=== PATIENT | female | born 1955 | race Caucasian/White ===

== ENCOUNTER → 2018-12-17 13:17 | Outpatient (CLI) | payer OTHER, SELFPAY | PROVIDERS: Family Provider Internal Medicine; PCP Internal Medicine; Visit Provider Internal Medicine | DX: M85.852 Other specified disorders of bone density and structure, left thigh (principal); E07.9 Disorder of thyroid, unspecified; Z78.0 Asymptomatic menopausal state | CPT/HCPCS: 77080 ==

== ENCOUNTER → 2019-10-08 15:25 | Outpatient (CLI) | payer OTHER, SELFPAY ==
--- NOTE | 2019-10-08 | DI.MG.S_ITS ---
BILATERAL DIGITAL SCREENING MAMMOGRAM 3D/2D WITH CAD: 10/08/2019 CLINICAL: Routine screening. Family history of breast cancer. Comparison is made to exams dated: 03/06/2018 mammogram, 03/09/2016 mammogram - [facility], and 09/18/2013 mammogram - [facility]. The tissue of both breasts is heterogeneously dense. This may lower the sensitivity of mammography. Current study was also evaluated with a Computer Aided Detection (CAD) system. There are benign calcifications in both breasts. No significant masses, calcifications, or other findings are seen in either breast. There has been no significant interval change. IMPRESSION: There is no mammographic evidence of malignancy. A 1 year screening mammogram is recommended. This exam was interpreted at Station ID: [id number]. NOTE: For mammograms, a report in lay terms will be sent to the patient. Approximately 15% of breast malignancies will not be visualized mammographically. In the management of a palpable breast mass, a negative mammogram must not discourage biopsy of a clinically suspicious lesion. Electronically Signed By: Triston oropeza/billy:10/08/2019 16:16:23 letter sent: Normal Exam ACR BI-RADS Category 2: Benign Finding(s) 3342F
== END ==
PROVIDERS: PCP Internal Medicine; Visit Provider Internal Medicine
DX: Z12.31 Encounter for screening mammogram for malignant neoplasm of breast (principal); Z80.3 Family history of malignant neoplasm of breast
CPT/HCPCS: 77063; 77067

== ENCOUNTER → 2019-12-18 19:24 | Outpatient (ROUT) | payer OTHER, SELFPAY ==
[2019-12-18 19:55] LABS: Add Manual Diff / Slide Review NO; Basophils Absolute Auto 100 /uL (0-100); Basophils Percent Auto 1.1 % (0-2); Eosinophils Absolute Auto 100 /uL (0-450); Eosinophils Percent Auto 2.3 % (2-4); Hemoglobin 13.4 g/dL (12.0-16.0); Lymphocytes Absolute Auto 1500 /uL (1100-4500); Lymphocytes Percent Auto 28.6 % (25-40); Mean Corpuscular HGB Conc 33.5 % (30-36); Mean Corpuscular Hemoglobin 31.2 PG (26-34); Mean Corpuscular Volume 93.1 fL (80-100); Monocytes Absolute Auto 500 /uL (0-900); Monocytes Percent Auto 9.8 % (3-14); Neutrophils Absolute Auto 3100 /uL (1500-7000); Neutrophils Percent Auto 58.2 % (50-75); Platelet Count 245 X10^3/uL (150-400); Red Cell Distribution Width 13.5 % (11.6-14.8); White Blood Cell Count 5.3 X10^3/uL (4.5-11.0)
[2019-12-18 20:02] LABS: Alanine Aminotransferase 16 IU/L (<35); Albumin 4.4 g/dL (3.5-5.0); Albumin Globulin Ratio 1.4 (1.0-2.8); Alkaline Phosphatase 69 U/L (38-126); Aspartate Aminotransferase 24 IU/L (14-36); BUN Creatinine Ratio 34.3 (6-22); Bilirubin Total 0.3 mg/dL (0.2-1.3); Blood Urea Nitrogen 24 mg/dL (7-17); C-Reactive Protein Quant < 0.5 mg/dL (<1.0); Calcium 9.9 mg/dL (8.4-10.2); Carbon Dioxide 29 mmol/L (22-32); Chloride 102 mmol/L (98-107); Cholesterol 212 mg/dL (140-199); Estimated Glomerular Filt Rate > 60.0 mL/min (>60); Globulin 3.2 g/dL (1.7-4.1); Glucose 85 mg/dL (80-110); HDL Cholesterol 78 mg/dL (40-60); HEMOLYSIS < 15 (0-50); LDL Cholesterol Calculated 108 mg/dL (<100); Potassium 4.4 mmol/L (3.4-5.1); Sodium 140 mmol/L (137-145); Total Protein 7.6 g/dL (6.3-8.2); Triglycerides 131 mg/dL (35-150)
[2019-12-18 20:30] LABS: TSH w/ Reflex to FT4 1.94 uIU/mL (0.47-4.68)
[2019-12-18 20:42] LABS: Erythrocyte Sedimentation Rate 7 MM/HR (0-20)
== END ==
PROVIDERS: PCP Internal Medicine; Visit Provider Internal Medicine
DX: Z00.00 Encounter for general adult medical examination without abnormal findings (principal); R53.83 Other fatigue; M35.3 Polymyalgia rheumatica
CPT/HCPCS: 80053; 80061; 84443; 85025; 85651; 86140

== ENCOUNTER → 2020-08-29 14:03 | Outpatient (CLI) | payer MEDICARE, SELFPAY ==
[2020-08-30 15:10] LABS: COVID19 Sendout Not Detected (Not Detect)
== END ==
PROVIDERS: PCP Internal Medicine; Visit Provider Physician Assistant
DX: Z01.812 Encounter for preprocedural laboratory examination (principal)
CPT/HCPCS: 87635

== ENCOUNTER 2020-09-01 08:32 | Day surgery (SDC) | payer MEDICARE, SELFPAY ==
--- NOTE | 2020-09-01 | PATH_ITS ---
[facility] Accession Number: [id number] . 01 Material submitted: . colon - ASCENDING COLON POLYP . 02 Diagnosis: Ascending Colon, Polyp, Biopsy: Sessile serrated adenoma. [facility] 09/06/2020 1256 Local . 02 Electronically signed: . Teressa Mckenna MD, Pathologist NPI- [id number] . 01 Gross description: . The specimen is received in formalin, labeled ascending colon polyp and consists of a 0.4 x 0.3 x 0.2 cm chairez fragment of soft tissue, which is entirely submitted in cassette A1. ([id number]) /[facility] 09/02/2020 1737 Local . 02 Pathologist provided ICD-10: D12.2 . 02 CPT . 256803 Performed at: 01 [facility] [address] [id number] MD Pro Palma MD Phone: [phone] Performed at: 02 [facility] [address] [place], [place] [id number] MD Teressa Mckenna MD Phone: [phone]
[2020-09-01 08:56] VITALS: BP 100/54; PULSE 62; RESP 16; TEMP 36.3; O2SAT 95; BMI 28.4
[2020-09-01] MEDS: SODIUM CHLORIDE 0.9% 1,000 ML 84 ML IV (09:06)
--- NOTE | 2020-09-01 09:42 | PM.PREOP ---
Pre-operative Note COVID-19 COVID-19 status: Negative Interval Note History & Physical reviewed/Exam performed by Physician: Yes Changes to H&P: No ASA Class (for procedural sedation): II
[2020-09-01] MEDS: MIDAZOLAM 5 MG/5 ML VIAL IV (09:49)
[2020-09-01] MEDS: fentaNYL 250 MCG/5 ML INJ IV (09:49)
--- NOTE | 2020-09-01 10:09 | PM.OP.ENDO ---
Operative Date/Time/Diagnoses Date of procedure: 09/01/20 Procedure & Clinicians Study performed: Colonoscopy with forceps polypectomy Moderate conscious sedation was administered by the endoscopy nurse and supervised by the endoscopist. The following parameters were monitored: Oxygen saturation, heart rate, blood pressure, and response to care. 4 mg midazolam and 100 mg fentanyl given. Same procedure as scheduled: Yes Indications: Personal history of colon polyps. Last colonoscopy was approximately 6 years ago. Procedure Notes Procedure in detail: Prior to the procedure, history and physical was performed, and patient medications and allergies were reviewed. Preprocedure nursing history and assessment was reviewed. Patient identification and proposed procedure were verified by the physician and nurse in the procedure room. The physical status of the patient was reassessed after the procedure. After informed consent was obtained including risks, benefits, and alternatives, the scope was passed under direct vision. Throughout the procedure, the patient's blood pressure, pulse, and oxygen saturations were monitored continuously. The colonoscope was introduced through the anus and advanced to the cecum as identified by the appendiceal orifice and ileocecal valve. The patient tolerated the procedure well. Bowel prep was deemed adequate to detect polyps greater than 5 mm. Perianal and digital rectal examination is unremarkable. Retroflexion in the rectum was unrevealing A few scattered small diverticuli were noted in the sigmoid colon A 2 mm sessile polyp was removed from the ascending colon with forceps and retrieved Impression: Sigmoid colon diverticulosis 2 mm ascending colon polyp removed Sedation minutes: 18 Complications: other (EBL minimal. no complications) Post-procedure Plan for aftercare: Follow-up pathology results Repeat colonoscopy in 5 years for screening purposes based on pathology results High fiber diet Resume home medications Patient has a contact number available for emergencies. The signs and symptoms of potential delayed complications were discussed with the patient. Return to normal activities tomorrow. Written discharge instructions were provided to the patient. Discharge home with escort
[2020-09-01 10:12] VITALS: BP 105/38; PULSE 67; RESP 12; TEMP 36.4; O2SAT 94
[2020-09-01 10:17] VITALS: BP 96/40; PULSE 56; RESP 17; TEMP 36.4; O2SAT 93
[2020-09-01 10:23] VITALS: BP 103/49; PULSE 62; RESP 15; TEMP 36.4; O2SAT 96
[2020-09-01 10:25] VITALS: BP 111/53; PULSE 59; RESP 16; TEMP 36.4; O2SAT 94
[2020-09-01 10:50] VITALS: BP 105/65; PULSE 54; RESP 16; TEMP 36.8; O2SAT 95
--- NOTE | 2020-09-01 11:24 | SUR.PHASEII ---
Pt arrived from PACU, wanted to rest and wake up. Allowed to rest in Phase II for about 15 min and then began d/c process.
--- NOTE | 2020-09-01 13:24 | P.HP_ITS ---
History of Present Illness History of Present Illness Chief complaint: [facility] Patient History Family & Social History Social History: household members spouse Tobacco & Substance use: Smoking Status Never smoker alcohol intake frequency 0-2 drinks per day Substance Use Type does not use Meds Home Medications and Allergies Home Medications Medication Instructions Recorded Confirmed Type glucosamine sulfate [Genicin] 500 mg PO Q DAY #0 12/12/16 09/01/20 History aspirin 81 mg PO QDAY #0 01/02/17 09/01/20 History fluoxetine 20 mg PO DAILY 09/01/20 09/01/20 History levothyroxine 88 mcg PO DAILY 09/01/20 09/01/20 History Allergies Allergy/AdvReac Type Severity Reaction Status Date / Time latex [LATEX] Allergy Severe Blister Verified 09/01/20 08:45 adhesive Allergy Intermediate Rash Verified 09/01/20 08:47 rivaroxaban [From Xarelto] Allergy Intermediate Verified 09/01/20 08:47 tramadol Allergy Intermediate Vomiting Verified 09/01/20 08:47 Review of Systems Review of Systems ROS: Yes All systems reviewed with the patient and are negative except as otherwise documented Exam Vital Signs (past 8 hours): - 09/01/20 08:56 09/01/20 10:12 09/01/20 10:17 Temperature 97.3 F L 97.5 F L 97.5 F L Pulse Rate 62 67 56 L Respiratory Rate 16 12 17 Blood Pressure 100/54 L 105/38 L 96/40 L Pulse Oximetry 95 94 93 09/01/20 10:23 09/01/20 10:25 09/01/20 10:50 Temperature 97.6 F 97.6 F 98.2 F Pulse Rate 62 59 L 54 L Respiratory Rate 15 16 16 Blood Pressure 103/49 L 111/53 L 105/65 Pulse Oximetry 96 94 95 Oxygen Delivery Method Room Air Oxygen Flow Rate 0 Narrative Exam Narrative: Awake alert and oriented x3, pupils equal round reactive to light, oropharynx clear, heart regular rate and rhythm, lungs clear to auscultation bilaterally, abdomen nontender and nondistended, extremities without edema, no gross neurologic deficits noted Assessment & Plan Assessment & Plan narrative: Colon cancer screening for colonoscopy COVID-19 COVID-19 status: Negative
== END 2020-09-01 11:00 | disposition home or self-care (01) ==
PROVIDERS: PCP Internal Medicine; Referring Provider Internal Medicine; Visit Provider Internal Medicine
PROC: 0DJD8ZZ Inspection of Lower Intestinal Tract, Via Natural or Artificial Opening Endoscopic (ICD-10-PCS; CPT 45378; principal; 2020-09-01 09:30)
DX: Z12.11 Encounter for screening for malignant neoplasm of colon (principal); D12.2 Benign neoplasm of ascending colon; K57.30 Diverticulosis of large intestine without perforation or abscess without bleeding; Z86.010 Personal history of colon polyps; Z83.71 Family history of colonic polyps
CPT/HCPCS: 45380; J2250; J3010

== ENCOUNTER → 2020-12-09 16:32 | Outpatient (CLI) | payer MEDICARE, SELFPAY ==
[2020-12-09] MEDS: COVID-19 VACC #1, MRNA(MOD) 100 MCG/0.5 ML VIAL IM (16:45)
== END ==
PROVIDERS: PCP Internal Medicine; Visit Provider Internal Medicine
DX: Z23 Encounter for immunization (principal)
CPT/HCPCS: 0011A; 91301

== ENCOUNTER → 2020-12-22 20:34 | Outpatient (ROUT) | payer MEDICARE, SELFPAY ==
[2020-12-22 20:54] LABS: Alanine Aminotransferase 16 IU/L (<35); Albumin 4.2 g/dL (3.5-5.0); Albumin Globulin Ratio 1.4 (1.0-2.8); Alkaline Phosphatase 74 U/L (38-126); Aspartate Aminotransferase 26 IU/L (14-36); Bilirubin Total 0.2 mg/dL (0.2-1.3); Blood Urea Nitrogen 22 mg/dL (7-17); Calcium 9.8 mg/dL (8.4-10.2); Carbon Dioxide 32 mmol/L (22-32); Chloride 102 mmol/L (98-107); Cholesterol 178 mg/dL (140-199); Estimated Glomerular Filt Rate > 60.0 mL/min (>60); Globulin 2.9 g/dL (1.7-4.1); Glucose 91 mg/dL (80-110); HDL Cholesterol 50 mg/dL (40-60); HEMOLYSIS < 15 (0-50); LDL Cholesterol Calculated 100 mg/dL (<100); Potassium 4.9 mmol/L (3.4-5.1); Sodium 137 mmol/L (137-145); Total Protein 7.1 g/dL (6.3-8.2); Triglycerides 141 mg/dL (35-150)
[2020-12-22 21:24] LABS: TSH w/ Reflex to FT4 0.72 uIU/mL (0.47-4.68)
[2020-12-22 22:18] LABS: Add Manual Diff / Slide Review NO; Basophils Absolute Auto 100 /uL (0-100); Eosinophils Absolute Auto 100 /uL (0-450); Eosinophils Percent Auto 1.3 % (2-4); Hematocrit 40.9 % (36-46); Hemoglobin 12.9 g/dL (12.0-16.0); Lymphocytes Absolute Auto 1500 /uL (1100-4500); Lymphocytes Percent Auto 23.9 % (25-40); Mean Corpuscular HGB Conc 31.6 % (30-36); Mean Corpuscular Hemoglobin 29.8 PG (26-34); Mean Corpuscular Volume 94.2 fL (80-100); Monocytes Absolute Auto 500 /uL (0-900); Monocytes Percent Auto 7.9 % (3-14); Neutrophils Absolute Auto 4100 /uL (1500-7000); Neutrophils Percent Auto 65.9 % (50-75); Platelet Count 232 X10^3/uL (150-400); Red Blood Cell Count 4.33 X10^6/uL (4.0-5.2); Red Cell Distribution Width 13.2 % (11.6-14.8); White Blood Cell Count 6.2 X10^3/uL (4.5-11.0)
== END ==
PROVIDERS: PCP Internal Medicine; Visit Provider Internal Medicine
DX: E55.9 Vitamin D deficiency, unspecified (principal); R42 Dizziness and giddiness; E03.9 Hypothyroidism, unspecified; E78.2 Mixed hyperlipidemia
CPT/HCPCS: 80053; 80061; 82306; 84443; 85025

== ENCOUNTER → 2020-12-27 15:32 | Outpatient (CLI) | payer MEDICARE, SELFPAY ==
--- NOTE | 2020-12-27 15:37 | DI.MG.S_ITS ---
BILATERAL DIGITAL SCREENING MAMMOGRAM 3D/2D WITH CAD: 12/27/2020 CLINICAL: Routine screening. Family history of breast cancer. Comparison is made to exams dated: 10/08/2019 mammogram, 03/06/2018 mammogram, and 03/09/2016 mammogram - [facility]. The tissue of both breasts is heterogeneously dense. This may lower the sensitivity of mammography. Current study was also evaluated with a Computer Aided Detection (CAD) system. There are benign calcifications in both breasts. No significant masses, calcifications, or other findings are seen in either breast. There has been no significant interval change. IMPRESSION: BENIGN There is no mammographic evidence of malignancy. A 1 year screening mammogram is recommended. This exam was interpreted at Station ID: [id number]. NOTE: For mammograms, a report in lay terms will be sent to the patient. Approximately 15% of breast malignancies will not be visualized mammographically. In the management of a palpable breast mass, a negative mammogram must not discourage biopsy of a clinically suspicious lesion. Electronically Signed By: Pro daley/billy:12/27/2020 16:01:40 letter sent: Normal Exam ACR BI-RADS Category 2: Benign Finding(s) 3342F
== END ==
PROVIDERS: PCP Internal Medicine; Referring Provider Internal Medicine; Visit Provider Internal Medicine
DX: Z12.31 Encounter for screening mammogram for malignant neoplasm of breast (principal); Z80.3 Family history of malignant neoplasm of breast
CPT/HCPCS: 77063; 77067

== ENCOUNTER → 2021-01-06 15:58 | Outpatient (CLI) | payer MEDICARE, SELFPAY ==
[2021-01-06] MEDS: COVID-19 VACC #2, MRNA(MOD) 100 MCG/0.5 ML VIAL IM (16:07)
== END ==
PROVIDERS: PCP Internal Medicine; Visit Provider Internal Medicine
DX: Z23 Encounter for immunization (principal)
CPT/HCPCS: 0012A; 91301

== ENCOUNTER → 2021-08-22 14:44 | Outpatient (CLI) | payer MEDICARE, SELFPAY ==
--- NOTE | 2021-08-22 | DI.RAD.S_ITS ---
PROCEDURE: XR SHOULDER LT MIN 2V INDICATIONS: ROTATOR CUFF TENDONITIS TECHNIQUE: 3 views of the shoulder were acquired. COMPARISON: [facility] [place], CR, XR SHOULDER MIN 2VW RT, 09/22/2015, 14:31. FINDINGS: Bones: No fractures or dislocations. There is mild acromioclavicular joint degeneration. There is slight lateral downsloping of the acromion. No suspicious bony lesions. Visualized ribs appear intact. Soft tissues: No suspicious soft tissue calcifications. IMPRESSION: 1. Mild acromioclavicular joint degeneration. 2. Slight lateral downsloping of the acromion may be associated with rotator cuff pathology. Dictated by: Pro Nelson M.D. on 08/22/2021 at 17:14 Approved by: Pro Nelson M.D. on 08/22/2021 at 17:14
== END ==
PROVIDERS: PCP Internal Medicine; Referring Provider Internal Medicine; Visit Provider Internal Medicine
DX: M75.82 Other shoulder lesions, left shoulder (principal); M19.012 Primary osteoarthritis, left shoulder
CPT/HCPCS: 73030

== ENCOUNTER 2021-09-09 14:30 | Outpatient (RCR) | payer MEDICARE, SELFPAY ==
--- NOTE | 2021-08-23 12:45 | PT.OPPOC ---
Physical, Occupational & Speech Therapy At [facility] Current Diagnoses Pain in left shoulder (08/23/21) Stiffness of left shoulder, not elsewhere classified (08/23/21) Other shoulder lesions, left shoulder (08/23/21) Unspecified injury of muscle(s) and tendon(s) of the rotator cuff of left shoulder, subsequent encounter (08/23/21) Visit Care Team Role Provider Type Balwinder Ocasio MD Primary Care Provider Physician Specialty: Internal Medicine Address: [address] [place] [address] Email: [email or web address] Arnaldo Chow MD Attending Provider Physician Referring Provider Specialty: Internal Medicine Address: [address] [place] [address], [facility] Email: [email or web address] Plan Of Care PT-OP-T Assessment and Plan Start: 08/23/21 17:28 Freq: Status: Active Protocol: Document 08/23/21 12:00 DCW (Rec: 08/23/21 17:48 DCW [id number]) Physical Therapy Assessment Rehab Potential Rehabilitation Potential Good Evaluation Complexity Number of Personal Factors/Comorbidities 1-2 Number of Body Systems Impaired 3 Clinical Presentation at Evaluation Evolving Impairments Impairments Functional Activities, Functional Mobility,Pain,ROM, Strength,Tone Goals Three Impairment Pt unable to don/doff bra independently due to shoulder pain Fdc Goal (LTG) Pt to report ability to hook and unhook her bra without her 's assistance and no increased pain. LTG Duration 10/23/21 Two Impairment Pt experiences catching and popping in left shoulder with overhead activity Fdc Goal (LTG) Pt to demonstrate full ROM with no instances of joint catching or grinding LTG Duration 10/23/21 One Impairment Pt does not have an appropriate home exercise program Short Term Goal (STG) Pt to be independent and compliant with an appropriate HEP STG Duration 09/23/21 Assessment Summary Assessment Pt presents with signs and symptoms consistent with a possible sprain or tear of her left shoulder, potentially the glenoid labrum. Pt's subjective reports of her arm catching and sticking with overhead motion and joint grinding, as well as positive tests including apprehension test, Lopez Humble, empty can, anterior instability, lift-off, and belly press, which can be suggestive of labral involvement. Pt may benefit from skilled therapy including strengthening and improving joint stability, however advanced imaging may be beneficial if pt does not progress to rule in/out a tear or structural damage. Additionally, pt having significant tone throughout left cervical spine and upper trap, most likely protective spasming due to shoulder injury. Physical Therapy Plan Frequency and Duration Frequency of Treatment 2x/Week Duration of Treatment Two months Plan of Care Start Date 08/23/21 Plan of Care End Date 10/23/21 Therapeutic Interventions Therapeutic Interventions Home Exercise Program,Joint Mobilizations,Manual Therapy, Patient/Caregiver Education, Self-Care/Home Management,Soft Tissue Mobilization,Taping, Therapeutic Activities, Therapeutic Exercises Modalities Cold Pack/Ice Massage,Electric Stimulation,Hot Packs, Ultrasound Next Visit Focus/Plan Next Note Type Treatment Note Next Visit Plan Cervical/upper trap STM, L shoulder strengthening, joint stabilization Plan of Care Dates Plan of Care Start Date 08/23/21 Plan of Care End Date 10/23/21 Electronically Signed by: Delfin Rodriguez, PT 08/24/21 [id number] Please Sign and Return: I have reviewed this Plan of Care and certify that the skilled therapy services above are required to meet the patient?s needs. Physician Signature Date Printed Name and Credentials Clinical Instructor Signature Printed Name and Credentials
--- NOTE | 2021-08-23 12:45 | PT.OIE ---
Current Diagnoses Pain in left shoulder (08/23/21) Stiffness of left shoulder, not elsewhere classified (08/23/21) Other shoulder lesions, left shoulder (08/23/21) Unspecified injury of muscle(s) and tendon(s) of the rotator cuff of left shoulder, subsequent encounter (08/23/21) Visit Care Team Role Provider Type Balwinder Ocasio MD Primary Care Provider Physician Specialty: Internal Medicine Address: [address] [place] [address], [id number] Email: [email or web address] Arnaldo Chow MD Attending Provider Physician Referring Provider Specialty: Internal Medicine Address: [address] [place] [address], [address] Email: [email or web address] Physical Therapy Initial Evaluation PT-OP-A Visit Information Start: 08/23/21 17:28 Freq: Status: Active Protocol: Document 08/23/21 12:00 DCW (Rec: 08/23/21 17:32 [facility] [id number]) Out-Patient Physical Therapy Visit Information Visit Information Visit Type Initial Evaluation Visit Start Time 12:00 Visit Stop Time 12:40 Total Visit Minutes 40 Visit Number 1 Number of BARREL RIFLER Visits 0 Evaluation Information Evaluation Date 08/23/21 PT-OP-B Current Condition Start: 08/23/21 17:28 Freq: Status: Active Protocol: Document 08/23/21 12:00 DCW (Rec: 08/23/21 17:53 DC [id number]) Current Condition History of Current Condition Onset Date Two months Current Complaints L shoulder pain History of Current Condition Pt is a 66 year old female presenting with a two month history of left shoulder pain. Pt reports insidious onset, but has been having a lot of pain and popping with random left arm movements, most notably overhead or reaching back. Pt reports she has had to have her hook and unhook her bra. Pt feels the pain is getting worse. Also notes recent increased left neck pain, feels muscles are tight. Pt notes that her arm feels like it gets stuck when lifting overhead. Prior Treatments and Tests L shoulder x-ray: IMPRESSION: 1. Mild acromioclavicular joint degeneration. 2. Slight lateral downsloping of the acromion may be associated with rotator cuff pathology. Per Pro Nelson M.D. on PT-OP-C Subjective Start: 08/23/21 17:28 Freq: Status: Active Protocol: Document 08/23/21 12:00 DCW (Rec: 08/23/21 17:32 DCW [id number]) OP-PT Subjective Patient Comments Patient Comments I'm just not sure what I can do with it. I don't want to get let it go and get worse, but I also don't want to use it and make it worse. Patient Reported Progress Worse Patient Questionnaires Quick Dash- Upper Extremity Quick Dash UE Score 17.5% OP-PT Pain Assessment Pain Assessment Grid Paper Pain Assessment Grid Completed Yes Location Left Shoulder Intensity 6 Scale Used Numeric (0 - 10) Pain Aggravating Factors Activity PT-OP-F Manual Assessment Start: 08/23/21 17:28 Freq: Status: Active Protocol: Document 08/23/21 12:00 DCW (Rec: 08/24/21 15:33 DCW [id number]) Manual Assessments Soft Tissue Assessment Soft Tissue Mobility Assessment General tenderness to palpation along entire left shoulder girdle, increasing tone along left upper trap and cervical paraspinals Joint Mobility Assessment Joint Mobility Assessment Grinding/popping in left shoulder with all movements, especially overhead PT-OP-K Range of Motion Start: 08/23/21 17:28 Freq: Status: Active Protocol: Document 08/23/21 12:00 DCW (Rec: 08/24/21 15:33 DCW [id number]) Shoulder Goniometric Range of Motion Shoulder Left Active Shoulder ROM WFL No Testing Position Sitting Flexion 110 Abduction 180 Internal Rotation Behind Back (text) Left SI joint Comments Pain at end range in all positions Shoulder ROM Limitations Shoulder ROM Limitations Bony Restriction,Muscle Weakness,Pain PT-OP-L Special Tests Start: 08/23/21 17:28 Freq: Status: Active Protocol: Document 08/23/21 12:00 DCW (Rec: 08/24/21 15:33 DCW [id number]) Special Tests Shoulder Special Tests Painful arc Test Results Positive left Passive ER Rotator Cuff Test Results Negative Lift-Off Rotator Cuff Test Results Unable to get left into position Lopez Humble Impingement Test Results Positive left Grind Labrum Test Results Positive left Empty Can Test Results Positive left Clunk Test Test Results Positive left Belly Press Test Results Positive left Apprehension Test Test Results Severely positive left PT-OP-M Strength Start: 08/23/21 17:28 Freq: Status: Active Protocol: Document 08/23/21 12:00 DCW (Rec: 08/24/21 15:33 DCW [id number]) Shoulder Strength Shoulder Manual Muscle Testing Right Flexion 4+ Good+ Abduction (C5) 4+ Good+ External Rotation 4+ Good+ Internal Rotation 4+ Good+ Left Flexion 3 Fair Abduction (C5) 3+ Fair+ External Rotation 4 Good Internal Rotation 4 Good PT-OP-T Assessment and Plan Start: 08/23/21 17:28 Freq: Status: Active Protocol: Document 08/23/21 12:00 DCW (Rec: 08/23/21 17:48 DCW [id number]) Physical Therapy Assessment Rehab Potential Rehabilitation Potential Good Evaluation Complexity Number of Personal Factors/Comorbidities 1-2 Number of Body Systems Impaired 3 Clinical Presentation at Evaluation Evolving Impairments Impairments Functional Activities, Functional Mobility,Pain,ROM, Strength,Tone Goals Three Impairment Pt unable to don/doff bra independently due to shoulder pain Case Management Specialist Goal (LTG) Pt to report ability to hook and unhook her bra without her 's assistance and no increased pain. LTG Duration 10/23/21 Two Impairment Pt experiences catching and popping in left shoulder with overhead activity Case Management Specialist Goal (LTG) Pt to demonstrate full ROM with no instances of joint catching or grinding LTG Duration 10/23/21 One Impairment Pt does not have an appropriate home exercise program Short Term Goal (STG) Pt to be independent and compliant with an appropriate HEP STG Duration 09/23/21 Assessment Summary Assessment Pt presents with signs and symptoms consistent with a possible sprain or tear of her left shoulder, potentially the glenoid labrum. Pt's subjective reports of her arm catching and sticking with overhead motion and joint grinding, as well as positive tests including apprehension test, Lopez Humble, empty can, anterior instability, lift-off, and belly press, which can be suggestive of labral involvement. Pt may benefit from skilled therapy including strengthening and improving joint stability, however advanced imaging may be beneficial if pt does not progress to rule in/out a tear or structural damage. Additionally, pt having significant tone throughout left cervical spine and upper trap, most likely protective spasming due to shoulder injury. Physical Therapy Plan Frequency and Duration Frequency of Treatment 2x/Week Duration of Treatment Two months Plan of Care Start Date 08/23/21 Plan of Care End Date 10/23/21 Therapeutic Interventions Therapeutic Interventions Home Exercise Program,Joint Mobilizations,Manual Therapy, Patient/Caregiver Education, Self-Care/Home Management,Soft Tissue Mobilization,Taping, Therapeutic Activities, Therapeutic Exercises Modalities Cold Pack/Ice Massage,Electric Stimulation,Hot Packs, Ultrasound Next Visit Focus/Plan Next Note Type Treatment Note Next Visit Plan Cervical/upper trap STM, L shoulder strengthening, joint stabilization
--- NOTE | 2021-08-25 12:44 | PT.OTN ---
Current Diagnoses Pain in left shoulder (08/25/21) Stiffness of left shoulder, not elsewhere classified (08/25/21) Other shoulder lesions, left shoulder (08/25/21) Unspecified injury of muscle(s) and tendon(s) of the rotator cuff of left shoulder, subsequent encounter (08/25/21) Physical Therapy Treatment Note PT-OP-A Visit Information Start: 08/23/21 17:28 Freq: Status: Active Protocol: Document 08/25/21 12:04 DCW (Rec: 08/25/21 12:44 DCW [id number]) Out-Patient Physical Therapy Visit Information Visit Information Visit Type Treatment Note Visit Start Time 12:04 Visit Stop Time 12:45 Total Visit Minutes 41 Visit Number 2 Number of FIRE PROTECTION EQUIPMENT TECHNICIAN Visits 0 Evaluation Information Evaluation Date 08/23/21 PT-OP-B Current Condition Start: 08/23/21 17:28 Freq: Status: Active Protocol: Document 08/23/21 12:00 DCW (Rec: 08/23/21 17:53 DCW [id number]) Current Condition History of Current Condition Onset Date Two months Current Complaints L shoulder pain History of Current Condition Pt is a 66 year old female presenting with a two month history of left shoulder pain. Pt reports insidious onset, but has been having a lot of pain and popping with random left arm movements, most notably overhead or reaching back. Pt reports she has had to have her hook and unhook her bra. Pt feels the pain is getting worse. Also notes recent increased left neck pain, feels muscles are tight. Pt notes that her arm feels like it gets stuck when lifting overhead. Prior Treatments and Tests L shoulder x-ray: IMPRESSION: 1. Mild acromioclavicular joint degeneration. 2. Slight lateral downsloping of the acromion may be associated with rotator cuff pathology. Per Pro Nelson M.D. on PT-OP-C Subjective Start: 08/23/21 17:28 Freq: Status: Active Protocol: Document 08/25/21 12:04 DCW (Rec: 08/25/21 12:44 DCW [id number]) OP-PT Subjective Patient Comments Patient Comments Pt unchanged since eval, still very sore with most left arm movements. PT-OP-F Manual Assessment Start: 08/23/21 17:28 Freq: Status: Active Protocol: Document 08/23/21 12:00 DCW (Rec: 08/24/21 15:33 DCW [id number]) Manual Assessments Soft Tissue Assessment Soft Tissue Mobility Assessment General tenderness to palpation along entire left shoulder girdle, increasing tone along left upper trap and cervical paraspinals Joint Mobility Assessment Joint Mobility Assessment Grinding/popping in left shoulder with all movements, especially overhead PT-OP-K Range of Motion Start: 08/23/21 17:28 Freq: Status: Active Protocol: Document 08/23/21 12:00 DCW (Rec: 08/24/21 15:33 DCW [id number]) Shoulder Goniometric Range of Motion Shoulder Left Active Shoulder ROM WFL No Testing Position Sitting Flexion 110 Abduction 180 Internal Rotation Behind Back (text) Left SI joint Comments Pain at end range in all positions Shoulder ROM Limitations Shoulder ROM Limitations Bony Restriction,Muscle Weakness,Pain PT-OP-L Special Tests Start: 08/23/21 17:28 Freq: Status: Active Protocol: Document 08/23/21 12:00 DCW (Rec: 08/24/21 15:33 DCW [id number]) Special Tests Shoulder Special Tests Painful arc Test Results Positive left Passive ER Rotator Cuff Test Results Negative Lift-Off Rotator Cuff Test Results Unable to get left into position Lopez Humble Impingement Test Results Positive left Grind Labrum Test Results Positive left Empty Can Test Results Positive left Clunk Test Test Results Positive left Belly Press Test Results Positive left Apprehension Test Test Results Severely positive left PT-OP-M Strength Start: 08/23/21 17:28 Freq: Status: Active Protocol: Document 08/23/21 12:00 DCW (Rec: 08/24/21 15:33 DCW [id number]) Shoulder Strength Shoulder Manual Muscle Testing Right Flexion 4+ Good+ Abduction (C5) 4+ Good+ External Rotation 4+ Good+ Internal Rotation 4+ Good+ Left Flexion 3 Fair Abduction (C5) 3+ Fair+ External Rotation 4 Good Internal Rotation 4 Good PT-OP-Q Treatments Start: 08/23/21 17:28 Freq: Status: Active Protocol: Document 08/25/21 12:04 DCW (Rec: 08/25/21 12:44 DCW [id number]) Cardio Equipment Upper Body Ergometer (UBE) Duration (Minutes) 5 RPM 60 Seat Position 12 Height 2.5 Therapeutic Exercises Supine Exercises 1 Supine Exercise Name Serratus punch Side bilateral Standing Exercises 3 Standing Exercise Name Shoulder IR/ER Side bilateral Resistance Lv 3 Equipment Used T-band 2 Standing Exercise Name Rows Side bilateral Resistance Lv 3 Equipment Used T-band 1 Standing Exercise Name Shoulder extension Side bilateral Resistance Lv 3 Equipment Used T-band Manual Therapy Treatment Soft Tissue Mobilization 1 Body Location Upper trap, Scalenes, SCM, L>R Joint Mobilizations 1 Joint L GH Direction Inferior Grade III Body Position Supine PT-OP-T Assessment and Plan Start: 08/23/21 17:28 Freq: Status: Active Protocol: Document 08/25/21 12:04 DCW (Rec: 08/25/21 12:44 MNW [id number]) Physical Therapy Assessment Impairments Impairments Functional Activities, Functional Mobility,Pain,ROM, Strength,Tone Goals Three Impairment Pt unable to don/doff bra independently due to shoulder pain Longterm Goal (LTG) Pt to report ability to hook and unhook her bra without her 's assistance and no increased pain. LTG Duration 10/23/21 Two Impairment Pt experiences catching and popping in left shoulder with overhead activity Longterm Goal (LTG) Pt to demonstrate full ROM with no instances of joint catching or grinding LTG Duration 10/23/21 One Impairment Pt does not have an appropriate home exercise program Short Term Goal (STG) Pt to be independent and compliant with an appropriate HEP STG Duration 09/23/21 Assessment Summary Assessment Pt tolerated treatment fairly well, at one point reached back to put her jacket on the back of her chair, which caused significant increased pain, but pt was able to continue therapy with no interference. Physical Therapy Plan Frequency and Duration Frequency of Treatment 2x/Week Duration of Treatment Two months Plan of Care Start Date 08/23/21 Plan of Care End Date 10/23/21 Therapeutic Interventions Therapeutic Interventions Home Exercise Program,Joint Mobilizations,Manual Therapy, Patient/Caregiver Education, Self-Care/Home Management,Soft Tissue Mobilization,Taping, Therapeutic Activities, Therapeutic Exercises Modalities Cold Pack/Ice Massage,Electric Stimulation,Hot Packs, Ultrasound Next Visit Focus/Plan Next Note Type Treatment Note Next Visit Plan Cervical/upper trap STM, L shoulder strengthening, joint stabilization
--- NOTE | 2021-08-31 12:45 | PT.OTN ---
Current Diagnoses Pain in left shoulder (08/31/21) Stiffness of left shoulder, not elsewhere classified (08/31/21) Other shoulder lesions, left shoulder (08/31/21) Unspecified injury of muscle(s) and tendon(s) of the rotator cuff of left shoulder, subsequent encounter (08/31/21) Physical Therapy Treatment Note PT-OP-A Visit Information Start: 08/23/21 17:28 Freq: Status: Active Protocol: Document 08/31/21 12:03 DCW (Rec: 08/31/21 12:45 DCW [id number]) Out-Patient Physical Therapy Visit Information Visit Information Visit Type Treatment Note Visit Start Time 12:03 Visit Stop Time 12:45 Total Visit Minutes 42 Visit Number 3 Number of RESPIRATORY CARE PRACTITIONER Visits 0 Evaluation Information Evaluation Date 08/23/21 PT-OP-B Current Condition Start: 08/23/21 17:28 Freq: Status: Active Protocol: Document 08/23/21 12:00 DCW (Rec: 08/23/21 17:53 DCW [id number]) Current Condition History of Current Condition Onset Date Two months Current Complaints L shoulder pain History of Current Condition Pt is a 66 year old female presenting with a two month history of left shoulder pain. Pt reports insidious onset, but has been having a lot of pain and popping with random left arm movements, most notably overhead or reaching back. Pt reports she has had to have her hook and unhook her bra. Pt feels the pain is getting worse. Also notes recent increased left neck pain, feels muscles are tight. Pt notes that her arm feels like it gets stuck when lifting overhead. Prior Treatments and Tests L shoulder x-ray: IMPRESSION: 1. Mild acromioclavicular joint degeneration. 2. Slight lateral downsloping of the acromion may be associated with rotator cuff pathology. Per Pro Nelson M.D. on PT-OP-C Subjective Start: 08/23/21 17:28 Freq: Status: Active Protocol: Document 08/31/21 12:03 DCW (Rec: 08/31/21 12:45 DCW [id number]) OP-PT Subjective Patient Comments Patient Comments I guess it's a little better. I'm trying so hard to not move it in a particular way that makes it pop. PT-OP-F Manual Assessment Start: 08/23/21 17:28 Freq: Status: Active Protocol: Document 08/23/21 12:00 DCW (Rec: 08/24/21 15:33 DCW [id number]) Manual Assessments Soft Tissue Assessment Soft Tissue Mobility Assessment General tenderness to palpation along entire left shoulder girdle, increasing tone along left upper trap and cervical paraspinals Joint Mobility Assessment Joint Mobility Assessment Grinding/popping in left shoulder with all movements, especially overhead PT-OP-K Range of Motion Start: 08/23/21 17:28 Freq: Status: Active Protocol: Document 08/23/21 12:00 DCW (Rec: 08/24/21 15:33 DCW [id number]) Shoulder Goniometric Range of Motion Shoulder Left Active Shoulder ROM WFL No Testing Position Sitting Flexion 110 Abduction 180 Internal Rotation Behind Back (text) Left SI joint Comments Pain at end range in all positions Shoulder ROM Limitations Shoulder ROM Limitations Bony Restriction,Muscle Weakness,Pain PT-OP-L Special Tests Start: 08/23/21 17:28 Freq: Status: Active Protocol: Document 08/23/21 12:00 DCW (Rec: 08/24/21 15:33 DCW [id number]) Special Tests Shoulder Special Tests Painful arc Test Results Positive left Passive ER Rotator Cuff Test Results Negative Lift-Off Rotator Cuff Test Results Unable to get left into position Lopez Humble Impingement Test Results Positive left Grind Labrum Test Results Positive left Empty Can Test Results Positive left Clunk Test Test Results Positive left Belly Press Test Results Positive left Apprehension Test Test Results Severely positive left PT-OP-M Strength Start: 08/23/21 17:28 Freq: Status: Active Protocol: Document 08/23/21 12:00 DCW (Rec: 08/24/21 15:33 DCW [id number]) Shoulder Strength Shoulder Manual Muscle Testing Right Flexion 4+ Good+ Abduction (C5) 4+ Good+ External Rotation 4+ Good+ Internal Rotation 4+ Good+ Left Flexion 3 Fair Abduction (C5) 3+ Fair+ External Rotation 4 Good Internal Rotation 4 Good PT-OP-Q Treatments Start: 08/23/21 17:28 Freq: Status: Active Protocol: Document 08/31/21 12:03 DCW (Rec: 08/31/21 12:45 DCW [id number]) Cardio Equipment Upper Body Ergometer (UBE) Duration (Minutes) 5 RPM 60 Seat Position 12 Height 2.5 Therapeutic Exercises Sitting Exercises 1 Sitting Exercise Name Pulleys - GH Flexion Standing Exercises 3 Standing Exercise Name Shoulder IR/ER Side bilateral Resistance Lv 3 Equipment Used T-band 2 Standing Exercise Name Rows Side bilateral Resistance Lv 3 Equipment Used T-band 1 Standing Exercise Name Shoulder extension Side bilateral Resistance Lv 3 Equipment Used T-band Manual Therapy Treatment Soft Tissue Mobilization 1 Body Location Upper trap, Scalenes, SCM, L>R Joint Mobilizations 1 Joint L GH Direction Inferior Grade III Body Position Supine PT-OP-T Assessment and Plan Start: 08/23/21 17:28 Freq: Status: Active Protocol: Document 08/31/21 12:03 DCW (Rec: 08/31/21 12:45 DCW [id number]) Physical Therapy Assessment Impairments Impairments Functional Activities, Functional Mobility,Pain,ROM, Strength,Tone Goals Three Impairment Pt unable to don/doff bra independently due to shoulder pain Shelter Goal (LTG) Pt to report ability to hook and unhook her bra without her 's assistance and no increased pain. LTG Duration 10/23/21 Two Impairment Pt experiences catching and popping in left shoulder with overhead activity Shelter Goal (LTG) Pt to demonstrate full ROM with no instances of joint catching or grinding LTG Duration 10/23/21 One Impairment Pt does not have an appropriate home exercise program Short Term Goal (STG) Pt to be independent and compliant with an appropriate HEP STG Duration 09/23/21 Assessment Summary Assessment Pt did note that she occasionally gets vertigo when just sitting around, think it may be associated with her neck pain/tone. Focused mainly on manual work on shoulder and neck. Physical Therapy Plan Frequency and Duration Frequency of Treatment 2x/Week Duration of Treatment Two months Plan of Care Start Date 08/23/21 Plan of Care End Date 10/23/21 Therapeutic Interventions Therapeutic Interventions Home Exercise Program,Joint Mobilizations,Manual Therapy, Patient/Caregiver Education, Self-Care/Home Management,Soft Tissue Mobilization,Taping, Therapeutic Activities, Therapeutic Exercises Modalities Cold Pack/Ice Massage,Electric Stimulation,Hot Packs, Ultrasound Next Visit Focus/Plan Next Note Type Treatment Note Next Visit Plan Cervical/upper trap STM, L shoulder strengthening, joint stabilization
--- NOTE | 2021-09-09 15:17 | PT.OTN ---
Current Diagnoses Pain in left shoulder (09/09/21) Stiffness of left shoulder, not elsewhere classified (09/09/21) Other shoulder lesions, left shoulder (09/09/21) Unspecified injury of muscle(s) and tendon(s) of the rotator cuff of left shoulder, subsequent encounter (09/09/21) Physical Therapy Treatment Note PT-OP-A Visit Information Start: 08/23/21 17:28 Freq: Status: Active Protocol: Document 09/09/21 14:30 DCW (Rec: 09/09/21 15:17 DCW [id number]) Out-Patient Physical Therapy Visit Information Visit Information Visit Type Treatment Note Visit Start Time 14:30 Visit Stop Time 15:00 Total Visit Minutes 30 Visit Number 4 Number of WEB PAGE DEVELOPER Visits 0 Evaluation Information Evaluation Date 08/23/21 PT-OP-B Current Condition Start: 08/23/21 17:28 Freq: Status: Active Protocol: Document 08/23/21 12:00 DCW (Rec: 08/23/21 17:53 DCW [id number]) Current Condition History of Current Condition Onset Date Two months Current Complaints L shoulder pain History of Current Condition Pt is a 66 year old female presenting with a two month history of left shoulder pain. Pt reports insidious onset, but has been having a lot of pain and popping with random left arm movements, most notably overhead or reaching back. Pt reports she has had to have her hook and unhook her bra. Pt feels the pain is getting worse. Also notes recent increased left neck pain, feels muscles are tight. Pt notes that her arm feels like it gets stuck when lifting overhead. Prior Treatments and Tests L shoulder x-ray: IMPRESSION: 1. Mild acromioclavicular joint degeneration. 2. Slight lateral downsloping of the acromion may be associated with rotator cuff pathology. Per Pro Nelson M.D. on PT-OP-C Subjective Start: 08/23/21 17:28 Freq: Status: Active Protocol: Document 09/09/21 14:30 DCW (Rec: 09/09/21 15:17 DCW [id number]) OP-PT Subjective Patient Comments Patient Comments Pt leaving for a trip to [place] Sunday, PT-OP-F Manual Assessment Start: 08/23/21 17:28 Freq: Status: Active Protocol: Document 08/23/21 12:00 DCW (Rec: 08/24/21 15:33 DCW [id number]) Manual Assessments Soft Tissue Assessment Soft Tissue Mobility Assessment General tenderness to palpation along entire left shoulder girdle, increasing tone along left upper trap and cervical paraspinals Joint Mobility Assessment Joint Mobility Assessment Grinding/popping in left shoulder with all movements, especially overhead PT-OP-K Range of Motion Start: 08/23/21 17:28 Freq: Status: Active Protocol: Document 08/23/21 12:00 DCW (Rec: 08/24/21 15:33 DCW [id number]) Shoulder Goniometric Range of Motion Shoulder Left Active Shoulder ROM WFL No Testing Position Sitting Flexion 110 Abduction 180 Internal Rotation Behind Back (text) Left SI joint Comments Pain at end range in all positions Shoulder ROM Limitations Shoulder ROM Limitations Bony Restriction,Muscle Weakness,Pain PT-OP-L Special Tests Start: 08/23/21 17:28 Freq: Status: Active Protocol: Document 08/23/21 12:00 DCW (Rec: 08/24/21 15:33 DCW [id number]) Special Tests Shoulder Special Tests Painful arc Test Results Positive left Passive ER Rotator Cuff Test Results Negative Lift-Off Rotator Cuff Test Results Unable to get left into position Lopez Humble Impingement Test Results Positive left Grind Labrum Test Results Positive left Empty Can Test Results Positive left Clunk Test Test Results Positive left Belly Press Test Results Positive left Apprehension Test Test Results Severely positive left PT-OP-M Strength Start: 08/23/21 17:28 Freq: Status: Active Protocol: Document 08/23/21 12:00 DCW (Rec: 08/24/21 15:33 DCW [id number]) Shoulder Strength Shoulder Manual Muscle Testing Right Flexion 4+ Good+ Abduction (C5) 4+ Good+ External Rotation 4+ Good+ Internal Rotation 4+ Good+ Left Flexion 3 Fair Abduction (C5) 3+ Fair+ External Rotation 4 Good Internal Rotation 4 Good PT-OP-Q Treatments Start: 08/23/21 17:28 Freq: Status: Active Protocol: Document 09/09/21 14:30 DCW (Rec: 09/09/21 15:17 DCW [id number]) Manual Therapy Treatment Soft Tissue Mobilization 2 Body Location Thoracic paraspinals 1 Body Location Upper trap, Scalenes, SCM, L>R Joint Mobilizations 1 Joint L GH Direction Inferior Grade III Body Position Supine Manual Traction Cervical Body Position Supine PT-OP-T Assessment and Plan Start: 08/23/21 17:28 Freq: Status: Active Protocol: Document 09/09/21 14:30 DCW (Rec: 09/09/21 15:17 DCW [id number]) Physical Therapy Assessment Impairments Impairments Functional Activities, Functional Mobility,Pain,ROM, Strength,Tone Goals Three Impairment Pt unable to don/doff bra independently due to shoulder pain Airborne Operations Goal (LTG) Pt to report ability to hook and unhook her bra without her 's assistance and no increased pain. LTG Duration 10/23/21 Two Impairment Pt experiences catching and popping in left shoulder with overhead activity Fpc Goal (LTG) Pt to demonstrate full ROM with no instances of joint catching or grinding LTG Duration 10/23/21 One Impairment Pt does not have an appropriate home exercise program Short Term Goal (STG) Pt to be independent and compliant with an appropriate HEP STG Duration 09/23/21 Assessment Summary Assessment Pt feeling a little rough following vaccination booster yesterday, focused on STM and then ended session early so pt could return home and rest. Physical Therapy Plan Frequency and Duration Frequency of Treatment 2x/Week Duration of Treatment Two months Plan of Care Start Date 08/23/21 Plan of Care End Date 10/23/21 Therapeutic Interventions Therapeutic Interventions Home Exercise Program,Joint Mobilizations,Manual Therapy, Patient/Caregiver Education, Self-Care/Home Management,Soft Tissue Mobilization,Taping, Therapeutic Activities, Therapeutic Exercises Modalities Cold Pack/Ice Massage,Electric Stimulation,Hot Packs, Ultrasound Next Visit Focus/Plan Next Note Type Treatment Note Next Visit Plan Cervical/upper trap STM, L shoulder strengthening, joint stabilization
--- NOTE | 2021-10-24 14:30 | PT.OPDS ---
Current Diagnoses Pain in left shoulder (09/09/21) Stiffness of left shoulder, not elsewhere classified (09/09/21) Other shoulder lesions, left shoulder (09/09/21) Unspecified injury of muscle(s) and tendon(s) of the rotator cuff of left shoulder, subsequent encounter (09/09/21) Visit Care Team Role Provider Type Balwinder Ocasio MD Primary Care Provider Physician Specialty: Internal Medicine Address: [address] [place] [address], [id number] Email: [email or web address] Arnaldo Chow MD Attending Provider Physician Referring Provider Specialty: Internal Medicine Address: [address] [place] [address], [id number] Email: [email or web address] Visit Number Visit Number 4 Discharge Summary PT-OP-B Current Condition Start: 08/23/21 17:28 Freq: Status: Active Protocol: Document 08/23/21 12:00 DCW (Rec: 08/23/21 17:53 DCW [id number]) Current Condition History of Current Condition Onset Date Two months Current Complaints L shoulder pain History of Current Condition Pt is a 66 year old female presenting with a two month history of left shoulder pain. Pt reports insidious onset, but has been having a lot of pain and popping with random left arm movements, most notably overhead or reaching back. Pt reports she has had to have her hook and unhook her bra. Pt feels the pain is getting worse. Also notes recent increased left neck pain, feels muscles are tight. Pt notes that her arm feels like it gets stuck when lifting overhead. Prior Treatments and Tests L shoulder x-ray: IMPRESSION: 1. Mild acromioclavicular joint degeneration. 2. Slight lateral downsloping of the acromion may be associated with rotator cuff pathology. Per Pro Nelson M.D. on PT-OP-C Subjective Start: 08/23/21 17:28 Freq: Status: Active Protocol: Document 09/09/21 14:30 DCW (Rec: 09/09/21 15:17 DCW [id number]) OP-PT Subjective Patient Comments Patient Comments Pt leaving for a trip to [place] Sunday, PT-OP-F Manual Assessment Start: 08/23/21 17:28 Freq: Status: Active Protocol: Document 08/23/21 12:00 DCW (Rec: 08/24/21 15:33 DCW [id number]) Manual Assessments Soft Tissue Assessment Soft Tissue Mobility Assessment General tenderness to palpation along entire left shoulder girdle, increasing tone along left upper trap and cervical paraspinals Joint Mobility Assessment Joint Mobility Assessment Grinding/popping in left shoulder with all movements, especially overhead PT-OP-K Range of Motion Start: 08/23/21 17:28 Freq: Status: Active Protocol: Document 08/23/21 12:00 DCW (Rec: 08/24/21 15:33 DCW [id number]) Shoulder Goniometric Range of Motion Shoulder Left Active Shoulder ROM WFL No Testing Position Sitting Flexion 110 Abduction 180 Internal Rotation Behind Back (text) Left SI joint Comments Pain at end range in all positions Shoulder ROM Limitations Shoulder ROM Limitations Bony Restriction,Muscle Weakness,Pain PT-OP-L Special Tests Start: 08/23/21 17:28 Freq: Status: Active Protocol: Document 08/23/21 12:00 DCW (Rec: 08/24/21 15:33 DCW [id number]) Special Tests Shoulder Special Tests Painful arc Test Results Positive left Passive ER Rotator Cuff Test Results Negative Lift-Off Rotator Cuff Test Results Unable to get left into position Lopez Humble Impingement Test Results Positive left Grind Labrum Test Results Positive left Empty Can Test Results Positive left Clunk Test Test Results Positive left Belly Press Test Results Positive left Apprehension Test Test Results Severely positive left PT-OP-M Strength Start: 08/23/21 17:28 Freq: Status: Active Protocol: Document 08/23/21 12:00 DCW (Rec: 08/24/21 15:33 DCW [id number]) Shoulder Strength Shoulder Manual Muscle Testing Right Flexion 4+ Good+ Abduction (C5) 4+ Good+ External Rotation 4+ Good+ Internal Rotation 4+ Good+ Left Flexion 3 Fair Abduction (C5) 3+ Fair+ External Rotation 4 Good Internal Rotation 4 Good PT-OP-T Assessment and Plan Start: 08/23/21 17:28 Freq: Status: Active Protocol: Document 10/24/21 14:29 DCW (Rec: 10/24/21 14:30 DCW [id number]) Physical Therapy Assessment Assessment Summary Assessment Pt returning to skilled PT with new referral/added diagnosis, will be reevaluated at that time, this account being discharged.
== END 2021-12-13 08:55 ==
LOC: PHYS 14:30
PROVIDERS: PCP Internal Medicine; Referring Provider Internal Medicine; Visit Provider Internal Medicine
DX: M75.82 Other shoulder lesions, left shoulder (principal); M25.512 Pain in left shoulder; M25.612 Stiffness of left shoulder, not elsewhere classified; S46.002D Unspecified injury of muscle(s) and tendon(s) of the rotator cuff of left shoulder, subsequent encounter
CPT/HCPCS: 97110; 97140; 97162

== ENCOUNTER → 2021-09-26 14:00 | Outpatient (CLI) | payer MEDICARE, SELFPAY ==
[2021-09-26 16:54] LABS: COVID19 -Nasal RAPID Negative (Negative)
== END ==
PROVIDERS: PCP Internal Medicine; Referring Provider Physician Assistant; Visit Provider Physician Assistant
DX: R05.9 Cough, unspecified (principal); J02.9 Acute pharyngitis, unspecified
CPT/HCPCS: 87635

== ENCOUNTER 2021-12-28 14:30 | Outpatient (RCR) | payer MEDICARE, SELFPAY ==
--- NOTE | 2021-10-28 17:45 | PT.OPPOC ---
Physical, Occupational & Speech Therapy At Current Diagnoses Pain in left shoulder (10/31/21) Stiffness of left shoulder, not elsewhere classified (10/31/21) Stiffness of other specified joint, not elsewhere classified (10/31/21) Cervicalgia (10/31/21) Other shoulder lesions, left shoulder (10/31/21) Visit Care Team Role Provider Type Balwinder Ocasio MD Attending Provider Physician Primary Care Provider Referring Provider Specialty: Internal Medicine Address: [address] [place] [address] Email: [email or web address] Plan Of Care PT-OP-T Assessment and Plan Start: 10/28/21 16:43 Freq: Status: Active Protocol: Document 10/28/21 16:00 DCW (Rec: 10/31/21 17:45 DCW [id number]) Physical Therapy Assessment Rehab Potential Rehabilitation Potential Good Evaluation Complexity Number of Personal Factors/Comorbidities 1-2 Number of Body Systems Impaired 3 Clinical Presentation at Evaluation Stable Impairments Impairments Functional Activities, Functional Mobility,Pain,ROM, Soft Tissue Mobility,Strength, Tone Goals Four Impairment Pt exhibits counterclockwise rotation of C3 and C4 vertebrae Fpc Goal (LTG) Pt to present to skilled therapy three consecutive visits with no rotated cervical vertebrae LTG Duration 12/29/21 Three Impairment Pt unable to don/doff bra independently due to shoulder pain Fpc Goal (LTG) Pt to report ability to hook and unhook her bra without her 's assistance and no increased pain. LTG Duration 12/29/21 Two Impairment Pt experiences catching and popping in left shoulder with overhead activity Fpc Goal (LTG) Pt to demonstrate full ROM with no instances of joint catching or grinding LTG Duration 12/29/21 One Impairment Pt does not have an appropriate home exercise program Short Term Goal (STG) Pt to be independent and compliant with an appropriate HEP STG Duration 11/28/21 Assessment Summary Assessment Pt presents to skilled therapy with signs and symptoms consistent with continued left GH labrum sprain or tear, as well as increased cervical tone and rotation of C3 and C4 vertebrae. Pt responded well to MWM treatment of vertebrae rotation, and felt immediately better. Due to high tone long cervical paraspinals, there is an increased likelihood of return to vertebrae rotated out of place upon return. Pt's shoulder does appear to be showing slight signs of improvement vs her functional levels when she was recently being treated for the same injury in August of this year . Will continue with prior plan for shoulder rehab with additional focus on pt's cervical pain and stiffness. Following treatment today, pt' s cervical ROM was increased with right lateral flexion improving from 15? to 30?, and right rotation increasing from 40? to 56?. Physical Therapy Plan Frequency and Duration Frequency of Treatment 2x/Week Duration of Treatment Two months Plan of Care Start Date 10/28/21 Plan of Care End Date 12/29/21 Therapeutic Interventions Therapeutic Interventions Home Exercise Program,Joint Mobilizations,Manual Therapy, Neuromuscular Re-education, Patient/Caregiver Education, Self-Care/Home Management,Soft Tissue Mobilization,Taping, Therapeutic Activities, Therapeutic Exercises Modalities Cold Pack/Ice Massage,Electric Stimulation,Hot Packs, Traction- Mechanical Next Visit Focus/Plan Next Note Type Treatment Note Next Visit Plan Cervical and shoulder STM, joint mobilization, strengthening, flexibility Plan of Care Dates Plan of Care Start Date 10/28/21 Plan of Care End Date 12/29/21 Electronically Signed by: Delfin Rodriguez, PT 10/31/21 4523 Please Sign and Return: I have reviewed this Plan of Care and certify that the skilled therapy services above are required to meet the patient?s needs. Physician Signature Date Printed Name and Credentials Clinical Instructor Signature Printed Name and Credentials
--- NOTE | 2021-10-28 17:45 | PT.OIE ---
Current Diagnoses Pain in left shoulder (10/31/21) Stiffness of left shoulder, not elsewhere classified (10/31/21) Stiffness of other specified joint, not elsewhere classified (10/31/21) Cervicalgia (10/31/21) Other shoulder lesions, left shoulder (10/31/21) Visit Care Team Role Provider Type Balwinder Ocasio MD Attending Provider Physician Primary Care Provider Referring Provider Specialty: Internal Medicine Address: [address] [place] [address], [facility] Email: Physical Therapy Initial Evaluation PT-OP-A Visit Information Start: 10/28/21 16:43 Freq: Status: Active Protocol: Document 10/28/21 16:00 DCW (Rec: 10/28/21 16:59 DCW [id number]) Out-Patient Physical Therapy Visit Information Visit Information Visit Type Initial Evaluation Visit Start Time 16:00 Visit Stop Time 16:40 Total Visit Minutes 40 Visit Number 1 Number of STEEL CHIPPER Visits 0 Evaluation Information Evaluation Date 10/28/21 PT-OP-B Current Condition Start: 10/28/21 16:43 Freq: Status: Active Protocol: Document 10/28/21 16:00 DCW (Rec: 10/28/21 16:59 DCW [id number]) Current Condition History of Current Condition Onset Date Four months Current Complaints Cervical pain and stiffness, left shoulder pain History of Current Condition Pt is a 66 year old female presenting with a four month history of left shoulder pain, as well as recent worsening of her long-standing cervical pain. Pt was very recently being seen at this facility for her shoulder, but returns today after discharge with a new referral for both her shoulder and neck pain. Pt reports insidious onset of her shoulder pain, but has been having a lot of pain and popping with random left arm movements, most notably overhead or reaching back. Pt neck is reportedly causing vertigo, most recently just a few days ago, pt experienced two dizzy spells within the span of an hour. 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 Pt reports it feels very similar this time, however now it might be the worst it has ever felt. Pt also notes a lot of mental and emotional turmoil in her life at the moment, which has resulted in increased stress and tone throughout her entire body. PT-OP-C Subjective Start: 10/28/21 16:43 Freq: Status: Active Protocol: Document 10/28/21 16:00 DCW (Rec: 10/28/21 16:59 DCW [id number]) OP-PT Subjective Patient Comments Patient Comments I'm pretty sure I have bone- on-bone in my neck. I can feel it happening. Patient Reported Progress Worse Patient Questionnaires Neck Disability Index NDI Score 14/50 = 28% Neck Disability Index Impairment 20 to 39% Impaired (Score 10- 19) Quick Dash- Upper Extremity Quick Dash UE Score 27.27% Quick Dash UE Impairment 20 to 39% Impaired (Score 20- 39) OP-PT Pain Assessment Pain Assessment Grid Paper Pain Assessment Grid Completed Yes Location Neck Intensity 6 Scale Used Numeric (0 - 10) PT-OP-F Manual Assessment Start: 10/28/21 16:43 Freq: Status: Active Protocol: Document 10/28/21 16:00 DCW (Rec: 10/28/21 16:59 DCW [id number]) Manual Assessments Soft Tissue Assessment Soft Tissue Mobility Assessment Moderate tone with tenderness to palpation 3/4: wincing and withdraw along right upper trap, right supraspinatus, bilateral suboccipitals, Joint Mobility Assessment Joint Mobility Assessment C3 and C4 both rotated counterclockwise. PT-OP-K Range of Motion Start: 10/28/21 16:43 Freq: Status: Active Protocol: Document 10/28/21 16:00 DCW (Rec: 10/28/21 16:59 DCW [id number]) Cervical Spine Range of Motion Cervical Spine Active Degrees Testing Position Sitting Flexion 65 Extension 40 Rotation Left 52 Rotation Right 40 Lateral Flexion Left 32 Lateral Flexion Right 15 ROM Limitations Soft Tissue Tightness,Bony Restriction,Pain Shoulder Goniometric Range of Motion Shoulder Left Active Testing Position Sitting Flexion 124 Abduction 180 PT-OP-L Special Tests Start: 10/28/21 16:43 Freq: Status: Active Protocol: Document 10/28/21 16:00 DCW (Rec: 10/28/21 16:59 DCW [id number]) Special Tests Cervical Spine Special Tests Traction Test Results Improved pain Slump Test Results Negative Foraminal Compression Test Results Positive R side Alar Ligament Test Results Negative Shoulder Special Tests Painful arc Test Results Positive left Passive ER Rotator Cuff Test Results Negative Lift-Off Rotator Cuff Test Results Unable to get left into position Lopez Humble Impingement Test Results Positive left Grind Labrum Test Results Positive left Empty Can Test Results Positive left Clunk Test Test Results Positive left Belly Press Test Results Positive left Apprehension Test Test Results Severely positive left PT-OP-M Strength Start: 10/28/21 16:43 Freq: Status: Active Protocol: Document 10/28/21 16:00 DCW (Rec: 10/28/21 16:59 DCW [id number]) Shoulder Strength Shoulder Manual Muscle Testing Right Flexion 4+ Good+ Abduction (C5) 4+ Good+ External Rotation 4+ Good+ Internal Rotation 4+ Good+ Left Flexion 3 Fair Abduction (C5) 3+ Fair+ External Rotation 4 Good Internal Rotation 4 Good PT-OP-Q Treatments Start: 10/28/21 16:43 Freq: Status: Active Protocol: Document 10/28/21 16:00 DCW (Rec: 10/28/21 17:01 DCW [id number]) Therapeutic Exercises Sitting Exercises 1 Sitting Exercise Name Cervical rotation, extension, flexion vs resistance Resistance Lv 2 Equipment Used T-band Manual Therapy Treatment Manual Techniques 1 Type MWM Body Location C3-4 Body Position Hooklying Comments Resisted rotation PT-OP-T Assessment and Plan Start: 10/28/21 16:43 Freq: Status: Active Protocol: Document 10/28/21 16:00 DCW (Rec: 10/31/21 17:45 [facility] [id number]) Physical Therapy Assessment Rehab Potential Rehabilitation Potential Good Evaluation Complexity Number of Personal Factors/Comorbidities 1-2 Number of Body Systems Impaired 3 Clinical Presentation at Evaluation Stable Impairments Impairments Functional Activities, Functional Mobility,Pain,ROM, Soft Tissue Mobility,Strength, Tone Goals Four Impairment Pt exhibits counterclockwise rotation of C3 and C4 vertebrae Long-Term Goal (LTG) Pt to present to skilled therapy three consecutive visits with no rotated cervical vertebrae LTG Duration 12/29/21 Three Impairment Pt unable to don/doff bra independently due to shoulder pain Research And Evaluation Analyst Goal (LTG) Pt to report ability to hook and unhook her bra without her 's assistance and no increased pain. LTG Duration 12/29/21 Two Impairment Pt experiences catching and popping in left shoulder with overhead activity Research And Evaluation Analyst Goal (LTG) Pt to demonstrate full ROM with no instances of joint catching or grinding LTG Duration 12/29/21 One Impairment Pt does not have an appropriate home exercise program Short Term Goal (STG) Pt to be independent and compliant with an appropriate HEP STG Duration 11/28/21 Assessment Summary Assessment Pt presents to skilled therapy with signs and symptoms consistent with continued left GH labrum sprain or tear, as well as increased cervical tone and rotation of C3 and C4 vertebrae. Pt responded well to MWM treatment of vertebrae rotation, and felt immediately better. Due to high tone long cervical paraspinals, there is an increased likelihood of return to vertebrae rotated out of place upon return. Pt's shoulder does appear to be showing slight signs of improvement vs her functional levels when she was recently being treated for the same injury in August of this year . Will continue with prior plan for shoulder rehab with additional focus on pt's cervical pain and stiffness. Following treatment today, pt' s cervical ROM was increased with right lateral flexion improving from 15? to 30?, and right rotation increasing from 40? to 56?. Physical Therapy Plan Frequency and Duration Frequency of Treatment 2x/Week Duration of Treatment Two months Plan of Care Start Date 10/28/21 Plan of Care End Date 12/29/21 Therapeutic Interventions Therapeutic Interventions Home Exercise Program,Joint Mobilizations,Manual Therapy, Neuromuscular Re-education, Patient/Caregiver Education, Self-Care/Home Management,Soft Tissue Mobilization,Taping, Therapeutic Activities, Therapeutic Exercises Modalities Cold Pack/Ice Massage,Electric Stimulation,Hot Packs, Traction- Mechanical Next Visit Focus/Plan Next Note Type Treatment Note Next Visit Plan Cervical and shoulder STM, joint mobilization, strengthening, flexibility
--- NOTE | 2021-10-31 17:50 | PT.OTN ---
Current Diagnoses Pain in left shoulder (10/31/21) Stiffness of left shoulder, not elsewhere classified (10/31/21) Stiffness of other specified joint, not elsewhere classified (10/31/21) Cervicalgia (10/31/21) Other shoulder lesions, left shoulder (10/31/21) Physical Therapy Treatment Note PT-OP-A Visit Information Start: 10/28/21 16:43 Freq: Status: Active Protocol: Document 10/31/21 16:45 DCW (Rec: 10/31/21 17:50 DCW [id number]) Out-Patient Physical Therapy Visit Information Visit Information Visit Type Treatment Note Visit Start Time 16:45 Visit Stop Time 17:30 Total Visit Minutes 45 Visit Number 2 Number of MARINE MACHINIST Visits 0 Evaluation Information Evaluation Date 10/28/21 PT-OP-B Current Condition Start: 10/28/21 16:43 Freq: Status: Active Protocol: Document 10/28/21 16:00 DCW (Rec: 10/28/21 16:59 DCW [id number]) Current Condition History of Current Condition Onset Date Four months Current Complaints Cervical pain and stiffness, left shoulder pain History of Current Condition Pt is a 66 year old female presenting with a four month history of left shoulder pain, as well as recent worsening of her long-standing cervical pain. Pt was very recently being seen at this facility for her shoulder, but returns today after discharge with a new referral for both her shoulder and neck pain. Pt reports insidious onset of her shoulder pain, but has been having a lot of pain and popping with random left arm movements, most notably overhead or reaching back. Pt neck is reportedly causing vertigo, most recently just a few days ago, pt experienced two dizzy spells within the span of an hour. 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 Pt reports it feels very similar this time, however now it might be the worst it has ever felt. Pt also notes a lot of mental and emotional turmoil in her life at the moment, which has resulted in increased stress and tone throughout her entire body. PT-OP-C Subjective Start: 10/28/21 16:43 Freq: Status: Active Protocol: Document 10/31/21 16:45 DCW (Rec: 10/31/21 17:50 DCW [id number]) OP-PT Subjective Patient Comments Patient Comments Pt admits she almost canceled her appointment today due to just feeling overwhelmed with everything at the moment PT-OP-F Manual Assessment Start: 10/28/21 16:43 Freq: Status: Active Protocol: Document 10/28/21 16:00 DCW (Rec: 10/28/21 16:59 DCW [id number]) Manual Assessments Soft Tissue Assessment Soft Tissue Mobility Assessment Moderate tone with tenderness to palpation 3/4: wincing and withdraw along right upper trap, right supraspinatus, bilateral suboccipitals, Joint Mobility Assessment Joint Mobility Assessment C3 and C4 both rotated counterclockwise. PT-OP-K Range of Motion Start: 10/28/21 16:43 Freq: Status: Active Protocol: Document 10/28/21 16:00 DCW (Rec: 10/28/21 16:59 DCW [id number]) Cervical Spine Range of Motion Cervical Spine Active Degrees Testing Position Sitting Flexion 65 Extension 40 Rotation Left 52 Rotation Right 40 Lateral Flexion Left 32 Lateral Flexion Right 15 ROM Limitations Soft Tissue Tightness,Bony Restriction,Pain Shoulder Goniometric Range of Motion Shoulder Left Active Testing Position Sitting Flexion 124 Abduction 180 PT-OP-L Special Tests Start: 10/28/21 16:43 Freq: Status: Active Protocol: Document 10/28/21 16:00 DCW (Rec: 10/28/21 16:59 DCW [id number]) Special Tests Cervical Spine Special Tests Traction Test Results Improved pain Slump Test Results Negative Foraminal Compression Test Results Positive R side Alar Ligament Test Results Negative Shoulder Special Tests Painful arc Test Results Positive left Passive ER Rotator Cuff Test Results Negative Lift-Off Rotator Cuff Test Results Unable to get left into position Lopez Humble Impingement Test Results Positive left Grind Labrum Test Results Positive left Empty Can Test Results Positive left Clunk Test Test Results Positive left Belly Press Test Results Positive left Apprehension Test Test Results Severely positive left PT-OP-M Strength Start: 10/28/21 16:43 Freq: Status: Active Protocol: Document 10/28/21 16:00 DCW (Rec: 10/28/21 16:59 DCW [id number]) Shoulder Strength Shoulder Manual Muscle Testing Right Flexion 4+ Good+ Abduction (C5) 4+ Good+ External Rotation 4+ Good+ Internal Rotation 4+ Good+ Left Flexion 3 Fair Abduction (C5) 3+ Fair+ External Rotation 4 Good Internal Rotation 4 Good PT-OP-Q Treatments Start: 10/28/21 16:43 Freq: Status: Active Protocol: Document 10/31/21 16:45 DCW (Rec: 10/31/21 17:50 DCW [id number]) Manual Therapy Treatment Soft Tissue Mobilization 2 Body Location Cervical paraspinals 1 Body Location Upper trap, Scalenes, SCM, L>R Joint Mobilizations 2 Joint Cervical vertebrae Direction P->A Grade II 1 Joint L GH Direction Inferior Grade III Body Position Supine Manual Traction Cervical Body Position Supine PT-OP-T Assessment and Plan Start: 10/28/21 16:43 Freq: Status: Active Protocol: Document 10/31/21 16:45 DCW (Rec: 10/31/21 17:50 DCW [id number]) Physical Therapy Assessment Impairments Impairments Functional Activities, Functional Mobility,Pain,ROM, Soft Tissue Mobility,Strength, Tone Goals Four Impairment Pt exhibits counterclockwise rotation of C3 and C4 vertebrae Workers Compensation Claims Analyst Goal (LTG) Pt to present to skilled therapy three consecutive visits with no rotated cervical vertebrae LTG Duration 12/29/21 Three Impairment Pt unable to don/doff bra independently due to shoulder pain Longterm Goal (LTG) Pt to report ability to hook and unhook her bra without her 's assistance and no increased pain. LTG Duration 12/29/21 Two Impairment Pt experiences catching and popping in left shoulder with overhead activity Workers Compensation Claims Analyst Goal (LTG) Pt to demonstrate full ROM with no instances of joint catching or grinding LTG Duration 12/29/21 One Impairment Pt does not have an appropriate home exercise program Short Term Goal (STG) Pt to be independent and compliant with an appropriate HEP STG Duration 11/28/21 Assessment Summary Assessment Pt came into therapy today with her cervical vertebrae having remained in place over the weekend. Pt notes she did try to do some of the strengthening yesterday, but it caused some mild soreness, and she got worried that her vertebrae shifted again. Physical Therapy Plan Frequency and Duration Frequency of Treatment 2x/Week Duration of Treatment Two months Plan of Care Start Date 10/28/21 Plan of Care End Date 12/29/21 Therapeutic Interventions Therapeutic Interventions Home Exercise Program,Joint Mobilizations,Manual Therapy, Neuromuscular Re-education, Patient/Caregiver Education, Self-Care/Home Management,Soft Tissue Mobilization,Taping, Therapeutic Activities, Therapeutic Exercises Modalities Cold Pack/Ice Massage,Electric Stimulation,Hot Packs, Traction- Mechanical Next Visit Focus/Plan Next Note Type Treatment Note Next Visit Plan Cervical and shoulder STM, joint mobilization, strengthening, flexibility
--- NOTE | 2021-11-02 16:01 | PT.OTN ---
Current Diagnoses Pain in left shoulder (11/02/21) Stiffness of left shoulder, not elsewhere classified (11/02/21) Stiffness of other specified joint, not elsewhere classified (11/02/21) Cervicalgia (11/02/21) Other shoulder lesions, left shoulder (11/02/21) Physical Therapy Treatment Note PT-OP-A Visit Information Start: 10/28/21 16:43 Freq: Status: Active Protocol: Document 11/02/21 15:15 DCW (Rec: 11/02/21 16:00 DCW [id number]) Out-Patient Physical Therapy Visit Information Visit Information Visit Type Treatment Note Visit Start Time 15:15 Visit Stop Time 16:00 Total Visit Minutes 45 Visit Number 3 Number of EDUCATIONAL THERAPIST Visits 0 Evaluation Information Evaluation Date 10/28/21 PT-OP-B Current Condition Start: 10/28/21 16:43 Freq: Status: Active Protocol: Document 10/28/21 16:00 DCW (Rec: 10/28/21 16:59 DCW [id number]) Current Condition History of Current Condition Onset Date Four months Current Complaints Cervical pain and stiffness, left shoulder pain History of Current Condition Pt is a 66 year old female presenting with a four month history of left shoulder pain, as well as recent worsening of her long-standing cervical pain. Pt was very recently being seen at this facility for her shoulder, but returns today after discharge with a new referral for both her shoulder and neck pain. Pt reports insidious onset of her shoulder pain, but has been having a lot of pain and popping with random left arm movements, most notably overhead or reaching back. Pt neck is reportedly causing vertigo, most recently just a few days ago, pt experienced two dizzy spells within the span of an hour. 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 Pt reports it feels very similar this time, however now it might be the worst it has ever felt. Pt also notes a lot of mental and emotional turmoil in her life at the moment, which has resulted in increased stress and tone throughout her entire body. PT-OP-C Subjective Start: 10/28/21 16:43 Freq: Status: Active Protocol: Document 11/02/21 15:15 DCW (Rec: 11/02/21 16:00 DCW [id number]) OP-PT Subjective Patient Comments Patient Comments My shoulder has really been popping a lot more. PT-OP-F Manual Assessment Start: 10/28/21 16:43 Freq: Status: Active Protocol: Document 10/28/21 16:00 DCW (Rec: 10/28/21 16:59 DCW [id number]) Manual Assessments Soft Tissue Assessment Soft Tissue Mobility Assessment Moderate tone with tenderness to palpation 3/4: wincing and withdraw along right upper trap, right supraspinatus, bilateral suboccipitals, Joint Mobility Assessment Joint Mobility Assessment C3 and C4 both rotated counterclockwise. PT-OP-K Range of Motion Start: 10/28/21 16:43 Freq: Status: Active Protocol: Document 10/28/21 16:00 DCW (Rec: 10/28/21 16:59 DCW [id number]) Cervical Spine Range of Motion Cervical Spine Active Degrees Testing Position Sitting Flexion 65 Extension 40 Rotation Left 52 Rotation Right 40 Lateral Flexion Left 32 Lateral Flexion Right 15 ROM Limitations Soft Tissue Tightness,Bony Restriction,Pain Shoulder Goniometric Range of Motion Shoulder Left Active Testing Position Sitting Flexion 124 Abduction 180 PT-OP-L Special Tests Start: 10/28/21 16:43 Freq: Status: Active Protocol: Document 10/28/21 16:00 DCW (Rec: 10/28/21 16:59 DCW [id number]) Special Tests Cervical Spine Special Tests Traction Test Results Improved pain Slump Test Results Negative Foraminal Compression Test Results Positive R side Alar Ligament Test Results Negative Shoulder Special Tests Painful arc Test Results Positive left Passive ER Rotator Cuff Test Results Negative Lift-Off Rotator Cuff Test Results Unable to get left into position Lopez Humble Impingement Test Results Positive left Grind Labrum Test Results Positive left Empty Can Test Results Positive left Clunk Test Test Results Positive left Belly Press Test Results Positive left Apprehension Test Test Results Severely positive left PT-OP-M Strength Start: 10/28/21 16:43 Freq: Status: Active Protocol: Document 10/28/21 16:00 DCW (Rec: 10/28/21 16:59 DCW [id number]) Shoulder Strength Shoulder Manual Muscle Testing Right Flexion 4+ Good+ Abduction (C5) 4+ Good+ External Rotation 4+ Good+ Internal Rotation 4+ Good+ Left Flexion 3 Fair Abduction (C5) 3+ Fair+ External Rotation 4 Good Internal Rotation 4 Good PT-OP-Q Treatments Start: 10/28/21 16:43 Freq: Status: Active Protocol: Document 11/02/21 15:15 DCW (Rec: 11/02/21 16:00 DCW [id number]) Manual Therapy Treatment Soft Tissue Mobilization 2 Body Location Cervical paraspinals 1 Body Location Upper trap, Scalenes, SCM, L>R Joint Mobilizations 2 Joint Cervical vertebrae Direction P->A Grade II 1 Joint L GH Direction Inferior Grade III Body Position Supine Manual Traction Cervical Body Position Supine PT-OP-R Modalities Start: 10/28/21 16:43 Freq: Status: Active Protocol: Document 11/02/21 15:15 DCW (Rec: 11/02/21 16:01 DCW [id number]) Spinal Traction Traction Treatment Cervical Method Mechanical,Static Patient Position Hooklying Force Applied (Pounds) 10 Duration of Treatment (Minutes) 10 PT-OP-T Assessment and Plan Start: 10/28/21 16:43 Freq: Status: Active Protocol: Document 11/02/21 15:15 DCW (Rec: 11/02/21 16:00 DCW [id number]) Physical Therapy Assessment Impairments Impairments Functional Activities, Functional Mobility,Pain,ROM, Soft Tissue Mobility,Strength, Tone Goals Four Impairment Pt exhibits counterclockwise rotation of C3 and C4 vertebrae Director Quality Assurance Goal (LTG) Pt to present to skilled therapy three consecutive visits with no rotated cervical vertebrae LTG Duration 12/29/21 Three Impairment Pt unable to don/doff bra independently due to shoulder pain Director Quality Assurance Goal (LTG) Pt to report ability to hook and unhook her bra without her 's assistance and no increased pain. LTG Duration 12/29/21 Two Impairment Pt experiences catching and popping in left shoulder with overhead activity Director Quality Assurance Goal (LTG) Pt to demonstrate full ROM with no instances of joint catching or grinding LTG Duration 12/29/21 One Impairment Pt does not have an appropriate home exercise program Short Term Goal (STG) Pt to be independent and compliant with an appropriate HEP STG Duration 11/28/21 Assessment Summary Assessment Trial today of cervical traction, pt noted feeling better immediately upon starting the traction. Physical Therapy Plan Frequency and Duration Frequency of Treatment 2x/Week Duration of Treatment Two months Plan of Care Start Date 10/28/21 Plan of Care End Date 12/29/21 Therapeutic Interventions Therapeutic Interventions Home Exercise Program,Joint Mobilizations,Manual Therapy, Neuromuscular Re-education, Patient/Caregiver Education, Self-Care/Home Management,Soft Tissue Mobilization,Taping, Therapeutic Activities, Therapeutic Exercises Modalities Cold Pack/Ice Massage,Electric Stimulation,Hot Packs, Traction- Mechanical Next Visit Focus/Plan Next Note Type Treatment Note Next Visit Plan Cervical and shoulder STM, joint mobilization, strengthening, flexibility
--- NOTE | 2021-11-10 12:36 | PT.OTN ---
Current Diagnoses Pain in left shoulder (11/10/21) Stiffness of left shoulder, not elsewhere classified (11/10/21) Stiffness of other specified joint, not elsewhere classified (11/10/21) Cervicalgia (11/10/21) Other shoulder lesions, left shoulder (11/10/21) Physical Therapy Treatment Note PT-OP-A Visit Information Start: 10/28/21 16:43 Freq: Status: Active Protocol: Document 11/10/21 12:00 DCW (Rec: 11/10/21 12:36 DCW [id number]) Out-Patient Physical Therapy Visit Information Visit Information Visit Type Treatment Note Visit Start Time 12:00 Visit Stop Time 12:45 Total Visit Minutes 45 Visit Number 4 Number of DIRECTOR OF CAMPUS RECREATION Visits 0 Evaluation Information Evaluation Date 10/28/21 PT-OP-B Current Condition Start: 10/28/21 16:43 Freq: Status: Active Protocol: Document 10/28/21 16:00 DCW (Rec: 10/28/21 16:59 DCW [id number]) Current Condition History of Current Condition Onset Date Four months Current Complaints Cervical pain and stiffness, left shoulder pain History of Current Condition Pt is a 66 year old female presenting with a four month history of left shoulder pain, as well as recent worsening of her long-standing cervical pain. Pt was very recently being seen at this facility for her shoulder, but returns today after discharge with a new referral for both her shoulder and neck pain. Pt reports insidious onset of her shoulder pain, but has been having a lot of pain and popping with random left arm movements, most notably overhead or reaching back. Pt neck is reportedly causing vertigo, most recently just a few days ago, pt experienced two dizzy spells within the span of an hour. 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 Pt reports it feels very similar this time, however now it might be the worst it has ever felt. Pt also notes a lot of mental and emotional turmoil in her life at the moment, which has resulted in increased stress and tone throughout her entire body. PT-OP-C Subjective Start: 10/28/21 16:43 Freq: Status: Active Protocol: Document 11/10/21 12:00 DCW (Rec: 11/10/21 12:36 DCW [id number]) OP-PT Subjective Patient Comments Patient Comments I'm a little tight today, but I felt a difference after my last visit. PT-OP-F Manual Assessment Start: 10/28/21 16:43 Freq: Status: Active Protocol: Document 10/28/21 16:00 DCW (Rec: 10/28/21 16:59 DCW [id number]) Manual Assessments Soft Tissue Assessment Soft Tissue Mobility Assessment Moderate tone with tenderness to palpation 3/4: wincing and withdraw along right upper trap, right supraspinatus, bilateral suboccipitals, Joint Mobility Assessment Joint Mobility Assessment C3 and C4 both rotated counterclockwise. PT-OP-K Range of Motion Start: 10/28/21 16:43 Freq: Status: Active Protocol: Document 10/28/21 16:00 DCW (Rec: 10/28/21 16:59 DCW [id number]) Cervical Spine Range of Motion Cervical Spine Active Degrees Testing Position Sitting Flexion 65 Extension 40 Rotation Left 52 Rotation Right 40 Lateral Flexion Left 32 Lateral Flexion Right 15 ROM Limitations Soft Tissue Tightness,Bony Restriction,Pain Shoulder Goniometric Range of Motion Shoulder Left Active Testing Position Sitting Flexion 124 Abduction 180 PT-OP-L Special Tests Start: 10/28/21 16:43 Freq: Status: Active Protocol: Document 10/28/21 16:00 DCW (Rec: 10/28/21 16:59 DCW [id number]) Special Tests Cervical Spine Special Tests Traction Test Results Improved pain Slump Test Results Negative Foraminal Compression Test Results Positive R side Alar Ligament Test Results Negative Shoulder Special Tests Painful arc Test Results Positive left Passive ER Rotator Cuff Test Results Negative Lift-Off Rotator Cuff Test Results Unable to get left into position Lopez Humble Impingement Test Results Positive left Grind Labrum Test Results Positive left Empty Can Test Results Positive left Clunk Test Test Results Positive left Belly Press Test Results Positive left Apprehension Test Test Results Severely positive left PT-OP-M Strength Start: 10/28/21 16:43 Freq: Status: Active Protocol: Document 10/28/21 16:00 DCW (Rec: 10/28/21 16:59 DCW [id number]) Shoulder Strength Shoulder Manual Muscle Testing Right Flexion 4+ Good+ Abduction (C5) 4+ Good+ External Rotation 4+ Good+ Internal Rotation 4+ Good+ Left Flexion 3 Fair Abduction (C5) 3+ Fair+ External Rotation 4 Good Internal Rotation 4 Good PT-OP-Q Treatments Start: 10/28/21 16:43 Freq: Status: Active Protocol: Document 11/10/21 12:00 DCW (Rec: 11/10/21 12:36 DCW [id number]) Manual Therapy Treatment Soft Tissue Mobilization 2 Body Location Cervical paraspinals 1 Body Location Upper trap, Scalenes, SCM, L>R Joint Mobilizations 2 Joint Cervical vertebrae Direction P->A Grade II 1 Joint L GH Direction Inferior Grade III Body Position Supine Manual Traction Cervical Body Position Supine PT-OP-R Modalities Start: 10/28/21 16:43 Freq: Status: Active Protocol: Document 11/10/21 12:00 DCW (Rec: 11/10/21 12:36 DCW [id number]) Spinal Traction Traction Treatment Cervical Method Mechanical,Static Patient Position Hooklying Force Applied (Pounds) 20 Duration of Treatment (Minutes) 10 PT-OP-T Assessment and Plan Start: 10/28/21 16:43 Freq: Status: Active Protocol: Document 11/10/21 12:00 DCW (Rec: 11/10/21 12:36 DCW [id number]) Physical Therapy Assessment Impairments Impairments Functional Activities, Functional Mobility,Pain,ROM, Soft Tissue Mobility,Strength, Tone Goals Four Impairment Pt exhibits counterclockwise rotation of C3 and C4 vertebrae Operator Cavity Pump Goal (LTG) Pt to present to skilled therapy three consecutive visits with no rotated cervical vertebrae LTG Duration 12/29/21 Three Impairment Pt unable to don/doff bra independently due to shoulder pain Senior Living Goal (LTG) Pt to report ability to hook and unhook her bra without her 's assistance and no increased pain. LTG Duration 12/29/21 Two Impairment Pt experiences catching and popping in left shoulder with overhead activity Operator Cavity Pump Goal (LTG) Pt to demonstrate full ROM with no instances of joint catching or grinding LTG Duration 12/29/21 One Impairment Pt does not have an appropriate home exercise program Short Term Goal (STG) Pt to be independent and compliant with an appropriate HEP STG Duration 11/28/21 Assessment Summary Assessment Pt appears to be doing well with traction, if it continues , will work on getting auth for home unit. Physical Therapy Plan Frequency and Duration Frequency of Treatment 2x/Week Duration of Treatment Two months Plan of Care Start Date 10/28/21 Plan of Care End Date 12/29/21 Therapeutic Interventions Therapeutic Interventions Home Exercise Program,Joint Mobilizations,Manual Therapy, Neuromuscular Re-education, Patient/Caregiver Education, Self-Care/Home Management,Soft Tissue Mobilization,Taping, Therapeutic Activities, Therapeutic Exercises Modalities Cold Pack/Ice Massage,Electric Stimulation,Hot Packs, Traction- Mechanical Next Visit Focus/Plan Next Note Type Treatment Note Next Visit Plan Cervical and shoulder STM, joint mobilization, strengthening, flexibility
--- NOTE | 2021-11-15 12:43 | PT.OTN ---
Current Diagnoses Pain in left shoulder (11/15/21) Stiffness of left shoulder, not elsewhere classified (11/15/21) Stiffness of other specified joint, not elsewhere classified (11/15/21) Cervicalgia (11/15/21) Other shoulder lesions, left shoulder (11/15/21) Physical Therapy Treatment Note PT-OP-A Visit Information Start: 10/28/21 16:43 Freq: Status: Active Protocol: Document 11/15/21 12:09 DCW (Rec: 11/15/21 12:43 DCW [id number]) Out-Patient Physical Therapy Visit Information Visit Information Visit Type Treatment Note Visit Start Time 12:08 Visit Stop Time 12:46 Total Visit Minutes 38 Visit Number 5 Number of MUSIC THEORY PROFESSOR Visits 0 Evaluation Information Evaluation Date 10/28/21 PT-OP-B Current Condition Start: 10/28/21 16:43 Freq: Status: Active Protocol: Document 10/28/21 16:00 DCW (Rec: 10/28/21 16:59 DCW [id number]) Current Condition History of Current Condition Onset Date Four months Current Complaints Cervical pain and stiffness, left shoulder pain History of Current Condition Pt is a 66 year old female presenting with a four month history of left shoulder pain, as well as recent worsening of her long-standing cervical pain. Pt was very recently being seen at this facility for her shoulder, but returns today after discharge with a new referral for both her shoulder and neck pain. Pt reports insidious onset of her shoulder pain, but has been having a lot of pain and popping with random left arm movements, most notably overhead or reaching back. Pt neck is reportedly causing vertigo, most recently just a few days ago, pt experienced two dizzy spells within the span of an hour. 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 Pt reports it feels very similar this time, however now it might be the worst it has ever felt. Pt also notes a lot of mental and emotional turmoil in her life at the moment, which has resulted in increased stress and tone throughout her entire body. PT-OP-C Subjective Start: 10/28/21 16:43 Freq: Status: Active Protocol: Document 11/15/21 12:09 DCW (Rec: 01/04/22 12:43 DCW [id number]) OP-PT Subjective Patient Comments Patient Comments The shoulder is still doing that popping thing. PT-OP-F Manual Assessment Start: 10/28/21 16:43 Freq: Status: Active Protocol: Document 10/28/21 16:00 DCW (Rec: 10/28/21 16:59 DCW [id number]) Manual Assessments Soft Tissue Assessment Soft Tissue Mobility Assessment Moderate tone with tenderness to palpation 3/4: wincing and withdraw along right upper trap, right supraspinatus, bilateral suboccipitals, Joint Mobility Assessment Joint Mobility Assessment C3 and C4 both rotated counterclockwise. PT-OP-K Range of Motion Start: 10/28/21 16:43 Freq: Status: Active Protocol: Document 10/28/21 16:00 DCW (Rec: 10/28/21 16:59 DCW [id number]) Cervical Spine Range of Motion Cervical Spine Active Degrees Testing Position Sitting Flexion 65 Extension 40 Rotation Left 52 Rotation Right 40 Lateral Flexion Left 32 Lateral Flexion Right 15 ROM Limitations Soft Tissue Tightness,Bony Restriction,Pain Shoulder Goniometric Range of Motion Shoulder Left Active Testing Position Sitting Flexion 124 Abduction 180 PT-OP-L Special Tests Start: 10/28/21 16:43 Freq: Status: Active Protocol: Document 10/28/21 16:00 DCW (Rec: 10/28/21 16:59 DCW [id number]) Special Tests Cervical Spine Special Tests Traction Test Results Improved pain Slump Test Results Negative Foraminal Compression Test Results Positive R side Alar Ligament Test Results Negative Shoulder Special Tests Painful arc Test Results Positive left Passive ER Rotator Cuff Test Results Negative Lift-Off Rotator Cuff Test Results Unable to get left into position Lopez Humble Impingement Test Results Positive left Grind Labrum Test Results Positive left Empty Can Test Results Positive left Clunk Test Test Results Positive left Belly Press Test Results Positive left Apprehension Test Test Results Severely positive left PT-OP-M Strength Start: 10/28/21 16:43 Freq: Status: Active Protocol: Document 10/28/21 16:00 DCW (Rec: 10/28/21 16:59 DCW [id number]) Shoulder Strength Shoulder Manual Muscle Testing Right Flexion 4+ Good+ Abduction (C5) 4+ Good+ External Rotation 4+ Good+ Internal Rotation 4+ Good+ Left Flexion 3 Fair Abduction (C5) 3+ Fair+ External Rotation 4 Good Internal Rotation 4 Good PT-OP-Q Treatments Start: 10/28/21 16:43 Freq: Status: Active Protocol: Document 11/15/21 12:09 DCW (Rec: 11/15/21 12:43 DCW [id number]) Manual Therapy Treatment Soft Tissue Mobilization 2 Body Location Cervical paraspinals 1 Body Location Upper trap, Scalenes, SCM, L>R Joint Mobilizations 2 Joint Cervical vertebrae Direction P->A Grade II 1 Joint L GH Direction Inferior Grade III Body Position Supine Manual Traction Cervical Body Position Supine PT-OP-R Modalities Start: 10/28/21 16:43 Freq: Status: Active Protocol: Document 11/15/21 12:09 DCW (Rec: 11/15/21 12:43 DCW [id number]) Spinal Traction Traction Treatment Cervical Method Mechanical,Static Patient Position Hooklying Force Applied (Pounds) 20 Duration of Treatment (Minutes) 10 PT-OP-T Assessment and Plan Start: 10/28/21 16:43 Freq: Status: Active Protocol: Document 11/15/21 12:09 DCW (Rec: 11/15/21 12:43 DCW [id number]) Physical Therapy Assessment Impairments Impairments Functional Activities, Functional Mobility,Pain,ROM, Soft Tissue Mobility,Strength, Tone Goals Four Impairment Pt exhibits counterclockwise rotation of C3 and C4 vertebrae Scientific Software Developer Goal (LTG) Pt to present to skilled therapy three consecutive visits with no rotated cervical vertebrae LTG Duration 12/29/21 Three Impairment Pt unable to don/doff bra independently due to shoulder pain Scientific Software Developer Goal (LTG) Pt to report ability to hook and unhook her bra without her 's assistance and no increased pain. LTG Duration 12/29/21 Two Impairment Pt experiences catching and popping in left shoulder with overhead activity Long-Term Goal (LTG) Pt to demonstrate full ROM with no instances of joint catching or grinding LTG Duration 12/29/21 One Impairment Pt does not have an appropriate home exercise program Short Term Goal (STG) Pt to be independent and compliant with an appropriate HEP STG Duration 11/28/21 Assessment Summary Assessment Pt once again had a vertebrae rotated out of place, pt interested in having her come in so he can learn how to help her decide which direction vertebrae is out on. Physical Therapy Plan Frequency and Duration Frequency of Treatment 2x/Week Duration of Treatment Two months Plan of Care Start Date 10/28/21 Plan of Care End Date 12/29/21 Therapeutic Interventions Therapeutic Interventions Home Exercise Program,Joint Mobilizations,Manual Therapy, Neuromuscular Re-education, Patient/Caregiver Education, Self-Care/Home Management,Soft Tissue Mobilization,Taping, Therapeutic Activities, Therapeutic Exercises Modalities Cold Pack/Ice Massage,Electric Stimulation,Hot Packs, Traction- Mechanical Next Visit Focus/Plan Next Note Type Treatment Note Next Visit Plan Cervical and shoulder STM, joint mobilization, strengthening, flexibility
--- NOTE | 2021-12-16 15:55 | PT.OTN ---
Current Diagnoses Pain in left shoulder (12/16/21) Stiffness of left shoulder, not elsewhere classified (12/16/21) Stiffness of other specified joint, not elsewhere classified (12/16/21) Cervicalgia (12/16/21) Other shoulder lesions, left shoulder (12/16/21) Physical Therapy Treatment Note PT-OP-A Visit Information Start: 10/28/21 16:43 Freq: Status: Active Protocol: Document 12/16/21 15:21 DCW (Rec: 12/16/21 15:55 DCW [id number]) Out-Patient Physical Therapy Visit Information Visit Information Visit Type Treatment Note Visit Start Time 15:21 Visit Stop Time 16:00 Total Visit Minutes 39 Visit Number 6 Number of WEED CONTROLLER Visits 0 Evaluation Information Evaluation Date 10/28/21 PT-OP-B Current Condition Start: 10/28/21 16:43 Freq: Status: Active Protocol: Document 10/28/21 16:00 DCW (Rec: 10/28/21 16:59 DCW [id number]) Current Condition History of Current Condition Onset Date Four months Current Complaints Cervical pain and stiffness, left shoulder pain History of Current Condition Pt is a 66 year old female presenting with a four month history of left shoulder pain, as well as recent worsening of her long-standing cervical pain. Pt was very recently being seen at this facility for her shoulder, but returns today after discharge with a new referral for both her shoulder and neck pain. Pt reports insidious onset of her shoulder pain, but has been having a lot of pain and popping with random left arm movements, most notably overhead or reaching back. Pt neck is reportedly causing vertigo, most recently just a few days ago, pt experienced two dizzy spells within the span of an hour. 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 Pt reports it feels very similar this time, however now it might be the worst it has ever felt. Pt also notes a lot of mental and emotional turmoil in her life at the moment, which has resulted in increased stress and tone throughout her entire body. PT-OP-C Subjective Start: 10/28/21 16:43 Freq: Status: Active Protocol: Document 12/16/21 15:21 DCW (Rec: 02/04/22 15:55 DCW [id number]) OP-PT Subjective Patient Comments Patient Comments I think my shoulder seems to be slowly improving. My neck has been up and down. I had one bad day where I was having some pretty severe neck pain and dizziness. PT-OP-F Manual Assessment Start: 10/28/21 16:43 Freq: Status: Active Protocol: Document 10/28/21 16:00 DCW (Rec: 10/28/21 16:59 DCW [id number]) Manual Assessments Soft Tissue Assessment Soft Tissue Mobility Assessment Moderate tone with tenderness to palpation 3/4: wincing and withdraw along right upper trap, right supraspinatus, bilateral suboccipitals, Joint Mobility Assessment Joint Mobility Assessment C3 and C4 both rotated counterclockwise. PT-OP-K Range of Motion Start: 10/28/21 16:43 Freq: Status: Active Protocol: Document 10/28/21 16:00 DCW (Rec: 10/28/21 16:59 DCW [id number]) Cervical Spine Range of Motion Cervical Spine Active Degrees Testing Position Sitting Flexion 65 Extension 40 Rotation Left 52 Rotation Right 40 Lateral Flexion Left 32 Lateral Flexion Right 15 ROM Limitations Soft Tissue Tightness,Bony Restriction,Pain Shoulder Goniometric Range of Motion Shoulder Left Active Testing Position Sitting Flexion 124 Abduction 180 PT-OP-L Special Tests Start: 10/28/21 16:43 Freq: Status: Active Protocol: Document 10/28/21 16:00 DCW (Rec: 10/28/21 16:59 DCW [id number]) Special Tests Cervical Spine Special Tests Traction Test Results Improved pain Slump Test Results Negative Foraminal Compression Test Results Positive R side Alar Ligament Test Results Negative Shoulder Special Tests Painful arc Test Results Positive left Passive ER Rotator Cuff Test Results Negative Lift-Off Rotator Cuff Test Results Unable to get left into position Lopez Humble Impingement Test Results Positive left Grind Labrum Test Results Positive left Empty Can Test Results Positive left Clunk Test Test Results Positive left Belly Press Test Results Positive left Apprehension Test Test Results Severely positive left PT-OP-M Strength Start: 10/28/21 16:43 Freq: Status: Active Protocol: Document 10/28/21 16:00 DCW (Rec: 10/28/21 16:59 DCW [id number]) Shoulder Strength Shoulder Manual Muscle Testing Right Flexion 4+ Good+ Abduction (C5) 4+ Good+ External Rotation 4+ Good+ Internal Rotation 4+ Good+ Left Flexion 3 Fair Abduction (C5) 3+ Fair+ External Rotation 4 Good Internal Rotation 4 Good PT-OP-Q Treatments Start: 10/28/21 16:43 Freq: Status: Active Protocol: Document 12/16/21 15:21 DCW (Rec: 12/16/21 15:55 DCW [id number]) Manual Therapy Treatment Soft Tissue Mobilization 2 Body Location Cervical paraspinals 1 Body Location Upper trap, Scalenes, SCM, L>R Joint Mobilizations 2 Joint Cervical vertebrae Direction P->A Grade II 1 Joint L GH Direction Inferior Grade III Body Position Supine Manual Traction Cervical Body Position Supine PT-OP-R Modalities Start: 10/28/21 16:43 Freq: Status: Active Protocol: Document 12/16/21 15:21 DCW (Rec: 12/16/21 15:55 DCW [id number]) Spinal Traction Traction Treatment Cervical Method Mechanical,Static Patient Position Hooklying Force Applied (Pounds) 20 Duration of Treatment (Minutes) 10 PT-OP-T Assessment and Plan Start: 10/28/21 16:43 Freq: Status: Active Protocol: Document 12/16/21 15:21 DCW (Rec: 12/16/21 15:55 DCW [id number]) Physical Therapy Assessment Impairments Impairments Functional Activities, Functional Mobility,Pain,ROM, Soft Tissue Mobility,Strength, Tone Goals Four Impairment Pt exhibits counterclockwise rotation of C3 and C4 vertebrae Tab Machine Operator Goal (LTG) Pt to present to skilled therapy three consecutive visits with no rotated cervical vertebrae LTG Duration 12/29/21 Three Impairment Pt unable to don/doff bra independently due to shoulder pain Mcc Goal (LTG) Pt to report ability to hook and unhook her bra without her 's assistance and no increased pain. LTG Duration 12/29/21 Two Impairment Pt experiences catching and popping in left shoulder with overhead activity Tab Machine Operator Goal (LTG) Pt to demonstrate full ROM with no instances of joint catching or grinding LTG Duration 12/29/21 One Impairment Pt does not have an appropriate home exercise program Short Term Goal (STG) Pt to be independent and compliant with an appropriate HEP STG Duration 11/28/21 Assessment Summary Assessment Pt returns today after missing the last month due to testing positive for covid. Pt actually displaying much better than usual tone throught c-spine, not showing any evidence of vertebral rotation. Physical Therapy Plan Frequency and Duration Frequency of Treatment 2x/Week Duration of Treatment Two months Plan of Care Start Date 10/28/21 Plan of Care End Date 12/29/21 Therapeutic Interventions Therapeutic Interventions Home Exercise Program,Joint Mobilizations,Manual Therapy, Neuromuscular Re-education, Patient/Caregiver Education, Self-Care/Home Management,Soft Tissue Mobilization,Taping, Therapeutic Activities, Therapeutic Exercises Modalities Cold Pack/Ice Massage,Electric Stimulation,Hot Packs, Traction- Mechanical Next Visit Focus/Plan Next Note Type Treatment Note Next Visit Plan Cervical and shoulder STM, joint mobilization, strengthening, flexibility
--- NOTE | 2021-12-21 12:47 | PT.OTN ---
Current Diagnoses Pain in left shoulder (12/21/21) Stiffness of left shoulder, not elsewhere classified (12/21/21) Stiffness of other specified joint, not elsewhere classified (12/21/21) Cervicalgia (12/21/21) Other shoulder lesions, left shoulder (12/21/21) Physical Therapy Treatment Note PT-OP-A Visit Information Start: 10/28/21 16:43 Freq: Status: Active Protocol: Document 12/21/21 12:04 DCW (Rec: 12/21/21 12:47 DCW [id number]) Out-Patient Physical Therapy Visit Information Visit Information Visit Type Treatment Note Visit Start Time 12:04 Visit Stop Time 12:45 Total Visit Minutes 41 Visit Number 7 Number of ASSEMBLER BRAZER Visits 0 Evaluation Information Evaluation Date 10/28/21 PT-OP-B Current Condition Start: 10/28/21 16:43 Freq: Status: Active Protocol: Document 10/28/21 16:00 DCW (Rec: 10/28/21 16:59 DCW [id number]) Current Condition History of Current Condition Onset Date Four months Current Complaints Cervical pain and stiffness, left shoulder pain History of Current Condition Pt is a 66 year old female presenting with a four month history of left shoulder pain, as well as recent worsening of her long-standing cervical pain. Pt was very recently being seen at this facility for her shoulder, but returns today after discharge with a new referral for both her shoulder and neck pain. Pt reports insidious onset of her shoulder pain, but has been having a lot of pain and popping with random left arm movements, most notably overhead or reaching back. Pt neck is reportedly causing vertigo, most recently just a few days ago, pt experienced two dizzy spells within the span of an hour. 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 Pt reports it feels very similar this time, however now it might be the worst it has ever felt. Pt also notes a lot of mental and emotional turmoil in her life at the moment, which has resulted in increased stress and tone throughout her entire body. PT-OP-C Subjective Start: 10/28/21 16:43 Freq: Status: Active Protocol: Document 12/21/21 12:04 DCW (Rec: 02/09/22 12:47 DCW [id number]) OP-PT Subjective Patient Comments Patient Comments Pt notes her shoulder has been clicking a little, but still better than it had been months ago. Notes her neck is still bothering her. PT-OP-F Manual Assessment Start: 10/28/21 16:43 Freq: Status: Active Protocol: Document 10/28/21 16:00 DCW (Rec: 10/28/21 16:59 DCW [id number]) Manual Assessments Soft Tissue Assessment Soft Tissue Mobility Assessment Moderate tone with tenderness to palpation 3/4: wincing and withdraw along right upper trap, right supraspinatus, bilateral suboccipitals, Joint Mobility Assessment Joint Mobility Assessment C3 and C4 both rotated counterclockwise. PT-OP-K Range of Motion Start: 10/28/21 16:43 Freq: Status: Active Protocol: Document 10/28/21 16:00 DCW (Rec: 10/28/21 16:59 DCW [id number]) Cervical Spine Range of Motion Cervical Spine Active Degrees Testing Position Sitting Flexion 65 Extension 40 Rotation Left 52 Rotation Right 40 Lateral Flexion Left 32 Lateral Flexion Right 15 ROM Limitations Soft Tissue Tightness,Bony Restriction,Pain Shoulder Goniometric Range of Motion Shoulder Left Active Testing Position Sitting Flexion 124 Abduction 180 PT-OP-L Special Tests Start: 10/28/21 16:43 Freq: Status: Active Protocol: Document 10/28/21 16:00 DCW (Rec: 10/28/21 16:59 DCW [id number]) Special Tests Cervical Spine Special Tests Traction Test Results Improved pain Slump Test Results Negative Foraminal Compression Test Results Positive R side Alar Ligament Test Results Negative Shoulder Special Tests Painful arc Test Results Positive left Passive ER Rotator Cuff Test Results Negative Lift-Off Rotator Cuff Test Results Unable to get left into position Lopez Humble Impingement Test Results Positive left Grind Labrum Test Results Positive left Empty Can Test Results Positive left Clunk Test Test Results Positive left Belly Press Test Results Positive left Apprehension Test Test Results Severely positive left PT-OP-M Strength Start: 10/28/21 16:43 Freq: Status: Active Protocol: Document 10/28/21 16:00 DCW (Rec: 10/28/21 16:59 DCW [id number]) Shoulder Strength Shoulder Manual Muscle Testing Right Flexion 4+ Good+ Abduction (C5) 4+ Good+ External Rotation 4+ Good+ Internal Rotation 4+ Good+ Left Flexion 3 Fair Abduction (C5) 3+ Fair+ External Rotation 4 Good Internal Rotation 4 Good PT-OP-Q Treatments Start: 10/28/21 16:43 Freq: Status: Active Protocol: Document 12/21/21 12:04 DCW (Rec: 12/21/21 12:47 DCW [id number]) Manual Therapy Treatment Soft Tissue Mobilization 2 Body Location Cervical paraspinals 1 Body Location Upper trap, Scalenes, SCM, L>R Joint Mobilizations 2 Joint Cervical vertebrae Direction P->A Grade II 1 Joint L GH Direction Inferior Grade III Body Position Supine Manual Traction Cervical Body Position Supine PT-OP-R Modalities Start: 10/28/21 16:43 Freq: Status: Active Protocol: Document 12/16/21 15:21 DCW (Rec: 12/16/21 15:55 DCW [id number]) Spinal Traction Traction Treatment Cervical Method Mechanical,Static Patient Position Hooklying Force Applied (Pounds) 20 Duration of Treatment (Minutes) 10 PT-OP-T Assessment and Plan Start: 10/28/21 16:43 Freq: Status: Active Protocol: Document 12/21/21 12:04 DCW (Rec: 12/21/21 12:47 DCW [id number]) Physical Therapy Assessment Impairments Impairments Functional Activities, Functional Mobility,Pain,ROM, Soft Tissue Mobility,Strength, Tone Goals Four Impairment Pt exhibits counterclockwise rotation of C3 and C4 vertebrae Office Machine Installer Goal (LTG) Pt to present to skilled therapy three consecutive visits with no rotated cervical vertebrae LTG Duration 12/29/21 Three Impairment Pt unable to don/doff bra independently due to shoulder pain Senior Living Goal (LTG) Pt to report ability to hook and unhook her bra without her 's assistance and no increased pain. LTG Duration 12/29/21 Two Impairment Pt experiences catching and popping in left shoulder with overhead activity Office Machine Installer Goal (LTG) Pt to demonstrate full ROM with no instances of joint catching or grinding LTG Duration 12/29/21 One Impairment Pt does not have an appropriate home exercise program Short Term Goal (STG) Pt to be independent and compliant with an appropriate HEP STG Duration 11/28/21 Assessment Summary Assessment Pt doing well, vertebrae remained in place since last visit, still much less overall tone than usual for her. Physical Therapy Plan Frequency and Duration Frequency of Treatment 2x/Week Duration of Treatment Two months Plan of Care Start Date 10/28/21 Plan of Care End Date 12/29/21 Therapeutic Interventions Therapeutic Interventions Home Exercise Program,Joint Mobilizations,Manual Therapy, Neuromuscular Re-education, Patient/Caregiver Education, Self-Care/Home Management,Soft Tissue Mobilization,Taping, Therapeutic Activities, Therapeutic Exercises Modalities Cold Pack/Ice Massage,Electric Stimulation,Hot Packs, Traction- Mechanical Next Visit Focus/Plan Next Note Type Treatment Note Next Visit Plan Cervical and shoulder STM, joint mobilization, strengthening, flexibility
--- NOTE | 2021-12-28 15:13 | PT.OTN ---
Current Diagnoses Pain in left shoulder (12/28/21) Stiffness of left shoulder, not elsewhere classified (12/28/21) Stiffness of other specified joint, not elsewhere classified (12/28/21) Cervicalgia (12/28/21) Other shoulder lesions, left shoulder (12/28/21) Physical Therapy Treatment Note PT-OP-A Visit Information Start: 10/28/21 16:43 Freq: Status: Active Protocol: Document 12/28/21 14:33 DCW (Rec: 12/28/21 15:13 DCW [id number]) Out-Patient Physical Therapy Visit Information Visit Information Visit Type Treatment Note Visit Start Time 14:33 Visit Stop Time 15:15 Total Visit Minutes 43 Visit Number 8 Number of RETAIL SALESPERSON Visits 0 Evaluation Information Evaluation Date 10/28/21 PT-OP-B Current Condition Start: 10/28/21 16:43 Freq: Status: Active Protocol: Document 10/28/21 16:00 DCW (Rec: 10/28/21 16:59 DCW [id number]) Current Condition History of Current Condition Onset Date Four months Current Complaints Cervical pain and stiffness, left shoulder pain History of Current Condition Pt is a 66 year old female presenting with a four month history of left shoulder pain, as well as recent worsening of her long-standing cervical pain. Pt was very recently being seen at this facility for her shoulder, but returns today after discharge with a new referral for both her shoulder and neck pain. Pt reports insidious onset of her shoulder pain, but has been having a lot of pain and popping with random left arm movements, most notably overhead or reaching back. Pt neck is reportedly causing vertigo, most recently just a few days ago, pt experienced two dizzy spells within the span of an hour. 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 Pt reports it feels very similar this time, however now it might be the worst it has ever felt. Pt also notes a lot of mental and emotional turmoil in her life at the moment, which has resulted in increased stress and tone throughout her entire body. PT-OP-C Subjective Start: 10/28/21 16:43 Freq: Status: Active Protocol: Document 12/28/21 14:33 DCW (Rec: 02/16/22 15:13 DCW [id number]) OP-PT Subjective Patient Comments Patient Comments My neck has still been a problem. PT-OP-F Manual Assessment Start: 10/28/21 16:43 Freq: Status: Active Protocol: Document 10/28/21 16:00 DCW (Rec: 10/28/21 16:59 DCW [id number]) Manual Assessments Soft Tissue Assessment Soft Tissue Mobility Assessment Moderate tone with tenderness to palpation 3/4: wincing and withdraw along right upper trap, right supraspinatus, bilateral suboccipitals, Joint Mobility Assessment Joint Mobility Assessment C3 and C4 both rotated counterclockwise. PT-OP-K Range of Motion Start: 10/28/21 16:43 Freq: Status: Active Protocol: Document 10/28/21 16:00 DCW (Rec: 10/28/21 16:59 DCW [id number]) Cervical Spine Range of Motion Cervical Spine Active Degrees Testing Position Sitting Flexion 65 Extension 40 Rotation Left 52 Rotation Right 40 Lateral Flexion Left 32 Lateral Flexion Right 15 ROM Limitations Soft Tissue Tightness,Bony Restriction,Pain Shoulder Goniometric Range of Motion Shoulder Left Active Testing Position Sitting Flexion 124 Abduction 180 PT-OP-L Special Tests Start: 10/28/21 16:43 Freq: Status: Active Protocol: Document 10/28/21 16:00 DCW (Rec: 10/28/21 16:59 DCW [id number]) Special Tests Cervical Spine Special Tests Traction Test Results Improved pain Slump Test Results Negative Foraminal Compression Test Results Positive R side Alar Ligament Test Results Negative Shoulder Special Tests Painful arc Test Results Positive left Passive ER Rotator Cuff Test Results Negative Lift-Off Rotator Cuff Test Results Unable to get left into position Lopez Humble Impingement Test Results Positive left Grind Labrum Test Results Positive left Empty Can Test Results Positive left Clunk Test Test Results Positive left Belly Press Test Results Positive left Apprehension Test Test Results Severely positive left PT-OP-M Strength Start: 10/28/21 16:43 Freq: Status: Active Protocol: Document 10/28/21 16:00 DCW (Rec: 10/28/21 16:59 DCW [id number]) Shoulder Strength Shoulder Manual Muscle Testing Right Flexion 4+ Good+ Abduction (C5) 4+ Good+ External Rotation 4+ Good+ Internal Rotation 4+ Good+ Left Flexion 3 Fair Abduction (C5) 3+ Fair+ External Rotation 4 Good Internal Rotation 4 Good PT-OP-Q Treatments Start: 10/28/21 16:43 Freq: Status: Active Protocol: Document 12/28/21 14:33 DCW (Rec: 12/28/21 15:13 DCW [id number]) Manual Therapy Treatment Soft Tissue Mobilization 2 Body Location Cervical paraspinals 1 Body Location Upper trap, Scalenes, SCM, L>R Joint Mobilizations 2 Joint Cervical vertebrae Direction P->A Grade II 1 Joint L GH Direction Inferior Grade III Body Position Supine Manual Traction Cervical Body Position Supine PT-OP-R Modalities Start: 10/28/21 16:43 Freq: Status: Active Protocol: Document 12/16/21 15:21 DCW (Rec: 12/16/21 15:55 DCW [id number]) Spinal Traction Traction Treatment Cervical Method Mechanical,Static Patient Position Hooklying Force Applied (Pounds) 20 Duration of Treatment (Minutes) 10 PT-OP-T Assessment and Plan Start: 10/28/21 16:43 Freq: Status: Active Protocol: Document 12/28/21 14:33 DCW (Rec: 12/28/21 15:13 DCW [id number]) Physical Therapy Assessment Impairments Impairments Functional Activities, Functional Mobility,Pain,ROM, Soft Tissue Mobility,Strength, Tone Goals Four Impairment Pt exhibits counterclockwise rotation of C3 and C4 vertebrae Personal Shopper Goal (LTG) Pt to present to skilled therapy three consecutive visits with no rotated cervical vertebrae LTG Duration 12/29/21 Three Impairment Pt unable to don/doff bra independently due to shoulder pain Long-Term Goal (LTG) Pt to report ability to hook and unhook her bra without her 's assistance and no increased pain. LTG Duration 12/29/21 Two Impairment Pt experiences catching and popping in left shoulder with overhead activity Long-Term Goal (LTG) Pt to demonstrate full ROM with no instances of joint catching or grinding LTG Duration 12/29/21 One Impairment Pt does not have an appropriate home exercise program Short Term Goal (STG) Pt to be independent and compliant with an appropriate HEP STG Duration 11/28/21 Assessment Summary Assessment Pt's initial complaint of left should pain has largely resolved, however continues to complain of relatively unchanged cervical pain. Pt has plateaued, does not appear to be progressing with therapy. Recommend pt return to her PCP for follow-up, will discharge from skilled PT at this time. Physical Therapy Plan Frequency and Duration Frequency of Treatment 2x/Week Duration of Treatment Two months Plan of Care Start Date 10/28/21 Plan of Care End Date 12/29/21 Therapeutic Interventions Therapeutic Interventions Home Exercise Program,Joint Mobilizations,Manual Therapy, Neuromuscular Re-education, Patient/Caregiver Education, Self-Care/Home Management,Soft Tissue Mobilization,Taping, Therapeutic Activities, Therapeutic Exercises Modalities Cold Pack/Ice Massage,Electric Stimulation,Hot Packs, Traction- Mechanical Discharge Physical Therapy Discharge Reasons Plateau in Progress Next Visit Focus/Plan Next Note Type Discharge Summary
== END 2021-12-29 08:02 ==
LOC: PHYS 14:30
PROVIDERS: PCP Internal Medicine; Referring Provider Internal Medicine; Visit Provider Internal Medicine
DX: M75.82 Other shoulder lesions, left shoulder (principal); M54.2 Cervicalgia; M25.612 Stiffness of left shoulder, not elsewhere classified; M25.69 Stiffness of other specified joint, not elsewhere classified; M25.512 Pain in left shoulder
CPT/HCPCS: 97012; 97140; 97161

== ENCOUNTER → 2022-12-08 14:40 | Outpatient (CLI) | payer MEDICARE, SELFPAY ==
--- NOTE | 2022-12-08 14:42 | DI.RAD.S_ITS ---
PROCEDURE: XR CERVICAL SPINE 2V OR 3V INDICATIONS: neck pain TECHNIQUE: 3 view(s) of the cervical spine were acquired. COMPARISON: None. FINDINGS: Bones: No fractures or dislocations to the C7-T1 level. The lateral masses of C1 appear intact on the odontoid view. No suspicious bony lesions. Multilevel moderate to severe degenerative disc space narrowing is present most notable from C3-4 through C5-6. Trace retrolisthesis is present of C4 on C5 and C5 on C6. Small anterior osteophytes are present. Multilevel uncovertebral arthropathy. Soft tissues: No prevertebral soft tissue swelling. IMPRESSION: Degenerative changes are most prominent from C3-4 through C5-6. Dictated by: Kylah Morales M.D. on 12/08/2022 at 16:55 Approved by: Kylah Morales M.D. on 12/08/2022 at 16:56
== END ==
PROVIDERS: Family Provider Internal Medicine; PCP Internal Medicine; Referring Provider Internal Medicine; Visit Provider Internal Medicine
DX: M47.812 Spondylosis without myelopathy or radiculopathy, cervical region (principal); G43.809 Other migraine, not intractable, without status migrainosus; R42 Dizziness and giddiness
CPT/HCPCS: 72040

== ENCOUNTER → 2022-12-26 13:18 | Outpatient (CLI) | payer MEDICARE, SELFPAY ==
--- NOTE | 2022-12-26 | DI.MG.S_ITS ---
BILATERAL DIGITAL SCREENING MAMMOGRAM 3D/2D WITH CAD: 12/26/2022 CLINICAL: Routine screening. Family history of breast cancer. Comparison is made to exams dated: 12/27/2020 mammogram, 10/08/2019 mammogram, and 03/09/2016 mammogram - [facility]. Both breasts are heterogeneously dense, which may obscure small masses (category c / 51-75% glandular tissue). Current study was also evaluated with a Computer Aided Detection (CAD) system. There are benign calcifications in both breasts. No significant masses, calcifications, or other findings are seen in either breast. There has been no significant interval change. IMPRESSION: BENIGN There is no mammographic evidence of malignancy. A 1 year screening mammogram is recommended. Based on the Tyrer Cuzick model (a risk assessment model) the patient's lifetime risk is 11.8% and her 10 year risk is 6.4%. According to the ACR, ACS, and NCCN guidelines, an annual breast MRI exam along with mammogram is recommended if the patient's lifetime risk is 20% or greater. This exam was interpreted at Station ID: [id number]. NOTE: For mammograms, a report in lay terms will be sent to the patient. Approximately 15% of breast malignancies will not be visualized mammographically. In the management of a palpable breast mass, a negative mammogram must not discourage biopsy of a clinically suspicious lesion. Electronically Signed By: Triston oropeza/billy:12/26/2022 15:22:57 letter sent: Normal Exam ACR BI-RADS Category 2: Benign Finding(s) [id number]
== END ==
PROVIDERS: Family Provider Internal Medicine; PCP Internal Medicine; Referring Provider Internal Medicine; Visit Provider Internal Medicine
DX: Z12.31 Encounter for screening mammogram for malignant neoplasm of breast (principal); Z80.3 Family history of malignant neoplasm of breast
CPT/HCPCS: 77063; 77067

== ENCOUNTER 2023-03-28 12:45 | Outpatient (RCR) | payer MEDICARE, SELFPAY ==
--- NOTE | 2022-12-08 14:30 | PT.OPPOC ---
Physical, Occupational & Speech Therapy At [facility] Current Diagnoses Other migraine, not intractable, without status migrainosus (12/08/22) Spondylosis without myelopathy or radiculopathy, cervical region (12/08/22) Spondylosis, unspecified (12/08/22) Dizziness and giddiness (12/08/22) Visit Care Team Role Provider Type Balwinder Ocasio MD Attending Provider Physician Family Provider Primary Care Provider Referring Provider Specialty: Internal Medicine Address: [address] [place] [address] Email: [email or web address] Plan Of Care PT-OP-T Assessment and Plan Start: 12/08/22 17:18 Freq: Status: Active Protocol: Document 12/08/22 13:45 DCW (Rec: 12/11/22 09:43 DCW [id number]) Physical Therapy Assessment Rehab Potential Rehabilitation Potential Good Evaluation Complexity Number of Personal Factors/Comorbidities 3 or More Number of Body Systems Impaired 3 Clinical Presentation at Evaluation Unstable Impairments Impairments Functional Activities, Functional Mobility,Pain,ROM, Soft Tissue Mobility,Strength, Tone Goals Two Impairment Limited cervical ROM secondary to vertebral hypomobility and muscle tone Fpc Goal (LTG) Pt to display increased cervical rotation to >60? bilaterally and lateral flexion >40? bilaterally in order to improve ability to turn head while driving without pain or dizziness. LTG Duration 02/05/23 One Impairment Pt does not have an appropriate home exercise program Short Term Goal (STG) Pt to be independent and compliant with an appropriate HEP STG Duration 01/08/23 Assessment Summary Assessment Pt presents with complaints of sudden onset of spontaneous dizziness lasting 30 seconds to five minutes. Vestibular testing was negative today, no signs of an inner ear disorder. With pt's subjective complaints, as well as her history of cervical dysfunction, most likely DDx is cervicogenic dizziness, with a lesser possibility being migraine-variant dizziness. Pt should benefit from skilled therapy focusing on improving cervical ROM, decreasing tone, improving mobility of her vertebrae, and improving cervical strength for stabilization. Pt is leaving the state for two weeks shortly after her evaluation, but upon return, will schedule follow-up visits to address ongoing complaints . Physical Therapy Plan Frequency and Duration Frequency of Treatment 1-2x/week Plan of Care Start Date 12/08/22 Plan of Care End Date 02/05/23 Therapeutic Interventions Therapeutic Interventions Home Exercise Program,Joint Mobilizations,Manual Therapy, Patient/Caregiver Education, Self-Care/Home Management,Soft Tissue Mobilization, Therapeutic Activities, Therapeutic Exercises, Vestibular Rehabilitation Next Visit Focus/Plan Next Note Type Treatment Note Next Visit Plan Cervical traction, STM, cervical strengthening Plan of Care Dates Plan of Care Start Date 12/08/22 Plan of Care End Date 02/05/23 Electronically Signed by: Delfin Rodriguez, PT 12/11/22 0943 If you are in agreement with this Plan of Care, please return a signed and dated copy. I have reviewed this Plan of Care and certify that the skilled therapy services above are required to meet the patient?s needs. Physician Signature Date Printed Name and Credentials Clinical Instructor Signature Printed Name and Credentials
--- NOTE | 2022-12-08 14:30 | PT.OIE ---
Current Diagnoses Other migraine, not intractable, without status migrainosus (12/08/22) Spondylosis without myelopathy or radiculopathy, cervical region (12/08/22) Spondylosis, unspecified (12/08/22) Dizziness and giddiness (12/08/22) Past Medical History (Last Updated 11/27/22 @ 12:17 by Balwinder Ocasio MD) Acquired hypothyroidism (~1972) Benign essential tremor Cervical spine disease (~1980) Chicken pox (~1967) Depression, major, recurrent DJD (degenerative joint disease), cervical Generalized anxiety disorder Hearing loss History of pulmonary embolism Medicare annual wellness visit, initial Migraine, cervicogenic Mumps (~1968) Rosacea Sjogren's syndrome (~2001) Vertigo of cervical arthrosis syndrome Past Surgical History (Last Reviewed 11/26/22 @ 21:15 by Balwinder Ocasio MD) History of carpal tunnel surgery (~2019) Visit Care Team Role Provider Type Balwinder Ocasio MD Attending Provider Physician Family Provider Primary Care Provider Referring Provider Specialty: Internal Medicine Address: [address] [place] [address], [facility] Email: [email or web address] Physical Therapy Initial Evaluation PT-OP-A Visit Information Start: 12/08/22 17:18 Freq: Status: Active Protocol: Document 12/08/22 13:45 DCW (Rec: 12/08/22 17:27 DCW [id number]) Out-Patient Physical Therapy Visit Information Visit Information Visit Type Initial Evaluation Visit Start Time 13:45 Visit Stop Time 14:20 Total Visit Minutes 35 Visit Number 1 Number of RETAIL AREA MANAGER Visits 0 Evaluation Information Evaluation Date 12/08/22 PT-OP-B Current Condition Start: 12/08/22 17:18 Freq: Status: Active Protocol: Document 12/08/22 13:45 DCW (Rec: 12/08/22 17:27 DCW [id number]) Current Condition History of Current Condition Onset Date Worsening over last year Current Complaints Complaints of sudden spontaneous dizziness History of Current Condition Pt is a 67 year old female very well known to this clinic presenting with complaints of worsening episodes of sudden, spontaneous dizziness. Reports episodes last 30 seconds-5 minutes. Will often just be sitting in a chair or driving her car, does not feel there is any head movement involved. Pt has a long history of both cervical pain and migraine history, which she has previously undergone treatment for at this facility . Admits that with her increasing dizziness, which has increased in frequency from 1x/month to 2-3x/week, she has been experiencing increased cervical pain and stiffness. Treatment Goals Patient/Caregiver Goals Minimize dizziness PT-OP-C Subjective Start: 12/08/22 17:18 Freq: Status: Active Protocol: Document 12/08/22 13:45 DCW (Rec: 12/08/22 17:27 DCW [id number]) OP-PT Subjective Patient Comments Patient Comments I'm going to be leaving for [place] on Sunday, and I didn 't think there was any way that I could get in here to see you in time, I got really nestor you had an opening today . Patient Reported Progress Worse Patient Questionnaires Dizziness Handicap Inventory DHI Score 12% DHI Functional Impairment 1 to 19% Impaired (Score 1-19) PT-OP-F Manual Assessment Start: 12/08/22 17:18 Freq: Status: Active Protocol: Document 12/08/22 13:45 DCW (Rec: 12/08/22 17:27 DCW [id number]) Manual Assessments Soft Tissue Assessment Soft Tissue Mobility Assessment Moderate tone B upper trap, scalenes, cervical paraspinals , R>L Joint Mobility Assessment Joint Mobility Assessment Mild CCW rotation of C4 PT-OP-K Range of Motion Start: 12/08/22 17:18 Freq: Status: Active Protocol: Document 12/08/22 13:45 DCW (Rec: 12/08/22 17:27 DCW [id number]) Cervical Spine Range of Motion Cervical Spine Active Degrees Testing Position Sitting Flexion 55 Extension 35 Rotation Left 40 Rotation Right 43 Lateral Flexion Left 35 Lateral Flexion Right 20 ROM Limitations Soft Tissue Tightness,Muscle Tone,Pain PT-OP-O Vestibular Start: 12/08/22 17:18 Freq: Status: Active Protocol: Document 12/08/22 13:45 DCW (Rec: 12/08/22 17:27 DCW [id number]) Vestibular Assessment Visual Testing Smooth Pursuits Horizontal WNL Smooth Pursuits Vertical WNL Saccades Horizontal WNL Saccades Vertical WNL Heave Test Negative Thrust Head Negative Spontaneous Nystagmus Negative PT-OP-Q Treatments Start: 12/08/22 17:18 Freq: Status: Active Protocol: Document 12/08/22 13:45 DCW (Rec: 12/08/22 17:29 DCW [id number]) Manual Therapy Treatment Soft Tissue Mobilization Upper trap Body Location Upper Trap, R>L Mobilization Type Sustained Pressure,Trigger Point Release Intensity/Depth Moderate Body Position Hooklying Manual Techniques MWM Type Resisted cervical rotation Body Location C4 Body Position Hooklying PT-OP-T Assessment and Plan Start: 12/08/22 17:18 Freq: Status: Active Protocol: Document 12/08/22 13:45 DCW (Rec: 12/11/22 09:43 DCW [id number]) Physical Therapy Assessment Rehab Potential Rehabilitation Potential Good Evaluation Complexity Number of Personal Factors/Comorbidities 3 or More Number of Body Systems Impaired 3 Clinical Presentation at Evaluation Unstable Impairments Impairments Functional Activities, Functional Mobility,Pain,ROM, Soft Tissue Mobility,Strength, Tone Goals Two Impairment Limited cervical ROM secondary to vertebral hypomobility and muscle tone Shelter Goal (LTG) Pt to display increased cervical rotation to >60? bilaterally and lateral flexion >40? bilaterally in order to improve ability to turn head while driving without pain or dizziness. LTG Duration 02/05/23 One Impairment Pt does not have an appropriate home exercise program Short Term Goal (STG) Pt to be independent and compliant with an appropriate HEP STG Duration 01/08/23 Assessment Summary Assessment Pt presents with complaints of sudden onset of spontaneous dizziness lasting 30 seconds to five minutes. Vestibular testing was negative today, no signs of an inner ear disorder. With pt's subjective complaints, as well as her history of cervical dysfunction, most likely DDx is cervicogenic dizziness, with a lesser possibility being migraine-variant dizziness. Pt should benefit from skilled therapy focusing on improving cervical ROM, decreasing tone, improving mobility of her vertebrae, and improving cervical strength for stabilization. Pt is leaving the state for two weeks shortly after her evaluation, but upon return, will schedule follow-up visits to address ongoing complaints . Physical Therapy Plan Frequency and Duration Frequency of Treatment 1-2x/week Plan of Care Start Date 12/08/22 Plan of Care End Date 02/05/23 Therapeutic Interventions Therapeutic Interventions Home Exercise Program,Joint Mobilizations,Manual Therapy, Patient/Caregiver Education, Self-Care/Home Management,Soft Tissue Mobilization, Therapeutic Activities, Therapeutic Exercises, Vestibular Rehabilitation Next Visit Focus/Plan Next Note Type Treatment Note Next Visit Plan Cervical traction, STM, cervical strengthening
--- NOTE | 2023-01-23 14:31 | PT.OTN ---
Current Diagnoses Other migraine, not intractable, without status migrainosus (01/23/23) Spondylosis without myelopathy or radiculopathy, cervical region (01/23/23) Spondylosis, unspecified (01/23/23) Dizziness and giddiness (01/23/23) Physical Therapy Treatment Note PT-OP-A Visit Information Start: 12/08/22 17:18 Freq: Status: Active Protocol: Document 01/23/23 13:51 DCW (Rec: 01/23/23 14:31 DCW [id number]) Out-Patient Physical Therapy Visit Information Visit Information Visit Type Treatment Note Visit Start Time 13:51 Visit Stop Time 14:30 Total Visit Minutes 39 Visit Number 2 Number of MEDICATION RECONCILIATION TECHNICIAN Visits 0 Evaluation Information Evaluation Date 12/08/22 PT-OP-B Current Condition Start: 12/08/22 17:18 Freq: Status: Active Protocol: Document 12/08/22 13:45 DCW (Rec: 12/08/22 17:27 DCW [id number]) Current Condition History of Current Condition Onset Date Worsening over last year Current Complaints Complaints of sudden spontaneous dizziness History of Current Condition Pt is a 67 year old female very well known to this clinic presenting with complaints of worsening episodes of sudden, spontaneous dizziness. Reports episodes last 30 seconds-5 minutes. Will often just be sitting in a chair or driving her car, does not feel there is any head movement involved. Pt has a long history of both cervical pain and migraine history, which she has previously undergone treatment for at this facility . Admits that with her increasing dizziness, which has increased in frequency from 1x/month to 2-3x/week, she has been experiencing increased cervical pain and stiffness. Treatment Goals Patient/Caregiver Goals Minimize dizziness PT-OP-C Subjective Start: 12/08/22 17:18 Freq: Status: Active Protocol: Document 01/23/23 13:51 DCW (Rec: 01/23/23 14:31 DCW [id number]) OP-PT Subjective Patient Comments Patient Comments I had a really bad dizzy spell the other day while I was driving. It wasn't the worst one I've had, but it was the first one that really made me feel like I was going to throw up. PT-OP-F Manual Assessment Start: 12/08/22 17:18 Freq: Status: Active Protocol: Document 12/08/22 13:45 DCW (Rec: 12/08/22 17:27 DCW [id number]) Manual Assessments Soft Tissue Assessment Soft Tissue Mobility Assessment Moderate tone B upper trap, scalenes, cervical paraspinals , R>L Joint Mobility Assessment Joint Mobility Assessment Mild CCW rotation of C4 PT-OP-K Range of Motion Start: 12/08/22 17:18 Freq: Status: Active Protocol: Document 12/08/22 13:45 DCW (Rec: 12/08/22 17:27 DCW [id number]) Cervical Spine Range of Motion Cervical Spine Active Degrees Testing Position Sitting Flexion 55 Extension 35 Rotation Left 40 Rotation Right 43 Lateral Flexion Left 35 Lateral Flexion Right 20 ROM Limitations Soft Tissue Tightness,Muscle Tone,Pain PT-OP-O Vestibular Start: 12/08/22 17:18 Freq: Status: Active Protocol: Document 12/08/22 13:45 DCW (Rec: 12/08/22 17:27 DCW [id number]) Vestibular Assessment Visual Testing Smooth Pursuits Horizontal WNL Smooth Pursuits Vertical WNL Saccades Horizontal WNL Saccades Vertical WNL Heave Test Negative Thrust Head Negative Spontaneous Nystagmus Negative PT-OP-Q Treatments Start: 12/08/22 17:18 Freq: Status: Active Protocol: Document 01/23/23 13:51 DCW (Rec: 01/23/23 14:31 DCW [id number]) Manual Therapy Treatment Soft Tissue Mobilization Cervical Musculature Body Location Paraspinals, Scalenes, SCM, Suboccipitals Mobilization Type Sustained Pressure,Trigger Point Release Intensity/Depth Moderate Body Position Supine Upper trap Body Location Upper Trap, R>L Mobilization Type Sustained Pressure,Trigger Point Release Intensity/Depth Moderate Body Position Hooklying Manual Techniques MWM Type Resisted cervical rotation Body Location C4 Body Position Hooklying PT-OP-T Assessment and Plan Start: 12/08/22 17:18 Freq: Status: Active Protocol: Document 01/23/23 13:51 DCW (Rec: 01/23/23 14:31 DCW [id number]) Physical Therapy Assessment Impairments Impairments Functional Activities, Functional Mobility,Pain,ROM, Soft Tissue Mobility,Strength, Tone Goals Two Impairment Limited cervical ROM secondary to vertebral hypomobility and muscle tone Care Home Goal (LTG) Pt to display increased cervical rotation to >60? bilaterally and lateral flexion >40? bilaterally in order to improve ability to turn head while driving without pain or dizziness. LTG Duration 02/05/23 One Impairment Pt does not have an appropriate home exercise program Short Term Goal (STG) Pt to be independent and compliant with an appropriate HEP STG Duration 01/08/23 Assessment Summary Assessment Pt continues to have repeated episodes of spontaneous dizziness, as well as worsening neck pain. Pt did respond well to treatment day, noted improved mobility and decreased pain levels following today's visit. Physical Therapy Plan Frequency and Duration Frequency of Treatment 1-2x/week Plan of Care Start Date 12/08/22 Plan of Care End Date 02/05/23 Therapeutic Interventions Therapeutic Interventions Home Exercise Program,Joint Mobilizations,Manual Therapy, Patient/Caregiver Education, Self-Care/Home Management,Soft Tissue Mobilization, Therapeutic Activities, Therapeutic Exercises, Vestibular Rehabilitation Next Visit Focus/Plan Next Note Type Treatment Note Next Visit Plan Cervical traction, STM, cervical strengthening
--- NOTE | 2023-01-26 14:26 | PT.OTN ---
Current Diagnoses Other migraine, not intractable, without status migrainosus (01/26/23) Spondylosis without myelopathy or radiculopathy, cervical region (01/26/23) Spondylosis, unspecified (01/26/23) Dizziness and giddiness (01/26/23) Physical Therapy Treatment Note PT-OP-A Visit Information Start: 12/08/22 17:18 Freq: Status: Active Protocol: Document 01/26/23 13:46 DCW (Rec: 01/26/23 14:26 DCW [id number]) Out-Patient Physical Therapy Visit Information Visit Information Visit Type Treatment Note Visit Start Time 13:46 Visit Stop Time 14:30 Total Visit Minutes 44 Visit Number 3 Number of STATEMENT CLERKS SUPERVISOR Visits 0 Evaluation Information Evaluation Date 12/08/22 PT-OP-B Current Condition Start: 12/08/22 17:18 Freq: Status: Active Protocol: Document 12/08/22 13:45 DCW (Rec: 12/08/22 17:27 DCW [id number]) Current Condition History of Current Condition Onset Date Worsening over last year Current Complaints Complaints of sudden spontaneous dizziness History of Current Condition Pt is a 67 year old female very well known to this clinic presenting with complaints of worsening episodes of sudden, spontaneous dizziness. Reports episodes last 30 seconds-5 minutes. Will often just be sitting in a chair or driving her car, does not feel there is any head movement involved. Pt has a long history of both cervical pain and migraine history, which she has previously undergone treatment for at this facility . Admits that with her increasing dizziness, which has increased in frequency from 1x/month to 2-3x/week, she has been experiencing increased cervical pain and stiffness. Treatment Goals Patient/Caregiver Goals Minimize dizziness PT-OP-C Subjective Start: 12/08/22 17:18 Freq: Status: Active Protocol: Document 01/26/23 13:46 DCW (Rec: 01/26/23 14:26 DCW [id number]) OP-PT Subjective Patient Comments Patient Comments I felt better after leaving here. I did have a slight dizzy spell afterward. PT-OP-F Manual Assessment Start: 12/08/22 17:18 Freq: Status: Active Protocol: Document 12/08/22 13:45 DCW (Rec: 12/08/22 17:27 DCW [id number]) Manual Assessments Soft Tissue Assessment Soft Tissue Mobility Assessment Moderate tone B upper trap, scalenes, cervical paraspinals , R>L Joint Mobility Assessment Joint Mobility Assessment Mild CCW rotation of C4 PT-OP-K Range of Motion Start: 12/08/22 17:18 Freq: Status: Active Protocol: Document 12/08/22 13:45 DCW (Rec: 12/08/22 17:27 DCW [id number]) Cervical Spine Range of Motion Cervical Spine Active Degrees Testing Position Sitting Flexion 55 Extension 35 Rotation Left 40 Rotation Right 43 Lateral Flexion Left 35 Lateral Flexion Right 20 ROM Limitations Soft Tissue Tightness,Muscle Tone,Pain PT-OP-O Vestibular Start: 12/08/22 17:18 Freq: Status: Active Protocol: Document 12/08/22 13:45 DCW (Rec: 12/08/22 17:27 DCW [id number]) Vestibular Assessment Visual Testing Smooth Pursuits Horizontal WNL Smooth Pursuits Vertical WNL Saccades Horizontal WNL Saccades Vertical WNL Heave Test Negative Thrust Head Negative Spontaneous Nystagmus Negative PT-OP-Q Treatments Start: 12/08/22 17:18 Freq: Status: Active Protocol: Document 01/26/23 13:46 DCW (Rec: 01/26/23 14:26 DCW [id number]) Manual Therapy Treatment Soft Tissue Mobilization Cervical Musculature Body Location Paraspinals, Scalenes, SCM, Suboccipitals Mobilization Type Sustained Pressure,Trigger Point Release Intensity/Depth Moderate Body Position Supine Upper trap Body Location Upper Trap, R>L Mobilization Type Sustained Pressure,Trigger Point Release Intensity/Depth Moderate Body Position Hooklying Manual Techniques MWM Type Resisted cervical rotation Body Location C4 Body Position Hooklying PT-OP-T Assessment and Plan Start: 12/08/22 17:18 Freq: Status: Active Protocol: Document 01/26/23 13:46 DCW (Rec: 01/26/23 14:26 DCW [id number]) Physical Therapy Assessment Impairments Impairments Functional Activities, Functional Mobility,Pain,ROM, Soft Tissue Mobility,Strength, Tone Goals Two Impairment Limited cervical ROM secondary to vertebral hypomobility and muscle tone Correction Goal (LTG) Pt to display increased cervical rotation to >60? bilaterally and lateral flexion >40? bilaterally in order to improve ability to turn head while driving without pain or dizziness. LTG Duration 02/05/23 One Impairment Pt does not have an appropriate home exercise program Short Term Goal (STG) Pt to be independent and compliant with an appropriate HEP STG Duration 01/08/23 Assessment Summary Assessment Pt continues to report unusual episodes of dizziness on unclear origin, may benefit from follow-up with PCP Physical Therapy Plan Frequency and Duration Frequency of Treatment 1-2x/week Plan of Care Start Date 12/08/22 Plan of Care End Date 02/05/23 Therapeutic Interventions Therapeutic Interventions Home Exercise Program,Joint Mobilizations,Manual Therapy, Patient/Caregiver Education, Self-Care/Home Management,Soft Tissue Mobilization, Therapeutic Activities, Therapeutic Exercises, Vestibular Rehabilitation Next Visit Focus/Plan Next Note Type Treatment Note Next Visit Plan Cervical traction, STM, cervical strengthening
--- NOTE | 2023-01-29 15:13 | PT.OTN ---
Current Diagnoses Other migraine, not intractable, without status migrainosus (01/29/23) Spondylosis without myelopathy or radiculopathy, cervical region (01/29/23) Spondylosis, unspecified (01/29/23) Dizziness and giddiness (01/29/23) Physical Therapy Treatment Note PT-OP-A Visit Information Start: 12/08/22 17:18 Freq: Status: Active Protocol: Document 01/29/23 14:35 DCW (Rec: 01/29/23 15:13 DCW [id number]) Out-Patient Physical Therapy Visit Information Visit Information Visit Type Treatment Note Visit Start Time 14:35 Visit Stop Time 15:15 Total Visit Minutes 40 Visit Number 4 Number of MOBILE HOME SERVICER Visits 0 Evaluation Information Evaluation Date 12/08/22 PT-OP-B Current Condition Start: 12/08/22 17:18 Freq: Status: Active Protocol: Document 12/08/22 13:45 DCW (Rec: 12/08/22 17:27 DCW [id number]) Current Condition History of Current Condition Onset Date Worsening over last year Current Complaints Complaints of sudden spontaneous dizziness History of Current Condition Pt is a 67 year old female very well known to this clinic presenting with complaints of worsening episodes of sudden, spontaneous dizziness. Reports episodes last 30 seconds-5 minutes. Will often just be sitting in a chair or driving her car, does not feel there is any head movement involved. Pt has a long history of both cervical pain and migraine history, which she has previously undergone treatment for at this facility . Admits that with her increasing dizziness, which has increased in frequency from 1x/month to 2-3x/week, she has been experiencing increased cervical pain and stiffness. 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 PT-OP-F Manual Assessment Start: 12/08/22 17:18 Freq: Status: Active Protocol: Document 12/08/22 13:45 DCW (Rec: 12/08/22 17:27 DCW [id number]) Manual Assessments Soft Tissue Assessment Soft Tissue Mobility Assessment Moderate tone B upper trap, scalenes, cervical paraspinals , R>L Joint Mobility Assessment Joint Mobility Assessment Mild CCW rotation of C4 PT-OP-K Range of Motion Start: 12/08/22 17:18 Freq: Status: Active Protocol: Document 12/08/22 13:45 DCW (Rec: 12/08/22 17:27 DCW [id number]) Cervical Spine Range of Motion Cervical Spine Active Degrees Testing Position Sitting Flexion 55 Extension 35 Rotation Left 40 Rotation Right 43 Lateral Flexion Left 35 Lateral Flexion Right 20 ROM Limitations Soft Tissue Tightness,Muscle Tone,Pain PT-OP-O Vestibular Start: 12/08/22 17:18 Freq: Status: Active Protocol: Document 12/08/22 13:45 DCW (Rec: 12/08/22 17:27 DCW [id number]) Vestibular Assessment Visual Testing Smooth Pursuits Horizontal WNL Smooth Pursuits Vertical WNL Saccades Horizontal WNL Saccades Vertical WNL Heave Test Negative Thrust Head Negative Spontaneous Nystagmus Negative PT-OP-Q Treatments Start: 12/08/22 17:18 Freq: Status: Active Protocol: Document 01/29/23 14:35 DCW (Rec: 01/29/23 15:13 DCW [id number]) Manual Therapy Treatment Soft Tissue Mobilization Cervical Musculature Body Location Paraspinals, Scalenes, SCM, Suboccipitals Mobilization Type Sustained Pressure,Trigger Point Release Intensity/Depth Moderate Body Position Supine Upper trap Body Location Upper Trap, R>L Mobilization Type Sustained Pressure,Trigger Point Release Intensity/Depth Moderate Body Position Hooklying PT-OP-T Assessment and Plan Start: 12/08/22 17:18 Freq: Status: Active Protocol: Document 01/29/23 14:35 DCW (Rec: 01/29/23 15:13 DCW [id number]) Physical Therapy Assessment Impairments Impairments Functional Activities, Functional Mobility,Pain,ROM, Soft Tissue Mobility,Strength, Tone Goals Two Impairment Limited cervical ROM secondary to vertebral hypomobility and muscle tone Senior Administrative Support Goal (LTG) Pt to display increased cervical rotation to >60? bilaterally and lateral flexion >40? bilaterally in order to improve ability to turn head while driving without pain or dizziness. LTG Duration 02/05/23 One Impairment Pt does not have an appropriate home exercise program Short Term Goal (STG) Pt to be independent and compliant with an appropriate HEP STG Duration 01/08/23 Assessment Summary Assessment Pt feeling much better overall , fewer areas of increased muscle tone, no vertebral rotation. Notable decrease in overall pain, no episodes of dizziness since last visit. Physical Therapy Plan Frequency and Duration Frequency of Treatment 1-2x/week Plan of Care Start Date 12/08/22 Plan of Care End Date 02/05/23 Therapeutic Interventions Therapeutic Interventions Home Exercise Program,Joint Mobilizations,Manual Therapy, Patient/Caregiver Education, Self-Care/Home Management,Soft Tissue Mobilization, Therapeutic Activities, Therapeutic Exercises, Vestibular Rehabilitation Next Visit Focus/Plan Next Note Type Treatment Note Next Visit Plan Cervical traction, STM, cervical strengthening
--- NOTE | 2023-02-01 12:51 | PT.OTN ---
Current Diagnoses Other migraine, not intractable, without status migrainosus (02/01/23) Spondylosis without myelopathy or radiculopathy, cervical region (02/01/23) Spondylosis, unspecified (02/01/23) Dizziness and giddiness (02/01/23) Physical Therapy Treatment Note PT-OP-A Visit Information Start: 12/08/22 17:18 Freq: Status: Active Protocol: Document 02/01/23 12:06 DCW (Rec: 02/01/23 12:50 DCW [id number]) Out-Patient Physical Therapy Visit Information Visit Information Visit Type Progress Note Visit Start Time 12:06 Visit Stop Time 12:45 Total Visit Minutes 39 Visit Number 5 Number of LICENSED MORTICIAN Visits 0 Evaluation Information Evaluation Date 12/08/22 PT-OP-B Current Condition Start: 12/08/22 17:18 Freq: Status: Active Protocol: Document 12/08/22 13:45 DCW (Rec: 12/08/22 17:27 DCW [id number]) Current Condition History of Current Condition Onset Date Worsening over last year Current Complaints Complaints of sudden spontaneous dizziness History of Current Condition Pt is a 67 year old female very well known to this clinic presenting with complaints of worsening episodes of sudden, spontaneous dizziness. Reports episodes last 30 seconds-5 minutes. Will often just be sitting in a chair or driving her car, does not feel there is any head movement involved. Pt has a long history of both cervical pain and migraine history, which she has previously undergone treatment for at this facility . Admits that with her increasing dizziness, which has increased in frequency from 1x/month to 2-3x/week, she has been experiencing increased cervical pain and stiffness. Treatment Goals Patient/Caregiver Goals Minimize dizziness PT-OP-C Subjective Start: 12/08/22 17:18 Freq: Status: Active Protocol: Document 02/01/23 12:06 DCW (Rec: 02/01/23 12:51 DCW [id number]) OP-PT Subjective Patient Comments Patient Comments I haven't had any dizziness since I was here last. Actually, it was feeling so good, I haven't even thought about the dizziness. PT-OP-F Manual Assessment Start: 12/08/22 17:18 Freq: Status: Active Protocol: Document 02/01/23 12:06 DCW (Rec: 02/01/23 12:33 DCW [id number]) Manual Assessments Soft Tissue Assessment Soft Tissue Mobility Assessment Mild-moderate tone: R upper trap, cervical paraspinals PT-OP-K Range of Motion Start: 12/08/22 17:18 Freq: Status: Active Protocol: Document 02/01/23 12:06 DCW (Rec: 02/01/23 12:33 DCW [id number]) Cervical Spine Range of Motion Cervical Spine Active Degrees Testing Position Sitting Flexion 70 Extension 35 Rotation Left 60 Rotation Right 60 Lateral Flexion Left 35 Lateral Flexion Right 24 ROM Limitations Soft Tissue Tightness,Muscle Tone,Pain PT-OP-O Vestibular Start: 12/08/22 17:18 Freq: Status: Active Protocol: Document 12/08/22 13:45 DCW (Rec: 12/08/22 17:27 DCW [id number]) Vestibular Assessment Visual Testing Smooth Pursuits Horizontal WNL Smooth Pursuits Vertical WNL Saccades Horizontal WNL Saccades Vertical WNL Heave Test Negative Thrust Head Negative Spontaneous Nystagmus Negative PT-OP-Q Treatments Start: 12/08/22 17:18 Freq: Status: Active Protocol: Document 02/01/23 12:06 DCW (Rec: 02/01/23 12:50 DCW [id number]) Manual Therapy Treatment Soft Tissue Mobilization Cervical Musculature Body Location Paraspinals, Scalenes, SCM, Suboccipitals Mobilization Type Sustained Pressure,Trigger Point Release Intensity/Depth Moderate Body Position Supine Upper trap Body Location Upper Trap, R>L Mobilization Type Sustained Pressure,Trigger Point Release Intensity/Depth Moderate Body Position Hooklying PT-OP-T Assessment and Plan Start: 12/08/22 17:18 Freq: Status: Active Protocol: Document 02/01/23 12:06 DCW (Rec: 02/01/23 12:50 DCW [id number]) Physical Therapy Assessment Impairments Impairments Functional Activities, Functional Mobility,Pain,ROM, Soft Tissue Mobility,Strength, Tone Goals Two Impairment Limited cervical ROM secondary to vertebral hypomobility and muscle tone Senior Living Goal (LTG) Pt to display increased cervical rotation to >60? bilaterally and lateral flexion >40? bilaterally in order to improve ability to turn head while driving without pain or dizziness. LTG Duration 02/15/23 One Impairment Pt does not have an appropriate home exercise program Short Term Goal (STG) Pt to be independent and compliant with an appropriate HEP STG Duration Met Assessment Summary Assessment Pt doing well, showing improvement in some cervical ROM planes, but not all. Reports she has not had any episodes of vertigo over the last week. Muscle tone significantly improved since initial evaluation. Will likely benefit from continued STM and HEP instruction over then next few scheduled visits , and will then likely be ready for discharge to independent HEP over the next ~3 weeks. Physical Therapy Plan Frequency and Duration Frequency of Treatment 1-2x/week Plan of Care Start Date 02/01/23 Plan of Care End Date 02/22/23 Therapeutic Interventions Therapeutic Interventions Home Exercise Program,Joint Mobilizations,Manual Therapy, Patient/Caregiver Education, Self-Care/Home Management,Soft Tissue Mobilization, Therapeutic Activities, Therapeutic Exercises, Vestibular Rehabilitation Next Visit Focus/Plan Next Note Type Treatment Note Next Visit Plan Cervical traction, STM, cervical strengthening
--- NOTE | 2023-02-01 12:52 | PT.OPPOC ---
Physical, Occupational & Speech Therapy At [facility] Current Diagnoses Other migraine, not intractable, without status migrainosus (02/01/23) Spondylosis without myelopathy or radiculopathy, cervical region (02/01/23) Spondylosis, unspecified (02/01/23) Dizziness and giddiness (02/01/23) Visit Care Team Role Provider Type Balwinder Ocasio MD Attending Provider Physician Family Provider Primary Care Provider Referring Provider Specialty: Internal Medicine Address: [address] [place] [address] Email: [email or web address] Plan Of Care PT-OP-T Assessment and Plan Start: 12/08/22 17:18 Freq: Status: Active Protocol: Document 02/01/23 12:06 DCW (Rec: 02/01/23 12:50 DCW [id number]) Physical Therapy Assessment Impairments Impairments Functional Activities, Functional Mobility,Pain,ROM, Soft Tissue Mobility,Strength, Tone Goals Two Impairment Limited cervical ROM secondary to vertebral hypomobility and muscle tone Senior Living Goal (LTG) Pt to display increased cervical rotation to >60? bilaterally and lateral flexion >40? bilaterally in order to improve ability to turn head while driving without pain or dizziness. LTG Duration 02/15/23 One Impairment Pt does not have an appropriate home exercise program Short Term Goal (STG) Pt to be independent and compliant with an appropriate HEP STG Duration Met Assessment Summary Assessment Pt doing well, showing improvement in some cervical ROM planes, but not all. Reports she has not had any episodes of vertigo over the last week. Muscle tone significantly improved since initial evaluation. Will likely benefit from continued STM and HEP instruction over then next few scheduled visits , and will then likely be ready for discharge to independent HEP over the next ~3 weeks. Physical Therapy Plan Frequency and Duration Frequency of Treatment 1-2x/week Plan of Care Start Date 02/01/23 Plan of Care End Date 02/22/23 Therapeutic Interventions Therapeutic Interventions Home Exercise Program,Joint Mobilizations,Manual Therapy, Patient/Caregiver Education, Self-Care/Home Management,Soft Tissue Mobilization, Therapeutic Activities, Therapeutic Exercises, Vestibular Rehabilitation Next Visit Focus/Plan Next Note Type Treatment Note Next Visit Plan Cervical traction, STM, cervical strengthening Plan of Care Dates Plan of Care Start Date 02/01/23 Plan of Care End Date 02/22/23 Electronically Signed by: Delfin Rodriguez, PT 02/01/23 7401 If you are in agreement with this Plan of Care, please return a signed and dated copy. I have reviewed this Plan of Care and certify that the skilled therapy services above are required to meet the patient?s needs. Physician Signature Date Printed Name and Credentials Clinical Instructor Signature Printed Name and Credentials
--- NOTE | 2023-02-12 12:48 | PT.OTN ---
Current Diagnoses Other migraine, not intractable, without status migrainosus (02/12/23) Spondylosis without myelopathy or radiculopathy, cervical region (02/12/23) Spondylosis, unspecified (02/12/23) Dizziness and giddiness (02/12/23) Physical Therapy Treatment Note PT-OP-A Visit Information Start: 12/08/22 17:18 Freq: Status: Active Protocol: Document 02/12/23 12:07 DCW (Rec: 02/12/23 12:48 DCW [id number]) Out-Patient Physical Therapy Visit Information Visit Information Visit Type Treatment Note Visit Start Time 12:07 Visit Stop Time 12:45 Total Visit Minutes 38 Visit Number 6 Number of USER INTERFACE ARTIST Visits 0 Evaluation Information Evaluation Date 12/08/22 PT-OP-B Current Condition Start: 12/08/22 17:18 Freq: Status: Active Protocol: Document 12/08/22 13:45 DCW (Rec: 12/08/22 17:27 DCW [id number]) Current Condition History of Current Condition Onset Date Worsening over last year Current Complaints Complaints of sudden spontaneous dizziness History of Current Condition Pt is a 67 year old female very well known to this clinic presenting with complaints of worsening episodes of sudden, spontaneous dizziness. Reports episodes last 30 seconds-5 minutes. Will often just be sitting in a chair or driving her car, does not feel there is any head movement involved. Pt has a long history of both cervical pain and migraine history, which she has previously undergone treatment for at this facility . Admits that with her increasing dizziness, which has increased in frequency from 1x/month to 2-3x/week, she has been experiencing increased cervical pain and stiffness. Treatment Goals Patient/Caregiver Goals Minimize dizziness PT-OP-C Subjective Start: 12/08/22 17:18 Freq: Status: Active Protocol: Document 02/12/23 12:07 DCW (Rec: 02/12/23 12:48 DCW [id number]) OP-PT Subjective Patient Comments Patient Comments It's not great, I have to be honest. I've been taking a lot of tylenol, much more so than usual. PT-OP-F Manual Assessment Start: 12/08/22 17:18 Freq: Status: Active Protocol: Document 02/01/23 12:06 DCW (Rec: 02/01/23 12:33 DCW [id number]) Manual Assessments Soft Tissue Assessment Soft Tissue Mobility Assessment Mild-moderate tone: R upper trap, cervical paraspinals PT-OP-K Range of Motion Start: 12/08/22 17:18 Freq: Status: Active Protocol: Document 02/01/23 12:06 DCW (Rec: 02/01/23 12:33 DCW [id number]) Cervical Spine Range of Motion Cervical Spine Active Degrees Testing Position Sitting Flexion 70 Extension 35 Rotation Left 60 Rotation Right 60 Lateral Flexion Left 35 Lateral Flexion Right 24 ROM Limitations Soft Tissue Tightness,Muscle Tone,Pain PT-OP-O Vestibular Start: 12/08/22 17:18 Freq: Status: Active Protocol: Document 12/08/22 13:45 DCW (Rec: 12/08/22 17:27 DCW [id number]) Vestibular Assessment Visual Testing Smooth Pursuits Horizontal WNL Smooth Pursuits Vertical WNL Saccades Horizontal WNL Saccades Vertical WNL Heave Test Negative Thrust Head Negative Spontaneous Nystagmus Negative PT-OP-Q Treatments Start: 12/08/22 17:18 Freq: Status: Active Protocol: Document 02/12/23 12:07 DCW (Rec: 02/12/23 12:48 DCW [id number]) Manual Therapy Treatment Soft Tissue Mobilization Cervical Musculature Body Location Paraspinals, Scalenes, SCM, Suboccipitals Mobilization Type Sustained Pressure,Trigger Point Release Intensity/Depth Moderate Body Position Supine Upper trap Body Location Upper Trap, R>L Mobilization Type Sustained Pressure,Trigger Point Release Intensity/Depth Moderate Body Position Hooklying Manual Techniques MWM Type Resisted cervical rotation Body Location C4 Body Position Hooklying PT-OP-T Assessment and Plan Start: 12/08/22 17:18 Freq: Status: Active Protocol: Document 02/12/23 12:07 DCW (Rec: 02/12/23 12:48 DCW [id number]) Physical Therapy Assessment Impairments Impairments Functional Activities, Functional Mobility,Pain,ROM, Soft Tissue Mobility,Strength, Tone Goals Two Impairment Limited cervical ROM secondary to vertebral hypomobility and muscle tone Manager Client Support Goal (LTG) Pt to display increased cervical rotation to >60? bilaterally and lateral flexion >40? bilaterally in order to improve ability to turn head while driving without pain or dizziness. LTG Duration 02/15/23 One Impairment Pt does not have an appropriate home exercise program Short Term Goal (STG) Pt to be independent and compliant with an appropriate HEP STG Duration Met Assessment Summary Assessment Pt responded very well to STM today, felt significantly better with her neck pain and mobility following today's visit. Physical Therapy Plan Frequency and Duration Frequency of Treatment 1-2x/week Plan of Care Start Date 02/01/23 Plan of Care End Date 02/22/23 Therapeutic Interventions Therapeutic Interventions Home Exercise Program,Joint Mobilizations,Manual Therapy, Patient/Caregiver Education, Self-Care/Home Management,Soft Tissue Mobilization, Therapeutic Activities, Therapeutic Exercises, Vestibular Rehabilitation Next Visit Focus/Plan Next Note Type Treatment Note Next Visit Plan Cervical traction, STM, cervical strengthening
--- NOTE | 2023-02-15 12:47 | PT.OTN ---
Current Diagnoses Other migraine, not intractable, without status migrainosus (02/15/23) Spondylosis without myelopathy or radiculopathy, cervical region (02/15/23) Spondylosis, unspecified (02/15/23) Dizziness and giddiness (02/15/23) Physical Therapy Treatment Note PT-OP-A Visit Information Start: 12/08/22 17:18 Freq: Status: Active Protocol: Document 02/15/23 12:07 DCW (Rec: 02/15/23 12:47 DCW [id number]) Out-Patient Physical Therapy Visit Information Visit Information Visit Type Progress Note Visit Start Time 12:07 Visit Stop Time 12:45 Total Visit Minutes 38 Visit Number 7 Number of FINANCIAL COUNSELOR Visits 0 Evaluation Information Evaluation Date 12/08/22 PT-OP-B Current Condition Start: 12/08/22 17:18 Freq: Status: Active Protocol: Document 12/08/22 13:45 DCW (Rec: 12/08/22 17:27 DCW [id number]) Current Condition History of Current Condition Onset Date Worsening over last year Current Complaints Complaints of sudden spontaneous dizziness History of Current Condition Pt is a 67 year old female very well known to this clinic presenting with complaints of worsening episodes of sudden, spontaneous dizziness. Reports episodes last 30 seconds-5 minutes. Will often just be sitting in a chair or driving her car, does not feel there is any head movement involved. Pt has a long history of both cervical pain and migraine history, which she has previously undergone treatment for at this facility . Admits that with her increasing dizziness, which has increased in frequency from 1x/month to 2-3x/week, she has been experiencing increased cervical pain and stiffness. Treatment Goals Patient/Caregiver Goals Minimize dizziness PT-OP-C Subjective Start: 12/08/22 17:18 Freq: Status: Active Protocol: Document 02/15/23 12:07 DCW (Rec: 02/15/23 12:47 DCW [id number]) OP-PT Subjective Patient Comments Patient Comments My neck hasn't been as sore, but I've had two episodes of dizziness. PT-OP-F Manual Assessment Start: 12/08/22 17:18 Freq: Status: Active Protocol: Document 02/15/23 12:07 DCW (Rec: 02/15/23 12:47 DCW [id number]) Manual Assessments Soft Tissue Assessment Soft Tissue Mobility Assessment Mild-moderate tone: R upper trap, cervical paraspinals PT-OP-K Range of Motion Start: 12/08/22 17:18 Freq: Status: Active Protocol: Document 02/15/23 12:07 DCW (Rec: 02/15/23 12:47 DCW [id number]) Cervical Spine Range of Motion Cervical Spine Active Degrees Testing Position Sitting Flexion 70 Extension 35 Rotation Left 60 Rotation Right 60 Lateral Flexion Left 35 Lateral Flexion Right 27 ROM Limitations Soft Tissue Tightness,Muscle Tone,Pain PT-OP-O Vestibular Start: 12/08/22 17:18 Freq: Status: Active Protocol: Document 12/08/22 13:45 DCW (Rec: 12/08/22 17:27 DCW [id number]) Vestibular Assessment Visual Testing Smooth Pursuits Horizontal WNL Smooth Pursuits Vertical WNL Saccades Horizontal WNL Saccades Vertical WNL Heave Test Negative Thrust Head Negative Spontaneous Nystagmus Negative PT-OP-Q Treatments Start: 12/08/22 17:18 Freq: Status: Active Protocol: Document 02/15/23 12:07 DCW (Rec: 02/15/23 12:47 DCW [id number]) Manual Therapy Treatment Soft Tissue Mobilization Cervical Musculature Body Location Paraspinals, Scalenes, SCM, Suboccipitals Mobilization Type Sustained Pressure,Trigger Point Release Intensity/Depth Moderate Body Position Supine Upper trap Body Location Upper Trap, R>L Mobilization Type Sustained Pressure,Trigger Point Release Intensity/Depth Moderate Body Position Hooklying Manual Techniques MWM Type Resisted cervical rotation Body Location C4 Body Position Hooklying PT-OP-T Assessment and Plan Start: 12/08/22 17:18 Freq: Status: Active Protocol: Document 02/15/23 12:07 DCW (Rec: 02/15/23 12:47 DCW [id number]) Physical Therapy Assessment Impairments Impairments Functional Activities, Functional Mobility,Pain,ROM, Soft Tissue Mobility,Strength, Tone Goals Two Impairment Limited cervical ROM secondary to vertebral hypomobility and muscle tone Hiv/Aids Care Nurse Goal (LTG) Pt to display increased cervical rotation to >60? bilaterally and lateral flexion >40? bilaterally in order to improve ability to turn head while driving without pain or dizziness. LTG Duration 02/15/23 One Impairment Pt does not have an appropriate home exercise program Short Term Goal (STG) Pt to be independent and compliant with an appropriate HEP STG Duration Met Assessment Summary Assessment Feeling quite a bit better today, slightly improved mobility since last measurement, but improved tone overall, no notable vertebral dysfunction today. Continue to work toward independence with HEP and improved cervical mobility, as well as getting pt into a good maintenance program using local massage therapists Physical Therapy Plan Frequency and Duration Frequency of Treatment 1-2x/week Plan of Care Start Date 02/15/23 Plan of Care End Date 04/01/23 Therapeutic Interventions Therapeutic Interventions Home Exercise Program,Joint Mobilizations,Manual Therapy, Patient/Caregiver Education, Self-Care/Home Management,Soft Tissue Mobilization, Therapeutic Activities, Therapeutic Exercises, Vestibular Rehabilitation Next Visit Focus/Plan Next Note Type Treatment Note Next Visit Plan Cervical traction, STM, cervical strengthening
--- NOTE | 2023-02-15 12:47 | PT.OPPOC ---
Physical, Occupational & Speech Therapy At [facility] Current Diagnoses Other migraine, not intractable, without status migrainosus (02/15/23) Spondylosis without myelopathy or radiculopathy, cervical region (02/15/23) Spondylosis, unspecified (02/15/23) Dizziness and giddiness (02/15/23) Visit Care Team Role Provider Type Balwinder Ocasio MD Attending Provider Physician Family Provider Primary Care Provider Referring Provider Specialty: Internal Medicine Address: [address] [place] [address] Email: [email or web address] Plan Of Care PT-OP-T Assessment and Plan Start: 12/08/22 17:18 Freq: Status: Active Protocol: Document 02/15/23 12:07 DCW (Rec: 02/15/23 12:47 DCW [id number]) Physical Therapy Assessment Impairments Impairments Functional Activities, Functional Mobility,Pain,ROM, Soft Tissue Mobility,Strength, Tone Goals Two Impairment Limited cervical ROM secondary to vertebral hypomobility and muscle tone Detention Goal (LTG) Pt to display increased cervical rotation to >60? bilaterally and lateral flexion >40? bilaterally in order to improve ability to turn head while driving without pain or dizziness. LTG Duration 02/15/23 One Impairment Pt does not have an appropriate home exercise program Short Term Goal (STG) Pt to be independent and compliant with an appropriate HEP STG Duration Met Assessment Summary Assessment Feeling quite a bit better today, slightly improved mobility since last measurement, but improved tone overall, no notable vertebral dysfunction today. Continue to work toward independence with HEP and improved cervical mobility, as well as getting pt into a good maintenance program using local massage therapists Physical Therapy Plan Frequency and Duration Frequency of Treatment 1-2x/week Plan of Care Start Date 02/15/23 Plan of Care End Date 04/01/23 Therapeutic Interventions Therapeutic Interventions Home Exercise Program,Joint Mobilizations,Manual Therapy, Patient/Caregiver Education, Self-Care/Home Management,Soft Tissue Mobilization, Therapeutic Activities, Therapeutic Exercises, Vestibular Rehabilitation Next Visit Focus/Plan Next Note Type Treatment Note Next Visit Plan Cervical traction, STM, cervical strengthening Plan of Care Dates Plan of Care Start Date 02/15/23 Plan of Care End Date 04/01/23 Electronically Signed by: Delfin Rodriguez, PT 02/15/23 8717 If you are in agreement with this Plan of Care, please return a signed and dated copy. I have reviewed this Plan of Care and certify that the skilled therapy services above are required to meet the patient?s needs. Physician Signature Date Printed Name and Credentials Clinical Instructor Signature Printed Name and Credentials
--- NOTE | 2023-03-16 12:13 | PT.OTN ---
Current Diagnoses Other migraine, not intractable, without status migrainosus (02/15/23) Spondylosis without myelopathy or radiculopathy, cervical region (02/15/23) Spondylosis, unspecified (02/15/23) Dizziness and giddiness (02/15/23) Physical Therapy Treatment Note PT-OP-A Visit Information Start: 12/08/22 17:18 Freq: Status: Active Protocol: Document 03/16/23 11:30 DCW (Rec: 03/16/23 12:13 DCW [id number]) Out-Patient Physical Therapy Visit Information Visit Information Visit Type Treatment Note Visit Start Time 11:30 Visit Stop Time 12:15 Total Visit Minutes 45 Visit Number 8 Number of BIOFUELS PROCESSING TECHNICIAN Visits 0 Evaluation Information Evaluation Date 12/08/22 PT-OP-B Current Condition Start: 12/08/22 17:18 Freq: Status: Active Protocol: Document 12/08/22 13:45 DCW (Rec: 12/08/22 17:27 DCW [id number]) Current Condition History of Current Condition Onset Date Worsening over last year Current Complaints Complaints of sudden spontaneous dizziness History of Current Condition Pt is a 67 year old female very well known to this clinic presenting with complaints of worsening episodes of sudden, spontaneous dizziness. Reports episodes last 30 seconds-5 minutes. Will often just be sitting in a chair or driving her car, does not feel there is any head movement involved. Pt has a long history of both cervical pain and migraine history, which she has previously undergone treatment for at this facility . Admits that with her increasing dizziness, which has increased in frequency from 1x/month to 2-3x/week, she has been experiencing increased cervical pain and stiffness. Treatment Goals Patient/Caregiver Goals Minimize dizziness PT-OP-C Subjective Start: 12/08/22 17:18 Freq: Status: Active Protocol: Document 03/16/23 11:30 DCW (Rec: 03/16/23 12:13 DCW [id number]) OP-PT Subjective Patient Comments Patient Comments I'm not really good, truthfully. Dizzy spells are getting more frequent, had two on the airplane on Sunday, has been nauseous ever since. Has been struggling more with acid reflux, has a follow-up with Dr Ocasio. New smart watch has also been reporting night -time oxygen levels into the 70's, so she is hoping to have a sleep study performed. PT-OP-F Manual Assessment Start: 12/08/22 17:18 Freq: Status: Active Protocol: Document 02/15/23 12:07 DCW (Rec: 02/15/23 12:47 DCW [id number]) Manual Assessments Soft Tissue Assessment Soft Tissue Mobility Assessment Mild-moderate tone: R upper trap, cervical paraspinals PT-OP-K Range of Motion Start: 12/08/22 17:18 Freq: Status: Active Protocol: Document 02/15/23 12:07 DCW (Rec: 02/15/23 12:47 DCW [id number]) Cervical Spine Range of Motion Cervical Spine Active Degrees Testing Position Sitting Flexion 70 Extension 35 Rotation Left 60 Rotation Right 60 Lateral Flexion Left 35 Lateral Flexion Right 27 ROM Limitations Soft Tissue Tightness,Muscle Tone,Pain PT-OP-O Vestibular Start: 12/08/22 17:18 Freq: Status: Active Protocol: Document 12/08/22 13:45 DCW (Rec: 12/08/22 17:27 DCW [id number]) Vestibular Assessment Visual Testing Smooth Pursuits Horizontal WNL Smooth Pursuits Vertical WNL Saccades Horizontal WNL Saccades Vertical WNL Heave Test Negative Thrust Head Negative Spontaneous Nystagmus Negative PT-OP-Q Treatments Start: 12/08/22 17:18 Freq: Status: Active Protocol: Document 03/16/23 11:30 DCW (Rec: 03/16/23 12:13 DCW [id number]) Manual Therapy Treatment Soft Tissue Mobilization Cervical Musculature Body Location Paraspinals, Scalenes, SCM, Suboccipitals Mobilization Type Sustained Pressure,Trigger Point Release Intensity/Depth Moderate Body Position Supine Upper trap Body Location Upper Trap, R>L Mobilization Type Sustained Pressure,Trigger Point Release Intensity/Depth Moderate Body Position Hooklying Manual Techniques MWM Type Resisted cervical rotation Body Location C4 Body Position Hooklying PT-OP-T Assessment and Plan Start: 12/08/22 17:18 Freq: Status: Active Protocol: Document 03/16/23 11:30 DCW (Rec: 03/16/23 12:13 DCW [id number]) Physical Therapy Assessment Impairments Impairments Functional Activities, Functional Mobility,Pain,ROM, Soft Tissue Mobility,Strength, Tone Goals Two Impairment Limited cervical ROM secondary to vertebral hypomobility and muscle tone Metal Die Finisher Goal (LTG) Pt to display increased cervical rotation to >60? bilaterally and lateral flexion >40? bilaterally in order to improve ability to turn head while driving without pain or dizziness. LTG Duration 02/15/23 One Impairment Pt does not have an appropriate home exercise program Short Term Goal (STG) Pt to be independent and compliant with an appropriate HEP STG Duration Met Assessment Summary Assessment Pt continues to really struggle with multiple different symptoms, including nausea, vomiting, spontaneous dizziness, stiffness, acid reflux. Does not appear to be associated with any inner ear disorders. May be related to cervicogenic dizziness, but pt may benefit from further advanced imaging to check for central causes. Does have follow-up with PCP later this afternoon. Physical Therapy Plan Frequency and Duration Frequency of Treatment 1-2x/week Plan of Care Start Date 02/15/23 Plan of Care End Date 04/01/23 Therapeutic Interventions Therapeutic Interventions Home Exercise Program,Joint Mobilizations,Manual Therapy, Patient/Caregiver Education, Self-Care/Home Management,Soft Tissue Mobilization, Therapeutic Activities, Therapeutic Exercises, Vestibular Rehabilitation Next Visit Focus/Plan Next Note Type Treatment Note Next Visit Plan Cervical traction, STM, cervical strengthening
--- NOTE | 2023-03-20 13:29 | PT.OTN ---
Current Diagnoses Other migraine, not intractable, without status migrainosus (03/20/23) Spondylosis without myelopathy or radiculopathy, cervical region (03/20/23) Spondylosis, unspecified (03/20/23) Dizziness and giddiness (03/20/23) Physical Therapy Treatment Note PT-OP-A Visit Information Start: 12/08/22 17:18 Freq: Status: Active Protocol: Document 03/20/23 12:51 DCW (Rec: 03/20/23 13:29 DCW [id number]) Out-Patient Physical Therapy Visit Information Visit Information Visit Type Treatment Note Visit Start Time 12:51 Visit Stop Time 13:30 Total Visit Minutes 39 Visit Number 9 Number of ROOFER APPLICATOR Visits 0 Evaluation Information Evaluation Date 12/08/22 PT-OP-B Current Condition Start: 12/08/22 17:18 Freq: Status: Active Protocol: Document 12/08/22 13:45 DCW (Rec: 12/08/22 17:27 DCW [id number]) Current Condition History of Current Condition Onset Date Worsening over last year Current Complaints Complaints of sudden spontaneous dizziness History of Current Condition Pt is a 67 year old female very well known to this clinic presenting with complaints of worsening episodes of sudden, spontaneous dizziness. Reports episodes last 30 seconds-5 minutes. Will often just be sitting in a chair or driving her car, does not feel there is any head movement involved. Pt has a long history of both cervical pain and migraine history, which she has previously undergone treatment for at this facility . Admits that with her increasing dizziness, which has increased in frequency from 1x/month to 2-3x/week, she has been experiencing increased cervical pain and stiffness. Treatment Goals Patient/Caregiver Goals Minimize dizziness PT-OP-C Subjective Start: 12/08/22 17:18 Freq: Status: Active Protocol: Document 03/20/23 12:51 DCW (Rec: 03/20/23 13:29 DCW [id number]) OP-PT Subjective Patient Comments Patient Comments It has just been a really tough patch. I've been a little better this morning, but I never know how long it will last, the nausea just comes and goes. PT-OP-F Manual Assessment Start: 12/08/22 17:18 Freq: Status: Active Protocol: Document 02/15/23 12:07 DCW (Rec: 02/15/23 12:47 DCW [id number]) Manual Assessments Soft Tissue Assessment Soft Tissue Mobility Assessment Mild-moderate tone: R upper trap, cervical paraspinals PT-OP-K Range of Motion Start: 12/08/22 17:18 Freq: Status: Active Protocol: Document 02/15/23 12:07 DCW (Rec: 02/15/23 12:47 DCW [id number]) Cervical Spine Range of Motion Cervical Spine Active Degrees Testing Position Sitting Flexion 70 Extension 35 Rotation Left 60 Rotation Right 60 Lateral Flexion Left 35 Lateral Flexion Right 27 ROM Limitations Soft Tissue Tightness,Muscle Tone,Pain PT-OP-O Vestibular Start: 12/08/22 17:18 Freq: Status: Active Protocol: Document 12/08/22 13:45 DCW (Rec: 12/08/22 17:27 DCW [id number]) Vestibular Assessment Visual Testing Smooth Pursuits Horizontal WNL Smooth Pursuits Vertical WNL Saccades Horizontal WNL Saccades Vertical WNL Heave Test Negative Thrust Head Negative Spontaneous Nystagmus Negative PT-OP-Q Treatments Start: 12/08/22 17:18 Freq: Status: Active Protocol: Document 03/20/23 12:51 DCW (Rec: 03/20/23 13:29 DCW [id number]) Manual Therapy Treatment Soft Tissue Mobilization Cervical Musculature Body Location Paraspinals, Scalenes, SCM, Suboccipitals Mobilization Type Sustained Pressure,Trigger Point Release Intensity/Depth Moderate Body Position Supine Upper trap Body Location Upper Trap, R>L Mobilization Type Sustained Pressure,Trigger Point Release Intensity/Depth Moderate Body Position Hooklying PT-OP-T Assessment and Plan Start: 12/08/22 17:18 Freq: Status: Active Protocol: Document 03/20/23 12:51 DCW (Rec: 03/20/23 13:29 DCW [id number]) Physical Therapy Assessment Impairments Impairments Functional Activities, Functional Mobility,Pain,ROM, Soft Tissue Mobility,Strength, Tone Goals Two Impairment Limited cervical ROM secondary to vertebral hypomobility and muscle tone [facility] Goal (LTG) Pt to display increased cervical rotation to >60? bilaterally and lateral flexion >40? bilaterally in order to improve ability to turn head while driving without pain or dizziness. LTG Duration 02/15/23 One Impairment Pt does not have an appropriate home exercise program Short Term Goal (STG) Pt to be independent and compliant with an appropriate HEP STG Duration Met Assessment Summary Assessment Pt is planning to restart lightly playing pickleball with a friend, plans to be very careful, in the past has not had any increased cervical symptoms while playing. Physical Therapy Plan Frequency and Duration Frequency of Treatment 1-2x/week Plan of Care Start Date 02/15/23 Plan of Care End Date 04/01/23 Therapeutic Interventions Therapeutic Interventions Home Exercise Program,Joint Mobilizations,Manual Therapy, Patient/Caregiver Education, Self-Care/Home Management,Soft Tissue Mobilization, Therapeutic Activities, Therapeutic Exercises, Vestibular Rehabilitation Next Visit Focus/Plan Next Note Type Treatment Note Next Visit Plan Cervical traction, STM, cervical strengthening
--- NOTE | 2023-03-23 14:11 | PT.OTN ---
Current Diagnoses Other migraine, not intractable, without status migrainosus (03/23/23) Spondylosis without myelopathy or radiculopathy, cervical region (03/23/23) Spondylosis, unspecified (03/23/23) Dizziness and giddiness (03/23/23) Physical Therapy Treatment Note PT-OP-A Visit Information Start: 12/08/22 17:18 Freq: Status: Active Protocol: Document 03/23/23 13:30 DCW (Rec: 03/23/23 14:11 DCW [id number]) Out-Patient Physical Therapy Visit Information Visit Information Visit Type Treatment Note Visit Start Time 13:30 Visit Stop Time 14:15 Total Visit Minutes 45 Visit Number 10 Number of AIRCRAFT RIVETER Visits 0 Evaluation Information Evaluation Date 12/08/22 PT-OP-B Current Condition Start: 12/08/22 17:18 Freq: Status: Active Protocol: Document 12/08/22 13:45 DCW (Rec: 12/08/22 17:27 DCW [id number]) Current Condition History of Current Condition Onset Date Worsening over last year Current Complaints Complaints of sudden spontaneous dizziness History of Current Condition Pt is a 67 year old female very well known to this clinic presenting with complaints of worsening episodes of sudden, spontaneous dizziness. Reports episodes last 30 seconds-5 minutes. Will often just be sitting in a chair or driving her car, does not feel there is any head movement involved. Pt has a long history of both cervical pain and migraine history, which she has previously undergone treatment for at this facility . Admits that with her increasing dizziness, which has increased in frequency from 1x/month to 2-3x/week, she has been experiencing increased cervical pain and stiffness. Treatment Goals Patient/Caregiver Goals Minimize dizziness PT-OP-C Subjective Start: 12/08/22 17:18 Freq: Status: Active Protocol: Document 03/23/23 13:30 DCW (Rec: 03/23/23 14:11 DCW [id number]) OP-PT Subjective Patient Comments Patient Comments Pt reports things are alright , all things being relative. Has not had a dizzy spell since her last PT visit. PT-OP-F Manual Assessment Start: 12/08/22 17:18 Freq: Status: Active Protocol: Document 02/15/23 12:07 DCW (Rec: 02/15/23 12:47 DCW [id number]) Manual Assessments Soft Tissue Assessment Soft Tissue Mobility Assessment Mild-moderate tone: R upper trap, cervical paraspinals PT-OP-K Range of Motion Start: 12/08/22 17:18 Freq: Status: Active Protocol: Document 02/15/23 12:07 DCW (Rec: 02/15/23 12:47 DCW [id number]) Cervical Spine Range of Motion Cervical Spine Active Degrees Testing Position Sitting Flexion 70 Extension 35 Rotation Left 60 Rotation Right 60 Lateral Flexion Left 35 Lateral Flexion Right 27 ROM Limitations Soft Tissue Tightness,Muscle Tone,Pain PT-OP-O Vestibular Start: 12/08/22 17:18 Freq: Status: Active Protocol: Document 12/08/22 13:45 DCW (Rec: 12/08/22 17:27 DCW [id number]) Vestibular Assessment Visual Testing Smooth Pursuits Horizontal WNL Smooth Pursuits Vertical WNL Saccades Horizontal WNL Saccades Vertical WNL Heave Test Negative Thrust Head Negative Spontaneous Nystagmus Negative PT-OP-Q Treatments Start: 12/08/22 17:18 Freq: Status: Active Protocol: Document 03/23/23 13:30 DCW (Rec: 03/23/23 14:11 DCW [id number]) Manual Therapy Treatment Soft Tissue Mobilization Cervical Musculature Body Location Paraspinals, Scalenes, SCM, Suboccipitals Mobilization Type Sustained Pressure,Trigger Point Release Intensity/Depth Moderate Body Position Supine Upper trap Body Location Upper Trap, R>L Mobilization Type Sustained Pressure,Trigger Point Release Intensity/Depth Moderate Body Position Hooklying PT-OP-T Assessment and Plan Start: 12/08/22 17:18 Freq: Status: Active Protocol: Document 03/23/23 13:30 DCW (Rec: 03/23/23 14:11 DCW [id number]) Physical Therapy Assessment Impairments Impairments Functional Activities, Functional Mobility,Pain,ROM, Soft Tissue Mobility,Strength, Tone Goals Two Impairment Limited cervical ROM secondary to vertebral hypomobility and muscle tone Winder Contort Operator Goal (LTG) Pt to display increased cervical rotation to >60? bilaterally and lateral flexion >40? bilaterally in order to improve ability to turn head while driving without pain or dizziness. LTG Duration 02/15/23 One Impairment Pt does not have an appropriate home exercise program Short Term Goal (STG) Pt to be independent and compliant with an appropriate HEP STG Duration Met Assessment Summary Assessment Pt continues to show some good overall progress, presents with decreased tone and less pain than when she returned for her most recent evaluation . Pt will likely discharge following her two scheduled visits next week. Physical Therapy Plan Frequency and Duration Frequency of Treatment 1-2x/week Plan of Care Start Date 02/15/23 Plan of Care End Date 04/01/23 Therapeutic Interventions Therapeutic Interventions Home Exercise Program,Joint Mobilizations,Manual Therapy, Patient/Caregiver Education, Self-Care/Home Management,Soft Tissue Mobilization, Therapeutic Activities, Therapeutic Exercises, Vestibular Rehabilitation Next Visit Focus/Plan Next Note Type Treatment Note Next Visit Plan Cervical traction, STM, cervical strengthening
--- NOTE | 2023-03-26 13:31 | PT.OTN ---
Current Diagnoses Other migraine, not intractable, without status migrainosus (03/26/23) Spondylosis without myelopathy or radiculopathy, cervical region (03/26/23) Spondylosis, unspecified (03/26/23) Dizziness and giddiness (03/26/23) Physical Therapy Treatment Note PT-OP-A Visit Information Start: 12/08/22 17:18 Freq: Status: Active Protocol: Document 03/26/23 12:55 DCW (Rec: 03/26/23 13:31 DCW [id number]) Out-Patient Physical Therapy Visit Information Visit Information Visit Type Treatment Note Visit Note 10 min late Visit Start Time 12:55 Visit Stop Time 13:30 Total Visit Minutes 35 Visit Number 11 Number of DIABETES PHYSICIAN Visits 0 Evaluation Information Evaluation Date 12/08/22 PT-OP-B Current Condition Start: 12/08/22 17:18 Freq: Status: Active Protocol: Document 12/08/22 13:45 DCW (Rec: 12/08/22 17:27 DCW [id number]) Current Condition History of Current Condition Onset Date Worsening over last year Current Complaints Complaints of sudden spontaneous dizziness History of Current Condition Pt is a 67 year old female very well known to this clinic presenting with complaints of worsening episodes of sudden, spontaneous dizziness. Reports episodes last 30 seconds-5 minutes. Will often just be sitting in a chair or driving her car, does not feel there is any head movement involved. Pt has a long history of both cervical pain and migraine history, which she has previously undergone treatment for at this facility . Admits that with her increasing dizziness, which has increased in frequency from 1x/month to 2-3x/week, she has been experiencing increased cervical pain and stiffness. Treatment Goals Patient/Caregiver Goals Minimize dizziness PT-OP-C Subjective Start: 12/08/22 17:18 Freq: Status: Active Protocol: Document 03/26/23 12:55 DCW (Rec: 03/26/23 13:31 DCW [id number]) OP-PT Subjective Patient Comments Patient Comments Pt reports she did have a dizzy spell Sunday morning when out for breakfast, but it wasn't a bad one. PT-OP-F Manual Assessment Start: 12/08/22 17:18 Freq: Status: Active Protocol: Document 02/15/23 12:07 DCW (Rec: 02/15/23 12:47 DCW [id number]) Manual Assessments Soft Tissue Assessment Soft Tissue Mobility Assessment Mild-moderate tone: R upper trap, cervical paraspinals PT-OP-K Range of Motion Start: 12/08/22 17:18 Freq: Status: Active Protocol: Document 02/15/23 12:07 DCW (Rec: 02/15/23 12:47 DCW [id number]) Cervical Spine Range of Motion Cervical Spine Active Degrees Testing Position Sitting Flexion 70 Extension 35 Rotation Left 60 Rotation Right 60 Lateral Flexion Left 35 Lateral Flexion Right 27 ROM Limitations Soft Tissue Tightness,Muscle Tone,Pain PT-OP-O Vestibular Start: 12/08/22 17:18 Freq: Status: Active Protocol: Document 12/08/22 13:45 DCW (Rec: 12/08/22 17:27 DCW [id number]) Vestibular Assessment Visual Testing Smooth Pursuits Horizontal WNL Smooth Pursuits Vertical WNL Saccades Horizontal WNL Saccades Vertical WNL Heave Test Negative Thrust Head Negative Spontaneous Nystagmus Negative PT-OP-Q Treatments Start: 12/08/22 17:18 Freq: Status: Active Protocol: Document 03/26/23 12:55 DCW (Rec: 03/26/23 13:31 DCW [id number]) Manual Therapy Treatment Soft Tissue Mobilization Cervical Musculature Body Location Paraspinals, Scalenes, SCM, Suboccipitals Mobilization Type Sustained Pressure,Trigger Point Release Intensity/Depth Moderate Body Position Supine Upper trap Body Location Upper Trap, R>L Mobilization Type Sustained Pressure,Trigger Point Release Intensity/Depth Moderate Body Position Hooklying PT-OP-T Assessment and Plan Start: 12/08/22 17:18 Freq: Status: Active Protocol: Document 03/26/23 12:55 DCW (Rec: 03/26/23 13:31 DCW [id number]) Physical Therapy Assessment Impairments Impairments Functional Activities, Functional Mobility,Pain,ROM, Soft Tissue Mobility,Strength, Tone Goals Two Impairment Limited cervical ROM secondary to vertebral hypomobility and muscle tone [facility] Goal (LTG) Pt to display increased cervical rotation to >60? bilaterally and lateral flexion >40? bilaterally in order to improve ability to turn head while driving without pain or dizziness. LTG Duration 02/15/23 One Impairment Pt does not have an appropriate home exercise program Short Term Goal (STG) Pt to be independent and compliant with an appropriate HEP STG Duration Met Assessment Summary Assessment Pt again reporting episodes of vertigo, no signs or indications that it is inner- ear related, significant improvement in cervical tone and function make is less likely that symptoms are cervicogenic, since improvements do not appear to effect her symptoms. Unclear what symptoms are related to at this time, recommend again return to PCP for potential further testing. Physical Therapy Plan Frequency and Duration Frequency of Treatment 1-2x/week Plan of Care Start Date 02/15/23 Plan of Care End Date 04/01/23 Therapeutic Interventions Therapeutic Interventions Home Exercise Program,Joint Mobilizations,Manual Therapy, Patient/Caregiver Education, Self-Care/Home Management,Soft Tissue Mobilization, Therapeutic Activities, Therapeutic Exercises, Vestibular Rehabilitation Next Visit Focus/Plan Next Note Type Treatment Note Next Visit Plan Cervical traction, STM, cervical strengthening
--- NOTE | 2023-03-28 13:30 | PT.OTN ---
Current Diagnoses Other migraine, not intractable, without status migrainosus (03/28/23) Spondylosis without myelopathy or radiculopathy, cervical region (03/28/23) Spondylosis, unspecified (03/28/23) Dizziness and giddiness (03/28/23) Physical Therapy Treatment Note PT-OP-A Visit Information Start: 12/08/22 17:18 Freq: Status: Active Protocol: Document 03/28/23 12:50 DCW (Rec: 03/28/23 13:30 DCW [id number]) Out-Patient Physical Therapy Visit Information Visit Information Visit Type Discharge Summary Visit Start Time 12:50 Visit Stop Time 13:30 Total Visit Minutes 40 Visit Number 12 Number of DIAM[employer]ER Visits 0 Evaluation Information Evaluation Date 12/08/22 PT-OP-B Current Condition Start: 12/08/22 17:18 Freq: Status: Active Protocol: Document 12/08/22 13:45 DCW (Rec: 12/08/22 17:27 DCW [id number]) Current Condition History of Current Condition Onset Date Worsening over last year Current Complaints Complaints of sudden spontaneous dizziness History of Current Condition Pt is a 67 year old female very well known to this clinic presenting with complaints of worsening episodes of sudden, spontaneous dizziness. Reports episodes last 30 seconds-5 minutes. Will often just be sitting in a chair or driving her car, does not feel there is any head movement involved. Pt has a long history of both cervical pain and migraine history, which she has previously undergone treatment for at this facility . Admits that with her increasing dizziness, which has increased in frequency from 1x/month to 2-3x/week, she has been experiencing increased cervical pain and stiffness. Treatment Goals Patient/Caregiver Goals Minimize dizziness PT-OP-C Subjective Start: 12/08/22 17:18 Freq: Status: Active Protocol: Document 03/28/23 12:50 DCW (Rec: 03/28/23 13:30 DCW [id number]) OP-PT Subjective Patient Comments Patient Comments I felt like I was going to have a dizzy spell on my way driving in here. PT-OP-F Manual Assessment Start: 12/08/22 17:18 Freq: Status: Active Protocol: Document 03/28/23 12:50 DCW (Rec: 03/28/23 12:53 DCW [id number]) Manual Assessments Soft Tissue Assessment Soft Tissue Mobility Assessment Mild tone: R upper trap, cervical paraspinals PT-OP-K Range of Motion Start: 12/08/22 17:18 Freq: Status: Active Protocol: Document 03/28/23 12:50 DCW (Rec: 03/28/23 12:53 DCW [id number]) Cervical Spine Range of Motion Cervical Spine Active Degrees Testing Position Sitting Flexion 70 Extension 35 Rotation Left 60 Rotation Right 60 Lateral Flexion Left 50 Lateral Flexion Right 50 ROM Limitations Soft Tissue Tightness,Muscle Tone,Pain PT-OP-O Vestibular Start: 12/08/22 17:18 Freq: Status: Active Protocol: Document 12/08/22 13:45 DCW (Rec: 12/08/22 17:27 DCW [id number]) Vestibular Assessment Visual Testing Smooth Pursuits Horizontal WNL Smooth Pursuits Vertical WNL Saccades Horizontal WNL Saccades Vertical WNL Heave Test Negative Thrust Head Negative Spontaneous Nystagmus Negative PT-OP-Q Treatments Start: 12/08/22 17:18 Freq: Status: Active Protocol: Document 03/28/23 12:50 DCW (Rec: 03/28/23 13:30 DCW [id number]) Manual Therapy Treatment Soft Tissue Mobilization Cervical Musculature Body Location Paraspinals, Scalenes, SCM, Suboccipitals Mobilization Type Sustained Pressure,Trigger Point Release Intensity/Depth Moderate Body Position Supine Upper trap Body Location Upper Trap, R>L Mobilization Type Sustained Pressure,Trigger Point Release Intensity/Depth Moderate Body Position Hooklying PT-OP-T Assessment and Plan Start: 12/08/22 17:18 Freq: Status: Active Protocol: Document 03/28/23 12:50 DCW (Rec: 03/28/23 13:30 DCW [id number]) Physical Therapy Assessment Impairments Impairments Functional Activities, Functional Mobility,Pain,ROM, Soft Tissue Mobility,Strength, Tone Goals Two Impairment Limited cervical ROM secondary to vertebral hypomobility and muscle tone Order Puller Goal (LTG) Pt to display increased cervical rotation to >60? bilaterally and lateral flexion >40? bilaterally in order to improve ability to turn head while driving without pain or dizziness. LTG Duration 02/15/23 One Impairment Pt does not have an appropriate home exercise program Short Term Goal (STG) Pt to be independent and compliant with an appropriate HEP STG Duration Met Assessment Summary Assessment Pt soft-tissue exhibiting much less tone, overall cervical ROM improved, especially rotation, no notable signs or symptoms of vestibular dysfunction, and yet pt continues to experience spontaneous episodes of vertigo and nausea. Recommend following-up with PCP at this time, as well as follow-up with prior recommendations of a sleep study and imaging. Physical Therapy Plan Frequency and Duration Frequency of Treatment 1-2x/week Plan of Care Start Date 02/15/23 Plan of Care End Date 04/01/23 Therapeutic Interventions Therapeutic Interventions Home Exercise Program,Joint Mobilizations,Manual Therapy, Patient/Caregiver Education, Self-Care/Home Management,Soft Tissue Mobilization, Therapeutic Activities, Therapeutic Exercises, Vestibular Rehabilitation Discharge Physical Therapy Discharge Reasons Plateau in Progress Next Visit Focus/Plan Next Note Type Discharge Summary
== END 2023-04-03 15:51 | disposition home or self-care (01) ==
LOC: PHYS 12:45
PROVIDERS: Family Provider Internal Medicine; PCP Internal Medicine; Referring Provider Internal Medicine; Visit Provider Internal Medicine
DX: M47.9 Spondylosis, unspecified (principal); R42 Dizziness and giddiness; G43.809 Other migraine, not intractable, without status migrainosus; M47.812 Spondylosis without myelopathy or radiculopathy, cervical region
CPT/HCPCS: 97140; 97162

== ENCOUNTER → 2023-04-08 15:29 | Outpatient (CLI) | payer MEDICARE, SELFPAY ==
--- NOTE | 2023-04-08 15:30 | DI.RAD.S_ITS ---
PROCEDURE: XR FOOT RT MIN 3V INDICATIONS: pain, dropped something it yesterday TECHNIQUE: Three views of the foot were acquired. COMPARISON: None. FINDINGS: Bones: No fractures or dislocations. Moderate hallux valgus and bunion deformity at the 1st MTP joint. Mild degenerative changes. No suspicious bony lesions. Soft tissues: No tibiotalar joint effusion. Achilles tendon appears normal. IMPRESSION: 1. No visible acute fractures. 2. Moderate hallux valgus and bunion. Dictated by: Marianne Lindsay M.D. on 04/08/2023 at 18:18 Approved by: Marianne Lindsay M.D. on 04/08/2023 at 18:19
== END ==
PROVIDERS: Family Provider Internal Medicine; PCP Internal Medicine; Referring Provider Family Medicine; Visit Provider Family Medicine
DX: M20.11 Hallux valgus (acquired), right foot (principal); M21.611 Bunion of right foot
CPT/HCPCS: 73630

== ENCOUNTER → 2023-04-30 15:44 | Outpatient (CLI) | payer MEDICARE, SELFPAY ==
[2023-04-30 16:25] LABS: Hemoglobin 13.5 g/dL (12.0-16.0); Mean Corpuscular HGB Conc 34.5 % (30-36); Mean Corpuscular Hemoglobin 31.7 PG (26-34); Mean Corpuscular Volume 91.7 fL (80-100); Platelet Count 238 X10^3/uL (150-400); Red Blood Cell Count 4.25 X10^6/uL (4.0-5.2); Red Cell Distribution Width 13.5 % (11.6-14.8); White Blood Cell Count 5.2 X10^3/uL (4.5-11.0)
[2023-04-30 16:58] LABS: Alanine Aminotransferase 30 IU/L (<35); Albumin 4.2 g/dL (3.5-5.0); Albumin Globulin Ratio 1.2 (1.0-2.8); Alkaline Phosphatase 72 U/L (38-126); Aspartate Aminotransferase 30 IU/L (14-36); Bilirubin Total 0.4 mg/dL (0.2-1.3); Blood Urea Nitrogen 22 mg/dL (7-17); Calcium 9.2 mg/dL (8.4-10.2); Carbon Dioxide 29 mmol/L (22-32); Chloride 103 mmol/L (98-107); Cholesterol 203 mg/dL (140-199); Estimated Glomerular Filt Rate > 60 mL/min (>60); Globulin 3.5 g/dL (1.7-4.1); Glucose 99 mg/dL (80-110); HDL Cholesterol 52 mg/dL (40-60); HEMOLYSIS < 15 (0-50); LDL Cholesterol Calculated 117 mg/dL (<100); Potassium 4.1 mmol/L (3.4-5.1); Sodium 139 mmol/L (137-145); Total Protein 7.7 g/dL (6.3-8.2); Triglycerides 171 mg/dL (35-150)
[2023-04-30 17:30] LABS: TSH w/ Reflex to FT4 1.57 uIU/mL (0.47-4.68)
== END ==
PROVIDERS: Family Provider Internal Medicine; PCP Internal Medicine; Referring Provider Internal Medicine; Visit Provider Internal Medicine
DX: E03.9 Hypothyroidism, unspecified (principal); F41.1 Generalized anxiety disorder; G25.0 Essential tremor; M35.00 Sjogren syndrome, unspecified; Z86.711 Personal history of pulmonary embolism
CPT/HCPCS: 36415; 80053; 80061; 82306; 84443; 85027

== ENCOUNTER → 2023-05-10 15:46 | Outpatient (CLI) | payer MEDICARE, SELFPAY ==
[2023-05-10 16:22] LABS: Appearance Urine UA CLEAR; Bilirubin Urine UA NEGATIVE (NEGATIVE); Color Urine UA YELLOW; Glucose Urine UA NEGATIVE (Negative); Ketones Urine UA NEGATIVE (NEGATIVE); Leukocyte Esterase Urine UA NEGATIVE (NEGATIVE); Nitrite Urine UA NEGATIVE (Negative); Occult Blood Urine UA NEGATIVE (Negative); Protein Urine UA NEGATIVE (Negative)
[2023-05-10 16:32] LABS: Bacteria Urine None Seen; Culture Indicated Urine Cult Not Indicated; RBC Urine None Seen (0-5/HPF); Squamous Epithelial Cell Urine None Seen (0-5/HPF); WBC Urine None Seen (0-5/HPF)
== END ==
PROVIDERS: Family Provider Internal Medicine; PCP Internal Medicine; Referring Provider Internal Medicine; Visit Provider Internal Medicine
DX: N39.0 Urinary tract infection, site not specified (principal)
CPT/HCPCS: 81001

== ENCOUNTER → 2023-06-29 | Outpatient (CLI) | payer MEDICARE, SELFPAY ==
--- NOTE | 2023-06-29 12:28 | DI.RAD.S_ITS ---
Bone Density Report Name: JARRELL ORTIZ Age: 68 Sex: Female Ethnicity: White Date of : 1955 Indication: osteopenia; Referring Provider: EDVIN CR Study: Bone densitometry was performed. Exam Date: June 29, 2023 Accession number: [id number] Bone Density: Region BMD T-score Z-score Classification AP Spine(L1, L4) 1.104 0.6 2.6 Normal Femoral Neck (Left) 0.643 -1.9 -0.2 Osteopenia Total Hip (Left) 0.838 -0.9 0.5 Normal Femoral Neck (Right) 0.739 -1.0 0.7 Normal Total Hip (Right) 0.848 -0.8 0.6 Normal Total Hip Mean 0.843 -0.9 0.6 Normal World Health Organization criteria for BMD impression classify patients as: Normal (T-score at or above -1.0), Osteopenia (T-score between -1.0 and -2.5), or Osteoporosis (T-score at or below -2.5). 10-year Fracture Risk(1): Major Osteoporotic Fracture 10% Hip Fracture 1.6% Reported Risk Factors: [place] (), Neck BMD=0.643, BMI=29.7 (1) FRAX(R) Version 3.08. Fracture probability calculated for an untreated patient. Fracture probability may be lower if the patient has received treatment. Previous Exams: -- Region Exam Age BMD T-score BMD Change BMD Change Date g/cm2 vs Baseline vs Previous -- AP Spine (L1,L4) 06/29/2023 68 1.104 0.6 0.013 (1.2%)# 0.013 (1.2%)# 12/17/2018 63 1.091 0.5 Total Hip(Left) 06/29/2023 68 0.838 -0.9 0.020 (2.5%)# 0.020 (2.5%)# 12/17/2018 63 0.818 -1.0 Total Hip(Right) 06/29/2023 68 0.848 -0.8 0.041 (5.0%)# 0.041 (5.0%)# 12/17/2018 63 0.807 -1.1 -- *Denotes significance at 95% confidence level, LSC for AP Spine = 0.022 g/cm2, LSC for Total Hip = 0.027 g/cm2 # Denotes dissimilar scan types or analysis methods Impression: The patient has low bone mass, based on the Left Femoral Neck T-score. The patient has an estimated ten-year risk of hip fracture of 1.6% and an estimated ten-year risk of major fracture of 10%, based on the WHO FRAX algorithm. No significant bone loss was observed. Discussion: BONE DENSITY IS LOW AT ONE OR MORE SKELETAL SITES. This patient's lowest T-score is low at one or more skeletal sites. It meets the World Health Organization's (WHO) criteria for low bone mass (T-score between -1.0 and -2.5). The patient's 10-year risk of fracture as calculated by FRAX is less than the threshold where pharmacological therapy is recommended by the National Osteoporosis Foundation (NOF). However, all treatment decisions require clinical judgment and consideration of individual patient factors, including patient preferences, comorbidities, previous drug use, risk factors not captured in the FRAX model (e.g., frailty, falls, vitamin D deficiency, increased bone turnover, interval significant decline in bone density) and possible under or overestimation of fracture risk by FRAX. The patient should follow a healthful lifestyle (good nutrition with adequate calcium and vitamin D, and appropriate weight-bearing exercise). Follow-Up: Consider repeating this study in 2 to 3 years to reassess this patient's status, or sooner if there is some new clinical indication. Reported by: BERNARDINO MILES M.D on 06/29/2023 12:58:00 PM.
== END ==
PROVIDERS: Family Provider Internal Medicine; PCP Internal Medicine; Referring Provider Internal Medicine; Visit Provider Internal Medicine
DX: M85.852 Other specified disorders of bone density and structure, left thigh (principal); Z78.0 Asymptomatic menopausal state
CPT/HCPCS: 77080

== ENCOUNTER 2023-10-08 15:45 | Emergency (ER) | payer MEDICARE, SELFPAY ==
[2023-10-08 15:49] VITALS: BP 143/63; PULSE 70; RESP 20; TEMP 36.1; O2SAT 98; BMI 27.7
--- NOTE | 2023-10-08 16:31 | DI.RAD.S_ITS ---
PROCEDURE: XR HIP W PEL IF DONE RT 2V INDICATIONS: R Hip pain TECHNIQUE: AP pelvis with lateral view(s) of the right hip(s). COMPARISON: None. FINDINGS: Bones: No fractures or dislocations. Pelvic ring appears intact. No suspicious bony lesions. Mild bilateral hip degenerative change. Soft tissues: The visualized bowel gas pattern is normal. No suspicious soft tissue calcifications. IMPRESSION: Mild bilateral hip degenerative change. No evidence acute bony abnormality. If clinical suspicion and/or symptoms persist, further assessment with repeat plain films, or advanced imaging (e.g., CT, MRI, or bone scan) may be helpful for further assessment. Dictated by: Cuauhtemoc Navarro M.D. on 10/08/2023 at 17:04 Approved by: Cuauhtemoc Navarro M.D. on 10/08/2023 at 17:05
--- NOTE | 2023-10-08 16:49 | ED_ITS ---
HPI - Extremity Problem <Martha Granados PA-C - Last Filed: 10/08/23 17:21> General Chief complaint: Extremity Problem,Nontraumatic Stated complaint: right hip Time Seen by Provider: 10/08/23 15:58 Source: patient Mode of arrival: Ambulatory History of Present Illness HPI Narrative: 68-year-old female with past medical history osteopenia, migraine, rosacea, Sjogren's syndrome, depression, anxiety, hypothyroidism presents to the ED with 4 days of right-sided hip pain. Patient states that she has been walking regularly for the past few months to lose weight, has lost 25 lb so far. Patient states that she started experiencing some pain in the right hip, side of the right buttock, and in the inguinal portion of the right upper leg. Patient states that pain is reproduced with flexing her leg up. Patient denies numbness, tingling, weakness. Patient denies any trauma. Patient took some Tylenol without relief. Related Data Home Medications Medication Instructions Recorded Confirmed glucosamine sulfate 500 mg capsule 500 mg PO Q DAY ##0 12/12/16 08/23/23 (Genicin) aspirin 81 mg tablet,delayed 81 mg PO QDAY ##0 01/02/17 08/23/23 release cholecalciferol (vitamin D3) 50 50 mcg PO DAILY 04/26/22 08/23/23 mcg (2,000 unit) capsule fluoxetine 20 mg capsule 20 mg PO DAILY 03/16/23 08/23/23 levothyroxine 88 mcg tablet 88 mcg PO DAILY 03/16/23 08/23/23 propranolol 10 mg tablet 30 mg PO DAILY PRN tremor 04/30/23 08/23/23 Previous Rx's Medication Instructions Recorded trazodone 50 mg tablet 25 mg (1/2 x 50 mg) PO BEDTIME PRN 08/30/22 insomnia #45 tabs ondansetron 4 mg disintegrating 4 mg PO Q8H PRN nausea and 04/06/23 tablet vomiting #30 tabs Estriol Vaginal 0.1% Cream 1 g vaginal 2XW #30 grams 05/02/23 Allergies Allergy/AdvReac Type Severity Reaction Status Date / Time latex [LATEX] Allergy Severe Blister Verified 08/23/23 13:31 adhesive Allergy Intermediate Rash Verified 08/23/23 13:31 rivaroxaban [From Xarelto] Allergy Intermediate Verified 08/23/23 13:31 tramadol Allergy Intermediate Vomiting Verified 08/23/23 13:31 Review of Systems <Martha Granados PA-C - Last Filed: 10/08/23 17:21> Constitutional Constitutional: Denies chills, Denies fatigue, Denies fever(s), Denies frequent falls, Denies lethargy and Denies weakness Eyes Eyes: Denies change in vision, Denies eye discharge, Denies irritation and Denies loss of vision ENT Ears, Nose, Mouth, and Throat: Denies change in voice, Denies dizziness, Denies neck pain, Denies sore throat and Denies throat swelling Cardiovascular Cardiovascular: Denies chest pain, Denies irregular heart rhythm, Denies lightheadedness, Denies palpitations, Denies dyspnea, Denies dyspnea on exertion and Denies orthopnea Respiratory Respiratory: Denies cough, Denies dyspnea, Denies dyspnea on exertion and Denies wheezing Gastrointestinal Gastrointestinal: Denies abdominal pain, Denies change in bowel habits, Denies diarrhea, Denies nausea and Denies vomiting Musculoskeletal Musculoskeletal: Denies neck pain and Denies numbness Comments: Right hip, inguinal pain Integumentary/Breasts Skin/Breast: Denies pruritus, Denies erythema, Denies rash and Denies wounds Neurologic Neurologic: Denies behavioral changes, Denies confusion, Denies dizziness, Denies frequent falls, Denies loss of vision, Denies numbness and Denies weakness Psychiatric Psychiatric: Denies anxiety, Denies behavioral changes, Denies confusion, Denies depression, Denies homicidal ideation and Denies suicidal ideation Endocrine Endocrine: Denies fatigue, Denies flushing and Denies palpitations Hematologic/Lymphatic Hematologic/Lymphatic: Denies easy bruising Allergic/Immunologic Allergic/Immunologic: Denies urticaria, Denies throat swelling and Denies wheezing Patient History <Martha Granados PA-C - Last Filed: 10/08/23 17:21> Medical History Menopausal syndrome History of colonic polyps Osteopenia Overweight Benign essential tremor Vertigo of cervical arthrosis syndrome Migraine, cervicogenic Hearing loss Rosacea Sjogren's syndrome (~2001) Cervical spine disease (~1980) Mumps (~1968) Chicken pox (~1967) DJD (degenerative joint disease), cervical History of pulmonary embolism Depression, major, recurrent Generalized anxiety disorder Acquired hypothyroidism (~1972) Surgical History History of carpal tunnel surgery (~2019) Family History Father Alzheimer's disease Mother COPD (chronic obstructive pulmonary disease) Brother Frontal lobe dementia Grandfather ALS (amyotrophic lateral sclerosis) Grandmother Stroke Grandmother Cancer Social History household members: spouse Smoking Status: Never smoker Smoking Status: Never smoker alcohol intake frequency: holidays/special occasions only Substance Use Type: does not use Exam <Martha Granados PA-C - Last Filed: 10/08/23 17:21> Narrative Exam Narrative: Const General:?cooperative, healthy appearing and comfortable HENVA Head:?normal to inspection Ears:?hearing grossly normal bilaterally Nose:?external nose normal Face and sinus:?normal facial exam and sinuses nontender Mouth:?oral mucosae normal Throat:?posterior oropharynx normal Eyes General:?appearance normal, both eyes and all related structures Neck Neck:?normal visual inspection and no lymphadenopathy noted Resp Effort & Inspection:?normal respiratory effort Auscultation:?clear to auscultation bilaterally Cardio Rate:?regular rate Rhythm:?regular rhythm Musculoskeletal No tenderness to palpation. Gait is normal. Patient is able to bear weight. There is full range of motion. Strength and sensation is intact. Patient is neurovascularly intact. Neuro General:?patient alert, patient awake and patient oriented x3 Initial Vital Signs Initial Vital Signs: Vital Signs Temperature 97 F L 10/08/23 15:49 Pulse Rate 70 10/08/23 15:49 Respiratory Rate 20 10/08/23 15:49 Blood Pressure 143/63 H 10/08/23 15:49 Pulse Oximetry 98 10/08/23 15:49 Oxygen Delivery Method Room Air 10/08/23 15:49 <Ginger Ayala MD - Last Filed: 10/08/23 18:21> Initial Vital Signs Initial Vital Signs: Vital Signs Temperature 97 F L 10/08/23 15:49 Pulse Rate 70 10/08/23 15:49 Respiratory Rate 20 10/08/23 15:49 Blood Pressure 143/63 H 10/08/23 15:49 Pulse Oximetry 98 10/08/23 15:49 Oxygen Delivery Method Room Air 10/08/23 15:49 Course <Martha Granados PA-C - Last Filed: 10/08/23 17:21> Orders Ordered: ED Orders 10/08/23 16:31 XR hip w pel if done RT 2V Stat Vital Signs Vital signs: Vital Signs - 8 hr 10/08/23 15:49 10/08/23 17:26 Temperature 97 F L Pulse Rate 70 54 L Respiratory Rate 20 16 Blood Pressure 143/63 H 115/59 L Pulse Oximetry 98 98 Oxygen Delivery Method Room Air Room Air <Ginger Ayala MD - Last Filed: 10/08/23 18:21> Orders Ordered: ED Orders 10/08/23 16:31 XR hip w pel if done RT 2V Stat Vital Signs Vital signs: Vital Signs - 8 hr 10/08/23 15:49 10/08/23 17:26 Temperature 97 F L Pulse Rate 70 54 L Respiratory Rate 20 16 Blood Pressure 143/63 H 115/59 L Pulse Oximetry 98 98 Oxygen Delivery Method Room Air Room Air MDM - Extremity (Nontraumatic) <Martha Granados PA-C - Last Filed: 10/08/23 17:21> MDM Narrative Medical decision making narrative: 68-year-old female with past medical history osteopenia, migraine, rosacea, Sjogren's syndrome, depression, anxiety, hypothyroidism presents to the ED with 4 days of right-sided hip pain. Concern for stress fracture versus arthritis versus musculoskeletal sprain/strain versus other. Will obtain x-ray, reassess. X-ray shows mild bilateral hip degenerative changes but no evidence of acute bony abnormality. Patient's symptoms are likely due to a musculoskeletal sprain/strain. Recommend ibuprofen, heat packs, lidocaine patches. Recommend follow-up with PCP as soon as possible. ED return precautions discussed with patient. Patient verbalized understanding. Medical records reviewed: Yes Discharge Plan Departure Patient Disposition: Home Clinical Impression: Acute hip pain Qualifiers: Laterality: right Qualified Code(s): M25.551 - Pain in right hip Instructions: DI for Hip Pain Activity Restrictions/Additional Instructions: You were evaluated in the ED today for right-sided groin and hip pain. Your x- ray did not show any fractures or dislocations or arthritis. There are some mild degenerative changes. Your symptoms are likely due to a musculoskeletal sprain/strain. You may take ibuprofen 600 mg 3 times a day with food, apply heat packs, apply lidocaine patches for relief. Please follow-up with your PCP as soon as possible. Return to the ED if you have worsening symptoms, numbness, tingling, weakness. Prescriptions: No Action glucosamine sulfate [Genicin] 500 MG capsule 500 mg PO Q DAY Qty: 0 aspirin 81 MG tablet,delayed release (DR/EC) 81 mg PO QDAY Qty: 0 ondansetron 4 mg tablet,disintegrating 4 mg PO Q8H PRN (Reason: nausea and vomiting) Qty: 30 2RF Estriol Vaginal 0.1% Cream 0.1 % cream 1 g vaginal 2XW Qty: 30 3RF Rx Instructions: Insert 1 gram vaginally at bedtime twice weekly; [facility] fax:[phone]. trazodone 50 mg tablet 25 mg PO BEDTIME PRN (Reason: insomnia) Qty: 45 3RF cholecalciferol (vitamin D3) 50 mcg (2,000 unit) capsule 50 mcg PO DAILY propranolol 10 mg tablet 30 mg PO DAILY PRN (Reason: tremor) Rx Instructions: 3 tablets daily as needed for tremor fluoxetine 20 mg capsule 20 mg PO DAILY levothyroxine 88 mcg tablet 88 mcg PO DAILY Referrals: Balwinder Ocasio MD [Primary Care Provider] - Stand Alone Forms: Patient Portal/API ED Sign-out <Ginger Ayala MD - Last Filed: 10/08/23 18:21> Cosign ED Attending Cosignature Attestation: I did not see this patient. I was available all times for consultation.
[2023-10-08 17:26] VITALS: BP 115/59; PULSE 54; RESP 16; O2SAT 98
== END 2023-10-08 17:28 | disposition home or self-care (01) ==
PROVIDERS: Emergency Provider Student in an Organized Health Care Education/Training Program; Family Provider Internal Medicine; PCP Internal Medicine
DX: M25.551 Pain in right hip (principal)
CPT/HCPCS: 73502; 99281; 99282

== ENCOUNTER 2023-12-10 12:18 | Day surgery (SDC) | payer MEDICARE, SELFPAY ==
--- NOTE | 2023-12-10 | PATH_ITS ---
[facility] Accession Number: [id number] No. of containers..01 Tissue . 01 Material submitted: . colon - ASCENDING COLON POLYPS . 01 Diagnosis: Ascending Colon, Polyps: Tubular adenomas. MRV 12/12/2023 1400 Local . 01 Electronically signed: . Teressa Mckenna MD, Pathologist NPI- [id number] . 01 Gross description: . ASCENDING COLON POLYPS: Received in formalin are multiple fragment(s) of chairez, soft tissue measuring 0.1 x 0.1 x 0.1 cm to 0.2 x 0.1 x 0.1 cm submitted entirely in 1 cassette(s) /MINA 12/11/2023 2239 Local . 01 Pathologist provided ICD-10: D12.2 . 01 CPT . 842016 Specimen Comment: A courtesy copy of this report has been sent to [phone] Performed at: 01 [facility] [address] [place] [address], [place], [place] [id number] MD Pro Palma MD Phone: [phone]
--- NOTE | 2023-12-10 12:31 | PM.HP.1 ---
History of Present Illness History of Present Illness Date Patient Seen: 12/10/23 Time Patient Seen: 12:31 Chief complaint: Colonoscopy Narrative: 68-year-old female here for colonoscopy. She has a personal history of colon polyps. Last exam was 2019. A sessile serrated polyp was removed with a 5 year recall. She however was under the impression that she is overdue and had a 3 year recall. [facility] Medical History Menopausal syndrome History of colonic polyps Osteopenia Overweight Benign essential tremor Vertigo of cervical arthrosis syndrome Migraine, cervicogenic Hearing loss Rosacea Sjogren's syndrome (~2001) Cervical spine disease (~1980) Mumps (~1968) Chicken pox (~1967) DJD (degenerative joint disease), cervical History of pulmonary embolism Depression, major, recurrent Generalized anxiety disorder Acquired hypothyroidism (~1972) Surgical History History of carpal tunnel surgery (~2019) Family History Father Alzheimer's disease Mother COPD (chronic obstructive pulmonary disease) Brother Frontal lobe dementia Grandfather ALS (amyotrophic lateral sclerosis) Grandmother Stroke Grandmother Cancer Social History household members: spouse Smoking Status: Never smoker Meds Home Medications and Allergies Home Medications Medication Instructions Recorded Confirmed Type glucosamine sulfate 500 mg capsule 500 mg PO Q DAY ##0 12/12/16 10/17/23 History (Genicin) aspirin 81 mg tablet,delayed 81 mg PO QDAY ##0 01/02/17 10/17/23 History release cholecalciferol (vitamin D3) 50 50 mcg PO DAILY 04/26/22 10/17/23 History mcg (2,000 unit) capsule trazodone 50 mg tablet 25 mg (1/2 x 50 mg) PO BEDTIME PRN 08/30/22 10/17/23 Rx insomnia #45 tabs fluoxetine 20 mg capsule 20 mg PO DAILY 03/16/23 10/17/23 History levothyroxine 88 mcg tablet 88 mcg PO DAILY 03/16/23 10/17/23 History ondansetron 4 mg disintegrating 4 mg PO Q8H PRN nausea and 04/06/23 10/17/23 Rx tablet vomiting #30 tabs propranolol 10 mg tablet 30 mg PO DAILY PRN tremor 04/30/23 10/17/23 History Estriol Vaginal 0.1% Cream 1 g vaginal 2XW #30 grams 05/02/23 10/17/23 Rx Allergies Allergy/AdvReac Type Severity Reaction Status Date / Time latex [LATEX] Allergy Severe Blister Verified 10/17/23 10:21 adhesive Allergy Intermediate Rash Verified 10/17/23 10:21 rivaroxaban [From Xarelto] Allergy Intermediate Verified 10/17/23 10:21 tramadol Allergy Intermediate Vomiting Verified 10/17/23 10:21 Review of Systems Review of Systems ROS: Yes All systems reviewed with the patient and are negative except as otherwise documented Exam Const General: cooperative HENMT Head: normal to inspection Eyes General: appearance normal, both eyes and all related structures Neck Neck: normal visual inspection Chest Chest: normal inspection of the chest Resp Effort & Inspection: normal respiratory effort Cardio Rate: regular rate GI Inspection: normal to inspection Skin General: no rashes or lesions noted Neuro General: patient alert and patient awake Extrem General: normal to inspection and no pedal edema Psych Appearance: grossly normal Assessment & Plan Assessment & Plan narrative: 68-year-old female with a personal history of colon polyps. Colonoscopy is pursued today.
[2023-12-10] MEDS: LACTATED RINGERS 1,000 ML 120 ML IV (12:33)
--- NOTE | 2023-12-10 12:33 | PM.PREOP ---
Pre-operative Note Interval Note History & Physical reviewed/Exam performed by Physician: Yes Changes to H&P: No ASA Class (for procedural sedation): II
[2023-12-10 12:46] VITALS: BP 120/59; PULSE 67; RESP 16; TEMP 36.6; O2SAT 99
[2023-12-10 12:58] VITALS: BMI 26.9
--- NOTE | 2023-12-10 13:30 | P.OP.COLON_ITS ---
Operative Date/Time/Diagnoses Date of procedure: 12/10/23 Time of procedure: 13:31 Pre-op diagnosis: Personal history of colon polyps Post-op diagnosis: same Procedure & Clinicians Study performed: Colonoscopy with hot snare polypectomy Same procedure as scheduled: Yes Indications: Personal history of colon polyps Surgeon: Robert Hsu Procedure Notes SCOAP/Timeout: Done Procedure in detail: After the risks and benefits were explained, written and verbal informed consent was obtained. The patient was brought into the procedure room and placed into the left lateral decubitus position. Please see anesthesia notes for sedation details. Digital rectal examination was accomplished. The scope was introduced into the patient and advanced under direct visualization to the cecum as identified by the appendiceal orifice and ileocecal valve. The scope was slowly withdrawn to carefully examine the mucosa for any defects or lesions. Comprehensive imaging was accomplished throughout the rectum including the dent ate line. The colon was decompressed, the scope was then removed from the patient who tolerated the procedure well. Pediatric colonoscope Bowel prep adequate Scope withdrawal time: 10 minutes Sedation minutes: 15 Complications: none Impression: The patient had diverticulosis in the sigmoid colon. In the ascending colon there was an approximately 6-7 mm sessile polyp removed with hot snare. In the transverse colon there was a 5 mm sessile polyp removed with hot snare. Both of these were submitted in the same jar. No additional pathology was appreciated throughout. Endoscopic diagnosis 1. Diverticulosis 2. Colon polyps Post-procedure Plan for aftercare: 1. Await histopathology. 2. Repeat colonoscopy in 5-7 years. Disposition: PACU
[2023-12-10 13:39] VITALS: BP 95/44; PULSE 49; RESP 15; O2SAT 97
[2023-12-10 13:44] VITALS: BP 100/63; PULSE 57; RESP 16; TEMP 36.6; O2SAT 98
== END 2023-12-10 14:06 | disposition home or self-care (01) ==
PROVIDERS: Family Provider Internal Medicine; PCP Internal Medicine; Referring Provider Internal Medicine Gastroenterology; Visit Provider Internal Medicine Gastroenterology
PROC: 0DJD8ZZ Inspection of Lower Intestinal Tract, Via Natural or Artificial Opening Endoscopic (ICD-10-PCS; CPT 45378; principal; 2023-12-10 13:00)
DX: Z12.11 Encounter for screening for malignant neoplasm of colon (principal); Z86.010 Personal history of colon polyps; K57.30 Diverticulosis of large intestine without perforation or abscess without bleeding; D12.2 Benign neoplasm of ascending colon
CPT/HCPCS: 45385; J2704

== ENCOUNTER → 2024-05-08 11:47 | Outpatient (CLI) | payer MEDICARE, SELFPAY ==
[2024-05-08 12:16] LABS: Hemoglobin 13.7 g/dL (12.0-16.0); Mean Corpuscular HGB Conc 33.4 % (30-36); Mean Corpuscular Hemoglobin 31.5 PG (26-34); Mean Corpuscular Volume 94.3 fL (80-100); Platelet Count 259 X10^3/uL (150-400); Red Blood Cell Count 4.35 X10^6/uL (4.0-5.2); Red Cell Distribution Width 13.4 % (11.6-14.8)
[2024-05-08 12:36] LABS: Aspartate Aminotransferase 24 IU/L (14-36); BUN Creatinine Ratio 20.6 (6-22); Blood Urea Nitrogen 21 mg/dL (7-17); Calcium 9.4 mg/dL (8.4-10.2); Carbon Dioxide 28 mmol/L (22-32); Chloride 107 mmol/L (98-107); Cholesterol 211 mg/dL (140-199); Estimated Glomerular Filt Rate 60 mL/min (>60); Glucose 97 mg/dL (80-110); HDL Cholesterol 66 mg/dL (40-60); HEMOLYSIS < 15 (0-50); LDL Cholesterol Calculated 125 mg/dL (<100); Potassium 4.3 mmol/L (3.4-5.1); Sodium 140 mmol/L (137-145); Triglycerides 102 mg/dL (35-150)
[2024-05-08 12:52] LABS: Vitamin D 25 Hydroxy (D3) 58.8 ng/mL (30.0-100.0)
== END ==
PROVIDERS: Family Provider Internal Medicine; PCP Internal Medicine; Referring Provider Internal Medicine; Visit Provider Internal Medicine
DX: E03.9 Hypothyroidism, unspecified (principal); Z86.711 Personal history of pulmonary embolism; E55.9 Vitamin D deficiency, unspecified; E78.2 Mixed hyperlipidemia
CPT/HCPCS: 36415; 80048; 80061; 82306; 84443; 84450; 85027

== ENCOUNTER 2024-05-27 11:15 | Outpatient (RCR) | payer MEDICARE, SELFPAY ==
--- NOTE | 2023-12-11 14:24 | PT.OIE ---
Current Diagnoses Stiffness of other specified joint, not elsewhere classified (12/11/23) Spondylosis without myelopathy or radiculopathy, cervical region (12/11/23) Past Medical History (Last Reviewed 12/10/23 @ 12:32 by Robert Hsu MD) Acquired hypothyroidism (~1972) Benign essential tremor Cervical spine disease (~1980) Chicken pox (~1967) Depression, major, recurrent DJD (degenerative joint disease), cervical Generalized anxiety disorder Hearing loss History of colonic polyps History of pulmonary embolism Menopausal syndrome Migraine, cervicogenic Mumps (~1968) Osteopenia Overweight Rosacea Sjogren's syndrome (~2001) Vertigo of cervical arthrosis syndrome Past Surgical History (Last Reviewed 12/10/23 @ 12:33 by Robert Hsu MD) History of carpal tunnel surgery (~2019) Visit Care Team Role Provider Type Balwinder Ocasio MD Attending Provider Physician Family Provider Primary Care Provider Referring Provider Specialty: Internal Medicine Address: [address] [place] [address] Email: [email or web address] Physical Therapy Initial Evaluation PT-OP-A Visit Information Start: 12/11/23 13:57 Freq: Status: Active Protocol: Document 12/11/23 12:10 DCW (Rec: 12/11/23 14:13 DCW [id number]) Out-Patient Physical Therapy Visit Information Visit Information Visit Type Initial Evaluation Visit Note arrived 15 minutes late Visit Start Time 12:10 Visit Stop Time 12:45 Visit Number 1 Number of MAINTENANCE ENGINEER Visits 0 Evaluation Information Evaluation Date 12/11/23 PT-OP-B Current Condition Start: 12/11/23 13:57 Freq: Status: Active Protocol: Document 12/11/23 12:10 DCW (Rec: 12/11/23 14:13 DCW [id number]) Current Condition History of Current Condition Onset Date Long-standing history Current Complaints Cervical pain History of Current Condition Pt is a 68 year old female presenting with a long- standing history of cervical pain. Pt is well known to this clinic, and has been treated multiple times in the past for this same pain. Pt typically responds fairly well to therapy, but then generally declines after discharge, and then returns when it gets too bad once again. Most recently, pt was discharged in Mar, 2023. Reports her pain has been worsening for the last ~2 months, and was incredibly bad last week, to the point where she was unable to turn her head. Is feeling somewhat better this week, but continues to experience fairly constant pain. PT-OP-C Subjective Start: 12/11/23 13:57 Freq: Status: Active Protocol: Document 12/11/23 12:10 DCW (Rec: 12/11/23 14:13 DCW [id number]) OP-PT Subjective Patient Comments Patient Comments I've been trying to be so careful about turning my head. Patient Questionnaires Oswestry Low Back Index Oswestry Score 50 = 18% PT-OP-F Manual Assessment Start: 12/11/23 13:57 Freq: Status: Active Protocol: Document 12/11/23 12:10 DCW (Rec: 12/11/23 14:13 DCW [id number]) Manual Assessments Soft Tissue Assessment Soft Tissue Mobility Assessment Mild-moderate tone: R upper trap, cervical paraspinals Joint Mobility Assessment Joint Mobility Assessment Mild CCW rotation of C4 PT-OP-K Range of Motion Start: 12/11/23 13:57 Freq: Status: Active Protocol: Document 12/11/23 12:10 DCW (Rec: 12/11/23 14:13 DCW [id number]) Cervical Spine Range of Motion Cervical Spine Active Degrees Testing Position Sitting Flexion 55 Extension 25 Rotation Left 45 Rotation Right 35 Lateral Flexion Left 25 Lateral Flexion Right 25 ROM Limitations Bony Restriction,Muscle Tone, Pain PT-OP-L Special Tests Start: 12/11/23 13:57 Freq: Status: Active Protocol: Document 12/11/23 12:10 DCW (Rec: 12/11/23 14:13 DCW [id number]) Special Tests Cervical Spine Special Tests Traction Test Results Improved pain Slump Test Results Negative Foraminal Compression Test Results Negative Alar Ligament Test Results Negative PT-OP-M Strength Start: 12/11/23 13:57 Freq: Status: Active Protocol: Document 12/11/23 12:10 DCW (Rec: 12/11/23 14:13 DCW [id number]) Cervical Spine Strength Cervical Spine Manual Muscle Testing Testing Position Sitting Flexion (C1-2) 4- Good- Extension 4- Good- Rotation Left 4- Good- Rotation Right 4- Good- Lateral Flexion Left (C3) 4 Good Lateral Flexion Right (C3) 4 Good Comments Limited secondary to pain PT-OP-Q Treatments Start: 12/11/23 13:57 Freq: Status: Active Protocol: Document 12/11/23 12:10 DCW (Rec: 12/11/23 14:13 DCW [id number]) Manual Therapy Treatment Soft Tissue Mobilization Suboccipitals Body Location B Supoccipitals Mobilization Type Sustained Pressure,Trigger Point Release Intensity/Depth Moderate Body Position Supine Other Other Manual Treatments Isometric right cervical rotation against therapist resistance PT-OP-T Assessment and Plan Start: 12/11/23 13:57 Freq: Status: Active Protocol: Document 12/11/23 12:10 DCW (Rec: 12/11/23 14:23 DCW [id number]) Physical Therapy Assessment Rehab Potential Rehabilitation Potential Good Evaluation Complexity Number of Personal Factors/Comorbidities 1-2 Number of Body Systems Impaired 1-2 Clinical Presentation at Evaluation Stable Goals Two Impairment Limited cervical ROM to 25? B lateral flexion and 35?R/45?L rotation Detention Goal (LTG) Pt to demonstrate improved cervical rotation to at least 55? bilaterally to improve ability to turn head while driving LTG Duration 02/09/24 One Impairment Pt is not compliant with an appropriate home exercise program Short Term Goal (STG) Pt to be independent and compliant with an appropriate HEP STG Duration 01/10/24 Assessment Summary Assessment Pt presents with continuation of long-standing cervical dysfunction presenting as general pain, CCW rotation of C4, and limited cervical ROM. In the past, pt has responded well to STM and gentle strengthening. Following trial of STM and manual therapy today, pt's cervical rotation improve from 35? R to 55? R and from 45? L to 62? L. In the past, pt's gains are somewhat limited to immediate after manual treatment, and tend to return to pre- intervention levels without regular treatment. Continue to work on STM, joint mobilizations, gentle strengthening, in addition to working on breathing and relaxation, as stress has greatly impacted this patient previously. If pt displays good response to treatment, will continue to push preventative measures such as massage. Physical Therapy Plan Frequency and Duration Frequency of Treatment 1x every 1-2 weeks Plan of Care Start Date 12/11/23 Plan of Care End Date 02/09/24 Therapeutic Interventions Therapeutic Interventions Home Exercise Program,Joint Mobilizations,Manual Therapy, Neuromuscular Re-education, Patient/Caregiver Education, Self-Care/Home Management,Soft Tissue Mobilization, Therapeutic Activities, Therapeutic Exercises Next Visit Focus/Plan Next Note Type Treatment Note Next Visit Plan STM, gentle strengthening, breath techniques
--- NOTE | 2023-12-11 14:24 | PT.OPPOC ---
Physical, Occupational & Speech Therapy At [facility] Current Diagnoses Stiffness of other specified joint, not elsewhere classified (12/11/23) Spondylosis without myelopathy or radiculopathy, cervical region (12/11/23) Visit Care Team Role Provider Type Balwinder Ocasio MD Attending Provider Physician Family Provider Primary Care Provider Referring Provider Specialty: Internal Medicine Address: [address] [place] [address], [facility] Email: [email or web address] Plan Of Care PT-OP-T Assessment and Plan Start: 12/11/23 13:57 Freq: Status: Active Protocol: Document 12/11/23 12:10 DCW (Rec: 12/11/23 14:23 DCW [id number]) Physical Therapy Assessment Rehab Potential Rehabilitation Potential Good Evaluation Complexity Number of Personal Factors/Comorbidities 1-2 Number of Body Systems Impaired 1-2 Clinical Presentation at Evaluation Stable Goals Two Impairment Limited cervical ROM to 25? B lateral flexion and 35?R/45?L rotation Halfway Goal (LTG) Pt to demonstrate improved cervical rotation to at least 55? bilaterally to improve ability to turn head while driving LTG Duration 02/09/24 One Impairment Pt is not compliant with an appropriate home exercise program Short Term Goal (STG) Pt to be independent and compliant with an appropriate HEP STG Duration 01/10/24 Assessment Summary Assessment Pt presents with continuation of long-standing cervical dysfunction presenting as general pain, CCW rotation of C4, and limited cervical ROM. In the past, pt has responded well to STM and gentle strengthening. Following trial of STM and manual therapy today, pt's cervical rotation improve from 35? R to 55? R and from 45? L to 62? L. In the past, pt's gains are somewhat limited to immediate after manual treatment, and tend to return to pre- intervention levels without regular treatment. Continue to work on STM, joint mobilizations, gentle strengthening, in addition to working on breathing and relaxation, as stress has greatly impacted this patient previously. If pt displays good response to treatment, will continue to push preventative measures such as massage. Physical Therapy Plan Frequency and Duration Frequency of Treatment 1x every 1-2 weeks Plan of Care Start Date 12/11/23 Plan of Care End Date 02/09/24 Therapeutic Interventions Therapeutic Interventions Home Exercise Program,Joint Mobilizations,Manual Therapy, Neuromuscular Re-education, Patient/Caregiver Education, Self-Care/Home Management,Soft Tissue Mobilization, Therapeutic Activities, Therapeutic Exercises Next Visit Focus/Plan Next Note Type Treatment Note Next Visit Plan STM, gentle strengthening, breath techniques Plan of Care Dates Plan of Care Start Date 12/11/23 Plan of Care End Date 02/09/24 Electronically Signed by: Delfin Rodriguez, PT 12/11/23 9114 If you are in agreement with this Plan of Care, please return a signed and dated copy. I have reviewed this Plan of Care and certify that the skilled therapy services above are required to meet the patient?s needs. Physician Signature Date Printed Name and Credentials Clinical Instructor Signature Printed Name and Credentials
--- NOTE | 2023-12-18 11:57 | PT.OTN ---
Current Diagnoses Stiffness of other specified joint, not elsewhere classified (12/18/23) Spondylosis without myelopathy or radiculopathy, cervical region (12/18/23) Physical Therapy Treatment Note PT-OP-A Visit Information Start: 12/11/23 13:57 Freq: Status: Active Protocol: Document 12/18/23 11:15 DCW (Rec: 12/18/23 11:57 DCW [id number]) Out-Patient Physical Therapy Visit Information Visit Information Visit Type Treatment Note Visit Start Time 11:15 Visit Stop Time 11:45 Visit Number 2 Number of INTERNAL REVIEW AND AUDIT COMPLIANCE Visits 0 Evaluation Information Evaluation Date 12/11/23 PT-OP-B Current Condition Start: 12/11/23 13:57 Freq: Status: Active Protocol: Document 12/11/23 12:10 DCW (Rec: 12/11/23 14:13 DCW [id number]) Current Condition History of Current Condition Onset Date Long-standing history Current Complaints Cervical pain History of Current Condition Pt is a 68 year old female presenting with a long- standing history of cervical pain. Pt is well known to this clinic, and has been treated multiple times in the past for this same pain. Pt typically responds fairly well to therapy, but then generally declines after discharge, and then returns when it gets too bad once again. Most recently, pt was discharged in Mar, 2023. Reports her pain has been worsening for the last ~2 months, and was incredibly bad last week, to the point where she was unable to turn her head. Is feeling somewhat better this week, but continues to experience fairly constant pain. PT-OP-C Subjective Start: 12/11/23 13:57 Freq: Status: Active Protocol: Document 12/18/23 11:15 DCW (Rec: 12/18/23 11:57 DCW [id number]) OP-PT Subjective Patient Comments Patient Comments Pt notes her neck has been better since she was here last . PT-OP-F Manual Assessment Start: 12/11/23 13:57 Freq: Status: Active Protocol: Document 12/11/23 12:10 DCW (Rec: 12/11/23 14:13 DCW [id number]) Manual Assessments Soft Tissue Assessment Soft Tissue Mobility Assessment Mild-moderate tone: R upper trap, cervical paraspinals Joint Mobility Assessment Joint Mobility Assessment Mild CCW rotation of C4 PT-OP-K Range of Motion Start: 12/11/23 13:57 Freq: Status: Active Protocol: Document 12/11/23 12:10 DCW (Rec: 12/11/23 14:13 DCW [id number]) Cervical Spine Range of Motion Cervical Spine Active Degrees Testing Position Sitting Flexion 55 Extension 25 Rotation Left 45 Rotation Right 35 Lateral Flexion Left 25 Lateral Flexion Right 25 ROM Limitations Bony Restriction,Muscle Tone, Pain PT-OP-L Special Tests Start: 12/11/23 13:57 Freq: Status: Active Protocol: Document 12/11/23 12:10 DCW (Rec: 12/11/23 14:13 DCW [id number]) Special Tests Cervical Spine Special Tests Traction Test Results Improved pain Slump Test Results Negative Foraminal Compression Test Results Negative Alar Ligament Test Results Negative PT-OP-M Strength Start: 12/11/23 13:57 Freq: Status: Active Protocol: Document 12/11/23 12:10 DCW (Rec: 12/11/23 14:13 DCW [id number]) Cervical Spine Strength Cervical Spine Manual Muscle Testing Testing Position Sitting Flexion (C1-2) 4- Good- Extension 4- Good- Rotation Left 4- Good- Rotation Right 4- Good- Lateral Flexion Left (C3) 4 Good Lateral Flexion Right (C3) 4 Good Comments Limited secondary to pain PT-OP-Q Treatments Start: 12/11/23 13:57 Freq: Status: Active Protocol: Document 12/18/23 11:15 DCW (Rec: 12/18/23 11:57 DCW [id number]) Manual Therapy Treatment Soft Tissue Mobilization Suboccipitals Body Location B Supoccipitals, B UT, Scalenes, SCM Mobilization Type Sustained Pressure,Trigger Point Release Intensity/Depth Moderate Body Position Supine Other Other Manual Treatments Isometric right cervical rotation against therapist resistance PT-OP-T Assessment and Plan Start: 12/11/23 13:57 Freq: Status: Active Protocol: Document 12/18/23 11:15 DCW (Rec: 12/18/23 11:57 DCW [id number]) Physical Therapy Assessment Goals Two Impairment Limited cervical ROM to 25? B lateral flexion and 35?R/45?L rotation [place] Operator Goal (LTG) Pt to demonstrate improved cervical rotation to at least 55? bilaterally to improve ability to turn head while driving LTG Duration 3/30/24 One Impairment Pt is not compliant with an appropriate home exercise program Short Term Goal (STG) Pt to be independent and compliant with an appropriate HEP STG Duration 01/10/24 Assessment Summary Assessment Pt doing much better today, good C4 placement, significantly less soft tissue tone. Good response to STM today. Physical Therapy Plan Frequency and Duration Frequency of Treatment 1x every 1-2 weeks Plan of Care Start Date 12/11/23 Plan of Care End Date 02/09/24 Therapeutic Interventions Therapeutic Interventions Home Exercise Program,Joint Mobilizations,Manual Therapy, Neuromuscular Re-education, Patient/Caregiver Education, Self-Care/Home Management,Soft Tissue Mobilization, Therapeutic Activities, Therapeutic Exercises Next Visit Focus/Plan Next Note Type Treatment Note Next Visit Plan STM, gentle strengthening, breath techniques
--- NOTE | 2023-12-25 14:31 | PT.OTN ---
Current Diagnoses Stiffness of other specified joint, not elsewhere classified (12/25/23) Spondylosis without myelopathy or radiculopathy, cervical region (12/25/23) Physical Therapy Treatment Note PT-OP-A Visit Information Start: 12/11/23 13:57 Freq: Status: Active Protocol: Document 12/25/23 13:46 SP (Rec: 12/25/23 14:33 SP [id number]) Out-Patient Physical Therapy Visit Information Visit Information Visit Type Treatment Note Visit Start Time 13:46 Visit Stop Time 14:31 Visit Number 3 Number of FOOTWEAR MACHINERY INSTRUCTOR Visits 1 Evaluation Information Evaluation Date 12/11/23 PT-OP-B Current Condition Start: 12/11/23 13:57 Freq: Status: Active Protocol: Document 12/11/23 12:10 DCW (Rec: 12/11/23 14:13 DCW [id number]) Current Condition History of Current Condition Onset Date Long-standing history Current Complaints Cervical pain History of Current Condition Pt is a 68 year old female presenting with a long- standing history of cervical pain. Pt is well known to this clinic, and has been treated multiple times in the past for this same pain. Pt typically responds fairly well to therapy, but then generally declines after discharge, and then returns when it gets too bad once again. Most recently, pt was discharged in Mar, 2023. Reports her pain has been worsening for the last ~2 months, and was incredibly bad last week, to the point where she was unable to turn her head. Is feeling somewhat better this week, but continues to experience fairly constant pain. PT-OP-C Subjective Start: 12/11/23 13:57 Freq: Status: Active Protocol: Document 12/25/23 13:46 SP (Rec: 12/25/23 14:33 SP [id number]) OP-PT Subjective Patient Comments Patient Comments Pt PT-OP-F Manual Assessment Start: 12/11/23 13:57 Freq: Status: Active Protocol: Document 12/11/23 12:10 DCW (Rec: 12/11/23 14:13 DCW [id number]) Manual Assessments Soft Tissue Assessment Soft Tissue Mobility Assessment Mild-moderate tone: R upper trap, cervical paraspinals Joint Mobility Assessment Joint Mobility Assessment Mild CCW rotation of C4 PT-OP-K Range of Motion Start: 12/11/23 13:57 Freq: Status: Active Protocol: Document 12/11/23 12:10 DCW (Rec: 12/11/23 14:13 DCW [id number]) Cervical Spine Range of Motion Cervical Spine Active Degrees Testing Position Sitting Flexion 55 Extension 25 Rotation Left 45 Rotation Right 35 Lateral Flexion Left 25 Lateral Flexion Right 25 ROM Limitations Bony Restriction,Muscle Tone, Pain PT-OP-L Special Tests Start: 12/11/23 13:57 Freq: Status: Active Protocol: Document 12/11/23 12:10 DCW (Rec: 12/11/23 14:13 DCW [id number]) Special Tests Cervical Spine Special Tests Traction Test Results Improved pain Slump Test Results Negative Foraminal Compression Test Results Negative Alar Ligament Test Results Negative PT-OP-M Strength Start: 12/11/23 13:57 Freq: Status: Active Protocol: Document 12/11/23 12:10 DCW (Rec: 12/11/23 14:13 DCW [id number]) Cervical Spine Strength Cervical Spine Manual Muscle Testing Testing Position Sitting Flexion (C1-2) 4- Good- Extension 4- Good- Rotation Left 4- Good- Rotation Right 4- Good- Lateral Flexion Left (C3) 4 Good Lateral Flexion Right (C3) 4 Good Comments Limited secondary to pain PT-OP-Q Treatments Start: 12/11/23 13:57 Freq: Status: Active Protocol: Document 12/25/23 13:46 SP (Rec: 12/25/23 14:33 SP [id number]) Therapeutic Exercises Sidelying Exercises open book Sidelying Exercise Name added to HEP Side bilateral Reps/Minutes 5 reps Comments good feedback, cued slow scapular glide no UT, Sitting Exercises TS rotation Sitting Exercise Name added to [facility] Side bilateral Equipment Used arms across chest Reps/Minutes 5 reps each side Comments cued elevated posturing, TS rotation- good feedback painfree AROM/CS neutra Standing Exercises wall posture Standing Exercise Name added to HEP- painfree reports Reps/Minutes 10 SH x5 reps slight rhomboid engagement but no LB arch, CS neutral Comments buttocks/shld/head toward, BUE anatomical positioning palms fwd Manual Therapy Treatment Soft Tissue Mobilization Suboccipitals Body Location B Supoccipitals, B UT, Scalenes, SCM Mobilization Type Myofascial Release,Sustained Pressure,Other Intensity/Depth Moderate Body Position Supine Comments gentle manual MFR, slight FM head turn/nods tolerant with good feedback painfree safety cautious range. Self-Care/Home Management Treatment Education Other Education extra time education on use pillows between BLEs behind back to allow improved spinal and hip alignment and decreased potential tension into mid back/neck with good feedback response during tx. PT-OP-T Assessment and Plan Start: 12/11/23 13:57 Freq: Status: Active Protocol: Document 12/25/23 13:46 SP (Rec: 12/25/23 14:33 SP [id number]) Physical Therapy Assessment Goals Two Impairment Limited cervical ROM to 25? B lateral flexion and 35?R/45?L rotation Director Staffing Goal (LTG) Pt to demonstrate improved cervical rotation to at least 55? bilaterally to improve ability to turn head while driving LTG Duration 02/09/24 One Impairment Pt is not compliant with an appropriate home exercise program Short Term Goal (STG) Pt to be independent and compliant with an appropriate HEP STG Duration 01/10/24 Assessment Summary Assessment Pt responded well to gentle manual with introduction on self application for awareness of ROM and TS open book small painfree range for stability strengthen/support to look R and L driving and safety cross parkinglot. Pt good understanding of use wall posture for self awareness where her trunk is and re ed post seated fwd posture activities to improve decrease neck tension. Pt report painfree end tx and welcomed HOs for carryover home support . Physical Therapy Plan Frequency and Duration Frequency of Treatment 1x every 1-2 weeks Plan of Care Start Date 12/11/23 Plan of Care End Date 02/09/24 Therapeutic Interventions Therapeutic Interventions Home Exercise Program,Joint Mobilizations,Manual Therapy, Neuromuscular Re-education, Patient/Caregiver Education, Self-Care/Home Management,Soft Tissue Mobilization, Therapeutic Activities, Therapeutic Exercises Next Visit Focus/Plan Next Note Type Treatment Note Next Visit Plan * Assess response to ther ex, progress tolerance in AROM TS, wall posture. POC: STM, gentle strengthening , breath techniques
--- NOTE | 2024-01-09 15:15 | PT.OTN ---
Current Diagnoses Stiffness of other specified joint, not elsewhere classified (01/09/24) Spondylosis without myelopathy or radiculopathy, cervical region (01/09/24) Physical Therapy Treatment Note PT-OP-A Visit Information Start: 12/11/23 13:57 Freq: Status: Active Protocol: Document 01/09/24 14:32 DCW (Rec: 01/09/24 15:15 DCW [id number]) Out-Patient Physical Therapy Visit Information Visit Information Visit Type Treatment Note Visit Start Time 14:32 Visit Stop Time 15:15 Visit Number 4 Number of [employer] CONCRETE PRODUCTS INSTALLER Visits 0 Evaluation Information Evaluation Date 12/11/23 PT-OP-B Current Condition Start: 12/11/23 13:57 Freq: Status: Active Protocol: Document 12/11/23 12:10 DCW (Rec: 12/11/23 14:13 DCW [id number]) Current Condition History of Current Condition Onset Date Long-standing history Current Complaints Cervical pain History of Current Condition Pt is a 68 year old female presenting with a long- standing history of cervical pain. Pt is well known to this clinic, and has been treated multiple times in the past for this same pain. Pt typically responds fairly well to therapy, but then generally declines after discharge, and then returns when it gets too bad once again. Most recently, pt was discharged in Mar, 2023. Reports her pain has been worsening for the last ~2 months, and was incredibly bad last week, to the point where she was unable to turn her head. Is feeling somewhat better this week, but continues to experience fairly constant pain. PT-OP-C Subjective Start: 12/11/23 13:57 Freq: Status: Active Protocol: Document 01/09/24 14:32 DCW (Rec: 01/09/24 15:15 DCW [id number]) OP-PT Subjective Patient Comments Patient Comments Pt admits she did a self- adjustment on her neck yesterday with resisted rotation because she was not feeling well, notes she feels better today. PT-OP-F Manual Assessment Start: 12/11/23 13:57 Freq: Status: Active Protocol: Document 12/11/23 12:10 DCW (Rec: 12/11/23 14:13 DCW [id number]) Manual Assessments Soft Tissue Assessment Soft Tissue Mobility Assessment Mild-moderate tone: R upper trap, cervical paraspinals Joint Mobility Assessment Joint Mobility Assessment Mild CCW rotation of C4 PT-OP-K Range of Motion Start: 12/11/23 13:57 Freq: Status: Active Protocol: Document 12/11/23 12:10 DCW (Rec: 12/11/23 14:13 DCW [id number]) Cervical Spine Range of Motion Cervical Spine Active Degrees Testing Position Sitting Flexion 55 Extension 25 Rotation Left 45 Rotation Right 35 Lateral Flexion Left 25 Lateral Flexion Right 25 ROM Limitations Bony Restriction,Muscle Tone, Pain PT-OP-L Special Tests Start: 12/11/23 13:57 Freq: Status: Active Protocol: Document 12/11/23 12:10 DCW (Rec: 12/11/23 14:13 DCW [id number]) Special Tests Cervical Spine Special Tests Traction Test Results Improved pain Slump Test Results Negative Foraminal Compression Test Results Negative Alar Ligament Test Results Negative PT-OP-M Strength Start: 12/11/23 13:57 Freq: Status: Active Protocol: Document 12/11/23 12:10 DCW (Rec: 12/11/23 14:13 DCW [id number]) Cervical Spine Strength Cervical Spine Manual Muscle Testing Testing Position Sitting Flexion (C1-2) 4- Good- Extension 4- Good- Rotation Left 4- Good- Rotation Right 4- Good- Lateral Flexion Left (C3) 4 Good Lateral Flexion Right (C3) 4 Good Comments Limited secondary to pain PT-OP-Q Treatments Start: 12/11/23 13:57 Freq: Status: Active Protocol: Document 01/09/24 14:32 DCW (Rec: 01/09/24 15:15 DCW [id number]) Manual Therapy Treatment Soft Tissue Mobilization Suboccipitals Body Location B Supoccipitals, B UT, Scalenes, SCM Mobilization Type Sustained Pressure,Trigger Point Release Intensity/Depth Moderate Body Position Supine Other Other Manual Treatments Isometric left cervical rotation against therapist resistance PT-OP-T Assessment and Plan Start: 12/11/23 13:57 Freq: Status: Active Protocol: Document 01/09/24 14:32 DCW (Rec: 01/09/24 15:15 DCW [id number]) Physical Therapy Assessment Goals Two Impairment Limited cervical ROM to 25? B lateral flexion and 35?R/45?L rotation Sheet Metal Foreman Goal (LTG) Pt to demonstrate improved cervical rotation to at least 55? bilaterally to improve ability to turn head while driving LTG Duration 02/09/24 One Impairment Pt is not compliant with an appropriate home exercise program Short Term Goal (STG) Pt to be independent and compliant with an appropriate HEP STG Duration 01/10/24 Assessment Summary Assessment Good patient response to treatment today, did well with resisted cervical rotation. Improving soft tissue tone. Physical Therapy Plan Frequency and Duration Frequency of Treatment 1x every 1-2 weeks Plan of Care Start Date 12/11/23 Plan of Care End Date 02/09/24 Therapeutic Interventions Therapeutic Interventions Home Exercise Program,Joint Mobilizations,Manual Therapy, Neuromuscular Re-education, Patient/Caregiver Education, Self-Care/Home Management,Soft Tissue Mobilization, Therapeutic Activities, Therapeutic Exercises Next Visit Focus/Plan Next Note Type Treatment Note Next Visit Plan * Assess response to ther ex, progress tolerance in AROM TS, wall posture. POC: STM, gentle strengthening , breath techniques
--- NOTE | 2024-01-22 12:00 | PT.OTN ---
Current Diagnoses Stiffness of other specified joint, not elsewhere classified (01/22/24) Spondylosis without myelopathy or radiculopathy, cervical region (01/22/24) Physical Therapy Treatment Note PT-OP-A Visit Information Start: 12/11/23 13:57 Freq: Status: Active Protocol: Document 01/22/24 11:21 SP (Rec: 01/22/24 12:18 SP [id number]) Out-Patient Physical Therapy Visit Information Visit Information Visit Type Treatment Note Visit Start Time 11:22 Visit Stop Time 12:00 Visit Number 5 Number of NUTRITION SERVICES WORKER Visits 1 Evaluation Information Evaluation Date 12/11/23 PT-OP-B Current Condition Start: 12/11/23 13:57 Freq: Status: Active Protocol: Document 12/11/23 12:10 DCW (Rec: 12/11/23 14:13 DCW [id number]) Current Condition History of Current Condition Onset Date Long-standing history Current Complaints Cervical pain History of Current Condition Pt is a 68 year old female presenting with a long- standing history of cervical pain. Pt is well known to this clinic, and has been treated multiple times in the past for this same pain. Pt typically responds fairly well to therapy, but then generally declines after discharge, and then returns when it gets too bad once again. Most recently, pt was discharged in Mar, 2023. Reports her pain has been worsening for the last ~2 months, and was incredibly bad last week, to the point where she was unable to turn her head. Is feeling somewhat better this week, but continues to experience fairly constant pain. PT-OP-C Subjective Start: 12/11/23 13:57 Freq: Status: Active Protocol: Document 01/22/24 11:21 SP (Rec: 01/22/24 12:18 SP [id number]) OP-PT Subjective Patient Comments Patient Comments Pt reports trying to be more conscious aware seated at desk . She feels her neck not as bad but feel it is little out . PT-OP-F Manual Assessment Start: 12/11/23 13:57 Freq: Status: Active Protocol: Document 12/11/23 12:10 DCW (Rec: 12/11/23 14:13 DCW [id number]) Manual Assessments Soft Tissue Assessment Soft Tissue Mobility Assessment Mild-moderate tone: R upper trap, cervical paraspinals Joint Mobility Assessment Joint Mobility Assessment Mild CCW rotation of C4 PT-OP-K Range of Motion Start: 12/11/23 13:57 Freq: Status: Active Protocol: Document 12/11/23 12:10 DCW (Rec: 12/11/23 14:13 DCW [id number]) Cervical Spine Range of Motion Cervical Spine Active Degrees Testing Position Sitting Flexion 55 Extension 25 Rotation Left 45 Rotation Right 35 Lateral Flexion Left 25 Lateral Flexion Right 25 ROM Limitations Bony Restriction,Muscle Tone, Pain PT-OP-L Special Tests Start: 12/11/23 13:57 Freq: Status: Active Protocol: Document 12/11/23 12:10 DCW (Rec: 12/11/23 14:13 DCW [id number]) Special Tests Cervical Spine Special Tests Traction Test Results Improved pain Slump Test Results Negative Foraminal Compression Test Results Negative Alar Ligament Test Results Negative PT-OP-M Strength Start: 12/11/23 13:57 Freq: Status: Active Protocol: Document 12/11/23 12:10 DCW (Rec: 12/11/23 14:13 DCW [id number]) Cervical Spine Strength Cervical Spine Manual Muscle Testing Testing Position Sitting Flexion (C1-2) 4- Good- Extension 4- Good- Rotation Left 4- Good- Rotation Right 4- Good- Lateral Flexion Left (C3) 4 Good Lateral Flexion Right (C3) 4 Good Comments Limited secondary to pain PT-OP-Q Treatments Start: 12/11/23 13:57 Freq: Status: Active Protocol: Document 01/22/24 11:21 SP (Rec: 01/22/24 12:18 SP [id number]) Therapeutic Exercises Supine Exercises chin tuck, lift Supine Exercise Name 1. chin tuck 2. lift /unweight from pillow Reps/Minutes 1. 5 SH x5 2. tuck & brief lift x5 reps Comments 1. little crunch couple reps no pain 2. pnfree Sidelying Exercises open book Sidelying Exercise Name reviewed HEP- warm up am Side bilateral Reps/Minutes 5 reps Comments good feedback, cued slow scapular glide no UT, Sitting Exercises CS isometrics Sitting Exercise Name review self vs manual with PT Resistance L rotation 4 stops from R to L Reps/Minutes 10 SH each of 4 positions Comments no adverse affects, ed for carryover CS realignment- felt fine post manual cervical AROM Sitting Exercise Name trialed: SB, rotation Side bilateral Resistance AROM Reps/Minutes 5 reps each & side Comments cued painfree range- no adverse affects TS rotation Sitting Exercise Name reviewed HEP Side bilateral Equipment Used arms across chest vs grasp hand front elbows up Reps/Minutes 5 reps each side Comments cued elevated posturing, TS rotation- good feedback painfree AROM/CS neutra Manual Therapy Treatment Soft Tissue Mobilization Suboccipitals Body Location B Suboccipitals, B UT, B Scalenes, B SCM fine, SOR Mobilization Type Sustained Pressure,Trigger Point Release Intensity/Depth Moderate Body Position Supine Joint Mobilizations CS Joint C3 AAROM Rotation L and R Grade II Body Position Hooklying Comments improved alignment and rotational movement Manual Traction CS Details gentle Body Position Hooklying Comments good feedback response PT-OP-T Assessment and Plan Start: 12/11/23 13:57 Freq: Status: Active Protocol: Document 01/22/24 11:21 SP (Rec: 01/22/24 12:18 SP [id number]) Physical Therapy Assessment Goals Two Impairment Limited cervical ROM to 25? B lateral flexion and 35?R/45?L rotation Human Resources Team Member Goal (LTG) Pt to demonstrate improved cervical rotation to at least 55? bilaterally to improve ability to turn head while driving LTG Duration 02/09/24 One Impairment Pt is not compliant with an appropriate home exercise program Short Term Goal (STG) Pt to be independent and compliant with an appropriate HEP STG Duration 01/10/24 Assessment Summary Assessment Pt reported less no crunching post manual, ROM and isometrics. Cued as needed with much ed anatomy and CS mechanics neutral positioning for muscle activiation to allow stability support through ROM. Pt good response to review HEP today. She stated felt tired end tx but is because of restless sleep working with physican and med support. Physical Therapy Plan Frequency and Duration Frequency of Treatment 1x every 1-2 weeks Plan of Care Start Date 12/11/23 Plan of Care End Date 02/09/24 Therapeutic Interventions Therapeutic Interventions Home Exercise Program,Joint Mobilizations,Manual Therapy, Neuromuscular Re-education, Patient/Caregiver Education, Self-Care/Home Management,Soft Tissue Mobilization, Therapeutic Activities, Therapeutic Exercises Next Visit Focus/Plan Next Note Type Treatment Note Next Visit Plan * Assess response to ther ex and manual. POC: STM, gentle strengthening , breath techniques
--- NOTE | 2024-02-05 11:59 | PT.OTN ---
Current Diagnoses Stiffness of other specified joint, not elsewhere classified (02/05/24) Spondylosis without myelopathy or radiculopathy, cervical region (02/05/24) Physical Therapy Treatment Note PT-OP-A Visit Information Start: 12/11/23 13:57 Freq: Status: Active Protocol: Document 02/05/24 11:18 DCW (Rec: 02/05/24 11:59 DCW [id number]) Out-Patient Physical Therapy Visit Information Visit Information Visit Type Treatment Note Visit Start Time 11:18 Visit Stop Time 12:00 Visit Number 6 Number of CROWN IRONER Visits 0 Evaluation Information Evaluation Date 12/11/23 PT-OP-B Current Condition Start: 12/11/23 13:57 Freq: Status: Active Protocol: Document 12/11/23 12:10 DCW (Rec: 12/11/23 14:13 DCW [id number]) Current Condition History of Current Condition Onset Date Long-standing history Current Complaints Cervical pain History of Current Condition Pt is a 68 year old female presenting with a long- standing history of cervical pain. Pt is well known to this clinic, and has been treated multiple times in the past for this same pain. Pt typically responds fairly well to therapy, but then generally declines after discharge, and then returns when it gets too bad once again. Most recently, pt was discharged in Mar, 2023. Reports her pain has been worsening for the last ~2 months, and was incredibly bad last week, to the point where she was unable to turn her head. Is feeling somewhat better this week, but continues to experience fairly constant pain. PT-OP-C Subjective Start: 12/11/23 13:57 Freq: Status: Active Protocol: Document 02/05/24 11:18 DCW (Rec: 02/05/24 11:59 DCW [id number]) OP-PT Subjective Patient Comments Patient Comments Pt had a pretty bad headache yesterday, feeling a bit better, but neck is pretty stiff today. PT-OP-F Manual Assessment Start: 12/11/23 13:57 Freq: Status: Active Protocol: Document 02/05/24 11:18 DCW (Rec: 02/05/24 11:53 DCW [id number]) Manual Assessments Soft Tissue Assessment Soft Tissue Mobility Assessment Mild-moderate tone: R upper trap, cervical paraspinals Joint Mobility Assessment Joint Mobility Assessment Mild CCW rotation of C4 PT-OP-K Range of Motion Start: 12/11/23 13:57 Freq: Status: Active Protocol: Document 02/05/24 11:18 DCW (Rec: 02/05/24 11:53 DCW [id number]) Cervical Spine Range of Motion Cervical Spine Active Degrees Testing Position Sitting Flexion 55 Extension 40 Rotation Left 58 Rotation Right 41 Lateral Flexion Left 35 Lateral Flexion Right 30 PT-OP-L Special Tests Start: 12/11/23 13:57 Freq: Status: Active Protocol: Document 02/05/24 11:18 DCW (Rec: 02/05/24 11:53 DCW [id number]) Special Tests Cervical Spine Special Tests Traction Test Results Improved pain Slump Test Results Negative Foraminal Compression Test Results Negative Alar Ligament Test Results Negative PT-OP-M Strength Start: 12/11/23 13:57 Freq: Status: Active Protocol: Document 02/05/24 11:18 DCW (Rec: 02/05/24 11:53 DCW [id number]) Cervical Spine Strength Cervical Spine Manual Muscle Testing Testing Position Sitting Flexion (C1-2) 4- Good- Extension 4- Good- Rotation Left 4- Good- Rotation Right 4- Good- Lateral Flexion Left (C3) 4 Good Lateral Flexion Right (C3) 4 Good Comments Limited secondary to pain PT-OP-Q Treatments Start: 12/11/23 13:57 Freq: Status: Active Protocol: Document 02/05/24 11:18 DCW (Rec: 02/05/24 11:59 DCW [id number]) Manual Therapy Treatment Soft Tissue Mobilization Suboccipitals Body Location B Supoccipitals, B UT, Scalenes, SCM Mobilization Type Sustained Pressure,Trigger Point Release Intensity/Depth Moderate Body Position Supine Manual Traction CS Details gentle Body Position Hooklying Comments good feedback response Other Other Manual Treatments Isometric left cervical rotation against therapist resistance PT-OP-T Assessment and Plan Start: 12/11/23 13:57 Freq: Status: Active Protocol: Document 02/05/24 11:18 DCW (Rec: 02/05/24 11:59 DCW [id number]) Physical Therapy Assessment Impairments Impairments Functional Activities, Functional Mobility,Pain,ROM Goals Two Impairment Limited cervical ROM to 25? B lateral flexion and 35?R/45?L rotation Gambreler Helper Goal (LTG) Pt to demonstrate improved cervical rotation to at least 55? bilaterally to improve ability to turn head while driving LTG Duration 03/11/24 One Impairment Pt is not compliant with an appropriate home exercise program Short Term Goal (STG) Pt to be independent and compliant with an appropriate HEP STG Duration 01/10/24 Assessment Summary Assessment Pt overall showing improvement with cervical ROM, increase by 5-10? in nearly all planes, better control of pain. Pt concerned with ability to maintain c-spine outside of PT . Focus on retraining for self STM and mobs. Physical Therapy Plan Frequency and Duration Frequency of Treatment 1x every 1-2 weeks Plan of Care Start Date 02/05/24 Plan of Care End Date 03/07/24 Therapeutic Interventions Therapeutic Interventions Home Exercise Program,Joint Mobilizations,Manual Therapy, Neuromuscular Re-education, Patient/Caregiver Education, Self-Care/Home Management,Soft Tissue Mobilization, Therapeutic Activities, Therapeutic Exercises Next Visit Focus/Plan Next Note Type Treatment Note Next Visit Plan * Assess response to ther ex and manual. POC: STM, gentle strengthening , breath techniques
--- NOTE | 2024-02-05 12:00 | PT.OPPOC ---
Physical, Occupational & Speech Therapy At [facility] Current Diagnoses Stiffness of other specified joint, not elsewhere classified (02/05/24) Spondylosis without myelopathy or radiculopathy, cervical region (02/05/24) Visit Care Team Role Provider Type Balwinder Ocasio MD Attending Provider Physician Family Provider Primary Care Provider Referring Provider Specialty: Internal Medicine Address: [address] [place] [address], [facility] Email: [email or web address] Plan Of Care PT-OP-T Assessment and Plan Start: 12/11/23 13:57 Freq: Status: Active Protocol: Document 02/05/24 11:18 DCW (Rec: 02/05/24 11:59 DCW [id number]) Physical Therapy Assessment Impairments Impairments Functional Activities, Functional Mobility,Pain,ROM Goals Two Impairment Limited cervical ROM to 25? B lateral flexion and 35?R/45?L rotation Skilled Nursing Goal (LTG) Pt to demonstrate improved cervical rotation to at least 55? bilaterally to improve ability to turn head while driving LTG Duration 03/11/24 One Impairment Pt is not compliant with an appropriate home exercise program Short Term Goal (STG) Pt to be independent and compliant with an appropriate HEP STG Duration 01/10/24 Assessment Summary Assessment Pt overall showing improvement with cervical ROM, increase by 5-10? in nearly all planes, better control of pain. Pt concerned with ability to maintain c-spine outside of PT . Focus on retraining for self STM and mobs. Physical Therapy Plan Frequency and Duration Frequency of Treatment 1x every 1-2 weeks Plan of Care Start Date 02/05/24 Plan of Care End Date 03/07/24 Therapeutic Interventions Therapeutic Interventions Home Exercise Program,Joint Mobilizations,Manual Therapy, Neuromuscular Re-education, Patient/Caregiver Education, Self-Care/Home Management,Soft Tissue Mobilization, Therapeutic Activities, Therapeutic Exercises Next Visit Focus/Plan Next Note Type Treatment Note Next Visit Plan * Assess response to ther ex and manual. POC: STM, gentle strengthening , breath techniques Plan of Care Dates Plan of Care Start Date 02/05/24 Plan of Care End Date 03/07/24 Electronically Signed by: Delfin Rodriguez, PT 03/26/24 1200 If you are in agreement with this Plan of Care, please return a signed and dated copy. I have reviewed this Plan of Care and certify that the skilled therapy services above are required to meet the patient?s needs. Physician Signature Date Printed Name and Credentials Clinical Instructor Signature Printed Name and Credentials
--- NOTE | 2024-02-19 15:59 | PT.OTN ---
Current Diagnoses Stiffness of other specified joint, not elsewhere classified (02/19/24) Spondylosis without myelopathy or radiculopathy, cervical region (02/19/24) Physical Therapy Treatment Note PT-OP-A Visit Information Start: 12/11/23 13:57 Freq: Status: Active Protocol: Document 02/19/24 15:15 DCW (Rec: 02/19/24 15:59 DCW [id number]) Out-Patient Physical Therapy Visit Information Visit Information Visit Type Treatment Note Visit Start Time 15:15 Visit Stop Time 16:00 Visit Number 7 Number of QUALITY ASSURANCE MONITOR CHASSIS Visits 0 Evaluation Information Evaluation Date 12/11/23 PT-OP-B Current Condition Start: 12/11/23 13:57 Freq: Status: Active Protocol: Document 12/11/23 12:10 DCW (Rec: 12/11/23 14:13 DCW [id number]) Current Condition History of Current Condition Onset Date Long-standing history Current Complaints Cervical pain History of Current Condition Pt is a 68 year old female presenting with a long- standing history of cervical pain. Pt is well known to this clinic, and has been treated multiple times in the past for this same pain. Pt typically responds fairly well to therapy, but then generally declines after discharge, and then returns when it gets too bad once again. Most recently, pt was discharged in Mar, 2023. Reports her pain has been worsening for the last ~2 months, and was incredibly bad last week, to the point where she was unable to turn her head. Is feeling somewhat better this week, but continues to experience fairly constant pain. PT-OP-C Subjective Start: 12/11/23 13:57 Freq: Status: Active Protocol: Document 02/19/24 15:15 DCW (Rec: 02/19/24 15:59 DCW [id number]) OP-PT Subjective Patient Comments Patient Comments Pt notes she is a little sore . PT-OP-F Manual Assessment Start: 12/11/23 13:57 Freq: Status: Active Protocol: Document 02/05/24 11:18 DCW (Rec: 02/05/24 11:53 DCW [id number]) Manual Assessments Soft Tissue Assessment Soft Tissue Mobility Assessment Mild-moderate tone: R upper trap, cervical paraspinals Joint Mobility Assessment Joint Mobility Assessment Mild CCW rotation of C4 PT-OP-K Range of Motion Start: 12/11/23 13:57 Freq: Status: Active Protocol: Document 02/05/24 11:18 DCW (Rec: 02/05/24 11:53 DCW [id number]) Cervical Spine Range of Motion Cervical Spine Active Degrees Testing Position Sitting Flexion 55 Extension 40 Rotation Left 58 Rotation Right 41 Lateral Flexion Left 35 Lateral Flexion Right 30 PT-OP-L Special Tests Start: 12/11/23 13:57 Freq: Status: Active Protocol: Document 02/05/24 11:18 DCW (Rec: 02/05/24 11:53 DCW [id number]) Special Tests Cervical Spine Special Tests Traction Test Results Improved pain Slump Test Results Negative Foraminal Compression Test Results Negative Alar Ligament Test Results Negative PT-OP-M Strength Start: 12/11/23 13:57 Freq: Status: Active Protocol: Document 02/05/24 11:18 DCW (Rec: 02/05/24 11:53 DCW [id number]) Cervical Spine Strength Cervical Spine Manual Muscle Testing Testing Position Sitting Flexion (C1-2) 4- Good- Extension 4- Good- Rotation Left 4- Good- Rotation Right 4- Good- Lateral Flexion Left (C3) 4 Good Lateral Flexion Right (C3) 4 Good Comments Limited secondary to pain PT-OP-Q Treatments Start: 12/11/23 13:57 Freq: Status: Active Protocol: Document 02/19/24 15:15 DCW (Rec: 02/19/24 15:59 DCW [id number]) Manual Therapy Treatment Soft Tissue Mobilization Suboccipitals Body Location B Supoccipitals, B UT, Scalenes, SCM Mobilization Type Sustained Pressure,Trigger Point Release Intensity/Depth Moderate Body Position Supine Manual Traction CS Details gentle Body Position Hooklying Comments good feedback response PT-OP-T Assessment and Plan Start: 12/11/23 13:57 Freq: Status: Active Protocol: Document 02/19/24 15:15 DCW (Rec: 02/19/24 15:59 DCW [id number]) Physical Therapy Assessment Impairments Impairments Functional Activities, Functional Mobility,Pain,ROM Goals Two Impairment Limited cervical ROM to 25? B lateral flexion and 35?R/45?L rotation Longterm Goal (LTG) Pt to demonstrate improved cervical rotation to at least 55? bilaterally to improve ability to turn head while driving LTG Duration 4/30/24 One Impairment Pt is not compliant with an appropriate home exercise program Short Term Goal (STG) Pt to be independent and compliant with an appropriate HEP STG Duration 01/10/24 Assessment Summary Assessment Good response to treatment, pt exhibiting some decreased tone, no instance today of C4 rotation. Continue to focus on stabilization and tone management every-other week. Physical Therapy Plan Frequency and Duration Frequency of Treatment 1x every 1-2 weeks Plan of Care Start Date 02/05/24 Plan of Care End Date 03/07/24 Therapeutic Interventions Therapeutic Interventions Home Exercise Program,Joint Mobilizations,Manual Therapy, Neuromuscular Re-education, Patient/Caregiver Education, Self-Care/Home Management,Soft Tissue Mobilization, Therapeutic Activities, Therapeutic Exercises Next Visit Focus/Plan Next Note Type Treatment Note Next Visit Plan * Assess response to ther ex and manual. POC: STM, gentle strengthening , breath techniques
--- NOTE | 2024-04-08 11:15 | PT.OTN ---
Current Diagnoses Stiffness of other specified joint, not elsewhere classified (04/08/24) Spondylosis without myelopathy or radiculopathy, cervical region (04/08/24) Physical Therapy Treatment Note PT-OP-A Visit Information Start: 12/11/23 13:57 Freq: Status: Active Protocol: Document 04/08/24 10:35 DCW (Rec: 04/08/24 11:15 DCW [id number]) Out-Patient Physical Therapy Visit Information Visit Information Visit Type Progress Note Visit Start Time 10:35 Visit Stop Time 11:15 Visit Number 8 Number of MARITIME PILOT Visits 0 Evaluation Information Evaluation Date 12/11/23 PT-OP-B Current Condition Start: 12/11/23 13:57 Freq: Status: Active Protocol: Document 12/11/23 12:10 DCW (Rec: 12/11/23 14:13 DCW [id number]) Current Condition History of Current Condition Onset Date Long-standing history Current Complaints Cervical pain History of Current Condition Pt is a 68 year old female presenting with a long- standing history of cervical pain. Pt is well known to this clinic, and has been treated multiple times in the past for this same pain. Pt typically responds fairly well to therapy, but then generally declines after discharge, and then returns when it gets too bad once again. Most recently, pt was discharged in Mar, 2023. Reports her pain has been worsening for the last ~2 months, and was incredibly bad last week, to the point where she was unable to turn her head. Is feeling somewhat better this week, but continues to experience fairly constant pain. PT-OP-C Subjective Start: 12/11/23 13:57 Freq: Status: Active Protocol: Document 04/08/24 10:35 DCW (Rec: 04/08/24 11:15 DCW [id number]) OP-PT Subjective Patient Comments Patient Comments Overall, better than what it was. I even made a short trip to [place]. I've been really careful. PT-OP-F Manual Assessment Start: 12/11/23 13:57 Freq: Status: Active Protocol: Document 04/08/24 10:35 DCW (Rec: 04/08/24 11:15 DCW [id number]) Manual Assessments Soft Tissue Assessment Soft Tissue Mobility Assessment Mild-moderate tone: R upper trap, cervical paraspinals PT-OP-K Range of Motion Start: 12/11/23 13:57 Freq: Status: Active Protocol: Document 04/08/24 10:35 DCW (Rec: 04/08/24 11:15 DCW [id number]) Cervical Spine Range of Motion Cervical Spine Active Degrees Testing Position Sitting Flexion 55 Extension 40 Rotation Left 57 Rotation Right 46 Lateral Flexion Left 35 Lateral Flexion Right 31 PT-OP-L Special Tests Start: 12/11/23 13:57 Freq: Status: Active Protocol: Document 04/08/24 10:35 DCW (Rec: 04/08/24 11:15 DCW [id number]) Special Tests Cervical Spine Special Tests Traction Test Results Improved pain Slump Test Results Negative Foraminal Compression Test Results Negative Alar Ligament Test Results Negative PT-OP-M Strength Start: 12/11/23 13:57 Freq: Status: Active Protocol: Document 04/08/24 10:35 DCW (Rec: 04/08/24 11:15 DCW [id number]) Cervical Spine Strength Cervical Spine Manual Muscle Testing Testing Position Sitting Flexion (C1-2) 4- Good- Extension 4- Good- Rotation Left 4- Good- Rotation Right 4- Good- Lateral Flexion Left (C3) 4 Good Lateral Flexion Right (C3) 4 Good Comments Limited secondary to pain PT-OP-Q Treatments Start: 12/11/23 13:57 Freq: Status: Active Protocol: Document 04/08/24 10:35 DCW (Rec: 04/08/24 11:15 DCW [id number]) Manual Therapy Treatment Soft Tissue Mobilization Suboccipitals Body Location B Supoccipitals, B UT, Scalenes, SCM Mobilization Type Sustained Pressure,Trigger Point Release Intensity/Depth Moderate Body Position Supine Manual Traction CS Details gentle Body Position Hooklying Comments good feedback response PT-OP-T Assessment and Plan Start: 12/11/23 13:57 Freq: Status: Active Protocol: Document 04/08/24 10:35 DCW (Rec: 04/08/24 11:15 DCW [id number]) Physical Therapy Assessment Impairments Impairments Functional Activities, Functional Mobility,Pain,ROM Goals Two Impairment Limited cervical ROM to 25? B lateral flexion and 35?R/45?L rotation Food Safety Scientist Goal (LTG) Pt to demonstrate improved cervical rotation to at least 55? bilaterally to improve ability to turn head while driving LTG Duration 07/07/24 - improving One Impairment Pt is not compliant with an appropriate home exercise program Short Term Goal (STG) Pt to be independent and compliant with an appropriate HEP STG Duration 05/09/24 Assessment Summary Assessment Pt showing significant improvement today after extended time off of PT due to travel and scheduling conflicts. No noted excessive vertebral rotation today, tone much more managed than previous visits. Space out remaining appointments to ensure pt continue to exhibit good muscle tone and cervical stabilization. Physical Therapy Plan Frequency and Duration Frequency of Treatment 1x every 1-2 weeks Plan of Care Start Date 04/08/24 Plan of Care End Date 07/07/24 Therapeutic Interventions Therapeutic Interventions Home Exercise Program,Joint Mobilizations,Manual Therapy, Neuromuscular Re-education, Patient/Caregiver Education, Self-Care/Home Management,Soft Tissue Mobilization, Therapeutic Activities, Therapeutic Exercises Next Visit Focus/Plan Next Note Type Treatment Note Next Visit Plan * Assess response to ther ex and manual. POC: STM, gentle strengthening , breath techniques
--- NOTE | 2024-04-08 11:16 | PT.OPPOC ---
Physical, Occupational & Speech Therapy At [facility] Current Diagnoses Stiffness of other specified joint, not elsewhere classified (04/08/24) Spondylosis without myelopathy or radiculopathy, cervical region (04/08/24) Visit Care Team Role Provider Type Balwinder Ocasio MD Attending Provider Physician Family Provider Primary Care Provider Referring Provider Specialty: Internal Medicine Address: [address] [place] [address], [facility] Email: [email or web address] Plan Of Care PT-OP-T Assessment and Plan Start: 12/11/23 13:57 Freq: Status: Active Protocol: Document 04/08/24 10:35 DCW (Rec: 04/08/24 11:15 DCW [id number]) Physical Therapy Assessment Impairments Impairments Functional Activities, Functional Mobility,Pain,ROM Goals Two Impairment Limited cervical ROM to 25? B lateral flexion and 35?R/45?L rotation Jail Goal (LTG) Pt to demonstrate improved cervical rotation to at least 55? bilaterally to improve ability to turn head while driving LTG Duration 07/07/24 - improving One Impairment Pt is not compliant with an appropriate home exercise program Short Term Goal (STG) Pt to be independent and compliant with an appropriate HEP STG Duration 05/09/24 Assessment Summary Assessment Pt showing significant improvement today after extended time off of PT due to travel and scheduling conflicts. No noted excessive vertebral rotation today, tone much more managed than previous visits. Space out remaining appointments to ensure pt continue to exhibit good muscle tone and cervical stabilization. Physical Therapy Plan Frequency and Duration Frequency of Treatment 1x every 1-2 weeks Plan of Care Start Date 04/08/24 Plan of Care End Date 07/07/24 Therapeutic Interventions Therapeutic Interventions Home Exercise Program,Joint Mobilizations,Manual Therapy, Neuromuscular Re-education, Patient/Caregiver Education, Self-Care/Home Management,Soft Tissue Mobilization, Therapeutic Activities, Therapeutic Exercises Next Visit Focus/Plan Next Note Type Treatment Note Next Visit Plan * Assess response to ther ex and manual. POC: STM, gentle strengthening , breath techniques Plan of Care Dates Plan of Care Start Date 04/08/24 Plan of Care End Date 07/07/24 Electronically Signed by: Delfin Rodriguez, PT 04/08/24 8106 If you are in agreement with this Plan of Care, please return a signed and dated copy. I have reviewed this Plan of Care and certify that the skilled therapy services above are required to meet the patient?s needs. Physician Signature Date Printed Name and Credentials Clinical Instructor Signature Printed Name and Credentials
--- NOTE | 2024-04-28 12:43 | PT.OTN ---
Current Diagnoses Stiffness of other specified joint, not elsewhere classified (04/28/24) Spondylosis without myelopathy or radiculopathy, cervical region (04/28/24) Physical Therapy Treatment Note PT-OP-A Visit Information Start: 12/11/23 13:57 Freq: Status: Active Protocol: Document 04/28/24 12:00 DCW (Rec: 04/28/24 12:43 DCW [id number]) Out-Patient Physical Therapy Visit Information Visit Information Visit Type Treatment Note Visit Start Time 12:00 Visit Stop Time 12:45 Visit Number 9 Number of PREPARATION SUPERVISOR Visits 0 Evaluation Information Evaluation Date 12/11/23 PT-OP-B Current Condition Start: 12/11/23 13:57 Freq: Status: Active Protocol: Document 12/11/23 12:10 DCW (Rec: 12/11/23 14:13 DCW [id number]) Current Condition History of Current Condition Onset Date Long-standing history Current Complaints Cervical pain History of Current Condition Pt is a 68 year old female presenting with a long- standing history of cervical pain. Pt is well known to this clinic, and has been treated multiple times in the past for this same pain. Pt typically responds fairly well to therapy, but then generally declines after discharge, and then returns when it gets too bad once again. Most recently, pt was discharged in Mar, 2023. Reports her pain has been worsening for the last ~2 months, and was incredibly bad last week, to the point where she was unable to turn her head. Is feeling somewhat better this week, but continues to experience fairly constant pain. PT-OP-C Subjective Start: 12/11/23 13:57 Freq: Status: Active Protocol: Document 04/28/24 12:00 DCW (Rec: 04/28/24 12:43 DCW [id number]) OP-PT Subjective Patient Comments Patient Comments Pt feeling okay today. Neck admits it has been a little more sore this past week. Was on an outing with her w/c bound brother, and had to repeatedly turn around in the car to speak with him, which bothered her neck. PT-OP-F Manual Assessment Start: 12/11/23 13:57 Freq: Status: Active Protocol: Document 04/08/24 10:35 DCW (Rec: 04/08/24 11:15 DCW [id number]) Manual Assessments Soft Tissue Assessment Soft Tissue Mobility Assessment Mild-moderate tone: R upper trap, cervical paraspinals PT-OP-K Range of Motion Start: 12/11/23 13:57 Freq: Status: Active Protocol: Document 04/08/24 10:35 DCW (Rec: 04/08/24 11:15 DCW [id number]) Cervical Spine Range of Motion Cervical Spine Active Degrees Testing Position Sitting Flexion 55 Extension 40 Rotation Left 57 Rotation Right 46 Lateral Flexion Left 35 Lateral Flexion Right 31 PT-OP-L Special Tests Start: 12/11/23 13:57 Freq: Status: Active Protocol: Document 04/08/24 10:35 DCW (Rec: 04/08/24 11:15 DCW [id number]) Special Tests Cervical Spine Special Tests Traction Test Results Improved pain Slump Test Results Negative Foraminal Compression Test Results Negative Alar Ligament Test Results Negative PT-OP-M Strength Start: 12/11/23 13:57 Freq: Status: Active Protocol: Document 04/08/24 10:35 DCW (Rec: 04/08/24 11:15 DCW [id number]) Cervical Spine Strength Cervical Spine Manual Muscle Testing Testing Position Sitting Flexion (C1-2) 4- Good- Extension 4- Good- Rotation Left 4- Good- Rotation Right 4- Good- Lateral Flexion Left (C3) 4 Good Lateral Flexion Right (C3) 4 Good Comments Limited secondary to pain PT-OP-Q Treatments Start: 12/11/23 13:57 Freq: Status: Active Protocol: Document 04/28/24 12:00 DCW (Rec: 04/28/24 12:43 [facility] [id number]) Manual Therapy Treatment Soft Tissue Mobilization Suboccipitals Body Location B Supoccipitals, B UT, Scalenes, SCM Mobilization Type Sustained Pressure,Trigger Point Release Intensity/Depth Moderate Body Position Supine Manual Traction CS Details gentle Body Position Hooklying Comments good feedback response PT-OP-T Assessment and Plan Start: 12/11/23 13:57 Freq: Status: Active Protocol: Document 04/28/24 12:00 DCW (Rec: 04/28/24 12:43 NJW [id number]) Physical Therapy Assessment Impairments Impairments Functional Activities, Functional Mobility,Pain,ROM Goals Two Impairment Limited cervical ROM to 25? B lateral flexion and 35?R/45?L rotation Chief Librarian Circulation Department Goal (LTG) Pt to demonstrate improved cervical rotation to at least 55? bilaterally to improve ability to turn head while driving LTG Duration 07/07/24 - improving One Impairment Pt is not compliant with an appropriate home exercise program Short Term Goal (STG) Pt to be independent and compliant with an appropriate HEP STG Duration 05/09/24 Assessment Summary Assessment Pt continues to do well, slightly increased tone vs last visit, but no tenderness with joint palpation, improved cervical ROM. Physical Therapy Plan Frequency and Duration Frequency of Treatment 1x every 1-2 weeks Plan of Care Start Date 04/08/24 Plan of Care End Date 07/07/24 Therapeutic Interventions Therapeutic Interventions Home Exercise Program,Joint Mobilizations,Manual Therapy, Neuromuscular Re-education, Patient/Caregiver Education, Self-Care/Home Management,Soft Tissue Mobilization, Therapeutic Activities, Therapeutic Exercises Next Visit Focus/Plan Next Note Type Treatment Note Next Visit Plan * Assess response to ther ex and manual. POC: STM, gentle strengthening , breath techniques
--- NOTE | 2024-05-12 14:32 | PT.OTN ---
Current Diagnoses Stiffness of other specified joint, not elsewhere classified (05/12/24) Spondylosis without myelopathy or radiculopathy, cervical region (05/12/24) Physical Therapy Treatment Note PT-OP-A Visit Information Start: 12/11/23 13:57 Freq: Status: Active Protocol: Document 05/12/24 13:45 DCW (Rec: 05/12/24 14:29 DCW [id number]) Out-Patient Physical Therapy Visit Information Visit Information Visit Type Treatment Note Visit Start Time 13:45 Visit Stop Time 14:30 Visit Number 10 Number of DONOR RECRUITMENT MANAGER Visits 0 Evaluation Information Evaluation Date 12/11/23 PT-OP-B Current Condition Start: 12/11/23 13:57 Freq: Status: Active Protocol: Document 12/11/23 12:10 DCW (Rec: 12/11/23 14:13 DCW [id number]) Current Condition History of Current Condition Onset Date Long-standing history Current Complaints Cervical pain History of Current Condition Pt is a 68 year old female presenting with a long- standing history of cervical pain. Pt is well known to this clinic, and has been treated multiple times in the past for this same pain. Pt typically responds fairly well to therapy, but then generally declines after discharge, and then returns when it gets too bad once again. Most recently, pt was discharged in Mar, 2023. Reports her pain has been worsening for the last ~2 months, and was incredibly bad last week, to the point where she was unable to turn her head. Is feeling somewhat better this week, but continues to experience fairly constant pain. PT-OP-C Subjective Start: 12/11/23 13:57 Freq: Status: Active Protocol: Document 05/12/24 13:45 DCW (Rec: 05/12/24 14:29 DCW [id number]) OP-PT Subjective Patient Comments Patient Comments Pt notes she is probably a little tight, but I think everything is still in alignment. PT-OP-F Manual Assessment Start: 12/11/23 13:57 Freq: Status: Active Protocol: Document 04/08/24 10:35 DCW (Rec: 04/08/24 11:15 DCW [id number]) Manual Assessments Soft Tissue Assessment Soft Tissue Mobility Assessment Mild-moderate tone: R upper trap, cervical paraspinals PT-OP-K Range of Motion Start: 12/11/23 13:57 Freq: Status: Active Protocol: Document 04/08/24 10:35 DCW (Rec: 04/08/24 11:15 DCW [id number]) Cervical Spine Range of Motion Cervical Spine Active Degrees Testing Position Sitting Flexion 55 Extension 40 Rotation Left 57 Rotation Right 46 Lateral Flexion Left 35 Lateral Flexion Right 31 PT-OP-L Special Tests Start: 12/11/23 13:57 Freq: Status: Active Protocol: Document 04/08/24 10:35 DCW (Rec: 04/08/24 11:15 DCW [id number]) Special Tests Cervical Spine Special Tests Traction Test Results Improved pain Slump Test Results Negative Foraminal Compression Test Results Negative Alar Ligament Test Results Negative PT-OP-M Strength Start: 12/11/23 13:57 Freq: Status: Active Protocol: Document 04/08/24 10:35 DCW (Rec: 04/08/24 11:15 DCW [id number]) Cervical Spine Strength Cervical Spine Manual Muscle Testing Testing Position Sitting Flexion (C1-2) 4- Good- Extension 4- Good- Rotation Left 4- Good- Rotation Right 4- Good- Lateral Flexion Left (C3) 4 Good Lateral Flexion Right (C3) 4 Good Comments Limited secondary to pain PT-OP-Q Treatments Start: 12/11/23 13:57 Freq: Status: Active Protocol: Document 05/12/24 13:45 DCW (Rec: 05/12/24 14:29 DCW [id number]) Manual Therapy Treatment Soft Tissue Mobilization Suboccipitals Body Location B Supoccipitals, B UT, Scalenes, SCM Mobilization Type Sustained Pressure,Trigger Point Release Intensity/Depth Moderate Body Position Supine Manual Traction CS Details gentle Body Position Hooklying Comments good feedback response PT-OP-T Assessment and Plan Start: 12/11/23 13:57 Freq: Status: Active Protocol: Document 05/12/24 13:45 DCW (Rec: 05/12/24 14:29 DCW [id number]) Physical Therapy Assessment Impairments Impairments Functional Activities, Functional Mobility,Pain,ROM Goals Two Impairment Limited cervical ROM to 25? B lateral flexion and 35?R/45?L rotation Director [employer] Goal (LTG) Pt to demonstrate improved cervical rotation to at least 55? bilaterally to improve ability to turn head while driving LTG Duration 07/07/24 - improving One Impairment Pt is not compliant with an appropriate home exercise program Short Term Goal (STG) Pt to be independent and compliant with an appropriate HEP STG Duration 05/09/24 Assessment Summary Assessment Pt experiencing less frequent and less severe dizziness episodes with ongoing improvement of cervical tone and mobility, a fairly good sign that symptoms are likely secondary to cervicogenic dizziness Physical Therapy Plan Frequency and Duration Frequency of Treatment 1x every 1-2 weeks Plan of Care Start Date 04/08/24 Plan of Care End Date 07/07/24 Therapeutic Interventions Therapeutic Interventions Home Exercise Program,Joint Mobilizations,Manual Therapy, Neuromuscular Re-education, Patient/Caregiver Education, Self-Care/Home Management,Soft Tissue Mobilization, Therapeutic Activities, Therapeutic Exercises Next Visit Focus/Plan Next Note Type Treatment Note Next Visit Plan * Assess response to ther ex and manual. POC: STM, gentle strengthening , breath techniques
--- NOTE | 2024-05-27 11:57 | PT.OTN ---
Current Diagnoses Stiffness of other specified joint, not elsewhere classified (05/27/24) Spondylosis without myelopathy or radiculopathy, cervical region (05/27/24) Physical Therapy Treatment Note PT-OP-A Visit Information Start: 12/11/23 13:57 Freq: Status: Active Protocol: Document 05/27/24 11:15 DCW (Rec: 05/27/24 11:57 DCW [id number]) Out-Patient Physical Therapy Visit Information Visit Information Visit Type Treatment Note Visit Start Time 11:15 Visit Stop Time 12:00 Visit Number 11 Number of SUPPLIER DEVELOPMENT MANAGER Visits 0 Evaluation Information Evaluation Date 12/11/23 PT-OP-B Current Condition Start: 12/11/23 13:57 Freq: Status: Active Protocol: Document 12/11/23 12:10 DCW (Rec: 12/11/23 14:13 DCW [id number]) Current Condition History of Current Condition Onset Date Long-standing history Current Complaints Cervical pain History of Current Condition Pt is a 68 year old female presenting with a long- standing history of cervical pain. Pt is well known to this clinic, and has been treated multiple times in the past for this same pain. Pt typically responds fairly well to therapy, but then generally declines after discharge, and then returns when it gets too bad once again. Most recently, pt was discharged in Mar, 2023. Reports her pain has been worsening for the last ~2 months, and was incredibly bad last week, to the point where she was unable to turn her head. Is feeling somewhat better this week, but continues to experience fairly constant pain. PT-OP-C Subjective Start: 12/11/23 13:57 Freq: Status: Active Protocol: Document 05/27/24 11:15 DCW (Rec: 05/27/24 11:57 DCW [id number]) OP-PT Subjective Patient Comments Patient Comments Pt reports her neck has been a little sore lately, but not bad like it had been. PT-OP-F Manual Assessment Start: 12/11/23 13:57 Freq: Status: Active Protocol: Document 04/08/24 10:35 DCW (Rec: 04/08/24 11:15 DCW [id number]) Manual Assessments Soft Tissue Assessment Soft Tissue Mobility Assessment Mild-moderate tone: R upper trap, cervical paraspinals PT-OP-K Range of Motion Start: 12/11/23 13:57 Freq: Status: Active Protocol: Document 04/08/24 10:35 DCW (Rec: 04/08/24 11:15 DCW [id number]) Cervical Spine Range of Motion Cervical Spine Active Degrees Testing Position Sitting Flexion 55 Extension 40 Rotation Left 57 Rotation Right 46 Lateral Flexion Left 35 Lateral Flexion Right 31 PT-OP-L Special Tests Start: 12/11/23 13:57 Freq: Status: Active Protocol: Document 04/08/24 10:35 DCW (Rec: 04/08/24 11:15 DCW [id number]) Special Tests Cervical Spine Special Tests Traction Test Results Improved pain Slump Test Results Negative Foraminal Compression Test Results Negative Alar Ligament Test Results Negative PT-OP-M Strength Start: 12/11/23 13:57 Freq: Status: Active Protocol: Document 04/08/24 10:35 DCW (Rec: 04/08/24 11:15 DCW [id number]) Cervical Spine Strength Cervical Spine Manual Muscle Testing Testing Position Sitting Flexion (C1-2) 4- Good- Extension 4- Good- Rotation Left 4- Good- Rotation Right 4- Good- Lateral Flexion Left (C3) 4 Good Lateral Flexion Right (C3) 4 Good Comments Limited secondary to pain PT-OP-Q Treatments Start: 12/11/23 13:57 Freq: Status: Active Protocol: Document 05/27/24 11:15 DCW (Rec: 05/27/24 11:57 DCW [id number]) Manual Therapy Treatment Soft Tissue Mobilization Suboccipitals Body Location B Supoccipitals, B UT, Scalenes, SCM Mobilization Type Sustained Pressure,Trigger Point Release Intensity/Depth Moderate Body Position Supine Manual Traction CS Details gentle Body Position Hooklying Comments good feedback response PT-OP-T Assessment and Plan Start: 12/11/23 13:57 Freq: Status: Active Protocol: Document 05/27/24 11:15 DCW (Rec: 05/27/24 11:57 DCW [id number]) Physical Therapy Assessment Assessment Summary Assessment Pt doing well overall, much better tone control than previous sessions. Has one remaining appointment scheduled, will likely discharge following this session. Physical Therapy Plan Frequency and Duration Frequency of Treatment 1x every 1-2 weeks Plan of Care Start Date 04/08/24 Plan of Care End Date 07/07/24 Therapeutic Interventions Therapeutic Interventions Home Exercise Program,Joint Mobilizations,Manual Therapy, Neuromuscular Re-education, Patient/Caregiver Education, Self-Care/Home Management,Soft Tissue Mobilization, Therapeutic Activities, Therapeutic Exercises Next Visit Focus/Plan Next Note Type Treatment Note Next Visit Plan * Assess response to ther ex and manual. POC: STM, gentle strengthening , breath techniques
--- NOTE | 2024-10-06 10:00 | PT.OPDS ---
Current Diagnoses Stiffness of other specified joint, not elsewhere classified (05/27/24) Spondylosis without myelopathy or radiculopathy, cervical region (05/27/24) Visit Care Team Role Provider Type Balwinder Ocasio MD Attending Provider Physician Family Provider Primary Care Provider Referring Provider Specialty: Internal Medicine Address: [address] [place] [address], [facility] Email: [email or web address] Visit Number Visit Number 11 Discharge Summary PT-OP-B Current Condition Start: 12/11/23 13:57 Freq: Status: Active Protocol: Document 12/11/23 12:10 DCW (Rec: 12/11/23 14:13 DCW [id number]) Current Condition History of Current Condition Onset Date Long-standing history Current Complaints Cervical pain History of Current Condition Pt is a 68 year old female presenting with a long- standing history of cervical pain. Pt is well known to this clinic, and has been treated multiple times in the past for this same pain. Pt typically responds fairly well to therapy, but then generally declines after discharge, and then returns when it gets too bad once again. Most recently, pt was discharged in Mar, 2023. Reports her pain has been worsening for the last ~2 months, and was incredibly bad last week, to the point where she was unable to turn her head. Is feeling somewhat better this week, but continues to experience fairly constant pain. PT-OP-C Subjective Start: 12/11/23 13:57 Freq: Status: Active Protocol: Document 05/27/24 11:15 DCW (Rec: 05/27/24 11:57 DCW [id number]) OP-PT Subjective Patient Comments Patient Comments Pt reports her neck has been a little sore lately, but not bad like it had been. PT-OP-F Manual Assessment Start: 12/11/23 13:57 Freq: Status: Active Protocol: Document 04/08/24 10:35 DCW (Rec: 04/08/24 11:15 DCW [id number]) Manual Assessments Soft Tissue Assessment Soft Tissue Mobility Assessment Mild-moderate tone: R upper trap, cervical paraspinals PT-OP-K Range of Motion Start: 12/11/23 13:57 Freq: Status: Active Protocol: Document 04/08/24 10:35 DCW (Rec: 04/08/24 11:15 DCW [id number]) Cervical Spine Range of Motion Cervical Spine Active Degrees Testing Position Sitting Flexion 55 Extension 40 Rotation Left 57 Rotation Right 46 Lateral Flexion Left 35 Lateral Flexion Right 31 PT-OP-L Special Tests Start: 12/11/23 13:57 Freq: Status: Active Protocol: Document 04/08/24 10:35 DCW (Rec: 04/08/24 11:15 DCW [id number]) Special Tests Cervical Spine Special Tests Traction Test Results Improved pain Slump Test Results Negative Foraminal Compression Test Results Negative Alar Ligament Test Results Negative PT-OP-M Strength Start: 12/11/23 13:57 Freq: Status: Active Protocol: Document 04/08/24 10:35 DCW (Rec: 04/08/24 11:15 DCW [id number]) Cervical Spine Strength Cervical Spine Manual Muscle Testing Testing Position Sitting Flexion (C1-2) 4- Good- Extension 4- Good- Rotation Left 4- Good- Rotation Right 4- Good- Lateral Flexion Left (C3) 4 Good Lateral Flexion Right (C3) 4 Good Comments Limited secondary to pain PT-OP-T Assessment and Plan Start: 12/11/23 13:57 Freq: Status: Active Protocol: Document 10/06/24 09:59 DCW (Rec: 10/08/24 10:00 DCW [id number]) Physical Therapy Assessment Assessment Summary Assessment Pt canceled planned last visit , has not been seen in 4 months, and is now returning to PT with a new referral. Discharge this chart. Physical Therapy Plan Discharge Physical Therapy Discharge Reasons Patient Request Next Visit Focus/Plan Next Note Type Discharge Summary
== END 2024-10-15 08:12 | disposition home or self-care (01) ==
LOC: PHYS 11:15
PROVIDERS: Family Provider Internal Medicine; PCP Internal Medicine; Referring Provider Internal Medicine; Visit Provider Internal Medicine
DX: M47.812 Spondylosis without myelopathy or radiculopathy, cervical region (principal); M25.69 Stiffness of other specified joint, not elsewhere classified
CPT/HCPCS: 97110; 97140; 97161

== ENCOUNTER → 2024-06-13 16:01 | Outpatient (CLI) | payer MEDICARE, SELFPAY ==
--- NOTE | 2024-06-13 16:02 | DI.MG.S_ITS ---
BILATERAL DIGITAL SCREENING MAMMOGRAM 3D/2D WITH CAD: 06/13/2024 CLINICAL: Routine screening. Comparison is made to exams dated: 12/26/2022 mammogram, 12/27/2020 mammogram, and 10/08/2019 mammogram - [facility]. Both breasts are heterogeneously dense, which may obscure small masses (category c / 51-75% glandular tissue). Current study was also evaluated with a Computer Aided Detection (CAD) system. There is an asymmetry in the right breast middle depth central to the nipple seen on the craniocaudal view only. No other significant masses, calcifications, or other findings are seen in either breast. IMPRESSION: INCOMPLETE: NEEDS ADDITIONAL IMAGING EVALUATION The asymmetry in the right breast is indeterminate. Needs additional imaging evaluation. Recommend diagnostic mammogram and ultrasound. Based on the Tyrer Cuzick model (a risk assessment model) the patient's lifetime risk is 10.6% and her 10 year risk is 6.4%. According to the ACR, ACS, and NCCN guidelines, an annual breast MRI exam along with mammogram is recommended if the patient's lifetime risk is 20% or greater. This exam was interpreted at Station ID: [id number]. NOTE: For mammograms, a report in lay terms will be sent to the patient. Approximately 15% of breast malignancies will not be visualized mammographically. In the management of a palpable breast mass, a negative mammogram must not discourage biopsy of a clinically suspicious lesion. Electronically Signed By: Celi Xiong M.D., Ph.D. eb/:06/16/2024 22:11:04 letter sent: Additional Imaging Needed ACR BI-RADS Category 0: Incomplete 3340F
== END ==
LOC: MAMMO 16:01
PROVIDERS: Family Provider Internal Medicine; PCP Internal Medicine; Referring Provider Internal Medicine; Visit Provider Internal Medicine
DX: Z12.31 Encounter for screening mammogram for malignant neoplasm of breast (principal); R92.333 Mammographic heterogeneous density, bilateral breasts
CPT/HCPCS: 77063; 77067

== ENCOUNTER → 2024-06-30 11:59 | Outpatient (CLI) | payer MEDICARE, SELFPAY ==
--- NOTE | 2024-06-30 | DI.MG.S_ITS ---
UNILATERAL RIGHT DIGITAL DIAGNOSTIC MAMMOGRAM 3D/2D WITH ADDITIONAL VIEWS: 06/30/2024 CLINICAL: Additional evaluation requested from prior study. Comparison is made to exams dated: 06/13/2024 mammogram, 12/26/2022 mammogram, and 12/27/2020 mammogram - [facility]. The right breast is heterogeneously dense, which may obscure small masses (category c / 51-75% glandular tissue). There is an asymmetry in the right breast middle depth central to the nipple seen on the craniocaudal view only. No other significant masses or calcifications are seen in the breast. IMPRESSION: INCOMPLETE: NEEDS ADDITIONAL IMAGING EVALUATION The asymmetry in the right breast is indeterminate. An ultrasound is recommended. This localizes to the inferior breast on tomographic evaluation. Based on the Tyrer Cuzick model (a risk assessment model) the patient's lifetime risk is 10.6% and her 10 year risk is 6.4%. According to the ACR, ACS, and NCCN guidelines, an annual breast MRI exam along with mammogram is recommended if the patient's lifetime risk is 20% or greater. This exam was interpreted at Station ID: [id number]. NOTE: For mammograms, a report in lay terms will be sent to the patient. Approximately 15% of breast malignancies will not be visualized mammographically. In the management of a palpable breast mass, a negative mammogram must not discourage biopsy of a clinically suspicious lesion. Electronically Signed By: Kwame Wyatt M.D. lc/:06/30/2024 13:43:31 ACR BI-RADS Category 0: Incomplete 3340F
--- NOTE | 2024-06-30 12:00 | DI.US.S_ITS ---
LIMITED ULTRASOUND OF RIGHT BREAST AND AXILLA: 06/30/2024 CLINICAL: Patient returns today to evaluate an asymmetry in the right breast. Comparison is made to exams dated: 06/30/2024 mammogram, 06/13/2024 mammogram, 12/26/2022 mammogram, 12/27/2020 mammogram, 10/08/2019 mammogram, and 03/06/2018 [facility]. Real-time ultrasound of the right breast 4-8 o'clock, and axilla regions was performed. He scale images of the real-time examination were reviewed. No significant abnormalities were seen sonographically in the right breast. IMPRESSION: PROBABLY BENIGN There are no abnormalities seen in the right breast to correspond with the mammography finding, likely in the inferior breast on tomographic evaluation. A follow-up mammogram in 6 months is recommended to demonstrate stability. This exam was interpreted at Station ID: [id number]. Electronically Signed By: Kwame Wyatt M.D. lc/:06/30/2024 15:00:45 letter sent: Followup Recommended Ultrasound BI-RADS: 3 Probably benign
== END ==
LOC: MAMMO 11:59
PROVIDERS: Family Provider Internal Medicine; PCP Internal Medicine; Referring Provider Internal Medicine; Visit Provider Internal Medicine
DX: R92.8 Other abnormal and inconclusive findings on diagnostic imaging of breast (principal); R92.331 Mammographic heterogeneous density, right breast
CPT/HCPCS: 76642; 77065; G0279

== ENCOUNTER → 2024-10-01 15:20 | Outpatient (CLI) | payer MEDICARE, SELFPAY ==
[2024-10-01 17:44] LABS: Appearance Urine UA CLEAR; Bilirubin Urine UA NEGATIVE (NEGATIVE); Color Urine UA YELLOW; Glucose Urine UA NEGATIVE (Negative); Ketones Urine UA NEGATIVE (NEGATIVE); Leukocyte Esterase Urine UA NEGATIVE (NEGATIVE); Nitrite Urine UA NEGATIVE (Negative); Occult Blood Urine UA NEGATIVE (Negative); Protein Urine UA NEGATIVE (Negative); Urobilinogen Urine UA 0.2 E.U./dL (0.2)
[2024-10-01 18:08] LABS: Bacteria Urine None Seen; Culture Indicated Urine Cult Not Indicated; RBC Urine None Seen (0-5/HPF); Squamous Epithelial Cell Urine None Seen (0-5/HPF); Urine Volume 10mL (spun); WBC Urine None Seen (0-5/HPF)
== END ==
PROVIDERS: Family Provider Internal Medicine; PCP Internal Medicine; Referring Provider Internal Medicine; Visit Provider Internal Medicine
DX: N30.00 Acute cystitis without hematuria (principal)
CPT/HCPCS: 81001

== ENCOUNTER 2024-10-12 15:57 | Emergency (ER) | payer MEDICARE, SELFPAY ==
[2024-10-12 16:02] VITALS: BP 130/74; PULSE 61; RESP 16; TEMP 36.5; O2SAT 96; BMI 29.0
--- NOTE | 2024-10-12 16:10 | DI.RAD.S_ITS ---
PROCEDURE: XR FOOT RT MIN 3V INDICATIONS: injury TECHNIQUE: 3 views of the foot were acquired. COMPARISON: [facility], CR, XR FOOT RT MIN 3V, 04/08/2023, 15:46. FINDINGS: Bones: There is a comminuted fracture of the 5th metatarsal shaft distally, without intra-articular involvement. Moderate hallux valgus deformity is seen, with associated focal degenerative change of the 1st metatarsophalangeal joint. Milder degenerative changes are seen elsewhere. Soft tissues: No tibiotalar joint effusion. Achilles tendon appears normal. IMPRESSION: Fifth metatarsal shaft fracture distally. No intra-articular involvement is seen. Moderate hallux valgus deformity seen, with associated degenerative change. Dictated by: Fernando Mary M.D. on 10/12/2024 at 16:01 Approved by: Fernando Mary M.D. on 10/12/2024 at 16:01
--- NOTE | 2024-10-12 16:29 | ED_ITS ---
HPI - Fall <Muna Muñoz PA-C - Last Filed: 10/12/24 17:46> General Chief Complaint: Fall Stated Complaint: fall, foot injury, no blood thinners Time Seen by Provider: 10/12/24 16:29 Source: patient Mode of arrival: Family Vehicle History of Present Illness HPI Narrative: 69-year-old female presents for a fall that occurred at her home, she was walking and missed the last step and fell forward. She has a chief complaint of right dorsal lateral foot pain. She believes her foot turned inward. She also scuffed her left knee but is not complaining of any pain. There were no precipitating events, she did not strike her head. She does take baby aspirin daily. No prior injuries to the foot or ankle, she is denying any numbness, tingling loss of sensation. She has pain with weightbear. All other systems are reviewed and are negative. Related Data Home Medications Medication Instructions Recorded Confirmed aspirin 81 mg tablet,delayed 81 mg PO QDAY ##0 01/02/17 10/01/24 release cholecalciferol (vitamin D3) 50 50 mcg PO DAILY 04/26/22 10/01/24 mcg (2,000 unit) capsule Previous Rx's Medication Instructions Recorded ondansetron 4 mg disintegrating 4 mg PO Q8H PRN nausea and 04/06/23 tablet vomiting #30 tabs Estriol Vaginal 0.1% Cream 1 g vaginal 2XW #30 grams 05/02/23 propranolol 10 mg tablet 30 mg (3 x 10 mg) PO DAILY PRN 12/13/23 tremor #90 tabs trazodone 50 mg tablet 25 mg (1/2 x 50 mg) PO BEDTIME PRN 12/13/23 insomnia #45 tabs fluoxetine 20 mg capsule 20 mg PO DAILY #90 caps 02/07/24 levothyroxine 88 mcg tablet 88 mcg PO DAILY #90 tabs 02/07/24 scopolamine base 1 mg over 3 days 1 patch transdermal Q3D PRN motion 08/11/24 transdermal patch sickness #5 ea dexamethasone 4 mg tablet 4 mg PO BID #6 tabs 10/01/24 sulfamethoxazole 800 1 tab PO BID #10 tabs 10/01/24 mg-trimethoprim 160 mg tablet Allergies Allergy/AdvReac Type Severity Reaction Status Date / Time latex [LATEX] Allergy Severe Blister Verified 10/12/24 16:07 adhesive Allergy Intermediate Rash Verified 10/12/24 16:07 rivaroxaban [From Xarelto] Allergy Intermediate Verified 10/12/24 16:07 tramadol Allergy Intermediate Vomiting Verified 10/12/24 16:07 Review of Systems <Muna Muñoz PA-C - Last Filed: 10/12/24 17:46> Review of Systems Narrative: All other systems reviewed and are negative. Patient History <Muna Muñoz PA-C - Last Filed: 10/12/24 17:46> Medical History Acute cystitis without hematuria Menopausal syndrome History of colonic polyps Osteopenia Overweight Benign essential tremor Vertigo of cervical arthrosis syndrome Migraine, cervicogenic Hearing loss Rosacea Sjogren's syndrome (~2001) Cervical spine disease (~1980) Mumps (~1968) Chicken pox (~1967) DJD (degenerative joint disease), cervical History of pulmonary embolism Depression, major, recurrent Generalized anxiety disorder Acquired hypothyroidism (~1972) Surgical History History of carpal tunnel surgery (~2019) Family History Father Alzheimer's disease Mother COPD (chronic obstructive pulmonary disease) Brother Frontal lobe dementia Grandfather ALS (amyotrophic lateral sclerosis) Grandmother Stroke Grandmother Cancer Social History household members: spouse Smoking Status: Never smoker alcohol intake: current Smoking Status: Never smoker alcohol intake frequency: holidays/special occasions only Substance Use Type: does not use Exam <Muna Muñoz PA-C - Last Filed: 10/12/24 17:46> Initial Vital Signs Initial Vital Signs: Vital Signs Temperature 97.7 F 10/12/24 16:02 Pulse Rate 61 10/12/24 16:02 Respiratory Rate 16 10/12/24 16:02 Blood Pressure 130/74 10/12/24 16:02 Pulse Oximetry 96 10/12/24 16:02 Oxygen Delivery Method Room Air 10/12/24 16:02 Vital signs reviewed and are normal. Const Other: Smiling, pleasantly conversing, no distress. Resp Auscultation: clear to auscultation bilaterally Cardio Rate: regular rate Rhythm: regular rhythm Skin Other: Superficial abrasion overlying the left patella, nontender. It is dry. Right foot there is ecchymosis over the distal dorsal lateral foot overlying the 4th and 5th metatarsals. Extrem Right lower extremity: ankle Details: normal to inspection and normal ROM; no tenderness and no swelling and foot Details: normal capillary refill, tenderness , toes with normal ROM, ecchymosis, vascular exam Details: dorsalis pedis pulse present, posterior tibial pulse present and normal capillary refill; not cool and no cyanosis and tendon exam (Pain with dorsiflexion overlying the 5th and 4th digits) Details: active flexion normal Location: of the great toe, of the 2nd digit, of the 3rd digit, of the 4th digit and of the 5th digit (Diminished due to pain but able to perform slightly) and active extension normal Location: of the great toe, of the 2nd digit, of the 3rd digit, of the 4th digit and of the 5th digit (Slightly diminished due to pain but able to perform movement.); no abrasion Other: Swelling and focal tenderness on the distal aspect of her 5th metatarsal. Skin is intact. <Ginger De Jesus DO - Last Filed: 10/13/24 07:13> Initial Vital Signs Initial Vital Signs: Vital Signs Temperature 97.7 F 10/12/24 16:02 Pulse Rate 61 10/12/24 16:02 Respiratory Rate 16 10/12/24 16:02 Blood Pressure 130/74 10/12/24 16:02 Pulse Oximetry 96 10/12/24 16:02 Oxygen Delivery Method Room Air 10/12/24 16:02 Course <Muna Muñoz PA-C - Last Filed: 10/12/24 17:46> Orders Ordered: ED Orders 10/12/24 16:10 XR foot RT min 3V Stat Consultations Consultation #1: Contacted Dr. Hooper at 1645hrs, on-call orthopedist, advising of the management of this fracture, walking boot but nonweightbearing, call the office in the morning for follow up same day. Vital Signs Vital signs: Vital Signs - 8 hr 10/12/24 16:02 Temperature 97.7 F Pulse Rate 61 Respiratory Rate 16 Blood Pressure 130/74 Pulse Oximetry 96 Oxygen Delivery Method Room Air <Ginger C DO Neal - Last Filed: 10/13/24 07:13> Orders Ordered: ED Orders 10/12/24 16:10 XR foot RT min 3V Stat Vital Signs Vital signs: Vital Signs - 8 hr 10/12/24 16:02 Temperature 97.7 F Pulse Rate 61 Respiratory Rate 16 Blood Pressure 130/74 Pulse Oximetry 96 Oxygen Delivery Method Room Air MDM - Fall <Muna Muñoz PA-C - Last Filed: 10/12/24 17:46> Imaging Data Extremity x-ray #1: My Impression: Comminuted closed fracture 5th metatarsal shaft on the right Radiologist's Impression: PROCEDURE: XR FOOT RT MIN 3V INDICATIONS: injury TECHNIQUE: 3 views of the foot were acquired. COMPARISON: [facility], , XR FOOT RT MIN 3V, 04/08/2023, 15:46. FINDINGS: Bones: There is a comminuted fracture of the 5th metatarsal shaft distally, without intra-articular involvement. Moderate hallux valgus deformity is seen, with associated focal degenerative change of the 1st metatarsophalangeal joint. Milder degenerative changes are seen elsewhere. Soft tissues: No tibiotalar joint effusion. Achilles tendon appears normal. IMPRESSION: Fifth metatarsal shaft fracture distally. No intra-articular involvement is seen. Moderate hallux valgus deformity seen, with associated degenerative change. Dictated by: Fernando Mary M.D. on 10/12/2024 at 16:01 Approved by: Fernando Mary M.D. on 10/12/2024 at 16:01 Discharge Plan Departure Patient Disposition: Home Clinical Impression: Metatarsal fracture Qualifiers: Encounter type: initial encounter Metatarsal bone: fifth Fracture type: closed Fracture alignment: displaced Laterality: right Qualified Code(s): S92.351A - Displaced fracture of fifth metatarsal bone, right foot, initial encounter for closed fracture Instructions: DI for Foot Fracture Activity Restrictions/Additional Instructions: Dr. Hooper's office opens at 8am. [facility], with office: [address] [place] [phone] and [place]. Please call tomorrow morning and advise you were seen in the emergency department, Dr. Hooper was consulted. Please wear the boot at all times, use crutches and be nonweightbearing. You may ice directly over the boot, Tylenol or ibuprofen for pain, elevate to minimize swelling or throbbing. Untuck your bedding/sheets at home so you will not get tangled up in them, please seek medical attention immediately if you have any increased pain, any issues with the boot or any other worrisome symptoms. Prescriptions: No Action aspirin 81 MG tablet,delayed release (DR/EC) 81 mg PO QDAY Qty: 0 ondansetron 4 mg tablet,disintegrating 4 mg PO Q8H PRN (Reason: nausea and vomiting) Qty: 30 2RF Estriol Vaginal 0.1% Cream 0.1 % cream 1 g vaginal 2XW Qty: 30 3RF Rx Instructions: Insert 1 gram vaginally at bedtime twice weekly; [facility] fax:[phone]. propranolol 10 mg tablet 30 mg PO DAILY PRN (Reason: tremor) Qty: 90 11RF Rx Instructions: 3 tablets daily as needed for tremor trazodone 50 mg tablet 25 mg PO BEDTIME PRN (Reason: insomnia) Qty: 45 3RF levothyroxine 88 mcg tablet 88 mcg PO DAILY Qty: 90 3RF fluoxetine 20 mg capsule 20 mg PO DAILY Qty: 90 3RF sulfamethoxazole-trimethoprim 800-160 mg tablet 1 tab PO BID Qty: 10 0RF dexamethasone 4 mg tablet 4 mg PO BID Qty: 6 1RF cholecalciferol (vitamin D3) 50 mcg (2,000 unit) capsule 50 mcg PO DAILY scopolamine base 1 mg over 3 days patch 3 day 1 patch transdermal Q3D PRN (Reason: motion sickness) Qty: 5 0RF Referrals: Balwinder Ocasio MD [Primary Care Provider] - Triston Hooper MD [Physician] - As soon as possible (I consulted on-call Dr. Hooper by phone, advised pt to call office 10/13/24 for F/U 5th MT fx.) Stand Alone Forms: Patient Portal/API/Survey ED Sign-out <Ginger De Jesus DO - Last Filed: 10/13/24 07:13> Cosign ED Attending Miyaature Attestation: I was immediately available in the department for consultation.
== END 2024-10-12 17:49 | disposition home or self-care (01) ==
PROVIDERS: Emergency Provider Physician Assistant Medical; Family Provider Internal Medicine; PCP Internal Medicine
DX: S92.351A Displaced fracture of fifth metatarsal bone, right foot, initial encounter for closed fracture (principal); W19.XXXA Unspecified fall, initial encounter
CPT/HCPCS: 73630; 99282; 99283

== ENCOUNTER → 2024-11-13 16:22 | Outpatient (CLI) | payer MEDICARE, SELFPAY ==
[2024-11-13 21:05] LABS: Influenza A - CEPHEID Flu A NEGATIVE (NEGATIVE); Influenza B - CEPHEID Flu B NEGATIVE (NEGATIVE); Respiratory Syncytial Virus Negative (Negative)
[2024-11-13 21:15] LABS: COVID-19 CEPHEID 4-PLEX PCR Negative (Negative)
== END ==
PROVIDERS: Family Provider Internal Medicine; PCP Internal Medicine; Visit Provider Internal Medicine
DX: R05.1 Acute cough (principal)
CPT/HCPCS: 0241U

== ENCOUNTER → 2024-11-20 18:04 | Outpatient (CLI) | payer MEDICARE, SELFPAY ==
--- NOTE | 2024-11-20 18:08 | DI.RAD.S_ITS ---
PROCEDURE: XR CHEST 2V INDICATIONS: Cough TECHNIQUE: 2 views of the chest were acquired. COMPARISON: [facility], , CHEST 2 VIEW, 01/12/2015, 13:23. FINDINGS: Surgical changes and devices: None. Lungs and pleura: Lungs are clear. No pleural effusions or pneumothorax. Mediastinum: Mediastinal contours are normal. Heart size is normal. Bones and chest wall: No suspicious bony abnormalities. Soft tissues appear unremarkable. IMPRESSION: No acute cardiopulmonary abnormality is seen. Dictated by: Marianne Lindsay M.D. on 11/20/2024 at 20:00 Approved by: Marianne Lindsay M.D. on 11/20/2024 at 20:00
== END ==
PROVIDERS: Family Provider Internal Medicine; PCP Internal Medicine
DX: R05.9 Cough, unspecified (principal)
CPT/HCPCS: 71046

== ENCOUNTER → 2025-01-09 17:44 | Outpatient (CLI) | payer MEDICARE, SELFPAY ==
--- NOTE | 2025-01-09 17:45 | DI.RAD.S_ITS ---
PROCEDURE: XR ELBOW LT MIN 3V INDICATIONS: Left elbow pain TECHNIQUE: 3 views of the elbow were acquired. COMPARISON: None. FINDINGS: Bones: No fractures or dislocations. No suspicious bony lesions. Soft tissues: No elbow joint effusion. No suspicious soft tissue calcifications. IMPRESSION: No acute bony abnormality or significant joint effusion. Dictated by: Zac Mckeon M.D. on 01/10/2025 at 9:37 Approved by: Zac Mckeon M.D. on 01/10/2025 at 9:38
== END ==
PROVIDERS: Family Provider Internal Medicine; PCP Internal Medicine; Referring Provider Nurse Practitioner Family; Visit Provider Nurse Practitioner Family
DX: M25.522 Pain in left elbow (principal)
CPT/HCPCS: 73080

== ENCOUNTER → 2025-02-23 10:20 | Outpatient (CLI) | payer MEDICARE, SELFPAY ==
--- NOTE | 2025-02-23 10:22 | DI.MG.S_ITS ---
MM diagnostic mammo unilat RT: 02/23/2025. BI-RADS: 2 CLINICAL: 69-year old female for right diagnostic mammogram. The patient presents for a follow-up. Tyrer-Cuzick lifetime risk of 14.2%. No personal or first-degree family history of breast cancer. Current reported family history of breast cancer: paternal grandmother. PRIOR EXAMS 06/30/2024, 06/13/2024, 12/26/2022, 12/27/2020, 10/08/2019, 03/06/2018, 03/09/2016. MAMMOGRAPHY TECHNIQUE: 2D and 3D (tomosynthesis) digital mammographic views obtained, with additional images as needed for full coverage. Current study was also evaluated with a Computer Aided Detection (CAD) system. DENSITY Right: C. The breasts are heterogeneously dense, which may obscure small masses. MAMMOGRAPHY FINDINGS Right: CC only, Central, Middle depth: There are no suspicious masses, calcifications, or other findings in the breast. The asymmetry in the central breast at middle depth seen only on CC view is unchanged. In retrospect, this finding has demonstrated long-term stability dating back to 2019, and was likely more prominent on the prior mammograms from 06/13/2024 and 06/30/2024 due to patient positioning. IMPRESSION: Right * No evidence of malignancy with benign findings. RECOMMENDATIONS Bilateral * Annual screening mammography in four months. COMMENTS: Findings and recommendations were conveyed to the patient during today's evaluation. OVERALL ASSESSMENT CATEGORY BI-RADS-2: Benign. [employer] recommends annual screening mammography beginning at age 40 for women with average risk of breast cancer. ELECTRONICALLY SIGNED: Alina Campbell M.D. on 02/23/2025 at 11:24:16 AM PT Interpreting Station ID: [id number]
== END ==
PROVIDERS: Family Provider Internal Medicine; PCP Internal Medicine; Referring Provider Internal Medicine; Visit Provider Internal Medicine
DX: R92.8 Other abnormal and inconclusive findings on diagnostic imaging of breast (principal); Z80.3 Family history of malignant neoplasm of breast; R92.331 Mammographic heterogeneous density, right breast
CPT/HCPCS: 77065; G0279

== ENCOUNTER → 2025-04-15 11:25 | Outpatient (CLI) | payer MEDICARE, SELFPAY ==
[2025-04-15 12:15] LABS: Hematocrit 44.6 % (36-46); Hemoglobin 14.7 g/dL (12.0-16.0); Mean Corpuscular HGB Conc 32.8 % (30-36); Mean Corpuscular Hemoglobin 30.8 PG (26-34); Mean Corpuscular Volume 93.9 fL (80-100); Platelet Count 240 X10^3/uL (150-400); Red Blood Cell Count 4.76 X10^6/uL (4.0-5.2); Red Cell Distribution Width 13.6 % (11.6-14.8); White Blood Cell Count 4.7 X10^3/uL (4.5-11.0)
[2025-04-15 12:39] LABS: Erythrocyte Sedimentation Rate 10 MM/HR (0-20)
[2025-04-15 12:49] LABS: Alanine Aminotransferase 23 IU/L (<35); Albumin 4.4 g/dL (3.5-5.0); Albumin Globulin Ratio 1.3 (1.0-2.8); Alkaline Phosphatase 71 U/L (38-126); Aspartate Aminotransferase 28 IU/L (14-36); BUN Creatinine Ratio 19.6 (6-22); Bilirubin Total 0.5 mg/dL (0.2-1.3); Blood Urea Nitrogen 19 mg/dL (7-17); Calcium 9.5 mg/dL (8.4-10.2); Carbon Dioxide 29 mmol/L (22-32); Chloride 103 mmol/L (98-107); Cholesterol 239 mg/dL (140-199); Estimated Glomerular Filt Rate > 60 mL/min (>60); Globulin 3.4 g/dL (1.7-4.1); Glucose 60 mg/dL (70-99); HDL Cholesterol 61 mg/dL (40-60); HEMOLYSIS < 15 (0-50); LDL Cholesterol Calculated 145 mg/dL (<100); Potassium 4.4 mmol/L (3.4-5.1); Sodium 139 mmol/L (137-145); Total Protein 7.8 g/dL (6.3-8.2); Triglycerides 166 mg/dL (35-150)
[2025-04-15 14:08] LABS: C-Reactive Protein Quant < 0.5 mg/dL (<1.0)
[2025-04-15 14:47] LABS: TSH w/ Reflex to FT4 1.79 uIU/mL (0.47-4.68)
== END ==
PROVIDERS: PCP Internal Medicine; Referring Provider Internal Medicine; Visit Provider Internal Medicine
DX: E78.2 Mixed hyperlipidemia (principal); M13.0 Polyarthritis, unspecified; E03.9 Hypothyroidism, unspecified
CPT/HCPCS: 36415; 80053; 80061; 84443; 85027; 85651; 86140

== ENCOUNTER → 2025-04-25 14:55 | Outpatient (CLI) | payer MEDICARE, SELFPAY ==
--- NOTE | 2025-04-25 14:57 | DI.RAD.S_ITS ---
PROCEDURE: XR WRIST LT MIN 3V INDICATIONS: Left wrist pain after fall TECHNIQUE: 4 views of the wrist were acquired. COMPARISON: None. FINDINGS: Bones: No fractures or dislocations. 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 No suspicious bony lesions. Soft tissues: No suspicious soft tissue calcifications. IMPRESSION: No acute wrist fracture or dislocation. 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 Dictated by: Dale Mchugh M.D. on 04/26/2025 at 1:42 Approved by: Dale Mchugh M.D. on 04/26/2025 at 1:43
== END ==
PROVIDERS: PCP Internal Medicine; Referring Provider Nurse Practitioner Family; Visit Provider Nurse Practitioner Family
DX: S66.912A Strain of unspecified muscle, fascia and tendon at wrist and hand level, left hand, initial encounter (principal); W10.1XXA Fall (on)(from) sidewalk curb, initial encounter
CPT/HCPCS: 73110

== ENCOUNTER → 2025-05-26 07:34 | Outpatient (CLI) | payer MEDICARE, SELFPAY ==
--- NOTE | 2025-05-26 07:35 | DI.US.S_ITS ---
PROCEDURE: US PELVIC COMPLETE INDICATIONS: pain TECHNIQUE: Real-time scanning was performed of the pelvic organs, with image documentation. Additional endovaginal scanning was necessary due to incomplete visualization of the adnexal and endometrial structures by transabdominal scanning. COMPARISON: None. FINDINGS: Uterus: Uterus is retroverted and normal in size at 4.6 x 2.2 x 3.2 cm. The myometrium is homogeneous without discrete.. The endometrium measures 2.6 mm combined thickness. Ovaries: Neither ovary was seen. No suspicious adnexal mass. Other: No pathologic free abdominal or pelvic fluid. IMPRESSION: Retroverted uterus with normal appearance for postmenopausal female. No suspicious adnexal mass. We strive to produce accurate, complete, and clear reports of imaging services. To assist us in improving patient care, this report was composed using standard report templates and voice recognition software. Therefore, it may contain abnormal punctuation, insertions and/or omissions. Occasional wrong-word or sound-alike substitutions may occur. Though we review the report and make efforts to correct it, we do recommend that the report be read carefully in proper context to recognize any text inaccuracies. Dictated by: Marianne Lindsay M.D. on 06/02/2025 at 11:22 Approved by: Marianne Lindsay M.D. on 06/02/2025 at 11:23
== END ==
LOC: US 07:34
PROVIDERS: PCP Internal Medicine; Referring Provider Internal Medicine; Visit Provider Internal Medicine
DX: R10.2 Pelvic and perineal pain (principal); E03.8 Other specified hypothyroidism; H04.123 Dry eye syndrome of bilateral lacrimal glands
CPT/HCPCS: 36415; 76830; 76856; 86038; 86235; 86430

== ENCOUNTER → 2025-05-26 13:47 | Outpatient (CLI) | payer MEDICARE, SELFPAY ==
[2025-05-28 16:11] LABS: SS A Ro Sjogrens Antibody > 8.0 AI (0.0-0.9); SS B La Sjogrens Antibody 7.1 AI (0.0-0.9)
[2025-05-30 01:36] LABS: ANA Screen, IFA Positive (.)
== END ==
PROVIDERS: PCP Internal Medicine; Referring Provider Internal Medicine; Visit Provider Ophthalmology
DX: E03.8 Other specified hypothyroidism (principal); H04.123 Dry eye syndrome of bilateral lacrimal glands
CPT/HCPCS: 36415; 86038; 86235; 86430

== ENCOUNTER 2025-07-23 14:36 | Emergency (ER) | payer MEDICARE, SELFPAY ==
[2025-07-23 14:41] VITALS: BP 130/60; PULSE 68; RESP 18; TEMP 36.9; O2SAT 100; BMI 30.7
--- NOTE | 2025-07-23 14:45 | DI.RAD.S_ITS ---
PROCEDURE: XR ANKLE RT MIN 3V INDICATIONS: fall, pain TECHNIQUE: 3 views of the ankle were acquired. COMPARISON: [facility], [facility], XR FOOT 3 VIEWS WEIGHT BEARING RIGHT, 07/16/2025, 14:23. FINDINGS: Bones: No fractures or dislocations. Ankle mortise is normally aligned. No suspicious bony lesions. The talar dome demonstrates no isidro abnormality. Age- appropriate bony degenerative changes are seen. A plantar calcaneal spur is seen. Incidental note is made of an accessory ossicle, an os trigonum. Soft tissues: No tibiotalar joint effusion. Achilles tendon appears normal. IMPRESSION: No acute plain film abnormality is seen. Dictated by: Fernando Mary M.D. on 07/23/2025 at 14:24 Approved by: Fernando Mary M.D. on 07/23/2025 at 14:24
--- NOTE | 2025-07-23 15:43 | ED_ITS ---
HPI - Extremity Injury (Lower) <Gagan Gutierrez PA-C - Last Filed: 07/23/25 15:52> General Chief Complaint: Extremity Injury, Lower Stated Complaint: Fell/hurt right ankle Time Seen by Provider: 07/23/25 14:40 Source: patient Mode of arrival: Wheelchair History of Present Illness HPI Narrative: This is a 70-year-old female presents to the emergency department due to mechanical ground level fall where she twisted her right ankle. She had not injure any other part of her body. She reports some pain to the lateral malleolus. She did have some initial numbness with this is improved. No other injuries. Related Data Home Medications ?Medication ?Instructions ?Recorded ?Confirmed aspirin 81 mg tablet,delayed 81 mg PO QDAY ##0 7 07/14/25 release cholecalciferol (vitamin D3) 50 50 mcg PO DAILY 07/14/25 mcg (2,000 unit) capsule cyclosporine 0.05 % eye drops in a drp ophthalmic (eye ) Dry Eye 05/18/25 07/14/25 dropperette (Restasis) latanoprost 0.005 % eye drops drp ophthalmic (eye) Min or Optical 05/18/25 07/14/25 Nerve Damage Previous Rx's ?Medication ?Instructions ?Recorded trazodone 50 mg tablet 25 mg (1/2 x 50 mg) PO BEDTI ME PRN 12/02/24 insomnia #45 tabs levothyroxine 88 mcg tablet 88 mcg PO DAILY #90 tabs 0 05/14/25 propranolol 10 mg tablet 30 mg (3 x 10 mg) PO DAILY P RN 05/14/25 tremor #90 tabs Estriol Vaginal 0.1% Cream 1 g vaginal 2XW #30 grams 0 05/18/25 Allergies Allergy/AdvReac Type Severity Reaction Status Date / Time latex (LATEX) Allergy Severe Blister Verified 07/23/25 14:44 adhesive Allergy Intermediate Rash Verified 07/23/25 14:44 rivaroxaban (From Xarelto) Allergy Intermediate Verified 07/23/25 14:44 tramadol Allergy Intermediate Vomiting Verified 07/23/25 14:44 Review of Systems <Gagan Gutierrez PA-C - Last Filed: 07/23/25 15:52> Review of Systems Narrative: GENERAL: Denies chills, fatigue, malaise, fever, sweats. HEENT: Denies sinus pain, ear pain, sore throat, difficulty swallowing, dizziness. RESPIRATORY: Denies dyspnea, cough, wheezing, hemoptysis, sputum. CARDIOVASCULAR: Denies chest pain, palpitations, orthopnea, edema, GASTROINTESTINAL: Denies nausea, vomiting, abdominal pain, diarrhea, constipation, melena. : Denies dysuria, frequency, incontinence, hematuria, urinary retention. MUSCULOSKELETAL: Reports right ankle pain SKIN: Denies rash, skin lesions, or other NEUROLOGIC: Denies weakness, headache, numbness, change in speech, confusion, seizures, incoordination. PSYCHIATRIC: No concerning psychosocial issues. 12 point review of systems is negative except for those stated above Patient History <Gagan Gutierrez PA-C - Last Filed: 07/23/25 15:52> Medical History Acquired hypothyroidism (~1972) Benign essential tremor Cervical spine disease (~1980) Chicken pox (~1967) Depression, major, recurrent DJD (degenerative joint disease), cervical Generalized anxiety disorder GERD without esophagitis Hearing loss History of colonic polyps History of pulmonary embolism Menopausal syndrome Migraine, cervicogenic Mumps (~1968) Osteopenia Overweight Rosacea Sjogren's syndrome (~2001) Vertigo of cervical arthrosis syndrome Surgical History History of carpal tunnel surgery (~2019) Family History Father Alzheimer's disease Mother COPD (chronic obstructive pulmonary disease) Brother Frontal lobe dementia Grandfather ALS (amyotrophic lateral sclerosis) Grandmother Stroke Grandmother Cancer Social History (Updated 05/11/25 @ 13:42 by Tory Wagner MA) marital status: details: Parents are both (they were in 1977) number of children: 0 household members: spouse lives independently: Yes caregiver/support person: No pets and animals: Yes (One cat) occupational status: previously employed current occupational exposures/hazards: No Previous occupational history: Retired from the [employer] in 2016 yolanda/temple: [employer] special yolanda needs: No travel history: recent sexual history: Monogamous with 37 years leisure activities: exercise and reading other: Knitting and sewing seatbelt use: always helmet use: Yes (Bike riding, which I don't do much of anymore) water heater temp set < 120 deg: Yes working smoke detector in home: Yes fire extinguisher in home: No (Fire blanket instead) carbon monox detector in home: Yes firearms in home: No do you feel safe at home: Yes Smoking Status: Never smoker second hand exposure: Yes (During childhood) alcohol intake: current during the past year weight has: increased > 10 lbs well-balanced diet: about half the time daily servings fruits/ve or more times/day caffeine: Yes (I drink decaf at home) eating out: 4 or more times/week Type(s) of exercise: walking and advised to exercise at least 150 min/week (moderate intensity aerobic) frequency: 1-2 times per week duration: 30-45 minutes/day additional social history: 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 My mom lived with us her last three years and of severe COPD in 2016. Concurrently, my brother was suffering continually worsening symptoms of Frontotemporal Lobe Dementia with Behavioral Variants. He went into memory care in 2017. Towards his end he had extreme ALS-like symptoms and very recently passed in February 2025. It was a tough decade, and I am now adjusting to them both being gone. My has been extremely supportive, and I am fine if a bit exhausted. Smoking Status: Never smoker alcohol intake frequency: holidays/special occasions only Exam <Gagan Gutierrez PA-C - Last Filed: 07/23/25 15:52> Narrative Exam Narrative: GENERAL: Well-developed patient, in mild distress. HEAD: Atraumatic. Normocephalic. EYES: Pupils equal round and reactive. Extraocular motions intact. No scleral icterus. No injection or drainage. ENT: Nose without bleeding, purulent drainage. Throat without erythema, tonsillar hypertrophy or exudate. Airway patent. NECK: Trachea midline. Non tender EXTREMITIES: Mild tenderness palpation inferior to the right lateral malleolus. Neurovascularly intact throughout. No pain with palpation of the foot. NEURO: AOx3. SKIN: No rash or erythema of visible areas Initial Vital Signs Initial Vital Signs: Vital Signs Temperature 98.5 F 09/11/25 14:41 Pulse Rate 68 07/23/25 14:41 Respiratory Rate 18 07/23/25 14:41 Blood Pressure 130/60 07/23/25 14:41 Pulse Oximetry 100 07/23/25 14:41 Oxygen Delivery Method Room Air 07/23/25 14:41 <Ginger De Jesus DO - Last Filed: 07/23/25 18:33> Initial Vital Signs Initial Vital Signs: Vital Signs Temperature 98.5 F 07/23/25 14:41 Pulse Rate 68 07/23/25 14:41 Respiratory Rate 18 07/23/25 14:41 Blood Pressure 130/60 07/23/25 14:41 Pulse Oximetry 100 07/23/25 14:41 Oxygen Delivery Method Room Air 07/23/25 14:41 Course <Gagan Gutierrez PA-C - Last Filed: 07/23/25 15:52> Orders Ordered: ED Orders 07/23/25 14:45 XR ankle RT min 3V Stat Vital Signs Vital signs: Vital Signs - 8 hr 07/23/25 14:41 07/23/25 16:05 Temperature 98.5 F Pulse Rate 68 65 Respiratory Rate 18 17 Blood Pressure 130/60 129/57 L Pulse Oximetry 100 99 Oxygen Delivery Method Room Air Room Air <Ginger De Jesus DO - Last Filed: 07/23/25 18:33> Orders Ordered: ED Orders 07/23/25 14:45 XR ankle RT min 3V Stat Vital Signs Vital signs: Vital Signs - 8 hr 07/23/25 14:41 07/23/25 16:05 Temperature 98.5 F Pulse Rate 68 65 Respiratory Rate 18 17 Blood Pressure 130/60 129/57 L Pulse Oximetry 100 99 Oxygen Delivery Method Room Air Room Air MDM - Extremity Injury (Lower) <VIVIANA Roach Last Filed: 07/23/25 15:52> Imaging Data Extremity x-ray #1: Radiologist's Impression: [address] [address] XRay Report Signed Patient: Toyin Armendariz MR#: [id number] : 1955 Acct:[id number] Age/Sex: 70 / F Date of Service: 07/23/25 Loc: ED Accession Number: [id number] Procedure: XR ankle RT min 3V Ordering Provider: Ginger De Jesus D.O. PROCEDURE: XR ANKLE RT MIN 3V INDICATIONS: fall, pain TECHNIQUE: 3 views of the ankle were acquired. COMPARISON: [facility] [place], [place], XR FOOT 3 VIEWS WEIGHT BEARING RIGHT, 07/16/2025, 14:23. FINDINGS: Bones: No fractures or dislocations. Ankle mortise is normally aligned. No suspicious bony lesions. The talar dome demonstrates no isidro abnormality. Age- appropriate bony degenerative changes are seen. A plantar calcaneal spur is seen. Incidental note is made of an accessory ossicle, an os trigonum. Soft tissues: No tibiotalar joint effusion. Achilles tendon appears normal. IMPRESSION: No acute plain film abnormality is seen. Dictated by: Fernando Mary M.D. on 07/23/2025 at 14:24 Approved by: Fernando Mary M.D. on 07/23/2025 at 14:24 MDM Narrative Medical decision making narrative: ED course: This is a 70-year-old female presents emergency department due to right ankle sprain. X-ray negative. She did not have any pain with palpation to the foot. Recommended supportive care. CC: Right ankle pain Complicating co-morbidities: History of osteopenia Data collected from: Previous notes Medical records reviewed: Patient was last seen in this emergency department approximately 9 months ago due to a mechanical ground level fall sustaining a metatarsal fracture. Takes a 81 mg aspirin daily. History of hypothyroidism. History of osteopenia, Sjogren's syndrome, cervical DJD. Was placed in a walking boot but recommended to be nonweightbearing. Differential considered, but not limited to: Fracture, sprain, neurovascular injury Exam documented above, pertinent findings include: Tenderness palpation inferior to the lateral malleolus Lab Test results independently reviewed as above. Pertinent findings: None obtained Imaging studies independently reviewed: X-ray showed no fracture Scores Used: None MIPS Elements: None Consultations: None Treatments: None Re-evaluations: None Discussion: Discussed plan with the patient was comfortable with the plan Diagnosis: Right ankle sprain Disposition: see below, along with detailed discharge instructions that have been reviewed with patient as well as indications for ED re-evaluation and additional outpatient follow up Discharge Plan Departure Patient Disposition: Home Clinical Impression: Ankle sprain Qualifiers: Encounter type: initial encounter Involved ligament of ankle: other ligament Laterality: right Qualified Code(s): S93.491A - Sprain of other ligament of right ankle, initial encounter Instructions: DI for Ankle Sprain Activity Restrictions/Additional Instructions: Thank you for coming to the [facility] Emergency Department today. As we discussed your x-rays were negative for any fractures. Please treat this as you would as an ankle sprain with rest, ice, elevation. Please return to the emergency department if you develop any significant new or worsening pain, significant numbness, or any other concerning signs or symptoms. I hope you feel better soon. Please follow up with your primary care provider within a week if your symptoms continue. If you do not have a primary care provider please contact the [facility] Resource line at [phone]. They will ask some questions about your medical history and help you get set up with a provider in the community. Prescriptions: No Action aspirin 81 MG tablet,delayed release (DR/EC) 81 mg PO QDAY Qty: 0 trazodone 50 mg tablet 25 mg PO BEDTIME PRN (Reason: insomnia) Qty: 45 3RF propranolol 10 mg tablet 30 mg PO DAILY PRN (Reason: tremor) Qty: 90 11RF Rx Instructions: 3 tablets daily as needed for tremor levothyroxine 88 mcg tablet 88 mcg PO DAILY Qty: 90 3RF latanoprost 0.005 % drops ophthalmic (eye) Patient Comments: While I do not yet have glaucoma, it runs in my family and my pressures have been 20 for the past two years. This is to lower my eye pressure and prevent further optical nerve damage. cyclosporine [Restasis] 0.05 % dropperette ophthalmic (eye) Estriol Vaginal 0.1% Cream 0.1 % cream 1 g vaginal 2XW Qty: 30 3RF Rx Instructions: Insert 1 gram vaginally at bedtime twice weekly; [facility] fax:[phone]. cholecalciferol (vitamin D3) 50 mcg (2,000 unit) capsule 50 mcg PO DAILY Referrals: Balwinder Ocasio MD [Primary Care Provider, Internal Medicine] Stand Alone Forms: Patient Portal/API ED Sign-out <Ginger De Jesus DO - Last Filed: 07/23/25 18:33> Cosign ED Attending Cosignature Attestation: I was immediately available in the department for consultation.
[2025-07-23 16:05] VITALS: BP 129/57; PULSE 65; RESP 17; O2SAT 99
== END 2025-07-23 16:06 | disposition home or self-care (01) ==
PROVIDERS: Emergency Provider Physician Assistant Medical; PCP Internal Medicine
DX: S93.491A Sprain of other ligament of right ankle, initial encounter (principal); W18.30XA Fall on same level, unspecified, initial encounter
CPT/HCPCS: 73610; 99281; 99283

== ENCOUNTER → 2025-09-14 11:33 | Outpatient (CLI) | payer MEDICARE, SELFPAY ==
[2025-09-14 12:14] LABS: Hematocrit 41.7 % (36-46); Hemoglobin 13.9 g/dL (12.0-16.0); Mean Corpuscular HGB Conc 33.4 % (30-36); Mean Corpuscular Hemoglobin 30.7 PG (26-34); Mean Corpuscular Volume 91.9 fL (80-100); Platelet Count 238 X10^3/uL (150-400)
[2025-09-14 12:51] LABS: Alanine Aminotransferase 36 IU/L (<35); Albumin 4.2 g/dL (3.5-5.0); Albumin Globulin Ratio 1.4 (1.0-2.8); Alkaline Phosphatase 78 U/L (38-126); Amylase 74 U/L (30-110); Blood Urea Nitrogen 20 mg/dL (7-17); Calcium 9.3 mg/dL (8.4-10.2); Carbon Dioxide 26 mmol/L (22-32); Chloride 105 mmol/L (98-107); Estimated Glomerular Filt Rate > 60 mL/min (>60); Globulin 3.1 g/dL (1.7-4.1); Glucose 99 mg/dL (70-99); HEMOLYSIS < 15 (0-50); Lipase 146 U/L (23-300); Potassium 4.5 mmol/L (3.4-5.1); Sodium 137 mmol/L (137-145); Total Protein 7.3 g/dL (6.3-8.2)
[2025-09-14 13:41] LABS: Vitamin B12 317 pg/mL (239-931)
== END ==
PROVIDERS: PCP Internal Medicine; Referring Provider Internal Medicine; Visit Provider Internal Medicine
DX: E53.8 Deficiency of other specified B group vitamins (principal); R10.9 Unspecified abdominal pain
CPT/HCPCS: 36415; 80053; 82150; 82607; 83690; 85027

== ENCOUNTER → 2025-09-15 13:40 | Outpatient (CLI) | payer MEDICARE, SELFPAY ==
--- NOTE | 2025-09-15 13:41 | DI.CT.S_ITS ---
PROCEDURE: CT ABDOMEN PELVIS W CON INDICATIONS: abd pain TECHNIQUE: After the administration of intravenous contrast, axial sections acquired from the lung bases to the pubic symphysis. Coronal and sagittal reformats were performed. For radiation dose reduction, the following was used: automated exposure control, adjustment of mA and/or kV according to patient size. COMPARISON: None. FINDINGS: Image quality: Diagnostic. Lower Chest: Mild bibasilar dependent atelectasis are seen posteriorly. Heart size is normal, no pericardial effusion. Small hiatal hernia. ABDOMEN: Liver: No solid mass. Moderate hepatic steatosis. Gallbladder: No radiopaque gallstones or wall thickening. Biliary ducts: No biliary dilation. Pancreas: No ductal dilation. Spleen: Size is within normal limits. Adrenal Glands: No adrenal nodules. Kidneys and Ureters: No hydronephrosis. No solid mass. No complex renal cystic lesion which requires follow up. Stomach and Bowel: There is questionable gastric wall thickening versus under distension. No small bowel or colon wall thickening. Normal appendix. No abscess collection. Peritoneum: No abnormal intraperitoneal fluid. No free air. Ventral Wall: No significant ventral hernia. Abdominal Nodes: No retroperitoneal or mesenteric adenopathy by size criteria. Vessels: Aorta and inferior vena cava are normal in size. PELVIS: Pelvic Organs: Unremarkable. Bladder: No bladder wall thickening, accounting for underdistention. Pelvic Nodes: No enlarged lymph nodes. Miscellaneous: No inguinal hernias are seen. Bones: No aggressive osseous abnormality. Spondylitic changes are noted throughout lower thoracic and lumbar spine. IMPRESSION: 1. Finding may represent low-grade gastritis versus under distension. No small bowel or colon wall thickening. Normal appendix. No free fluid or free air. Mild sigmoid diverticulosis without CT evidence of acute diverticulitis. 2. Hepatic steatosis, no discrete hepatic lesion. 3. No obstructing renal stones or hydronephrosis. 4. Spondylitic changes in mid to lower low thoracic spine and lumbar spine. Dictated by: Dale Mchugh M.D. on 09/16/2025 at 15:23 Approved by: Dale Mchugh M.D. on 09/16/2025 at 15:25
== END ==
PROVIDERS: PCP Internal Medicine; Referring Provider Internal Medicine; Visit Provider Internal Medicine
DX: K57.30 Diverticulosis of large intestine without perforation or abscess without bleeding (principal); K76.0 Fatty (change of) liver, not elsewhere classified; K44.9 Diaphragmatic hernia without obstruction or gangrene; M47.814 Spondylosis without myelopathy or radiculopathy, thoracic region; M47.816 Spondylosis without myelopathy or radiculopathy, lumbar region; R10.9 Unspecified abdominal pain
CPT/HCPCS: 74177; Q9967

== ENCOUNTER 2025-09-24 07:20 | Day surgery (SDC) | payer MEDICARE, SELFPAY ==
--- NOTE | 2025-09-24 | PATH_ITS ---
[facility] Accession Number: [id number] No. of containers..02 Tissue . 01 Material submitted: . PART A: stomach - ANTRUM PART B: esophagus - ESOPHAGEAL . 01 Diagnosis: Part A: ANTRUM: Gastric mucosa with moderate chronic inflammation. No Helicobacter organisms identified. No intestinal metaplasia, dysplasia, or malignancy identified. . Part B: ESOPHAGEAL: Squamous mucosa with no diagnostic alterations. Eosinophils are not increased. [facility] 10/05/20251322 Local . 01 Electronically signed: . Pro Palma MD, Pathologist NPI- [id number] . 01 Gross description: . A. Received in formalin with two identifiers and antrum, are two chairez soft tissue fragments 0.3 cm each in greatest dimension. Submitted entirely in cassette A1. . B. Received in formalin with two identifiers and esophageal biopsy, are two chairez soft tissue fragments 0.3 to 0.6 cm in greatest dimension. Submitted entirely in cassette B1. ([id number]) /NGHIA 10/05/20251322 Local . 01 Microscopic: . Part A: ANTRUM: An immunohistochemical stain was performed to evaluate for Helicobacter organisms and is negative. The control stains appropriately. * This test was developed and the performance characteristics were validated by [facility]. It has not been cleared or approved by the Food and Drug Administration. . 01 Pathologist provided ICD-10: K29.60 . 01 CPT . 936775, [id number], [id number] Performed at: [address] [id number] MD Pro Palma MD Phone: [phone]
--- NOTE | 2025-09-24 06:20 | PM.HP.IH.1 ---
History of Present Illness History of Present Illness Date Patient Seen: 09/24/25 Chief complaint: Esophagogastroduodenoscopy Narrative: Patient presents for EGD today, h/o GERD [facility] Medical History (Updated 09/14/25 @ 15:49 by Balwinder Ocasio MD) B12 deficiency GERD without esophagitis Menopausal syndrome History of colonic polyps Osteopenia Overweight Benign essential tremor Vertigo of cervical arthrosis syndrome Migraine, cervicogenic Hearing loss Rosacea Sjogren's syndrome (~2001) Cervical spine disease (~1980) Mumps (~1968) Chicken pox (~1967) DJD (degenerative joint disease), cervical History of pulmonary embolism Depression, major, recurrent Generalized anxiety disorder Acquired hypothyroidism (~1972) Surgical History History of carpal tunnel surgery (~2019) Family History Father Alzheimer's disease Mother COPD (chronic obstructive pulmonary disease) Brother Frontal lobe dementia Grandfather ALS (amyotrophic lateral sclerosis) Grandmother Stroke Grandmother Cancer Social History (Updated 05/11/25 @ 13:42 by Tory Wagner MA) marital status: details: Parents are both (they were in 1977) number of children: 0 household members: spouse lives independently: Yes caregiver/support person: No pets and animals: Yes (One cat) occupational status: previously employed current occupational exposures/hazards: No Previous occupational history: Retired from the [employer] industry in 2016 yolanda/moravian: [employer] special yolanda needs: No travel history: recent sexual history: Monogamous with 37 years leisure activities: exercise and reading other: Knitting and sewing seatbelt use: always helmet use: Yes (Bike riding, which I don't do much of anymore) water heater temp set < 120 deg: Yes working smoke detector in home: Yes fire extinguisher in home: No (Fire blanket instead) carbon monox detector in home: Yes firearms in home: No do you feel safe at home: Yes second hand exposure: Yes (During childhood) alcohol intake: current during the past year weight has: increased > 10 lbs well-balanced diet: about half the time daily servings fruits/ve or more times/day caffeine: Yes (I drink decaf at home) eating out: 4 or more times/week Type(s) of exercise: walking and advised to exercise at least 150 min/week (moderate intensity aerobic) frequency: 1-2 times per week duration: 30-45 minutes/day additional social history: 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 My mom lived with us her last three years and of severe COPD in 2015. Concurrently, my brother was suffering continually worsening symptoms of Frontotemporal Lobe Dementia with Behavioral Variants. He went into memory care in 2017. Towards his end he had extreme ALS-like symptoms and very recently passed in February 2025. It was a tough decade, and I am now adjusting to them both being gone. My has been extremely supportive, and I am fine if a bit exhausted. Meds Home Medications and Allergies Home Medications ?Medication ?Instructions ?Recorded ?Confirmed ?Type aspirin 81 mg tablet,delayed 81 mg PO QDAY ##0 01/02/17 09/14/25 History release cholecalciferol (vitamin D3) 50 50 mcg PO DAILY 04/26/22 09/14/25 History mcg (2,000 unit) capsule levothyroxine 88 mcg tablet 88 mcg PO DAILY #90 tabs 05/14/25 09/14/25 Rx propranolol 10 mg tablet 30 mg (3 x 10 mg) PO DAILY PRN 05/14/25 09/14/25 Rx tremor #90 tabs Estriol Vaginal 0.1% Cream 1 g vaginal 2XW #30 grams 05/18/25 09/14/25 Rx cyclosporine 0.05 % eye drops in a drp ophthalmic (eye) Dry Eye 05/18/25 09/14/25 History dropperette (Restasis) latanoprost 0.005 % eye drops drp ophthalmic (eye) Minor Optical 05/18/25 09/14/25 History Nerve Damage trazodone 50 mg tablet 25 mg (1/2 x 50 mg) PO BEDTIME PRN 09/21/25 Rx insomnia #45 tabs Allergies Allergy/AdvReac Type Severity Reaction Status Date / Time latex (LATEX) Allergy Severe Blister Verified 09/14/25 11:03 adhesive Allergy Intermediate Rash Verified 09/14/25 11:03 rivaroxaban (From Xarelto) Allergy Intermediate Verified 09/14/25 11:03 tramadol Allergy Intermediate Vomiting Verified 09/14/25 11:03 Exam Narrative Exam Narrative: Const General: healthy appearing, comfortable and no acute distress Orientation: alert and oriented x3 HENMT Ears: hearing grossly normal bilaterally Eyes Visual Daniels: normal visual daniels by confrontation Conjunctivae: conjunctivae normal Sclera: sclerae normal EOM: EOM intact bilaterally Resp Effort & Inspection: normal respiratory effort and able to speak in complete sentences Cardio Rate: regular rate GI Palpation: soft (NT) Extrem General: no pedal edema and no calf tenderness Assessment & Plan Assessment and plan (1) Hiatal hernia: Status: Acute (2) GERD (gastroesophageal reflux disease): Qualifiers: Esophagitis presence: esophagitis presence not specified Qualified Code(s): K21.9 - Gastro-esophageal reflux disease without esophagitis Status: Acute Plan Plan EGD/biopsy. The risks, benefits and options regarding the procedure were explained to the patient in detail. Risk discussion included but not limited to: bleeding, perforation, missed lesion. The patient was encouraged to ask questions and they were answered to their satisfaction. The patient understands and is agreeable to proceed. Time-Based Coding :: [TOTAL MINUTES] spent with patient and on the chart (including review of chart, obtaining history, exam, reviewing outside data, placing orders, documenting exam and treatment plan, and counseling patient) on [DATE]. PROFEE Lead Retail Sales Associate Document charge(s): Yes Charge Codes Inpatient/observation care including admit and discharge same day: [id number]
[2025-09-24 07:52] VITALS: BP 126/65; PULSE 65; RESP 16; TEMP 36.4; O2SAT 95
[2025-09-24] MEDS: LACTATED RINGERS 1,000 ML 84 ML IV (08:06)
--- NOTE | 2025-09-24 08:51 | PM.OP.EGD ---
Operative Date/Time/Diagnoses Date of procedure: 09/24/25 Time of procedure: 09:07 Pre-op diagnosis: GERD, hiatal hernia, Schatzki's ring Post-op diagnosis: other (gastritis, hiatal hernia) Procedure & Clinicians Study performed: EGD with biopsy Same procedure(s) as scheduled: Yes Indications: 70yo F, h/o GERD, hiatal hernia, Schatzki's ring Surgeon: Mark Burton Anesthesia Type: MAC +/- Procedure Notes SCOAP/Timeout: Performed Procedure in detail: EGD Informed consent was obtained. The procedure, its risks, benefits, and alternatives were discussed. Patient understood and agreed to proceed. The patient was placed in the left lateral decubitus position with head elevated. Sedation given per anesthesia. The video endoscope was inserted into the oropharynx and guided under direct vision into the esophagus, stomach, and duodenum which were carefully examined. The scope was retroflexed to examine the hiatus and gastroesophageal junction. Antral biopsies were obtained for Helicobacter pylori. The patient tolerated the procedure very well. There were no apparent complications. Significant EGD findings: Z-line noted at: 37cm Normal appearance of vocal cords No Schatzki's ring noted in esophagus, no stricture 3cm hiatal hernia without esophagitis, random distal esophageal biopsies taken No Chris's ulcer at diaphragmatic pinch No stasis gastritis in proximal hiatal hernia Mild antral gastritis with erythematous streaking No ulcers in duodenum or gastric body Duodenum normal Pylorus patent and easy to intubate with scope Patient given copies of color photos Findings: gastritis and hiatal hernia Specimen(s): other (biopsies) Estimated Blood Loss: 5 Complications: none Impression: Hiatal hernia without esophagitis Mild antral gastritis Post-procedure Recommendations: Will call with biopsy results Plan for aftercare: PACU then home Follow up: as needed Disposition: PACU
[2025-09-24 09:05] VITALS: BP 114/66; PULSE 62; RESP 14; TEMP 36.2; O2SAT 94
[2025-09-24 09:10] VITALS: BP 119/56; PULSE 63; RESP 14; O2SAT 96
[2025-09-24 09:15] VITALS: BP 118/66; PULSE 61; RESP 16; O2SAT 97
[2025-09-24 09:19] VITALS: BP 125/62; PULSE 61; RESP 14; TEMP 36.2; O2SAT 97
== END 2025-09-24 09:37 | disposition home or self-care (01) ==
PROVIDERS: PCP Internal Medicine; Referring Provider Surgery; Visit Provider Surgery
PROC: 0DJ08ZZ Inspection of Upper Intestinal Tract, Via Natural or Artificial Opening Endoscopic (ICD-10-PCS; CPT 43239; principal; 2025-09-24 08:30)
DX: K29.50 Unspecified chronic gastritis without bleeding (principal); K44.9 Diaphragmatic hernia without obstruction or gangrene; K21.9 Gastro-esophageal reflux disease without esophagitis; E03.9 Hypothyroidism, unspecified; Z86.0100 Personal history of colon polyps, unspecified
CPT/HCPCS: 43239; J2704; J7120

== ENCOUNTER 2025-09-29 13:45 | Outpatient (RCR) | payer MEDICARE, SELFPAY ==
--- NOTE | 2024-10-08 09:56 | PT.OIE ---
Current Diagnoses Other migraine, not intractable, without status migrainosus (10/07/24) Spondylosis without myelopathy or radiculopathy, cervical region (10/07/24) Past Medical History (Last Updated 10/01/24 @ 15:12 by Balwinder Ocasio MD) Acquired hypothyroidism (~1972) Acute cystitis without hematuria Benign essential tremor Cervical spine disease (~1980) Chicken pox (~1967) Depression, major, recurrent DJD (degenerative joint disease), cervical Generalized anxiety disorder Hearing loss History of colonic polyps History of pulmonary embolism Menopausal syndrome Migraine, cervicogenic Mumps (~1968) Osteopenia Overweight Rosacea Sjogren's syndrome (~2001) Vertigo of cervical arthrosis syndrome Past Surgical History (Last Reviewed 08/11/24 @ 12:25 by Balwinder Ocasio MD) History of carpal tunnel surgery (~2019) Visit Care Team Role Provider Type Balwinder Ocasio MD Attending Provider Physician Family Provider Primary Care Provider Referring Provider Specialty: Internal Medicine Address: [address] [place] [address] Email: [email or web address] Physical Therapy Initial Evaluation PT-OP-A Visit Information Start: 10/07/24 15:47 Freq: Status: Active Protocol: Document 10/07/24 15:15 DCW (Rec: 10/07/24 15:53 DCW [id number]) Out-Patient Physical Therapy Visit Information Visit Information Visit Type Initial Evaluation Visit Start Time 15:15 Visit Stop Time 15:45 Visit Number 1 Number of WATCH CASER Visits 0 Evaluation Information Evaluation Date 10/07/24 PT-OP-B Current Condition Start: 10/07/24 15:47 Freq: Status: Active Protocol: Document 10/07/24 15:15 DCW (Rec: 10/07/24 17:51 DCW [id number]) Current Condition History of Current Condition Current Complaints Cervical pain, stiffness History of Current Condition Pt is a 69 year old female presenting to skilled therapy with a long-standing history of cervical dysfunction. Pt has been treated at this clinic for the same symptoms multiple times over the years. Pt often has episodes of severe neck pain, migraines, and decreased cervical mobility, typically worsened by stress in her life. Pt notes that her neck was worsening, but then got a little better, and she is actually doing pretty well at the moment, not nearly as bad as when she usually comes into PT. Does note, however, that she is leaving for a ~3 week long cruise in two weeks, and wants to make sure she does everything she can prior to leaving to hope that her neck does not give her trouble during her vacation. PT-OP-C Subjective Start: 10/07/24 15:47 Freq: Status: Active Protocol: Document 10/07/24 15:15 DCW (Rec: 10/07/24 15:53 DCW [id number]) OP-PT Subjective Patient Comments Patient Comments We're leaving for a cruise in a few weeks, and I just really wanted to make sure things weren't too screwed up before we left. Patient Questionnaires Oswestry Low Back Index Oswestry Score 6/50 = 12% Oswestry Impairment 1 to 19% Impaired (Score 1-19) PT-OP-F Manual Assessment Start: 10/07/24 15:47 Freq: Status: Active Protocol: Document 10/07/24 15:15 DCW (Rec: 10/07/24 15:53 DCW [id number]) Manual Assessments Soft Tissue Assessment Soft Tissue Mobility Assessment Mild tone and tenderness to palpation 1/4: Complaint of pain in cervical paraspinals, upper trap Joint Mobility Assessment Joint Mobility Assessment C4 rotated mildly clockwise PT-OP-K Range of Motion Start: 10/07/24 15:47 Freq: Status: Active Protocol: Document 10/07/24 15:15 DCW (Rec: 10/07/24 15:53 DCW [id number]) Cervical Spine Range of Motion Cervical Spine Active Degrees Testing Position Sitting Flexion 42 Extension 35 Rotation Left 30 Rotation Right 18 Lateral Flexion Left 55 Lateral Flexion Right 32 ROM Limitations Bony Restriction,Muscle Tone, Pain Comments Pain with extension, right rotation, right lateral flexion PT-OP-Q Treatments Start: 10/07/24 15:47 Freq: Status: Active Protocol: Document 10/07/24 15:15 DCW (Rec: 10/07/24 15:53 DCW [id number]) Manual Therapy Treatment Consent Patient gave verbal consent for manual Yes treatment Soft Tissue Mobilization Paraspinals Body Location Cervical paraspinals, R>L Mobilization Type Strumming,Sustained Pressure Intensity/Depth Moderate Body Position Hooklying Other Other Manual Treatments MWM - resisted left rotation of head PT-OP-T Assessment and Plan Start: 10/07/24 15:47 Freq: Status: Active Protocol: Document 10/07/24 15:15 DCW (Rec: 10/08/24 09:56 DCW [id number]) Physical Therapy Assessment Rehab Potential Rehabilitation Potential Good Evaluation Complexity Number of Personal Factors/Comorbidities 1-2 Number of Body Systems Impaired 4 or More Clinical Presentation at Evaluation Stable Impairments Impairments Functional Activities, Functional Mobility,Pain,ROM, Tone Goals Two Impairment Pt does not have an appropriate home exercise program Short Term Goal (STG) Pt to be independent and compliant with an appropriate HEP STG Duration 11/06/24 One Impairment Decreased R cervical rotation limits ability to see traffic while driving Biomed Tech Goal (LTG) PT to demonstrate improvement in right cervical rotation from 18? to >30? in order to improve driving safety LTG Duration 12/07/24 Assessment Summary Assessment Pt presenting with signs and symptoms of referring diagnosis. Pt has been seen at this facility for this condition multiple times over the years, and is actually doing fairly well for her at the moment. Cervical rotation (18?) and lateral flexion (32? ) to the right are both pretty significantly restricted, however pt demonstrated improvement by more than 10? in both directions following STM and MWM. Did exhibit a mild clockwise rotation of C4, but corrected with MWM. Pt's big goal with PT is to ensure she is as good as she can be prior to leaving for a three week cruise in [place] and [place] in two weeks. Continue to focus on decreasing tone, improving cervical range of motion, and increasing functional mobility . Physical Therapy Plan Frequency and Duration Frequency of Treatment 2x/Week Plan of Care Start Date 10/07/24 Plan of Care End Date 12/07/24 Therapeutic Interventions Therapeutic Interventions Home Exercise Program,Joint Mobilizations,Manual Therapy, Neuromuscular Re-education, Patient/Caregiver Education, Self-Care/Home Management,Soft Tissue Mobilization, Therapeutic Activities, Therapeutic Exercises Modalities Cold Pack/Ice Massage,Hot Packs Next Visit Focus/Plan Next Note Type Treatment Note Next Visit Plan STM, MWM, cervical strengthening
--- NOTE | 2024-10-08 09:56 | PT.OPPOC ---
Physical, Occupational & Speech Therapy At [facility] Current Diagnoses Other migraine, not intractable, without status migrainosus (10/07/24) Spondylosis without myelopathy or radiculopathy, cervical region (10/07/24) Visit Care Team Role Provider Type Balwinder Ocasio MD Attending Provider Physician Family Provider Primary Care Provider Referring Provider Specialty: Internal Medicine Address: [address] [place] [address], [facility] Email: [email or web address] Plan Of Care PT-OP-B Current Condition Start: 10/07/24 15:47 Freq: Status: Active Protocol: Document 10/07/24 15:15 DCW (Rec: 10/07/24 17:51 DCW [id number]) Current Condition History of Current Condition Current Complaints Cervical pain, stiffness History of Current Condition Pt is a 69 year old female presenting to skilled therapy with a long-standing history of cervical dysfunction. Pt has been treated at this clinic for the same symptoms multiple times over the years. Pt often has episodes of severe neck pain, migraines, and decreased cervical mobility, typically worsened by stress in her life. Pt notes that her neck was worsening, but then got a little better, and she is actually doing pretty well at the moment, not nearly as bad as when she usually comes into PT. Does note, however, that she is leaving for a ~3 week long cruise in two weeks, and wants to make sure she does everything she can prior to leaving to hope that her neck does not give her trouble during her vacation. PT-OP-T Assessment and Plan Start: 10/07/24 15:47 Freq: Status: Active Protocol: Document 10/07/24 15:15 DCW (Rec: 10/08/24 09:56 DCW [id number]) Physical Therapy Assessment Rehab Potential Rehabilitation Potential Good Evaluation Complexity Number of Personal Factors/Comorbidities 1-2 Number of Body Systems Impaired 4 or More Clinical Presentation at Evaluation Stable Impairments Impairments Functional Activities, Functional Mobility,Pain,ROM, Tone Goals Two Impairment Pt does not have an appropriate home exercise program Short Term Goal (STG) Pt to be independent and compliant with an appropriate HEP STG Duration 11/06/24 One Impairment Decreased R cervical rotation limits ability to see traffic while driving Railroad Car Loader Goal (LTG) PT to demonstrate improvement in right cervical rotation from 18? to >30? in order to improve driving safety LTG Duration 12/07/24 Assessment Summary Assessment Pt presenting with signs and symptoms of referring diagnosis. Pt has been seen at this facility for this condition multiple times over the years, and is actually doing fairly well for her at the moment. Cervical rotation (18?) and lateral flexion (32? ) to the right are both pretty significantly restricted, however pt demonstrated improvement by more than 10? in both directions following STM and MWM. Did exhibit a mild clockwise rotation of C4, but corrected with MWM. Pt's big goal with PT is to ensure she is as good as she can be prior to leaving for a three week cruise in [place] and [place] in two weeks. Continue to focus on decreasing tone, improving cervical range of motion, and increasing functional mobility . Physical Therapy Plan Frequency and Duration Frequency of Treatment 2x/Week Plan of Care Start Date 10/07/24 Plan of Care End Date 12/07/24 Therapeutic Interventions Therapeutic Interventions Home Exercise Program,Joint Mobilizations,Manual Therapy, Neuromuscular Re-education, Patient/Caregiver Education, Self-Care/Home Management,Soft Tissue Mobilization, Therapeutic Activities, Therapeutic Exercises Modalities Cold Pack/Ice Massage,Hot Packs Next Visit Focus/Plan Next Note Type Treatment Note Next Visit Plan STM, MWM, cervical strengthening Plan of Care Dates Plan of Care Start Date 10/07/24 Plan of Care End Date 12/07/24 Electronically Signed by: Delfin Rodriguez, PT 10/08/24 0956 If you are in agreement with this Plan of Care, please return a signed and dated copy. I have reviewed this Plan of Care and certify that the skilled therapy services above are required to meet the patient?s needs. Physician Signature Date Printed Name and Credentials Clinical Instructor Signature Printed Name and Credentials
--- NOTE | 2024-10-13 12:58 | PT.OTN ---
Current Diagnoses Other migraine, not intractable, without status migrainosus (10/13/24) Spondylosis without myelopathy or radiculopathy, cervical region (10/13/24) Physical Therapy Treatment Note PT-OP-A Visit Information Start: 10/07/24 15:47 Freq: Status: Active Protocol: Document 10/13/24 12:15 DCW (Rec: 10/13/24 12:58 DCW [id number]) Out-Patient Physical Therapy Visit Information Visit Information Visit Type Treatment Note Visit Start Time 12:15 Visit Stop Time 13:00 Visit Number 2 Number of MAINTENANCE SHOP WELDER Visits 0 Evaluation Information Evaluation Date 10/07/24 PT-OP-B Current Condition Start: 10/07/24 15:47 Freq: Status: Active Protocol: Document 10/07/24 15:15 DCW (Rec: 10/07/24 17:51 DCW [id number]) Current Condition History of Current Condition Current Complaints Cervical pain, stiffness History of Current Condition Pt is a 69 year old female presenting to skilled therapy with a long-standing history of cervical dysfunction. Pt has been treated at this clinic for the same symptoms multiple times over the years. Pt often has episodes of severe neck pain, migraines, and decreased cervical mobility, typically worsened by stress in her life. Pt notes that her neck was worsening, but then got a little better, and she is actually doing pretty well at the moment, not nearly as bad as when she usually comes into PT. Does note, however, that she is leaving for a ~3 week long cruise in two weeks, and wants to make sure she does everything she can prior to leaving to hope that her neck does not give her trouble during her vacation. PT-OP-C Subjective Start: 10/07/24 15:47 Freq: Status: Active Protocol: Document 10/13/24 12:15 DCW (Rec: 10/13/24 12:58 DCW [id number]) OP-PT Subjective Patient Comments Patient Comments Pt comes in today in a w/c wearing a walking boot. Missed a step at home yesterday afternoon, fell and broke her L distal 5th metatarsal. Frustrated, as she leaves for her cruise on week from today. PT-OP-F Manual Assessment Start: 10/07/24 15:47 Freq: Status: Active Protocol: Document 10/07/24 15:15 DCW (Rec: 10/07/24 15:53 DCW [id number]) Manual Assessments Soft Tissue Assessment Soft Tissue Mobility Assessment Mild tone and tenderness to palpation 11/15: Complaint of pain in cervical paraspinals, upper trap Joint Mobility Assessment Joint Mobility Assessment C4 rotated mildly clockwise PT-OP-K Range of Motion Start: 10/07/24 15:47 Freq: Status: Active Protocol: Document 10/07/24 15:15 DCW (Rec: 10/07/24 15:53 DCW [id number]) Cervical Spine Range of Motion Cervical Spine Active Degrees Testing Position Sitting Flexion 42 Extension 35 Rotation Left 30 Rotation Right 18 Lateral Flexion Left 55 Lateral Flexion Right 32 ROM Limitations Bony Restriction,Muscle Tone, Pain Comments Pain with extension, right rotation, right lateral flexion PT-OP-Q Treatments Start: 10/07/24 15:47 Freq: Status: Active Protocol: Document 10/13/24 12:15 DCW (Rec: 10/13/24 12:58 DCW [id number]) Manual Therapy Treatment Consent Patient gave verbal consent for manual Yes treatment Soft Tissue Mobilization Paraspinals Body Location Cervical paraspinals, Upper Trap, Scalenes Mobilization Type Strumming,Sustained Pressure Intensity/Depth Moderate Body Position Hooklying Manual Traction Cervical Details Cervical Traction Body Position Hooklying Other Other Manual Treatments MWM - resisted left rotation of head PT-OP-T Assessment and Plan Start: 10/07/24 15:47 Freq: Status: Active Protocol: Document 10/13/24 12:15 DCW (Rec: 10/13/24 12:58 DCW [id number]) Physical Therapy Assessment Impairments Impairments Functional Activities, Functional Mobility,Pain,ROM, Tone Goals Two Impairment Pt does not have an appropriate home exercise program Short Term Goal (STG) Pt to be independent and compliant with an appropriate HEP STG Duration 11/06/24 One Impairment Decreased R cervical rotation limits ability to see traffic while driving Zone Maintenance Technician Goal (LTG) PT to demonstrate improvement in right cervical rotation from 18? to >30? in order to improve driving safety LTG Duration 12/07/24 Assessment Summary Assessment Slightly increased tone today following fall yesterday, but overall pt's neck still doing fairly well. Hoping to still leave for cruise next week, wants to return for follow-up after return. Physical Therapy Plan Frequency and Duration Frequency of Treatment 2x/Week Plan of Care Start Date 10/07/24 Plan of Care End Date 12/07/24 Therapeutic Interventions Therapeutic Interventions Home Exercise Program,Joint Mobilizations,Manual Therapy, Neuromuscular Re-education, Patient/Caregiver Education, Self-Care/Home Management,Soft Tissue Mobilization, Therapeutic Activities, Therapeutic Exercises Modalities Cold Pack/Ice Massage,Hot Packs Next Visit Focus/Plan Next Note Type Treatment Note Next Visit Plan STM, MWM, cervical strengthening
--- NOTE | 2024-11-11 12:59 | PT.OTN ---
Current Diagnoses Other migraine, not intractable, without status migrainosus (11/11/24) Spondylosis without myelopathy or radiculopathy, cervical region (11/11/24) Physical Therapy Treatment Note PT-OP-A Visit Information Start: 10/07/24 15:47 Freq: Status: Active Protocol: Document 11/11/24 12:15 DCW (Rec: 11/11/24 12:59 DCW [id number]) Out-Patient Physical Therapy Visit Information Visit Information Visit Type Treatment Note Visit Start Time 12:15 Visit Stop Time 13:00 Visit Number 3 Number of CITRIX ADMINISTRATOR Visits 0 Evaluation Information Evaluation Date 10/07/24 PT-OP-B Current Condition Start: 10/07/24 15:47 Freq: Status: Active Protocol: Document 10/07/24 15:15 DCW (Rec: 10/07/24 17:51 DCW [id number]) Current Condition History of Current Condition Current Complaints Cervical pain, stiffness History of Current Condition Pt is a 69 year old female presenting to skilled therapy with a long-standing history of cervical dysfunction. Pt has been treated at this clinic for the same symptoms multiple times over the years. Pt often has episodes of severe neck pain, migraines, and decreased cervical mobility, typically worsened by stress in her life. Pt notes that her neck was worsening, but then got a little better, and she is actually doing pretty well at the moment, not nearly as bad as when she usually comes into PT. Does note, however, that she is leaving for a ~3 week long cruise in two weeks, and wants to make sure she does everything she can prior to leaving to hope that her neck does not give her trouble during her vacation. PT-OP-C Subjective Start: 10/07/24 15:47 Freq: Status: Active Protocol: Document 11/11/24 12:15 DCW (Rec: 11/11/24 12:59 DCW [id number]) OP-PT Subjective Patient Comments Patient Comments Pt reports she had a great cruise. Just got her walking boot off, feeling much better overall. All things considered, the neck is pretty good. There were times it was a little sore, but I'm pretty good. PT-OP-F Manual Assessment Start: 10/07/24 15:47 Freq: Status: Active Protocol: Document 10/07/24 15:15 DCW (Rec: 10/07/24 15:53 DCW [id number]) Manual Assessments Soft Tissue Assessment Soft Tissue Mobility Assessment Mild tone and tenderness to palpation 11/15: Complaint of pain in cervical paraspinals, upper trap Joint Mobility Assessment Joint Mobility Assessment C4 rotated mildly clockwise PT-OP-K Range of Motion Start: 10/07/24 15:47 Freq: Status: Active Protocol: Document 10/07/24 15:15 DCW (Rec: 10/07/24 15:53 DCW [id number]) Cervical Spine Range of Motion Cervical Spine Active Degrees Testing Position Sitting Flexion 42 Extension 35 Rotation Left 30 Rotation Right 18 Lateral Flexion Left 55 Lateral Flexion Right 32 ROM Limitations Bony Restriction,Muscle Tone, Pain Comments Pain with extension, right rotation, right lateral flexion PT-OP-Q Treatments Start: 10/07/24 15:47 Freq: Status: Active Protocol: Document 11/11/24 12:15 DCW (Rec: 11/11/24 12:59 DCW [id number]) Manual Therapy Treatment Consent Patient gave verbal consent for manual Yes treatment Soft Tissue Mobilization Paraspinals Body Location Cervical paraspinals, Upper Trap, Scalenes Mobilization Type Strumming,Sustained Pressure Intensity/Depth Moderate Body Position Hooklying Manual Traction Cervical Details Cervical Traction Body Position Hooklying PT-OP-T Assessment and Plan Start: 10/07/24 15:47 Freq: Status: Active Protocol: Document 11/11/24 12:15 DCW (Rec: 11/11/24 12:59 DCW [id number]) Physical Therapy Assessment Impairments Impairments Functional Activities, Functional Mobility,Pain,ROM, Tone Goals Two Impairment Pt does not have an appropriate home exercise program Short Term Goal (STG) Pt to be independent and compliant with an appropriate HEP STG Duration 11/06/24 One Impairment Decreased R cervical rotation limits ability to see traffic while driving Senior Care Goal (LTG) PT to demonstrate improvement in right cervical rotation from 18? to >30? in order to improve driving safety LTG Duration 12/07/24 Assessment Summary Assessment Pt feeling pretty good overall following recent travels, tone overall increased, however no cervical rotation noted today. Continue to focus on tone management and functional cervical mobility Physical Therapy Plan Frequency and Duration Frequency of Treatment 2x/Week Plan of Care Start Date 10/07/24 Plan of Care End Date 01/26/25 Therapeutic Interventions Therapeutic Interventions Home Exercise Program,Joint Mobilizations,Manual Therapy, Neuromuscular Re-education, Patient/Caregiver Education, Self-Care/Home Management,Soft Tissue Mobilization, Therapeutic Activities, Therapeutic Exercises Modalities Cold Pack/Ice Massage,Hot Packs Next Visit Focus/Plan Next Note Type Treatment Note Next Visit Plan STM, MWM, cervical strengthening
--- NOTE | 2024-11-26 17:04 | PT.OTN ---
Current Diagnoses Other migraine, not intractable, without status migrainosus (11/26/24) Spondylosis without myelopathy or radiculopathy, cervical region (11/26/24) Physical Therapy Treatment Note PT-OP-A Visit Information Start: 10/07/24 15:47 Freq: Status: Active Protocol: Document 11/26/24 16:30 DCW (Rec: 11/26/24 17:04 DCW [id number]) Out-Patient Physical Therapy Visit Information Visit Information Visit Type Treatment Note Visit Start Time 16:30 Visit Stop Time 17:00 Visit Number 4 Number of SENIOR SERVICE AIDE Visits 0 Evaluation Information Evaluation Date 10/07/24 PT-OP-B Current Condition Start: 10/07/24 15:47 Freq: Status: Active Protocol: Document 10/07/24 15:15 DCW (Rec: 10/07/24 17:51 DCW [id number]) Current Condition History of Current Condition Current Complaints Cervical pain, stiffness History of Current Condition Pt is a 69 year old female presenting to skilled therapy with a long-standing history of cervical dysfunction. Pt has been treated at this clinic for the same symptoms multiple times over the years. Pt often has episodes of severe neck pain, migraines, and decreased cervical mobility, typically worsened by stress in her life. Pt notes that her neck was worsening, but then got a little better, and she is actually doing pretty well at the moment, not nearly as bad as when she usually comes into PT. Does note, however, that she is leaving for a ~3 week long cruise in two weeks, and wants to make sure she does everything she can prior to leaving to hope that her neck does not give her trouble during her vacation. PT-OP-C Subjective Start: 10/07/24 15:47 Freq: Status: Active Protocol: Document 11/26/24 16:30 DCW (Rec: 11/26/24 17:04 DCW [id number]) OP-PT Subjective Patient Comments Patient Comments Pt just getting over recent illness, has been sick last two weeks. Does feel like her neck is doing worse after not being active recently. PT-OP-F Manual Assessment Start: 10/07/24 15:47 Freq: Status: Active Protocol: Document 10/07/24 15:15 DCW (Rec: 10/07/24 15:53 DCW [id number]) Manual Assessments Soft Tissue Assessment Soft Tissue Mobility Assessment Mild tone and tenderness to palpation 1: Complaint of pain in cervical paraspinals, upper trap Joint Mobility Assessment Joint Mobility Assessment C4 rotated mildly clockwise PT-OP-K Range of Motion Start: 10/07/24 15:47 Freq: Status: Active Protocol: Document 10/07/24 15:15 DCW (Rec: 10/07/24 15:53 DCW [id number]) Cervical Spine Range of Motion Cervical Spine Active Degrees Testing Position Sitting Flexion 42 Extension 35 Rotation Left 30 Rotation Right 18 Lateral Flexion Left 55 Lateral Flexion Right 32 ROM Limitations Bony Restriction,Muscle Tone, Pain Comments Pain with extension, right rotation, right lateral flexion PT-OP-Q Treatments Start: 10/07/24 15:47 Freq: Status: Active Protocol: Document 11/26/24 16:30 DCW (Rec: 11/26/24 17:04 DCW [id number]) Manual Therapy Treatment Consent Patient gave verbal consent for manual Yes treatment Soft Tissue Mobilization Paraspinals Body Location Cervical paraspinals, Upper Trap, Scalenes Mobilization Type Strumming,Sustained Pressure Intensity/Depth Moderate Body Position Hooklying Manual Traction Cervical Details Cervical Traction Body Position Hooklying PT-OP-T Assessment and Plan Start: 10/07/24 15:47 Freq: Status: Active Protocol: Document 11/26/24 16:30 DCW (Rec: 11/26/24 17:04 DCW [id number]) Physical Therapy Assessment Impairments Impairments Functional Activities, Functional Mobility,Pain,ROM, Tone Goals Two Impairment Pt does not have an appropriate home exercise program Short Term Goal (STG) Pt to be independent and compliant with an appropriate HEP STG Duration 11/06/24 One Impairment Decreased R cervical rotation limits ability to see traffic while driving Repair Mechanic Goal (LTG) PT to demonstrate improvement in right cervical rotation from 18? to >30? in order to improve driving safety LTG Duration 12/07/24 Assessment Summary Assessment Pt presenting with significant increase in tone today following recent illness. Good response to STM, improved mobility and decreased pain following treatment. Physical Therapy Plan Frequency and Duration Frequency of Treatment 2x/Week Plan of Care Start Date 10/07/24 Plan of Care End Date 12/07/24 Therapeutic Interventions Therapeutic Interventions Home Exercise Program,Joint Mobilizations,Manual Therapy, Neuromuscular Re-education, Patient/Caregiver Education, Self-Care/Home Management,Soft Tissue Mobilization, Therapeutic Activities, Therapeutic Exercises Modalities Cold Pack/Ice Massage,Hot Packs Next Visit Focus/Plan Next Note Type Treatment Note Next Visit Plan STM, MWM, cervical strengthening
--- NOTE | 2024-12-17 17:46 | PT.OTN ---
Current Diagnoses Other migraine, not intractable, without status migrainosus (12/17/24) Spondylosis without myelopathy or radiculopathy, cervical region (12/17/24) Physical Therapy Treatment Note PT-OP-A Visit Information Start: 10/07/24 15:47 Freq: Status: Active Protocol: Document 12/17/24 17:00 DCW (Rec: 12/17/24 17:46 DCW [id number]) Out-Patient Physical Therapy Visit Information Visit Information Visit Type Progress Note Visit Start Time 17:00 Visit Stop Time 17:45 Visit Number 5 Number of SALES SPECIALIST Visits 0 Evaluation Information Evaluation Date 10/07/24 PT-OP-B Current Condition Start: 10/07/24 15:47 Freq: Status: Active Protocol: Document 10/07/24 15:15 DCW (Rec: 10/07/24 17:51 DCW [id number]) Current Condition History of Current Condition Current Complaints Cervical pain, stiffness History of Current Condition Pt is a 69 year old female presenting to skilled therapy with a long-standing history of cervical dysfunction. Pt has been treated at this clinic for the same symptoms multiple times over the years. Pt often has episodes of severe neck pain, migraines, and decreased cervical mobility, typically worsened by stress in her life. Pt notes that her neck was worsening, but then got a little better, and she is actually doing pretty well at the moment, not nearly as bad as when she usually comes into PT. Does note, however, that she is leaving for a ~3 week long cruise in two weeks, and wants to make sure she does everything she can prior to leaving to hope that her neck does not give her trouble during her vacation. PT-OP-C Subjective Start: 10/07/24 15:47 Freq: Status: Active Protocol: Document 12/17/24 17:00 DCW (Rec: 12/17/24 17:46 DCW [id number]) OP-PT Subjective Patient Comments Patient Comments Pt was in [place] for two weeks, took a friend on the trip. Feels she had a lot of turning back and forth when talking to her, her neck had been rough since then. PT-OP-F Manual Assessment Start: 10/07/24 15:47 Freq: Status: Active Protocol: Document 10/07/24 15:15 DCW (Rec: 10/07/24 15:53 DCW [id number]) Manual Assessments Soft Tissue Assessment Soft Tissue Mobility Assessment Mild tone and tenderness to palpation 11/15: Complaint of pain in cervical paraspinals, upper trap Joint Mobility Assessment Joint Mobility Assessment C4 rotated mildly clockwise PT-OP-K Range of Motion Start: 10/07/24 15:47 Freq: Status: Active Protocol: Document 10/07/24 15:15 DCW (Rec: 10/07/24 15:53 DCW [id number]) Cervical Spine Range of Motion Cervical Spine Active Degrees Testing Position Sitting Flexion 42 Extension 35 Rotation Left 30 Rotation Right 18 Lateral Flexion Left 55 Lateral Flexion Right 32 ROM Limitations Bony Restriction,Muscle Tone, Pain Comments Pain with extension, right rotation, right lateral flexion PT-OP-Q Treatments Start: 10/07/24 15:47 Freq: Status: Active Protocol: Document 12/17/24 17:00 DCW (Rec: 12/17/24 17:46 DCW [id number]) Manual Therapy Treatment Consent Patient gave verbal consent for manual Yes treatment Soft Tissue Mobilization Paraspinals Body Location Cervical paraspinals, Upper Trap, Scalenes Mobilization Type Strumming,Sustained Pressure Intensity/Depth Moderate Body Position Hooklying Manual Traction Cervical Details Cervical Traction Body Position Hooklying Other Other Manual Treatments MWM - resisted left rotation of head PT-OP-T Assessment and Plan Start: 10/07/24 15:47 Freq: Status: Active Protocol: Document 12/17/24 17:00 DCW (Rec: 12/17/24 17:46 DCW [id number]) Physical Therapy Assessment Impairments Impairments Functional Activities, Functional Mobility,Pain,ROM, Tone Goals Two Impairment Pt does not have an appropriate home exercise program Short Term Goal (STG) Pt to be independent and compliant with an appropriate HEP STG Duration 11/06/24 One Impairment Decreased R cervical rotation limits ability to see traffic while driving Communication Signals Intelligence Goal (LTG) PT to demonstrate improvement in right cervical rotation from 18? to >30? in order to improve driving safety LTG Duration 12/07/24 Assessment Summary Assessment good response to treatment today, pt feeling better than I have in a week after STM and MWM. Is exhibiting improvement with cervical ROM and neck stabilization/ strength. Continue with treatment for cervical dysfunction. Physical Therapy Plan Frequency and Duration Frequency of Treatment 1x/Week Plan of Care Start Date 12/17/24 Plan of Care End Date 02/14/25 Therapeutic Interventions Therapeutic Interventions Home Exercise Program,Joint Mobilizations,Manual Therapy, Neuromuscular Re-education, Patient/Caregiver Education, Self-Care/Home Management,Soft Tissue Mobilization, Therapeutic Activities, Therapeutic Exercises Modalities Cold Pack/Ice Massage,Hot Packs Next Visit Focus/Plan Next Note Type Treatment Note Next Visit Plan STM, MWM, cervical strengthening
--- NOTE | 2024-12-17 17:47 | PT.OPPOC ---
Physical, Occupational & Speech Therapy At [facility] Current Diagnoses Other migraine, not intractable, without status migrainosus (12/17/24) Spondylosis without myelopathy or radiculopathy, cervical region (12/17/24) Visit Care Team Role Provider Type Baliwnder Ocasio MD Attending Provider Physician Family Provider Primary Care Provider Referring Provider Specialty: Internal Medicine Address: [address] [place] [address], [facility] Email: [email or web address] Plan Of Care PT-OP-B Current Condition Start: 10/07/24 15:47 Freq: Status: Active Protocol: Document 10/07/24 15:15 DCW (Rec: 10/07/24 17:51 DCW [id number]) Current Condition History of Current Condition Current Complaints Cervical pain, stiffness History of Current Condition Pt is a 69 year old female presenting to skilled therapy with a long-standing history of cervical dysfunction. Pt has been treated at this clinic for the same symptoms multiple times over the years. Pt often has episodes of severe neck pain, migraines, and decreased cervical mobility, typically worsened by stress in her life. Pt notes that her neck was worsening, but then got a little better, and she is actually doing pretty well at the moment, not nearly as bad as when she usually comes into PT. Does note, however, that she is leaving for a ~3 week long cruise in two weeks, and wants to make sure she does everything she can prior to leaving to hope that her neck does not give her trouble during her vacation. PT-OP-T Assessment and Plan Start: 10/07/24 15:47 Freq: Status: Active Protocol: Document 12/17/24 17:00 DCW (Rec: 12/17/24 17:46 DCW [id number]) Physical Therapy Assessment Impairments Impairments Functional Activities, Functional Mobility,Pain,ROM, Tone Goals Two Impairment Pt does not have an appropriate home exercise program Short Term Goal (STG) Pt to be independent and compliant with an appropriate HEP STG Duration 11/06/24 One Impairment Decreased R cervical rotation limits ability to see traffic while driving Half-Way Goal (LTG) PT to demonstrate improvement in right cervical rotation from 18? to >30? in order to improve driving safety LTG Duration 12/07/24 Assessment Summary Assessment good response to treatment today, pt feeling better than I have in a week after STM and MWM. Is exhibiting improvement with cervical ROM and neck stabilization/ strength. Continue with treatment for cervical dysfunction. Physical Therapy Plan Frequency and Duration Frequency of Treatment 1x/Week Plan of Care Start Date 12/17/24 Plan of Care End Date 02/14/25 Therapeutic Interventions Therapeutic Interventions Home Exercise Program,Joint Mobilizations,Manual Therapy, Neuromuscular Re-education, Patient/Caregiver Education, Self-Care/Home Management,Soft Tissue Mobilization, Therapeutic Activities, Therapeutic Exercises Modalities Cold Pack/Ice Massage,Hot Packs Next Visit Focus/Plan Next Note Type Treatment Note Next Visit Plan STM, MWM, cervical strengthening Plan of Care Dates Plan of Care Start Date 12/17/24 Plan of Care End Date 02/14/25 Electronically Signed by: Delfin Rodriguez, PT 12/17/24 [id number] If you are in agreement with this Plan of Care, please return a signed and dated copy. I have reviewed this Plan of Care and certify that the skilled therapy services above are required to meet the patient?s needs. Physician Signature Date Printed Name and Credentials Clinical Instructor Signature Printed Name and Credentials
--- NOTE | 2024-12-22 17:43 | PT.OTN ---
Current Diagnoses Other migraine, not intractable, without status migrainosus (12/22/24) Spondylosis without myelopathy or radiculopathy, cervical region (12/22/24) Physical Therapy Treatment Note PT-OP-A Visit Information Start: 10/07/24 15:47 Freq: Status: Active Protocol: Document 12/22/24 17:00 DCW (Rec: 12/22/24 17:43 DCW [id number]) Out-Patient Physical Therapy Visit Information Visit Information Visit Type Treatment Note Visit Start Time 17:00 Visit Stop Time 17:45 Visit Number 6 Number of CUTTER WET MACHINE Visits 0 Evaluation Information Evaluation Date 10/07/24 PT-OP-B Current Condition Start: 10/07/24 15:47 Freq: Status: Active Protocol: Document 10/07/24 15:15 DCW (Rec: 10/07/24 17:51 DCW [id number]) Current Condition History of Current Condition Current Complaints Cervical pain, stiffness History of Current Condition Pt is a 69 year old female presenting to skilled therapy with a long-standing history of cervical dysfunction. Pt has been treated at this clinic for the same symptoms multiple times over the years. Pt often has episodes of severe neck pain, migraines, and decreased cervical mobility, typically worsened by stress in her life. Pt notes that her neck was worsening, but then got a little better, and she is actually doing pretty well at the moment, not nearly as bad as when she usually comes into PT. Does note, however, that she is leaving for a ~3 week long cruise in two weeks, and wants to make sure she does everything she can prior to leaving to hope that her neck does not give her trouble during her vacation. PT-OP-C Subjective Start: 10/07/24 15:47 Freq: Status: Active Protocol: Document 12/22/24 17:00 DCW (Rec: 12/22/24 17:43 DCW [id number]) OP-PT Subjective Patient Comments Patient Comments I've just been headachy and sore recently. PT-OP-F Manual Assessment Start: 10/07/24 15:47 Freq: Status: Active Protocol: Document 10/07/24 15:15 DCW (Rec: 10/07/24 15:53 DCW [id number]) Manual Assessments Soft Tissue Assessment Soft Tissue Mobility Assessment Mild tone and tenderness to palpation 11/15: Complaint of pain in cervical paraspinals, upper trap Joint Mobility Assessment Joint Mobility Assessment C4 rotated mildly clockwise PT-OP-K Range of Motion Start: 10/07/24 15:47 Freq: Status: Active Protocol: Document 10/07/24 15:15 DCW (Rec: 10/07/24 15:53 DCW [id number]) Cervical Spine Range of Motion Cervical Spine Active Degrees Testing Position Sitting Flexion 42 Extension 35 Rotation Left 30 Rotation Right 18 Lateral Flexion Left 55 Lateral Flexion Right 32 ROM Limitations Bony Restriction,Muscle Tone, Pain Comments Pain with extension, right rotation, right lateral flexion PT-OP-Q Treatments Start: 10/07/24 15:47 Freq: Status: Active Protocol: Document 12/22/24 17:00 DCW (Rec: 12/22/24 17:43 DCW [id number]) Manual Therapy Treatment Consent Patient gave verbal consent for manual Yes treatment Soft Tissue Mobilization Paraspinals Body Location Cervical paraspinals, Upper Trap, Scalenes Mobilization Type Strumming,Sustained Pressure Intensity/Depth Moderate Body Position Hooklying Manual Traction Cervical Details Cervical Traction Body Position Hooklying Other Other Manual Treatments MWM - resisted left rotation of head PT-OP-T Assessment and Plan Start: 10/07/24 15:47 Freq: Status: Active Protocol: Document 12/22/24 17:00 DCW (Rec: 12/22/24 17:43 DCW [id number]) Physical Therapy Assessment Impairments Impairments Functional Activities, Functional Mobility,Pain,ROM, Tone Goals Two Impairment Pt does not have an appropriate home exercise program Short Term Goal (STG) Pt to be independent and compliant with an appropriate HEP STG Duration 11/06/24 One Impairment Decreased R cervical rotation limits ability to see traffic while driving Political Cartoonist Goal (LTG) PT to demonstrate improvement in right cervical rotation from 18? to >30? in order to improve driving safety LTG Duration 12/07/24 Assessment Summary Assessment Good response to MWM today, feeling better following treatment session. Leaving out of state for trip, hoping to follow-up upon return Physical Therapy Plan Frequency and Duration Frequency of Treatment 1x/Week Plan of Care Start Date 12/17/24 Plan of Care End Date 02/14/25 Therapeutic Interventions Therapeutic Interventions Home Exercise Program,Joint Mobilizations,Manual Therapy, Neuromuscular Re-education, Patient/Caregiver Education, Self-Care/Home Management,Soft Tissue Mobilization, Therapeutic Activities, Therapeutic Exercises Modalities Cold Pack/Ice Massage,Hot Packs Next Visit Focus/Plan Next Note Type Treatment Note Next Visit Plan STM, MWM, cervical strengthening
--- NOTE | 2025-01-15 12:15 | PT.OTN ---
Current Diagnoses Other migraine, not intractable, without status migrainosus (01/15/25) Spondylosis without myelopathy or radiculopathy, cervical region (01/15/25) Physical Therapy Treatment Note PT-OP-A Visit Information Start: 10/07/24 15:47 Freq: Status: Active Protocol: Document 01/15/25 11:35 DCW (Rec: 01/15/25 12:15 DCW [id number]) Out-Patient Physical Therapy Visit Information Visit Information Visit Type Treatment Note Visit Start Time 11:35 Visit Stop Time 12:15 Visit Number 7 Number of BOX WORKER Visits 0 Evaluation Information Evaluation Date 10/07/24 PT-OP-B Current Condition Start: 10/07/24 15:47 Freq: Status: Active Protocol: Document 10/07/24 15:15 DCW (Rec: 10/07/24 17:51 DCW [id number]) Current Condition History of Current Condition Current Complaints Cervical pain, stiffness History of Current Condition Pt is a 69 year old female presenting to skilled therapy with a long-standing history of cervical dysfunction. Pt has been treated at this clinic for the same symptoms multiple times over the years. Pt often has episodes of severe neck pain, migraines, and decreased cervical mobility, typically worsened by stress in her life. Pt notes that her neck was worsening, but then got a little better, and she is actually doing pretty well at the moment, not nearly as bad as when she usually comes into PT. Does note, however, that she is leaving for a ~3 week long cruise in two weeks, and wants to make sure she does everything she can prior to leaving to hope that her neck does not give her trouble during her vacation. PT-OP-C Subjective Start: 10/07/24 15:47 Freq: Status: Active Protocol: Document 01/15/25 11:35 DCW (Rec: 01/15/25 12:15 DCW [id number]) OP-PT Subjective Patient Comments Patient Comments I've just been super tired. I don't know why. PT-OP-F Manual Assessment Start: 10/07/24 15:47 Freq: Status: Active Protocol: Document 10/07/24 15:15 DCW (Rec: 10/07/24 15:53 DCW [id number]) Manual Assessments Soft Tissue Assessment Soft Tissue Mobility Assessment Mild tone and tenderness to palpation 1/4: Complaint of pain in cervical paraspinals, upper trap Joint Mobility Assessment Joint Mobility Assessment C4 rotated mildly clockwise PT-OP-K Range of Motion Start: 10/07/24 15:47 Freq: Status: Active Protocol: Document 10/07/24 15:15 DCW (Rec: 10/07/24 15:53 DCW [id number]) Cervical Spine Range of Motion Cervical Spine Active Degrees Testing Position Sitting Flexion 42 Extension 35 Rotation Left 30 Rotation Right 18 Lateral Flexion Left 55 Lateral Flexion Right 32 ROM Limitations Bony Restriction,Muscle Tone, Pain Comments Pain with extension, right rotation, right lateral flexion PT-OP-Q Treatments Start: 10/07/24 15:47 Freq: Status: Active Protocol: Document 01/15/25 11:35 DCW (Rec: 01/15/25 12:15 DCW [id number]) Manual Therapy Treatment Consent Patient gave verbal consent for manual Yes treatment Soft Tissue Mobilization Paraspinals Body Location Cervical paraspinals, Upper Trap, Scalenes Mobilization Type Strumming,Sustained Pressure Intensity/Depth Moderate Body Position Hooklying Manual Traction Cervical Details Cervical Traction Body Position Hooklying Other Other Manual Treatments MWM - resisted left rotation of head PT-OP-T Assessment and Plan Start: 10/07/24 15:47 Freq: Status: Active Protocol: Document 01/15/25 11:35 DCW (Rec: 01/15/25 12:15 DCW [id number]) Physical Therapy Assessment Impairments Impairments Functional Activities, Functional Mobility,Pain,ROM, Tone Goals Two Impairment Pt does not have an appropriate home exercise program Short Term Goal (STG) Pt to be independent and compliant with an appropriate HEP STG Duration 11/06/24 One Impairment Decreased R cervical rotation limits ability to see traffic while driving Human Relations Teacher Goal (LTG) PT to demonstrate improvement in right cervical rotation from 18? to >30? in order to improve driving safety LTG Duration 12/07/24 Assessment Summary Assessment Follow-up after trip went well today, feeling like she is seeing notable improvement, but has a few more trips out of state coming up, worried that there will be some decrease in function with travel, will try to get her in prior to trip. Physical Therapy Plan Frequency and Duration Frequency of Treatment 1x/Week Plan of Care Start Date 12/17/24 Plan of Care End Date 02/14/25 Therapeutic Interventions Therapeutic Interventions Home Exercise Program,Joint Mobilizations,Manual Therapy, Neuromuscular Re-education, Patient/Caregiver Education, Self-Care/Home Management,Soft Tissue Mobilization, Therapeutic Activities, Therapeutic Exercises Modalities Cold Pack/Ice Massage,Hot Packs Next Visit Focus/Plan Next Note Type Treatment Note Next Visit Plan STM, MWM, cervical strengthening
--- NOTE | 2025-01-26 11:31 | PT.OTN ---
Current Diagnoses Other migraine, not intractable, without status migrainosus (01/26/25) Spondylosis without myelopathy or radiculopathy, cervical region (01/26/25) Physical Therapy Treatment Note PT-OP-A Visit Information Start: 10/07/24 15:47 Freq: Status: Active Protocol: Document 01/26/25 10:48 DCW (Rec: 01/26/25 11:25 DCW [id number]) Out-Patient Physical Therapy Visit Information Visit Information Visit Type Treatment Note Visit Start Time 10:48 Visit Stop Time 11:15 Visit Number 8 Number of SENIOR GIS ANALYST Visits 0 Evaluation Information Evaluation Date 10/07/24 PT-OP-B Current Condition Start: 10/07/24 15:47 Freq: Status: Active Protocol: Document 10/07/24 15:15 DCW (Rec: 10/07/24 17:51 DCW [id number]) Current Condition History of Current Condition Current Complaints Cervical pain, stiffness History of Current Condition Pt is a 69 year old female presenting to skilled therapy with a long-standing history of cervical dysfunction. Pt has been treated at this clinic for the same symptoms multiple times over the years. Pt often has episodes of severe neck pain, migraines, and decreased cervical mobility, typically worsened by stress in her life. Pt notes that her neck was worsening, but then got a little better, and she is actually doing pretty well at the moment, not nearly as bad as when she usually comes into PT. Does note, however, that she is leaving for a ~3 week long cruise in two weeks, and wants to make sure she does everything she can prior to leaving to hope that her neck does not give her trouble during her vacation. PT-OP-C Subjective Start: 10/07/24 15:47 Freq: Status: Active Protocol: Document 01/26/25 10:48 DCW (Rec: 01/26/25 11:25 DCW [id number]) OP-PT Subjective Patient Comments Patient Comments Pt notes she doesn't feel too bad, just a little tight. PT-OP-F Manual Assessment Start: 10/07/24 15:47 Freq: Status: Active Protocol: Document 10/07/24 15:15 DCW (Rec: 10/07/24 15:53 DCW [id number]) Manual Assessments Soft Tissue Assessment Soft Tissue Mobility Assessment Mild tone and tenderness to palpation 1/4: Complaint of pain in cervical paraspinals, upper trap Joint Mobility Assessment Joint Mobility Assessment C4 rotated mildly clockwise PT-OP-K Range of Motion Start: 10/07/24 15:47 Freq: Status: Active Protocol: Document 10/07/24 15:15 DCW (Rec: 10/07/24 15:53 DCW [id number]) Cervical Spine Range of Motion Cervical Spine Active Degrees Testing Position Sitting Flexion 42 Extension 35 Rotation Left 30 Rotation Right 18 Lateral Flexion Left 55 Lateral Flexion Right 32 ROM Limitations Bony Restriction,Muscle Tone, Pain Comments Pain with extension, right rotation, right lateral flexion PT-OP-Q Treatments Start: 10/07/24 15:47 Freq: Status: Active Protocol: Document 01/26/25 10:48 DCW (Rec: 01/26/25 11:25 DCW [id number]) Manual Therapy Treatment Consent Patient gave verbal consent for manual Yes treatment Soft Tissue Mobilization Paraspinals Body Location Cervical paraspinals, Upper Trap, Scalenes Mobilization Type Strumming,Sustained Pressure Intensity/Depth Moderate Body Position Hooklying Manual Traction Cervical Details Cervical Traction Body Position Hooklying Other Other Manual Treatments MWM - resisted left rotation of head PT-OP-T Assessment and Plan Start: 10/07/24 15:47 Freq: Status: Active Protocol: Document 01/26/25 10:48 DCW (Rec: 01/26/25 11:25 DCW [id number]) Physical Therapy Assessment Impairments Impairments Functional Activities, Functional Mobility,Pain,ROM, Tone Goals Two Impairment Pt does not have an appropriate home exercise program Short Term Goal (STG) Pt to be independent and compliant with an appropriate HEP STG Duration 11/06/24 One Impairment Decreased R cervical rotation limits ability to see traffic while driving Correction Goal (LTG) PT to demonstrate improvement in right cervical rotation from 18? to >30? in order to improve driving safety LTG Duration 12/07/24 Assessment Summary Assessment Pt doing well today, continues to feel better over longer periods of time. Physical Therapy Plan Frequency and Duration Frequency of Treatment 1x/Week Plan of Care Start Date 12/17/24 Plan of Care End Date 02/14/25 Therapeutic Interventions Therapeutic Interventions Home Exercise Program,Joint Mobilizations,Manual Therapy, Neuromuscular Re-education, Patient/Caregiver Education, Self-Care/Home Management,Soft Tissue Mobilization, Therapeutic Activities, Therapeutic Exercises Modalities Cold Pack/Ice Massage,Hot Packs Next Visit Focus/Plan Next Note Type Treatment Note Next Visit Plan STM, MWM, cervical strengthening
--- NOTE | 2025-02-09 17:46 | PT.OTN ---
Current Diagnoses Other migraine, not intractable, without status migrainosus (02/09/25) Spondylosis without myelopathy or radiculopathy, cervical region (02/09/25) Physical Therapy Treatment Note PT-OP-A Visit Information Start: 10/07/24 15:47 Freq: Status: Active Protocol: Document 02/09/25 17:00 DCW (Rec: 02/09/25 17:45 DCW [id number]) Out-Patient Physical Therapy Visit Information Visit Information Visit Type Treatment Note Visit Start Time 17:00 Visit Stop Time 17:45 Visit Number 9 Number of VEHICLE FUEL SYSTEMS CONVERTER Visits 0 Evaluation Information Evaluation Date 10/07/24 PT-OP-B Current Condition Start: 10/07/24 15:47 Freq: Status: Active Protocol: Document 10/07/24 15:15 DCW (Rec: 10/07/24 17:51 DCW [id number]) Current Condition History of Current Condition Current Complaints Cervical pain, stiffness History of Current Condition Pt is a 69 year old female presenting to skilled therapy with a long-standing history of cervical dysfunction. Pt has been treated at this clinic for the same symptoms multiple times over the years. Pt often has episodes of severe neck pain, migraines, and decreased cervical mobility, typically worsened by stress in her life. Pt notes that her neck was worsening, but then got a little better, and she is actually doing pretty well at the moment, not nearly as bad as when she usually comes into PT. Does note, however, that she is leaving for a ~3 week long cruise in two weeks, and wants to make sure she does everything she can prior to leaving to hope that her neck does not give her trouble during her vacation. PT-OP-C Subjective Start: 10/07/24 15:47 Freq: Status: Active Protocol: Document 02/09/25 17:00 DCW (Rec: 02/09/25 17:45 DCW [id number]) OP-PT Subjective Patient Comments Patient Comments Pt notes she has a lot going on in her personal life, fairly high stressed right now . PT-OP-F Manual Assessment Start: 10/07/24 15:47 Freq: Status: Active Protocol: Document 10/07/24 15:15 DCW (Rec: 10/07/24 15:53 DCW [id number]) Manual Assessments Soft Tissue Assessment Soft Tissue Mobility Assessment Mild tone and tenderness to palpation 11/15: Complaint of pain in cervical paraspinals, upper trap Joint Mobility Assessment Joint Mobility Assessment C4 rotated mildly clockwise PT-OP-K Range of Motion Start: 10/07/24 15:47 Freq: Status: Active Protocol: Document 10/07/24 15:15 DCW (Rec: 10/07/24 15:53 DCW [id number]) Cervical Spine Range of Motion Cervical Spine Active Degrees Testing Position Sitting Flexion 42 Extension 35 Rotation Left 30 Rotation Right 18 Lateral Flexion Left 55 Lateral Flexion Right 32 ROM Limitations Bony Restriction,Muscle Tone, Pain Comments Pain with extension, right rotation, right lateral flexion PT-OP-Q Treatments Start: 10/07/24 15:47 Freq: Status: Active Protocol: Document 02/09/25 17:00 DCW (Rec: 02/09/25 17:45 DCW [id number]) Manual Therapy Treatment Consent Patient gave verbal consent for manual Yes treatment Soft Tissue Mobilization Paraspinals Body Location Cervical paraspinals, Upper Trap, Scalenes Mobilization Type Strumming,Sustained Pressure Intensity/Depth Moderate Body Position Hooklying Manual Traction Cervical Details Cervical Traction Body Position Hooklying Other Other Manual Treatments MWM - resisted left rotation of head PT-OP-T Assessment and Plan Start: 10/07/24 15:47 Freq: Status: Active Protocol: Document 02/09/25 17:00 DCW (Rec: 02/09/25 17:45 DCW [id number]) Physical Therapy Assessment Impairments Impairments Functional Activities, Functional Mobility,Pain,ROM, Tone Goals Two Impairment Pt does not have an appropriate home exercise program Short Term Goal (STG) Pt to be independent and compliant with an appropriate HEP STG Duration 02/14/24 One Impairment Decreased R cervical rotation limits ability to see traffic while driving Wastewater Design Engineer Goal (LTG) PT to demonstrate improvement in right cervical rotation from 18? to >30? in order to improve driving safety LTG Duration 02/13/25 Assessment Summary Assessment Pt's increased stress today appears to have impacted general tone, significantly higher tone in right cervical paraspinals, UT, scalenes. Continue to focus on functional mobility and tone management. Physical Therapy Plan Frequency and Duration Frequency of Treatment 1x/Week Plan of Care Start Date 12/17/24 Plan of Care End Date 02/14/25 Therapeutic Interventions Therapeutic Interventions Home Exercise Program,Joint Mobilizations,Manual Therapy, Neuromuscular Re-education, Patient/Caregiver Education, Self-Care/Home Management,Soft Tissue Mobilization, Therapeutic Activities, Therapeutic Exercises Modalities Cold Pack/Ice Massage,Hot Packs Next Visit Focus/Plan Next Note Type Treatment Note Next Visit Plan STM, MWM, cervical strengthening
--- NOTE | 2025-03-30 17:46 | PT.OTN ---
Current Diagnoses Other migraine, not intractable, without status migrainosus (03/30/25) Spondylosis without myelopathy or radiculopathy, cervical region (03/30/25) Physical Therapy Treatment Note PT-OP-A Visit Information Start: 10/07/24 15:47 Freq: Status: Active Protocol: Document 03/30/25 17:00 DCW (Rec: 03/30/25 17:46 DCW [id number]) Out-Patient Physical Therapy Visit Information Visit Information Visit Type Progress Note Visit Start Time 17:00 Visit Stop Time 17:45 Visit Number 10 Number of SCIENTIFIC PHOTOGRAPHER Visits 0 Evaluation Information Evaluation Date 10/07/24 PT-OP-B Current Condition Start: 10/07/24 15:47 Freq: Status: Active Protocol: Document 10/07/24 15:15 DCW (Rec: 10/07/24 17:51 DCW [id number]) Current Condition History of Current Condition Current Complaints Cervical pain, stiffness History of Current Condition Pt is a 69 year old female presenting to skilled therapy with a long-standing history of cervical dysfunction. Pt has been treated at this clinic for the same symptoms multiple times over the years. Pt often has episodes of severe neck pain, migraines, and decreased cervical mobility, typically worsened by stress in her life. Pt notes that her neck was worsening, but then got a little better, and she is actually doing pretty well at the moment, not nearly as bad as when she usually comes into PT. Does note, however, that she is leaving for a ~3 week long cruise in two weeks, and wants to make sure she does everything she can prior to leaving to hope that her neck does not give her trouble during her vacation. PT-OP-C Subjective Start: 10/07/24 15:47 Freq: Status: Active Protocol: Document 03/30/25 17:00 DCW (Rec: 03/30/25 17:06 DCW [id number]) OP-PT Subjective Patient Comments Patient Comments I don't know what I did, but I did something. Notes she is really feeling like her cervical pain has been significantly worse. PT-OP-F Manual Assessment Start: 10/07/24 15:47 Freq: Status: Active Protocol: Document 03/30/25 17:00 DCW (Rec: 03/30/25 17:13 DCW [id number]) Manual Assessments Soft Tissue Assessment Soft Tissue Mobility Assessment Mild tone and tenderness to palpation 2/4: Pain with wincing in cervical paraspinals, upper trap Joint Mobility Assessment Joint Mobility Assessment C4 rotated mildly clockwise PT-OP-K Range of Motion Start: 10/07/24 15:47 Freq: Status: Active Protocol: Document 03/30/25 17:00 DCW (Rec: 03/30/25 17:13 DCW [id number]) Cervical Spine Range of Motion Cervical Spine Active Degrees Testing Position Sitting Flexion 60 Extension 45 Rotation Left 50 Rotation Right 30 Lateral Flexion Left 30 Lateral Flexion Right 35 ROM Limitations Bony Restriction,Muscle Tone, Pain Comments Pain with extension, right rotation, right lateral flexion PT-OP-Q Treatments Start: 10/07/24 15:47 Freq: Status: Active Protocol: Document 03/30/25 17:00 DCW (Rec: 03/30/25 17:46 DCW [id number]) Manual Therapy Treatment Consent Patient gave verbal consent for manual Yes treatment Soft Tissue Mobilization Paraspinals Body Location Cervical paraspinals, Upper Trap, Scalenes Mobilization Type Strumming,Sustained Pressure Intensity/Depth Moderate Body Position Hooklying Manual Traction Cervical Details Cervical Traction Body Position Hooklying Other Other Manual Treatments MWM - resisted left rotation of head PT-OP-T Assessment and Plan Start: 10/07/24 15:47 Freq: Status: Active Protocol: Document 03/30/25 17:00 DCW (Rec: 03/30/25 17:46 DCW [id number]) Physical Therapy Assessment Impairments Impairments Functional Activities, Functional Mobility,Pain,ROM, Tone Goals Two Impairment Pt does not have an appropriate home exercise program Short Term Goal (STG) Pt to be independent and compliant with an appropriate HEP STG Duration 04/30/25 One Impairment Decreased R cervical rotation limits ability to see traffic while driving Inner Tube Inserter Goal (LTG) PT to demonstrate improvement in right cervical rotation from 18? to >30? in order to improve driving safety LTG Duration 05/30/25 Assessment Summary Assessment Pt overall demonstrating good overall improvement since her initial evaluation, with cervical rotation from 30? L, 18? R to 50? L, 30? R. Is still significantly limited, however, mainly with right cervical rotation left lateral flexion. Continue to focus on tone management, cervical strengthening, STM, and cervical traction. Physical Therapy Plan Frequency and Duration Frequency of Treatment 1x/Week Plan of Care Start Date 03/30/25 Plan of Care End Date 05/30/25 Therapeutic Interventions Therapeutic Interventions Home Exercise Program,Joint Mobilizations,Manual Therapy, Neuromuscular Re-education, Patient/Caregiver Education, Self-Care/Home Management,Soft Tissue Mobilization, Therapeutic Activities, Therapeutic Exercises Modalities Cold Pack/Ice Massage,Hot Packs Next Visit Focus/Plan Next Note Type Treatment Note Next Visit Plan STM, MWM, cervical strengthening
--- NOTE | 2025-03-30 17:46 | PT.OPPOC ---
Physical, Occupational & Speech Therapy At [facility] Current Diagnoses Other migraine, not intractable, without status migrainosus (03/30/25) Spondylosis without myelopathy or radiculopathy, cervical region (03/30/25) Visit Care Team Role Provider Type Balwinder Ocasio MD Attending Provider Physician Family Provider Primary Care Provider Referring Provider Specialty: Internal Medicine Address: [address] [place] [address], [facility] Email: [email or web address] Plan Of Care PT-OP-B Current Condition Start: 10/07/24 15:47 Freq: Status: Active Protocol: Document 10/07/24 15:15 DCW (Rec: 10/07/24 17:51 DCW [id number]) Current Condition History of Current Condition Current Complaints Cervical pain, stiffness History of Current Condition Pt is a 69 year old female presenting to skilled therapy with a long-standing history of cervical dysfunction. Pt has been treated at this clinic for the same symptoms multiple times over the years. Pt often has episodes of severe neck pain, migraines, and decreased cervical mobility, typically worsened by stress in her life. Pt notes that her neck was worsening, but then got a little better, and she is actually doing pretty well at the moment, not nearly as bad as when she usually comes into PT. Does note, however, that she is leaving for a ~3 week long cruise in two weeks, and wants to make sure she does everything she can prior to leaving to hope that her neck does not give her trouble during her vacation. PT-OP-T Assessment and Plan Start: 10/07/24 15:47 Freq: Status: Active Protocol: Document 03/30/25 17:00 DCW (Rec: 03/30/25 17:46 DCW [id number]) Physical Therapy Assessment Impairments Impairments Functional Activities, Functional Mobility,Pain,ROM, Tone Goals Two Impairment Pt does not have an appropriate home exercise program Short Term Goal (STG) Pt to be independent and compliant with an appropriate HEP STG Duration 04/30/25 One Impairment Decreased R cervical rotation limits ability to see traffic while driving Mcc Goal (LTG) PT to demonstrate improvement in right cervical rotation from 18? to >30? in order to improve driving safety LTG Duration 05/30/25 Assessment Summary Assessment Pt overall demonstrating good overall improvement since her initial evaluation, with cervical rotation from 30? L, 18? R to 50? L, 30? R. Is still significantly limited, however, mainly with right cervical rotation left lateral flexion. Continue to focus on tone management, cervical strengthening, STM, and cervical traction. Physical Therapy Plan Frequency and Duration Frequency of Treatment 1x/Week Plan of Care Start Date 03/30/25 Plan of Care End Date 05/30/25 Therapeutic Interventions Therapeutic Interventions Home Exercise Program,Joint Mobilizations,Manual Therapy, Neuromuscular Re-education, Patient/Caregiver Education, Self-Care/Home Management,Soft Tissue Mobilization, Therapeutic Activities, Therapeutic Exercises Modalities Cold Pack/Ice Massage,Hot Packs Next Visit Focus/Plan Next Note Type Treatment Note Next Visit Plan STM, MWM, cervical strengthening Plan of Care Dates Plan of Care Start Date 03/30/25 Plan of Care End Date 05/30/25 Electronically Signed by: Delfin Rodriguez, PT 03/30/25 1078 If you are in agreement with this Plan of Care, please return a signed and dated copy. I have reviewed this Plan of Care and certify that the skilled therapy services above are required to meet the patient?s needs. Physician Signature Date Printed Name and Credentials Clinical Instructor Signature Printed Name and Credentials
--- NOTE | 2025-04-27 15:14 | PT.OTN ---
Current Diagnoses Other migraine, not intractable, without status migrainosus (04/27/25) Spondylosis without myelopathy or radiculopathy, cervical region (04/27/25) Physical Therapy Treatment Note PT-OP-A Visit Information Start: 10/07/24 15:47 Freq: Status: Active Protocol: Document 04/27/25 14:30 DCW (Rec: 04/27/25 15:14 DCW [id number]) Out-Patient Physical Therapy Visit Information Visit Information Visit Type Re-Evaluation Visit Start Time 14:30 Visit Stop Time 15:15 Visit Number 11 Number of CARTON LETTERING MACHINE OPERATOR Visits 0 Evaluation Information Evaluation Date 10/07/24 PT-OP-B Current Condition Start: 10/07/24 15:47 Freq: Status: Active Protocol: Document 10/07/24 15:15 DCW (Rec: 10/07/24 17:51 DCW [id number]) Current Condition History of Current Condition Current Complaints Cervical pain, stiffness History of Current Pt is a 69 year old female presenting to skilled Condition therapy with a long-standing history of cervical dysfunction. Pt has been treated at this clinic for the same symptoms multiple times over the years. Pt often has episodes of severe neck pain, migraines, and decreased cervical mobility, typically worsened by stress in her life. Pt notes that her neck was worsening, but then got a little better, and she is actually doing pretty well at the moment, not nearly as bad as when she usually comes into PT. Does note, however, that she is leaving for a ~3 week long cruise in two weeks, and wants to make sure she does everything she can prior to leaving to hope that her neck does not give her trouble during her vacation. PT-OP-C Subjective Start: 10/07/24 15:47 Freq: Status: Active Protocol: Document 04/27/25 14:30 DCW (Rec: 04/27/25 15:14 DCW [id number]) OP-PT Subjective Patient Comments Patient Comments Pt had a fall this past weekend, landing on her left wrist. Between the fall and a recent incident of her head getting bonked with luggage during a recent trip , her neck has been more sore. PT-OP-F Manual Assessment Start: 10/07/24 15:47 Freq: Status: Active Protocol: Document 03/30/25 17:00 DCW (Rec: 03/30/25 17:13 DCW [id number]) Manual Assessments Soft Tissue Assessment Soft Tissue Mobility Mild tone and tenderness to palpation 2/4: Pain with Assessment wincing in cervical paraspinals, upper trap Joint Mobility Assessment Joint Mobility C4 rotated mildly clockwise Assessment PT-OP-K Range of Motion Start: 10/07/24 15:47 Freq: Status: Active Protocol: Document 03/30/25 17:00 DCW (Rec: 03/30/25 17:13 DCW [id number]) Cervical Spine Range of Motion Cervical Spine Active Degrees Testing Position Sitting Flexion 60 Extension 45 Rotation Left 50 Rotation Right 30 Lateral Flexion Left 30 Lateral Flexion 35 Right ROM Limitations Bony Restriction,Muscle Tone,Pain Comments Pain with extension, right rotation, right lateral flexion PT-OP-Q Treatments Start: 10/07/24 15:47 Freq: Status: Active Protocol: Document 04/27/25 14:30 DCW (Rec: 04/27/25 15:14 DCW [id number]) Manual Therapy Treatment Consent Patient gave verbal Yes consent for manual treatment Soft Tissue Mobilization Paraspinals Body Location Cervical paraspinals, Upper Trap, Scalenes Mobilization Type Strumming,Sustained Pressure Intensity/Depth Moderate Body Position Hooklying Manual Traction Cervical Details Cervical Traction Body Position Hooklying Other Other Manual MWM - resisted left rotation of head Treatments PT-OP-T Assessment and Plan Start: 10/07/24 15:47 Freq: Status: Active Protocol: Document 04/27/25 14:30 DCW (Rec: 04/27/25 15:14 DCW [id number]) Physical Therapy Assessment Impairments Impairments Functional Activities,Functional Mobility,Pain,ROM,Tone Goals Two Impairment Pt does not have an appropriate home exercise program Short Term Goal (STG Pt to be independent and compliant with an appropriate ) HEP STG Duration 04/30/25 One Impairment Decreased R cervical rotation limits ability to see traffic while driving Drilling Machine Operator Goal (LTG) PT to demonstrate improvement in right cervical rotation from 18? to >30? in order to improve driving safety LTG Duration 05/30/25 Assessment Summary Assessment Pt tolerated treatment well today, good response to STM . Continue to focus on tone management, functional mobility, and pain control. Physical Therapy Plan Frequency and Duration Frequency of 1x/Week Treatment Plan of Care Start 03/30/25 Date Plan of Care End 05/30/25 Date Therapeutic Interventions Therapeutic Home Exercise Program,Joint Mobilizations,Manual Interventions Therapy,Neuromuscular Re-education,Patient/Caregiver Education,Self-Care/Home Management,Soft Tissue Mobilization,Therapeutic Activities,Therapeutic Exercises Modalities Cold Pack/Ice Massage,Hot Packs Next Visit Focus/Plan Next Note Type Treatment Note Next Visit Plan STM, MWM, cervical strengthening
--- NOTE | 2025-05-13 15:57 | PT.OTN ---
Current Diagnoses Other migraine, not intractable, without status migrainosus (05/13/25) Spondylosis without myelopathy or radiculopathy, cervical region (05/13/25) Physical Therapy Treatment Note PT-OP-A Visit Information Start: 10/07/24 15:47 Freq: Status: Active Protocol: Document 05/13/25 15:15 DCW (Rec: 05/13/25 15:57 DCW [id number]) Out-Patient Physical Therapy Visit Information Visit Information Visit Type Treatment Note Visit Start Time 15:15 Visit Stop Time 16:00 Visit Number 12 Number of TICK INSPECTOR Visits 0 Evaluation Information Evaluation Date 10/07/24 PT-OP-B Current Condition Start: 10/07/24 15:47 Freq: Status: Active Protocol: Document 10/07/24 15:15 DCW (Rec: 10/07/24 17:51 DCW [id number]) Current Condition History of Current Condition Current Complaints Cervical pain, stiffness History of Current Pt is a 69 year old female presenting to skilled Condition therapy with a long-standing history of cervical dysfunction. Pt has been treated at this clinic for the same symptoms multiple times over the years. Pt often has episodes of severe neck pain, migraines, and decreased cervical mobility, typically worsened by stress in her life. Pt notes that her neck was worsening, but then got a little better, and she is actually doing pretty well at the moment, not nearly as bad as when she usually comes into PT. Does note, however, that she is leaving for a ~3 week long cruise in two weeks, and wants to make sure she does everything she can prior to leaving to hope that her neck does not give her trouble during her vacation. PT-OP-C Subjective Start: 10/07/24 15:47 Freq: Status: Active Protocol: Document 05/13/25 15:15 DCW (Rec: 05/13/25 15:57 DCW [id number]) OP-PT Subjective Patient Comments Patient Comments It's been not terrible, but I still need to be in here . I think it's still really tight. PT-OP-F Manual Assessment Start: 10/07/24 15:47 Freq: Status: Active Protocol: Document 03/30/25 17:00 DCW (Rec: 03/30/25 17:13 DCW [id number]) Manual Assessments Soft Tissue Assessment Soft Tissue Mobility Mild tone and tenderness to palpation 2/4: Pain with Assessment wincing in cervical paraspinals, upper trap Joint Mobility Assessment Joint Mobility C4 rotated mildly clockwise Assessment PT-OP-K Range of Motion Start: 10/07/24 15:47 Freq: Status: Active Protocol: Document 03/30/25 17:00 DCW (Rec: 03/30/25 17:13 DCW [id number]) Cervical Spine Range of Motion Cervical Spine Active Degrees Testing Position Sitting Flexion 60 Extension 45 Rotation Left 50 Rotation Right 30 Lateral Flexion Left 30 Lateral Flexion 35 Right ROM Limitations Bony Restriction,Muscle Tone,Pain Comments Pain with extension, right rotation, right lateral flexion PT-OP-Q Treatments Start: 10/07/24 15:47 Freq: Status: Active Protocol: Document 05/13/25 15:15 DCW (Rec: 05/13/25 15:57 DCW [id number]) Manual Therapy Treatment Consent Patient gave verbal Yes consent for manual treatment Soft Tissue Mobilization Paraspinals Body Location Cervical paraspinals, Upper Trap, Scalenes Mobilization Type Strumming,Sustained Pressure Intensity/Depth Moderate Body Position Hooklying Manual Traction Cervical Details Cervical Traction Body Position Hooklying PT-OP-T Assessment and Plan Start: 10/07/24 15:47 Freq: Status: Active Protocol: Document 05/13/25 15:15 DCW (Rec: 05/13/25 15:57 DCW [id number]) Physical Therapy Assessment Impairments Impairments Functional Activities,Functional Mobility,Pain,ROM,Tone Goals Two Impairment Pt does not have an appropriate home exercise program Short Term Goal (STG Pt to be independent and compliant with an appropriate ) HEP STG Duration 04/30/25 One Impairment Decreased R cervical rotation limits ability to see traffic while driving Senior Care Goal (LTG) PT to demonstrate improvement in right cervical rotation from 18? to >30? in order to improve driving safety LTG Duration 05/30/25 Assessment Summary Assessment Tolerated treatment well today. Pt exhibiting some increased tone, however overall much improved from past sessions. Continue to focus on tone management and functional mobility of cervical spine. Physical Therapy Plan Frequency and Duration Frequency of 1x/Week Treatment Plan of Care Start 03/30/25 Date Plan of Care End 05/30/25 Date Therapeutic Interventions Therapeutic Home Exercise Program,Joint Mobilizations,Manual Interventions Therapy,Neuromuscular Re-education,Patient/Caregiver Education,Self-Care/Home Management,Soft Tissue Mobilization,Therapeutic Activities,Therapeutic Exercises Modalities Cold Pack/Ice Massage,Hot Packs Next Visit Focus/Plan Next Note Type Treatment Note Next Visit Plan STM, MWM, cervical strengthening
--- NOTE | 2025-05-13 15:59 | PT.OTN ---
Current Diagnoses Other migraine, not intractable, without status migrainosus (05/13/25) Spondylosis without myelopathy or radiculopathy, cervical region (05/13/25) Physical Therapy Treatment Note PT-OP-A Visit Information Start: 10/07/24 15:47 Freq: Status: Active Protocol: Document 05/13/25 15:15 DCW (Rec: 05/13/25 15:57 DCW [id number]) Out-Patient Physical Therapy Visit Information Visit Information Visit Type Treatment Note Visit Start Time 15:15 Visit Stop Time 16:00 Visit Number 12 Number of PICKER AND PACKER Visits 0 Evaluation Information Evaluation Date 10/07/24 PT-OP-B Current Condition Start: 10/07/24 15:47 Freq: Status: Active Protocol: Document 10/07/24 15:15 DCW (Rec: 10/07/24 17:51 DCW [id number]) Current Condition History of Current Condition Current Complaints Cervical pain, stiffness History of Current Pt is a 69 year old female presenting to skilled Condition therapy with a long-standing history of cervical dysfunction. Pt has been treated at this clinic for the same symptoms multiple times over the years. Pt often has episodes of severe neck pain, migraines, and decreased cervical mobility, typically worsened by stress in her life. Pt notes that her neck was worsening, but then got a little better, and she is actually doing pretty well at the moment, not nearly as bad as when she usually comes into PT. Does note, however, that she is leaving for a ~3 week long cruise in two weeks, and wants to make sure she does everything she can prior to leaving to hope that her neck does not give her trouble during her vacation. PT-OP-C Subjective Start: 10/07/24 15:47 Freq: Status: Active Protocol: Document 05/13/25 15:15 DCW (Rec: 05/13/25 15:57 DCW [id number]) OP-PT Subjective Patient Comments Patient Comments It's been not terrible, but I still need to be in here . I think it's still really tight. PT-OP-F Manual Assessment Start: 10/07/24 15:47 Freq: Status: Active Protocol: Document 03/30/25 17:00 DCW (Rec: 03/30/25 17:13 DCW [id number]) Manual Assessments Soft Tissue Assessment Soft Tissue Mobility Mild tone and tenderness to palpation 2/4: Pain with Assessment wincing in cervical paraspinals, upper trap Joint Mobility Assessment Joint Mobility C4 rotated mildly clockwise Assessment PT-OP-K Range of Motion Start: 10/07/24 15:47 Freq: Status: Active Protocol: Document 03/30/25 17:00 DCW (Rec: 03/30/25 17:13 DCW [id number]) Cervical Spine Range of Motion Cervical Spine Active Degrees Testing Position Sitting Flexion 60 Extension 45 Rotation Left 50 Rotation Right 30 Lateral Flexion Left 30 Lateral Flexion 35 Right ROM Limitations Bony Restriction,Muscle Tone,Pain Comments Pain with extension, right rotation, right lateral flexion PT-OP-Q Treatments Start: 10/07/24 15:47 Freq: Status: Active Protocol: Document 05/13/25 15:15 DCW (Rec: 05/13/25 15:57 DCW [id number]) Manual Therapy Treatment Consent Patient gave verbal Yes consent for manual treatment Soft Tissue Mobilization Paraspinals Body Location Cervical paraspinals, Upper Trap, Scalenes Mobilization Type Strumming,Sustained Pressure Intensity/Depth Moderate Body Position Hooklying Manual Traction Cervical Details Cervical Traction Body Position Hooklying PT-OP-T Assessment and Plan Start: 10/07/24 15:47 Freq: Status: Active Protocol: Document 05/13/25 15:15 DCW (Rec: 05/13/25 15:57 DCW [id number]) Physical Therapy Assessment Impairments Impairments Functional Activities,Functional Mobility,Pain,ROM,Tone Goals Two Impairment Pt does not have an appropriate home exercise program Short Term Goal (STG Pt to be independent and compliant with an appropriate ) HEP STG Duration 04/30/25 One Impairment Decreased R cervical rotation limits ability to see traffic while driving Residential Goal (LTG) PT to demonstrate improvement in right cervical rotation from 18? to >30? in order to improve driving safety LTG Duration 05/30/25 Assessment Summary Assessment Tolerated treatment well today. Pt exhibiting some increased tone, however overall much improved from past sessions. Continue to focus on tone management and functional mobility of cervical spine. Physical Therapy Plan Frequency and Duration Frequency of 1x/Week Treatment Plan of Care Start 03/30/25 Date Plan of Care End 05/30/25 Date Therapeutic Interventions Therapeutic Home Exercise Program,Joint Mobilizations,Manual Interventions Therapy,Neuromuscular Re-education,Patient/Caregiver Education,Self-Care/Home Management,Soft Tissue Mobilization,Therapeutic Activities,Therapeutic Exercises Modalities Cold Pack/Ice Massage,Hot Packs Next Visit Focus/Plan Next Note Type Treatment Note Next Visit Plan STM, MWM, cervical strengthening
--- NOTE | 2025-05-27 14:35 | PT.OTN ---
Current Diagnoses Other migraine, not intractable, without status migrainosus (05/27/25) Spondylosis without myelopathy or radiculopathy, cervical region (05/27/25) Physical Therapy Treatment Note PT-OP-A Visit Information Start: 10/07/24 15:47 Freq: Status: Active Protocol: Document 05/27/25 13:51 DCW (Rec: 05/27/25 14:35 DCW [id number]) Out-Patient Physical Therapy Visit Information Visit Information Visit Type Progress Note Visit Start Time 13:51 Visit Stop Time 14:30 Visit Number 13 Number of ALCOHOL RUBBER Visits 0 Evaluation Information Evaluation Date 10/07/24 PT-OP-B Current Condition Start: 10/07/24 15:47 Freq: Status: Active Protocol: Document 10/07/24 15:15 DCW (Rec: 10/07/24 17:51 DCW [id number]) Current Condition History of Current Condition Current Complaints Cervical pain, stiffness History of Current Pt is a 69 year old female presenting to skilled Condition therapy with a long-standing history of cervical dysfunction. Pt has been treated at this clinic for the same symptoms multiple times over the years. Pt often has episodes of severe neck pain, migraines, and decreased cervical mobility, typically worsened by stress in her life. Pt notes that her neck was worsening, but then got a little better, and she is actually doing pretty well at the moment, not nearly as bad as when she usually comes into PT. Does note, however, that she is leaving for a ~3 week long cruise in two weeks, and wants to make sure she does everything she can prior to leaving to hope that her neck does not give her trouble during her vacation. PT-OP-C Subjective Start: 10/07/24 15:47 Freq: Status: Active Protocol: Document 05/27/25 13:51 DCW (Rec: 05/27/25 14:35 DCW [id number]) OP-PT Subjective Patient Comments Patient Comments I'm doing alright. PT-OP-F Manual Assessment Start: 10/07/24 15:47 Freq: Status: Active Protocol: Document 05/27/25 13:51 DCW (Rec: 05/27/25 14:31 DCW [id number]) Manual Assessments Soft Tissue Assessment Soft Tissue Mobility Mild tone and tenderness to palpation 2/4: Pain with Assessment wincing in cervical paraspinals, upper trap PT-OP-K Range of Motion Start: 10/07/24 15:47 Freq: Status: Active Protocol: Document 05/27/25 13:51 DCW (Rec: 05/27/25 14:31 DCW [id number]) Cervical Spine Range of Motion Cervical Spine Active Degrees Testing Position Sitting Flexion 60 Extension 35 Rotation Left 52 Rotation Right 43 Lateral Flexion Left 42 Lateral Flexion 33 Right ROM Limitations Bony Restriction,Muscle Tone,Pain Comments Pain with extension PT-OP-Q Treatments Start: 10/07/24 15:47 Freq: Status: Active Protocol: Document 05/27/25 13:51 DCW (Rec: 05/27/25 14:35 DCW [id number]) Manual Therapy Treatment Consent Patient gave verbal Yes consent for manual treatment Soft Tissue Mobilization Paraspinals Body Location Cervical paraspinals, Upper Trap, Scalenes Mobilization Type Strumming,Sustained Pressure Intensity/Depth Moderate Body Position Hooklying Manual Traction Cervical Details Cervical Traction Body Position Hooklying PT-OP-T Assessment and Plan Start: 10/07/24 15:47 Freq: Status: Active Protocol: Document 05/27/25 13:51 DCW (Rec: 05/27/25 14:35 DCW [id number]) Physical Therapy Assessment Impairments Impairments Functional Activities,Functional Mobility,Pain,ROM,Tone Goals Two Impairment Pt does not have an appropriate home exercise program Short Term Goal (STG Pt to be independent and compliant with an appropriate ) HEP STG Duration 06/27/25 One Impairment Decreased R cervical rotation limits ability to see traffic while driving Brick Pointer Goal (LTG) Pt to demonstrate improvement in right cervical rotation from 18? to >30? in order to improve driving safety LTG Duration 07/28/25 Assessment Summary Assessment Pt demonstrating improved ROM in most cervical directions, however noting increased pain and decreased ROM in extension today. Manual assessment feels okay, noting decreased overall tone, although still present in cervical paraspinals. Continue to focus on STM, tone management, strengthening, and functional mobility. Physical Therapy Plan Frequency and Duration Frequency of 1x/Week Treatment Plan of Care Start 05/27/25 Date Plan of Care End 07/28/25 Date Therapeutic Interventions Therapeutic Home Exercise Program,Joint Mobilizations,Manual Interventions Therapy,Neuromuscular Re-education,Patient/Caregiver Education,Self-Care/Home Management,Soft Tissue Mobilization,Therapeutic Activities,Therapeutic Exercises Modalities Cold Pack/Ice Massage,Hot Packs Next Visit Focus/Plan Next Note Type Treatment Note Next Visit Plan STM, MWM, cervical strengthening
--- NOTE | 2025-05-27 14:35 | PT.OPPOC ---
Physical, Occupational & Speech Therapy At [facility] Current Diagnoses Other migraine, not intractable, without status migrainosus (05/27/25) Spondylosis without myelopathy or radiculopathy, cervical region (05/27/25) Visit Care Team Role Provider Type Balwinder Ocasio MD Attending Provider Physician Family Provider Primary Care Provider Referring Provider Specialty: Internal Medicine Address: [address] [place] [address], [facility] Email: [email or web address] Plan Of Care PT-OP-B Current Condition Start: 10/07/24 15:47 Freq: Status: Active Protocol: Document 10/07/24 15:15 DCW (Rec: 10/07/24 17:51 DCW [id number]) Current Condition History of Current Condition Current Complaints Cervical pain, stiffness History of Current Pt is a 69 year old female presenting to skilled Condition therapy with a long-standing history of cervical dysfunction. Pt has been treated at this clinic for the same symptoms multiple times over the years. Pt often has episodes of severe neck pain, migraines, and decreased cervical mobility, typically worsened by stress in her life. Pt notes that her neck was worsening, but then got a little better, and she is actually doing pretty well at the moment, not nearly as bad as when she usually comes into PT. Does note, however, that she is leaving for a ~3 week long cruise in two weeks, and wants to make sure she does everything she can prior to leaving to hope that her neck does not give her trouble during her vacation. PT-OP-T Assessment and Plan Start: 10/07/24 15:47 Freq: Status: Active Protocol: Document 05/27/25 13:51 DCW (Rec: 05/27/25 14:35 DCW [id number]) Physical Therapy Assessment Impairments Impairments Functional Activities,Functional Mobility,Pain,ROM,Tone Goals Two Impairment Pt does not have an appropriate home exercise program Short Term Goal (STG Pt to be independent and compliant with an appropriate ) HEP STG Duration 06/27/25 One Impairment Decreased R cervical rotation limits ability to see traffic while driving Senior Care Goal (LTG) Pt to demonstrate improvement in right cervical rotation from 18? to >30? in order to improve driving safety LTG Duration 07/28/25 Assessment Summary Assessment Pt demonstrating improved ROM in most cervical directions, however noting increased pain and decreased ROM in extension today. Manual assessment feels okay, noting decreased overall tone, although still present in cervical paraspinals. Continue to focus on STM, tone management, strengthening, and functional mobility. Physical Therapy Plan Frequency and Duration Frequency of 1x/Week Treatment Plan of Care Start 05/27/25 Date Plan of Care End 07/28/25 Date Therapeutic Interventions Therapeutic Home Exercise Program,Joint Mobilizations,Manual Interventions Therapy,Neuromuscular Re-education,Patient/Caregiver Education,Self-Care/Home Management,Soft Tissue Mobilization,Therapeutic Activities,Therapeutic Exercises Modalities Cold Pack/Ice Massage,Hot Packs Next Visit Focus/Plan Next Note Type Treatment Note Next Visit Plan STM, MWM, cervical strengthening Plan of Care Dates Plan of Care Start Date 05/27/25 Plan of Care End Date 07/28/25 Electronically Signed by: Delfin Rodriguez, PT 05/27/25 [id number] If you are in agreement with this Plan of Care, please return a signed and dated copy. I have reviewed this Plan of Care and certify that the skilled therapy services above are required to meet the patient?s needs. Physician Signature Date Printed Name and Credentials Clinical Instructor Signature Printed Name and Credentials
--- NOTE | 2025-06-10 14:30 | PT.OTN ---
Current Diagnoses Other migraine, not intractable, without status migrainosus (06/10/25) Spondylosis without myelopathy or radiculopathy, cervical region (06/10/25) Physical Therapy Treatment Note PT-OP-A Visit Information Start: 10/07/24 15:47 Freq: Status: Active Protocol: Document 06/10/25 13:45 DCW (Rec: 06/10/25 14:30 DCW [id number]) Out-Patient Physical Therapy Visit Information Visit Information Visit Type Treatment Note Visit Start Time 13:45 Visit Stop Time 14:30 Visit Number 14 Number of NURSING ASSISTANT Visits 0 Evaluation Information Evaluation Date 10/07/24 PT-OP-B Current Condition Start: 10/07/24 15:47 Freq: Status: Active Protocol: Document 10/07/24 15:15 DCW (Rec: 10/07/24 17:51 DCW [id number]) Current Condition History of Current Condition Current Complaints Cervical pain, stiffness History of Current Pt is a 69 year old female presenting to skilled Condition therapy with a long-standing history of cervical dysfunction. Pt has been treated at this clinic for the same symptoms multiple times over the years. Pt often has episodes of severe neck pain, migraines, and decreased cervical mobility, typically worsened by stress in her life. Pt notes that her neck was worsening, but then got a little better, and she is actually doing pretty well at the moment, not nearly as bad as when she usually comes into PT. Does note, however, that she is leaving for a ~3 week long cruise in two weeks, and wants to make sure she does everything she can prior to leaving to hope that her neck does not give her trouble during her vacation. PT-OP-C Subjective Start: 10/07/24 15:47 Freq: Status: Active Protocol: Document 06/10/25 13:45 DCW (Rec: 06/10/25 14:30 DCW [id number]) OP-PT Subjective Patient Comments Patient Comments Pt feeling okay today, notes her neck is better than sometimes. PT-OP-F Manual Assessment Start: 10/07/24 15:47 Freq: Status: Active Protocol: Document 05/27/25 13:51 DCW (Rec: 05/27/25 14:31 DCW [id number]) Manual Assessments Soft Tissue Assessment Soft Tissue Mobility Mild tone and tenderness to palpation 2/4: Pain with Assessment wincing in cervical paraspinals, upper trap PT-OP-K Range of Motion Start: 10/07/24 15:47 Freq: Status: Active Protocol: Document 05/27/25 13:51 DCW (Rec: 05/27/25 14:31 DCW [id number]) Cervical Spine Range of Motion Cervical Spine Active Degrees Testing Position Sitting Flexion 60 Extension 35 Rotation Left 52 Rotation Right 43 Lateral Flexion Left 42 Lateral Flexion 33 Right ROM Limitations Bony Restriction,Muscle Tone,Pain Comments Pain with extension PT-OP-Q Treatments Start: 10/07/24 15:47 Freq: Status: Active Protocol: Document 06/10/25 13:45 DCW (Rec: 06/10/25 14:30 DCW [id number]) Manual Therapy Treatment Consent Patient gave verbal Yes consent for manual treatment Soft Tissue Mobilization Paraspinals Body Location Cervical paraspinals, Upper Trap, Scalenes Mobilization Type Strumming,Sustained Pressure Intensity/Depth Moderate Body Position Hooklying Manual Traction Cervical Details Cervical Traction Body Position Hooklying PT-OP-T Assessment and Plan Start: 10/07/24 15:47 Freq: Status: Active Protocol: Document 06/10/25 13:45 DCW (Rec: 06/10/25 14:30 DCW [id number]) Physical Therapy Assessment Impairments Impairments Functional Activities,Functional Mobility,Pain,ROM,Tone Goals Two Impairment Pt does not have an appropriate home exercise program Short Term Goal (STG Pt to be independent and compliant with an appropriate ) HEP STG Duration 06/27/25 One Impairment Decreased R cervical rotation limits ability to see traffic while driving Jail Goal (LTG) Pt to demonstrate improvement in right cervical rotation from 18? to >30? in order to improve driving safety LTG Duration 07/28/25 Assessment Summary Assessment Pt tolerated well, showing improvement with soft tissue tone and mobility. Continues to respond well to STM and cervical traction. Physical Therapy Plan Frequency and Duration Frequency of 1x/Week Treatment Plan of Care Start 05/27/25 Date Plan of Care End 07/28/25 Date Therapeutic Interventions Therapeutic Home Exercise Program,Joint Mobilizations,Manual Interventions Therapy,Neuromuscular Re-education,Patient/Caregiver Education,Self-Care/Home Management,Soft Tissue Mobilization,Therapeutic Activities,Therapeutic Exercises Modalities Cold Pack/Ice Massage,Hot Packs Next Visit Focus/Plan Next Note Type Treatment Note Next Visit Plan STM, MWM, cervical strengthening
--- NOTE | 2025-07-09 17:45 | PT.OTN ---
Current Diagnoses Other migraine, not intractable, without status migrainosus (07/09/25) Spondylosis without myelopathy or radiculopathy, cervical region (07/09/25) Physical Therapy Treatment Note PT-OP-A Visit Information Start: 10/07/24 15:47 Freq: Status: Active Protocol: Document 07/09/25 17:00 DCW (Rec: 07/09/25 17:45 DCW [id number]) Out-Patient Physical Therapy Visit Information Visit Information Visit Type Progress Note Visit Start Time 17:00 Visit Stop Time 17:45 Visit Number 15 Number of CUSTOM SHOP WORKER Visits 0 Progress Note Due 07/28/25 Evaluation Information Evaluation Date 10/07/24 PT-OP-B Current Condition Start: 10/07/24 15:47 Freq: Status: Active Protocol: Document 10/07/24 15:15 DCW (Rec: 10/07/24 17:51 DCW [id number]) Current Condition History of Current Condition Current Complaints Cervical pain, stiffness History of Current Pt is a 69 year old female presenting to skilled Condition therapy with a long-standing history of cervical dysfunction. Pt has been treated at this clinic for the same symptoms multiple times over the years. Pt often has episodes of severe neck pain, migraines, and decreased cervical mobility, typically worsened by stress in her life. Pt notes that her neck was worsening, but then got a little better, and she is actually doing pretty well at the moment, not nearly as bad as when she usually comes into PT. Does note, however, that she is leaving for a ~3 week long cruise in two weeks, and wants to make sure she does everything she can prior to leaving to hope that her neck does not give her trouble during her vacation. PT-OP-C Subjective Start: 10/07/24 15:47 Freq: Status: Active Protocol: Document 07/09/25 17:00 DCW (Rec: 07/09/25 17:45 DCW [id number]) OP-PT Subjective Patient Comments Patient Comments I've really been looking forward to getting in here, my neck has really been bothering me. PT-OP-F Manual Assessment Start: 10/07/24 15:47 Freq: Status: Active Protocol: Document 05/27/25 13:51 DCW (Rec: 05/27/25 14:31 DCW [id number]) Manual Assessments Soft Tissue Assessment Soft Tissue Mobility Mild tone and tenderness to palpation 2/4: Pain with Assessment wincing in cervical paraspinals, upper trap PT-OP-K Range of Motion Start: 10/07/24 15:47 Freq: Status: Active Protocol: Document 05/27/25 13:51 DCW (Rec: 05/27/25 14:31 DCW [id number]) Cervical Spine Range of Motion Cervical Spine Active Degrees Testing Position Sitting Flexion 60 Extension 35 Rotation Left 52 Rotation Right 43 Lateral Flexion Left 42 Lateral Flexion 33 Right ROM Limitations Bony Restriction,Muscle Tone,Pain Comments Pain with extension PT-OP-Q Treatments Start: 10/07/24 15:47 Freq: Status: Active Protocol: Document 07/09/25 17:00 DCW (Rec: 07/09/25 17:45 DCW [id number]) Manual Therapy Treatment Consent Patient gave verbal Yes consent for manual treatment Soft Tissue Mobilization Paraspinals Body Location Cervical paraspinals, Upper Trap, Scalenes Mobilization Type Strumming,Sustained Pressure Intensity/Depth Moderate Body Position Hooklying Manual Traction Cervical Details Cervical Traction Body Position Hooklying PT-OP-T Assessment and Plan Start: 10/07/24 15:47 Freq: Status: Active Protocol: Document 07/09/25 17:00 DCW (Rec: 07/09/25 17:45 DC [id number]) Physical Therapy Assessment Goals Two Impairment Pt does not have an appropriate home exercise program Short Term Goal (STG Pt to be independent and compliant with an appropriate ) HEP STG Duration 06/27/25 One Impairment Decreased R cervical rotation limits ability to see traffic while driving Group Home Goal (LTG) Pt to demonstrate improvement in right cervical rotation from 18? to >30? in order to improve driving safety LTG Duration 07/28/25 Assessment Summary Assessment Pt came in today following ~3 weeks out of state, increased tone and tenderness bilaterally throughout cervical spine. ROM slightly decreased since last visit , but was improved by end of session. Continue to focus on tone management, strengthening, and ROM. Physical Therapy Plan Frequency and Duration Frequency of 1x/Week Treatment Plan of Care Start 05/27/25 Date Plan of Care End 07/28/25 Date Therapeutic Interventions Therapeutic Home Exercise Program,Joint Mobilizations,Manual Interventions Therapy,Neuromuscular Re-education,Patient/Caregiver Education,Self-Care/Home Management,Soft Tissue Mobilization,Therapeutic Activities,Therapeutic Exercises Modalities Cold Pack/Ice Massage,Hot Packs Next Visit Focus/Plan Next Note Type Treatment Note Next Visit Plan STM, MWM, cervical strengthening
--- NOTE | 2025-07-23 14:34 | PT.OTN ---
Addendum entered and electronically signed by Delfin Rodriguze PT 07/23/25 14:37: Pt fell in the lobby of the clinic, reports she was walking out to her car, then decided to use the restroom and turned quickly, twisted her ankle, and fell to the ground. help desk specialist staff came to get this therapist to assist, pt experiencing increased tenderness along lateral ankle and ATF ligament, recommended pt go to ED for potential imaging. Pt in agreement, this therapist and CARMINE Enriquez assist pt into standing and then sat in w/c, pt transported to ED. Original Note: Current Diagnoses Other migraine, not intractable, without status migrainosus (07/23/25) Spondylosis without myelopathy or radiculopathy, cervical region (07/23/25) Physical Therapy Treatment Note PT-OP-A Visit Information Start: 10/07/24 15:47 Freq: Status: Active Protocol: Document 07/23/25 13:50 DCW (Rec: 07/23/25 14:34 DCW [id number]) Out-Patient Physical Therapy Visit Information Visit Information Visit Type Treatment Note Visit Start Time 13:50 Visit Stop Time 14:30 Visit Number 16 Number of SQL SERVER DEVELOPER Visits 0 Progress Note Due 07/28/25 Evaluation Information Evaluation Date 10/07/24 PT-OP-B Current Condition Start: 10/07/24 15:47 Freq: Status: Active Protocol: Document 10/07/24 15:15 DCW (Rec: 10/07/24 17:51 DCW [id number]) Current Condition History of Current Condition Current Complaints Cervical pain, stiffness History of Current Pt is a 69 year old female presenting to skilled Condition therapy with a long-standing history of cervical dysfunction. Pt has been treated at this clinic for the same symptoms multiple times over the years. Pt often has episodes of severe neck pain, migraines, and decreased cervical mobility, typically worsened by stress in her life. Pt notes that her neck was worsening, but then got a little better, and she is actually doing pretty well at the moment, not nearly as bad as when she usually comes into PT. Does note, however, that she is leaving for a ~3 week long cruise in two weeks, and wants to make sure she does everything she can prior to leaving to hope that her neck does not give her trouble during her vacation. PT-OP-C Subjective Start: 10/07/24 15:47 Freq: Status: Active Protocol: Document 07/23/25 13:50 DCW (Rec: 07/23/25 14:34 DCW [id number]) OP-PT Subjective Patient Comments Patient Comments It's certainly better than when I came in last time, but I can tell it's pretty tight. PT-OP-F Manual Assessment Start: 10/07/24 15:47 Freq: Status: Active Protocol: Document 05/27/25 13:51 DCW (Rec: 05/27/25 14:31 DCW [id number]) Manual Assessments Soft Tissue Assessment Soft Tissue Mobility Mild tone and tenderness to palpation 2/4: Pain with Assessment wincing in cervical paraspinals, upper trap PT-OP-K Range of Motion Start: 10/07/24 15:47 Freq: Status: Active Protocol: Document 05/27/25 13:51 DCW (Rec: 05/27/25 14:31 DCW [id number]) Cervical Spine Range of Motion Cervical Spine Active Degrees Testing Position Sitting Flexion 60 Extension 35 Rotation Left 52 Rotation Right 43 Lateral Flexion Left 42 Lateral Flexion 33 Right ROM Limitations Bony Restriction,Muscle Tone,Pain Comments Pain with extension PT-OP-Q Treatments Start: 10/07/24 15:47 Freq: Status: Active Protocol: Document 07/23/25 13:50 DCW (Rec: 07/23/25 14:34 DCW [id number]) Manual Therapy Treatment Consent Patient gave verbal Yes consent for manual treatment Soft Tissue Mobilization Paraspinals Body Location Cervical paraspinals, Upper Trap, Scalenes Mobilization Type Strumming,Sustained Pressure Intensity/Depth Moderate Body Position Hooklying Manual Traction Cervical Details Cervical Traction Body Position Hooklying PT-OP-T Assessment and Plan Start: 10/07/24 15:47 Freq: Status: Active Protocol: Document 07/23/25 13:50 DCW (Rec: 07/23/25 14:34 DCW [id number]) Physical Therapy Assessment Impairments Impairments Functional Activities,Functional Mobility,Pain,ROM,Tone Goals Two Impairment Pt does not have an appropriate home exercise program Short Term Goal (STG Pt to be independent and compliant with an appropriate ) HEP STG Duration 06/27/25 One Impairment Decreased R cervical rotation limits ability to see traffic while driving Group Fitness Assistant Department Head Goal (LTG) Pt to demonstrate improvement in right cervical rotation from 18? to >30? in order to improve driving safety LTG Duration 07/28/25 Assessment Summary Assessment Pt doing better today than last visit, much less tone throughout cervical spine. Will be traveling off and on over the next month or so, and may be undergoing abdominal surgery for a hiatal hernia later next month, may need to discharge due to change in medical status at that time. Physical Therapy Plan Frequency and Duration Frequency of 1x/Week Treatment Plan of Care Start 05/27/25 Date Plan of Care End 07/28/25 Date Therapeutic Interventions Therapeutic Home Exercise Program,Joint Mobilizations,Manual Interventions Therapy,Neuromuscular Re-education,Patient/Caregiver Education,Self-Care/Home Management,Soft Tissue Mobilization,Therapeutic Activities,Therapeutic Exercises Modalities Cold Pack/Ice Massage,Hot Packs Next Visit Focus/Plan Next Note Type Progress Note Next Visit Plan STM, MWM, cervical strengthening
--- NOTE | 2025-07-30 12:19 | PT.OPPOC ---
Physical, Occupational & Speech Therapy At [facility] Current Diagnoses Other migraine, not intractable, without status migrainosus (07/30/25) Spondylosis without myelopathy or radiculopathy, cervical region (07/30/25) Visit Care Team Role Provider Type Balwinder Ocasio MD Attending Provider Physician Family Provider Primary Care Provider Referring Provider Specialty: Internal Medicine Address: [address] [place] [address], [employer] Email: [email or web address] Plan Of Care PT-OP-A Visit Information Start: 10/07/24 15:47 Freq: Status: Active Protocol: Document 07/30/25 11:35 DCW (Rec: 07/30/25 12:18 DCW [id number]) Out-Patient Physical Therapy Visit Information Visit Information Visit Type Progress Note Visit Start Time 11:35 Visit Stop Time 12:15 Visit Number 17 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 Pt has been treated at this clinic for the same symptoms multiple times over the years. Pt often has episodes of severe neck pain, migraines, and decreased cervical mobility, typically worsened by stress in her life. Pt notes that her neck was worsening, but then got a little better, and she is actually doing pretty well at the moment, not nearly as bad as when she usually comes into PT. Does note, however, that she is leaving for a ~3 week long cruise in two weeks, and wants to make sure she does everything she can prior to leaving to hope that her neck does not give her trouble during her vacation. PT-OP-C Subjective Start: 10/07/24 15:47 Freq: Status: Active Protocol: Document 07/30/25 11:35 DCW (Rec: 07/30/25 12:18 DCW [id number]) OP-PT Subjective Patient Comments Patient Comments Pt a little sore still following her ankle sprain last week exiting this clinic. Was cleared by ED. PT-OP-F Manual Assessment Start: 10/07/24 15:47 Freq: Status: Active Protocol: Document 07/30/25 11:35 DCW (Rec: 07/30/25 11:52 DCW [id number]) Manual Assessments Soft Tissue Assessment Soft Tissue Mobility Mild tone and tenderness to palpation 2/4: Pain with Assessment wincing in cervical paraspinals, upper trap PT-OP-K Range of Motion Start: 10/07/24 15:47 Freq: Status: Active Protocol: Document 07/30/25 11:35 DCW (Rec: 07/30/25 11:52 DCW [id number]) Cervical Spine Range of Motion Cervical Spine Active Degrees Testing Position Sitting Flexion 61 Extension 35 Rotation Left 62 Rotation Right 42 Lateral Flexion Left 423 Lateral Flexion 32 Right ROM Limitations Bony Restriction,Muscle Tone,Pain Comments Pain with extension PT-OP-Q Treatments Start: 10/07/24 15:47 Freq: Status: Active Protocol: Document 07/30/25 11:35 DCW (Rec: 07/30/25 12:18 DCW [id number]) Manual Therapy Treatment Consent Patient gave verbal Yes consent for manual treatment Soft Tissue Mobilization Paraspinals Body Location Cervical paraspinals, Upper Trap, Scalenes Mobilization Type Strumming,Sustained Pressure Intensity/Depth Moderate Body Position Hooklying Manual Traction Cervical Details Cervical Traction Body Position Hooklying PT-OP-T Assessment and Plan Start: 10/07/24 15:47 Freq: Status: Active Protocol: Document 07/30/25 11:35 DCW (Rec: 07/30/25 12:18 DCW [id number]) Physical Therapy Assessment Goals Two Impairment Pt does not have an appropriate home exercise program Short Term Goal (STG Pt to be independent and compliant with an appropriate ) HEP STG Duration 06/27/25 One Impairment Decreased R cervical rotation limits ability to see traffic while driving Slurry Man Goal (LTG) Pt to demonstrate improvement in right cervical rotation from 18? to >30? in order to improve driving safety LTG Duration 07/28/25 Assessment Summary Assessment Pt continues to feel fairly stiff and sore through her neck, slightly improved in some areas. Still responds well to STM, but still unclear about upcoming visits based on hiatal hernia. Physical Therapy Plan Frequency and Duration Frequency of 1x/Week Treatment Plan of Care Start 07/30/25 Date Plan of Care End 10/28/25 Date Therapeutic Interventions Therapeutic Home Exercise Program,Joint Mobilizations,Manual Interventions Therapy,Neuromuscular Re-education,Patient/Caregiver Education,Self-Care/Home Management,Soft Tissue Mobilization,Therapeutic Activities,Therapeutic Exercises Modalities Cold Pack/Ice Massage,Hot Packs Next Visit Focus/Plan Next Note Type Treatment Note Next Visit Plan STM, MWM, cervical strengthening Plan of Care Dates Plan of Care Start Date 07/30/25 Plan of Care End Date 10/28/25 Electronically Signed by: Delfin Rodriguez, PT 07/30/25 1489 If you are in agreement with this Plan of Care, please return a signed and dated copy. I have reviewed this Plan of Care and certify that the skilled therapy services above are required to meet the patient?s needs. Physician Signature Date Printed Name and Credentials Clinical Instructor Signature Printed Name and Credentials
--- NOTE | 2025-08-12 10:35 | PT.OTN ---
Current Diagnoses Other migraine, not intractable, without status migrainosus (08/12/25) Spondylosis without myelopathy or radiculopathy, cervical region (08/12/25) Physical Therapy Treatment Note PT-OP-A Visit Information Start: 10/07/24 15:47 Freq: Status: Active Protocol: Document 08/12/25 09:50 DCW (Rec: 08/12/25 10:35 DCW [id number]) Out-Patient Physical Therapy Visit Information Visit Information Visit Type Treatment Note Visit Start Time 09:50 Visit Stop Time 10:30 Visit Number 18 Number of SUEDE BRUSHER Visits 0 Progress Note Due 07/28/25 Evaluation Information Evaluation Date 10/07/24 PT-OP-B Current Condition Start: 10/07/24 15:47 Freq: Status: Active Protocol: Document 10/07/24 15:15 DCW (Rec: 10/07/24 17:51 DCW [id number]) Current Condition History of Current Condition Current Complaints Cervical pain, stiffness History of Current Pt is a 69 year old female presenting to skilled Condition therapy with a long-standing history of cervical dysfunction. Pt has been treated at this clinic for the same symptoms multiple times over the years. Pt often has episodes of severe neck pain, migraines, and decreased cervical mobility, typically worsened by stress in her life. Pt notes that her neck was worsening, but then got a little better, and she is actually doing pretty well at the moment, not nearly as bad as when she usually comes into PT. Does note, however, that she is leaving for a ~3 week long cruise in two weeks, and wants to make sure she does everything she can prior to leaving to hope that her neck does not give her trouble during her vacation. PT-OP-C Subjective Start: 10/07/24 15:47 Freq: Status: Active Protocol: Document 08/12/25 09:50 DCW (Rec: 08/12/25 10:35 DCW [id number]) OP-PT Subjective Patient Comments Patient Comments I'm pretty good, I think it's just mostly the tightness. It's better than usual, I have to say. PT-OP-F Manual Assessment Start: 10/07/24 15:47 Freq: Status: Active Protocol: Document 07/30/25 11:35 DCW (Rec: 07/30/25 11:52 DCW [id number]) Manual Assessments Soft Tissue Assessment Soft Tissue Mobility Mild tone and tenderness to palpation 2/4: Pain with Assessment wincing in cervical paraspinals, upper trap PT-OP-K Range of Motion Start: 10/07/24 15:47 Freq: Status: Active Protocol: Document 07/30/25 11:35 DCW (Rec: 07/30/25 11:52 DCW [id number]) Cervical Spine Range of Motion Cervical Spine Active Degrees Testing Position Sitting Flexion 61 Extension 35 Rotation Left 62 Rotation Right 42 Lateral Flexion Left 423 Lateral Flexion 32 Right ROM Limitations Bony Restriction,Muscle Tone,Pain Comments Pain with extension PT-OP-Q Treatments Start: 10/07/24 15:47 Freq: Status: Active Protocol: Document 08/12/25 09:50 DCW (Rec: 08/12/25 10:35 DCW [id number]) Manual Therapy Treatment Consent Patient gave verbal Yes consent for manual treatment Soft Tissue Mobilization Paraspinals Body Location Cervical paraspinals, Upper Trap, Scalenes Mobilization Type Strumming,Sustained Pressure Intensity/Depth Moderate Body Position Hooklying Manual Traction Cervical Details Cervical Traction Body Position Hooklying PT-OP-T Assessment and Plan Start: 10/07/24 15:47 Freq: Status: Active Protocol: Document 08/12/25 09:50 DCW (Rec: 08/12/25 10:35 DCW [id number]) Physical Therapy Assessment Impairments Impairments Functional Activities,Functional Mobility,Pain,ROM,Tone Goals Two Impairment Pt does not have an appropriate home exercise program Short Term Goal (STG Pt to be independent and compliant with an appropriate ) HEP STG Duration 06/27/25 One Impairment Decreased R cervical rotation limits ability to see traffic while driving Asbestos Removal Worker Goal (LTG) Pt to demonstrate improvement in right cervical rotation from 18? to >30? in order to improve driving safety LTG Duration 07/28/25 Assessment Summary Assessment Pt much better today. Significant decrease in tone, good vertebral mobility. Pt leaving state for next few weeks, hopeful neck continues to feel good. Physical Therapy Plan Frequency and Duration Frequency of 1x/Week Treatment Plan of Care Start 07/30/25 Date Plan of Care End 10/28/25 Date Therapeutic Interventions Therapeutic Home Exercise Program,Joint Mobilizations,Manual Interventions Therapy,Neuromuscular Re-education,Patient/Caregiver Education,Self-Care/Home Management,Soft Tissue Mobilization,Therapeutic Activities,Therapeutic Exercises Modalities Cold Pack/Ice Massage,Hot Packs Next Visit Focus/Plan Next Note Type Treatment Note Next Visit Plan STM, MWM, cervical strengthening
--- NOTE | 2025-09-01 14:30 | PT.OTN ---
Current Diagnoses Other migraine, not intractable, without status migrainosus (09/01/25) Spondylosis without myelopathy or radiculopathy, cervical region (09/01/25) Physical Therapy Treatment Note PT-OP-A Visit Information Start: 10/07/24 15:47 Freq: Status: Active Protocol: Document 09/01/25 13:50 DCW (Rec: 09/01/25 14:29 DCW [id number]) Out-Patient Physical Therapy Visit Information Visit Information Visit Type Progress Note Visit Start Time 13:50 Visit Stop Time 14:30 Visit Number 19 Number of BANDER AND CELLOPHANER MACHINE Visits 0 Progress Note Due 10/01/25 Evaluation Information Evaluation Date 10/07/24 PT-OP-B Current Condition Start: 10/07/24 15:47 Freq: Status: Active Protocol: Document 10/07/24 15:15 DCW (Rec: 10/07/24 17:51 DCW [id number]) Current Condition History of Current Condition Current Complaints Cervical pain, stiffness History of Current Pt is a 69 year old female presenting to skilled Condition therapy with a long-standing history of cervical dysfunction. Pt has been treated at this clinic for the same symptoms multiple times over the years. Pt often has episodes of severe neck pain, migraines, and decreased cervical mobility, typically worsened by stress in her life. Pt notes that her neck was worsening, but then got a little better, and she is actually doing pretty well at the moment, not nearly as bad as when she usually comes into PT. Does note, however, that she is leaving for a ~3 week long cruise in two weeks, and wants to make sure she does everything she can prior to leaving to hope that her neck does not give her trouble during her vacation. PT-OP-C Subjective Start: 10/07/24 15:47 Freq: Status: Active Protocol: Document 09/01/25 13:50 DCW (Rec: 09/01/25 14:29 DCW [id number]) OP-PT Subjective Patient Comments Patient Comments Pt just got back from a trip to [place] on Sunday, but feels things went pretty well, her neck might me a little tighter than when I left. PT-OP-F Manual Assessment Start: 10/07/24 15:47 Freq: Status: Active Protocol: Document 07/30/25 11:35 DCW (Rec: 07/30/25 11:52 DCW [id number]) Manual Assessments Soft Tissue Assessment Soft Tissue Mobility Mild tone and tenderness to palpation 2/4: Pain with Assessment wincing in cervical paraspinals, upper trap PT-OP-K Range of Motion Start: 10/07/24 15:47 Freq: Status: Active Protocol: Document 07/30/25 11:35 DCW (Rec: 07/30/25 11:52 DCW [id number]) Cervical Spine Range of Motion Cervical Spine Active Degrees Testing Position Sitting Flexion 61 Extension 35 Rotation Left 62 Rotation Right 42 Lateral Flexion Left 423 Lateral Flexion 32 Right ROM Limitations Bony Restriction,Muscle Tone,Pain Comments Pain with extension PT-OP-Q Treatments Start: 10/07/24 15:47 Freq: Status: Active Protocol: Document 09/01/25 13:50 DCW (Rec: 09/01/25 14:29 DCW [id number]) Manual Therapy Treatment Consent Patient gave verbal Yes consent for manual treatment Soft Tissue Mobilization Paraspinals Body Location Cervical paraspinals, Upper Trap, Scalenes Mobilization Type Strumming,Sustained Pressure Intensity/Depth Moderate Body Position Hooklying Manual Traction Cervical Details Cervical Traction Body Position Hooklying PT-OP-T Assessment and Plan Start: 10/07/24 15:47 Freq: Status: Active Protocol: Document 09/01/25 13:50 DCW (Rec: 09/01/25 14:29 DCW [id number]) Physical Therapy Assessment Impairments Impairments Functional Activities,Functional Mobility,Pain,ROM,Tone Goals Two Impairment Pt does not have an appropriate home exercise program Short Term Goal (STG Pt to be independent and compliant with an appropriate ) HEP STG Duration 06/27/25 One Impairment Decreased R cervical rotation limits ability to see traffic while driving Team Automobile Assembler Goal (LTG) Pt to demonstrate improvement in right cervical rotation from 18? to >30? in order to improve driving safety LTG Duration 07/28/25 Assessment Summary Assessment Pt soft tissue tone doing very good today, tolerated treatment well. ROM improving overall. Pt likely approaching discharge, provided her cervical mobility and tone remains stable over the next few visits. Physical Therapy Plan Frequency and Duration Frequency of 1x/Week Treatment Plan of Care Start 07/30/25 Date Plan of Care End 10/28/25 Date Therapeutic Interventions Therapeutic Home Exercise Program,Joint Mobilizations,Manual Interventions Therapy,Neuromuscular Re-education,Patient/Caregiver Education,Self-Care/Home Management,Soft Tissue Mobilization,Therapeutic Activities,Therapeutic Exercises Modalities Cold Pack/Ice Massage,Hot Packs Next Visit Focus/Plan Next Note Type Treatment Note Next Visit Plan STM, NIKKIM, cervical strengthening
--- NOTE | 2025-09-29 14:28 | PT.OTN ---
Current Diagnoses Other migraine, not intractable, without status migrainosus (09/29/25) Spondylosis without myelopathy or radiculopathy, cervical region (09/29/25) Physical Therapy Treatment Note PT-OP-A Visit Information Start: 10/07/24 15:47 Freq: Status: Active Protocol: Document 09/29/25 13:50 DCW (Rec: 09/29/25 14:28 DCW [id number]) Out-Patient Physical Therapy Visit Information Visit Information Visit Type Discharge Summary Visit Start Time 13:50 Visit Stop Time 14:30 Visit Number 20 Number of DRYWALL APPLICATOR Visits 0 Progress Note Due 10/01/25 Evaluation Information Evaluation Date 10/07/24 PT-OP-B Current Condition Start: 10/07/24 15:47 Freq: Status: Active Protocol: Document 10/07/24 15:15 DCW (Rec: 10/07/24 17:51 DCW [id number]) Current Condition History of Current Condition Current Complaints Cervical pain, stiffness History of Current Pt is a 69 year old female presenting to skilled Condition therapy with a long-standing history of cervical dysfunction. Pt has been treated at this clinic for the same symptoms multiple times over the years. Pt often has episodes of severe neck pain, migraines, and decreased cervical mobility, typically worsened by stress in her life. Pt notes that her neck was worsening, but then got a little better, and she is actually doing pretty well at the moment, not nearly as bad as when she usually comes into PT. Does note, however, that she is leaving for a ~3 week long cruise in two weeks, and wants to make sure she does everything she can prior to leaving to hope that her neck does not give her trouble during her vacation. PT-OP-C Subjective Start: 10/07/24 15:47 Freq: Status: Active Protocol: Document 09/29/25 13:50 DCW (Rec: 09/29/25 14:28 DCW [id number]) OP-PT Subjective Patient Comments Patient Comments Pt notes her neck is a little flared up today, was bothering her after riding in a car with some quick stops. PT-OP-F Manual Assessment Start: 10/07/24 15:47 Freq: Status: Active Protocol: Document 07/30/25 11:35 DCW (Rec: 07/30/25 11:52 DCW [id number]) Manual Assessments Soft Tissue Assessment Soft Tissue Mobility Mild tone and tenderness to palpation 2/4: Pain with Assessment wincing in cervical paraspinals, upper trap PT-OP-K Range of Motion Start: 10/07/24 15:47 Freq: Status: Active Protocol: Document 07/30/25 11:35 DCW (Rec: 07/30/25 11:52 DCW [id number]) Cervical Spine Range of Motion Cervical Spine Active Degrees Testing Position Sitting Flexion 61 Extension 35 Rotation Left 62 Rotation Right 42 Lateral Flexion Left 423 Lateral Flexion 32 Right ROM Limitations Bony Restriction,Muscle Tone,Pain Comments Pain with extension PT-OP-Q Treatments Start: 10/07/24 15:47 Freq: Status: Active Protocol: Document 09/29/25 13:50 DCW (Rec: 09/29/25 14:28 DCW [id number]) Manual Therapy Treatment Consent Patient gave verbal Yes consent for manual treatment Soft Tissue Mobilization Paraspinals Body Location Cervical paraspinals, Upper Trap, Scalenes Mobilization Type Strumming,Sustained Pressure Intensity/Depth Moderate Body Position Hooklying Manual Traction Cervical Details Cervical Traction Body Position Hooklying PT-OP-T Assessment and Plan Start: 10/07/24 15:47 Freq: Status: Active Protocol: Document 09/29/25 13:50 DCW (Rec: 09/29/25 14:28 DCW [id number]) Physical Therapy Assessment Impairments Impairments Functional Activities,Functional Mobility,Pain,ROM,Tone Goals Two Impairment Pt does not have an appropriate home exercise program Short Term Goal (STG Pt to be independent and compliant with an appropriate ) HEP STG Duration 06/27/25 One Impairment Decreased R cervical rotation limits ability to see traffic while driving Senior Living Goal (LTG) Pt to demonstrate improvement in right cervical rotation from 18? to >30? in order to improve driving safety LTG Duration 07/28/25 Assessment Summary Assessment Pt largely plateaued, appropriate for discharge at this time. Pt understands that she will require a new referral in order to return in the future if needed. Physical Therapy Plan Frequency and Duration Frequency of 1x/Week Treatment Plan of Care Start 07/30/25 Date Plan of Care End 10/28/25 Date Therapeutic Interventions Therapeutic Home Exercise Program,Joint Mobilizations,Manual Interventions Therapy,Neuromuscular Re-education,Patient/Caregiver Education,Self-Care/Home Management,Soft Tissue Mobilization,Therapeutic Activities,Therapeutic Exercises Modalities Cold Pack/Ice Massage,Hot Packs Next Visit Focus/Plan Next Note Type Treatment Note Next Visit Plan STM, MWM, cervical strengthening
== END 2025-09-30 08:00 | disposition home or self-care (01) ==
LOC: PHYS 13:45
PROVIDERS: Family Provider Internal Medicine; PCP Internal Medicine; Referring Provider Internal Medicine; Visit Provider Internal Medicine
DX: G43.809 Other migraine, not intractable, without status migrainosus (principal); M47.812 Spondylosis without myelopathy or radiculopathy, cervical region
CPT/HCPCS: 97140; 97161

== ENCOUNTER 2025-10-08 18:31 | Emergency (ER) | payer MEDICARE, SELFPAY ==
[2025-10-08 18:35] VITALS: BP 139/67; PULSE 76; RESP 18; TEMP 37.3; O2SAT 97; BMI 30.7
--- NOTE | 2025-10-08 18:58 | ED_ITS ---
HPI - Animal Bite General Chief Complaint: Animal Bite Stated Complaint: Dog bite RT ankle Time Seen by Provider: 10/08/25 18:35 Source: patient Mode of arrival: Ambulatory History of Present Illness HPI narrative: 70-year-old female was bitten by vaccinated Janie small dog on the right ankle prior to arrival. Patient stated that dog belonged to neighbor, was a skilled nursing rescue dog, that had completed course of rabies vaccination, told that the dog has ?all of its vaccinations.? Unprovoked but apparently this rescue animal skilled nursing animal had been fully vaccinated per patient. Small lacerations to the medial right ankle near the Achilles. Patient currently on doxycycline multi week course for facial rosacea like problem. No known drug allergies to penicillins. Related Data Home Medications ?Medication ?Instructions ?Recorded ?Confirmed aspirin 81 mg tablet,delayed 81 mg PO QDAY ##0 7 09/24/25 release cholecalciferol (vitamin D3) 50 50 mcg PO DAILY 09/24/25 mcg (2,000 unit) capsule cyclosporine 0.05 % eye drops in a drp ophthalmic (eye ) Dry Eye 05/18/25 09/14/25 dropperette (Restasis) latanoprost 0.005 % eye drops drp ophthalmic (eye) Min or Optical 05/18/25 09/14/25 Nerve Damage Previous Rx's ?Medication ?Instructions ?Recorded levothyroxine 88 mcg tablet 88 mcg PO DAILY #90 tabs 0 05/14/25 propranolol 10 mg tablet 30 mg (3 x 10 mg) PO DAILY P RN 05/14/25 tremor #90 tabs Estriol Vaginal 0.1% Cream 1 g vaginal 2XW #30 grams 0 05/18/25 trazodone 50 mg tablet 25 mg (1/2 x 50 mg) PO BEDTI ME PRN 09/21/25 insomnia #45 tabs omeprazole 40 mg capsule,delayed 40 mg PO DAILY #90 ca ps 09/25/25 release amoxicillin 875 mg-potassium 1 tab PO BID #14 tabs clavulanate 125 mg tablet Allergies Allergy/AdvReac Type Severity Reaction Status Date / Time latex (LATEX) Allergy Severe Blister Verified 10/08/25 18:35 adhesive Allergy Intermediate Rash Verified 10/08/25 18:35 rivaroxaban (From Xarelto) Allergy Intermediate Verified 10/08/25 18:35 tramadol Allergy Intermediate Vomiting Verified 10/08/25 18:35 Patient History Medical History (Updated 10/08/25 @ 19:06 by Raphael Woodson MD) B12 deficiency GERD without esophagitis Menopausal syndrome History of colonic polyps Osteopenia Overweight Benign essential tremor Vertigo of cervical arthrosis syndrome Migraine, cervicogenic Hearing loss Rosacea Sjogren's syndrome (~2001) Cervical spine disease (~1980) Mumps (~1968) Chicken pox (~1967) DJD (degenerative joint disease), cervical History of pulmonary embolism Depression, major, recurrent Generalized anxiety disorder Acquired hypothyroidism (~1972) Surgical History History of carpal tunnel surgery (~2019) Family History Father Alzheimer's disease Mother COPD (chronic obstructive pulmonary disease) Brother Frontal lobe dementia Grandfather ALS (amyotrophic lateral sclerosis) Grandmother Stroke Grandmother Cancer Social History (Updated 05/11/25 @ 13:42 by Tory Wagner MA) marital status: details: Parents are both (they were in 1977) number of children: 0 household members: spouse lives independently: Yes caregiver/support person: No pets and animals: Yes (One cat) occupational status: previously employed current occupational exposures/hazards: No Previous occupational history: Retired from the [employer] industry in 2016 yolanda/amish: [employer] special yolanda needs: No travel history: recent sexual history: Monogamous with 37 years leisure activities: exercise and reading other: Knitting and sewing seatbelt use: always helmet use: Yes (Bike riding, which I don't do much of anymore) water heater temp set < 120 deg: Yes working smoke detector in home: Yes fire extinguisher in home: No (Fire blanket instead) carbon monox detector in home: Yes firearms in home: No do you feel safe at home: Yes Smoking Status: Never smoker second hand exposure: Yes (During childhood) alcohol intake: current during the past year weight has: increased > 10 lbs well-balanced diet: about half the time daily servings fruits/ve or more times/day caffeine: Yes (I drink decaf at home) eating out: 4 or more times/week Type(s) of exercise: walking and advised to exercise at least 150 min/week (moderate intensity aerobic) frequency: 1-2 times per week duration: 30-45 minutes/day additional social history: 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 My mom lived with us her last three years and of severe COPD in 2016. Concurrently, my brother was suffering continually worsening symptoms of Frontotemporal Lobe Dementia with Behavioral Variants. He went into memory care in 2017. Towards his end he had extreme ALS-like symptoms and very recently passed in February 2025. It was a tough decade, and I am now adjusting to them both being gone. My has been extremely supportive, and I am fine if a bit exhausted. Smoking Status: Never smoker alcohol intake frequency: holidays/special occasions only Exam Narrative Exam Narrative: GENERAL: Well-developed patient, in mild distress. HEAD: Atraumatic. Normocephalic. EYES: Pupils equal round and reactive. Extraocular motions intact. No scleral icterus. No injection or drainage. ENT: Nose without bleeding, purulent drainage. Airway patent. No obvious swelling to lips or face. No facial lesions. NECK: Trachea midline. Non tender CARDIOVASCULAR: Regular rate and rhythm without murmurs, gallops, or rubs. RESPIRATORY: Clear to auscultation. Breath sounds equal bilaterally. No wheezes, rales, or rhonchi. GASTROINTESTINAL: Abdomen soft, non-tender, nondistended. EXTREMITIES: Right ankle medial aspect small nonsuturable subcentimeter linear lacerations with no active bleeding, more toward the posterior Achilles region then over bony prominence, no palpable foreign body no visible foreign body. BACK: Nontender without deformity or crepitance. No flank tenderness. NEURO: AOx3. Motor functions grossly nonfocal. SKIN: No rash or erythema of visible areas Initial Vital Signs Initial Vital Signs: Vital Signs Temperature 99.2 F 10/08/25 18:35 Pulse Rate 76 10/08/25 18:35 Respiratory Rate 18 10/08/25 18:35 Blood Pressure 139/67 10/08/25 18:35 Pulse Oximetry 97 10/08/25 18:35 Oxygen Delivery Method Room Air 10/08/25 18:35 Course Orders Ordered: Discontinued Medications Amoxicillin/Clavulanate Potassium (Amoxicillin/Clav 875/125 Mg) 1 tab PO NOW ONE Stop: 10/08/25 18:59 Last Admin: 10/08/25 19:12 Dose: 1 tab Documented By: DINORAH Bacitracin (Bacitracin Oint 0.9 Gm Pckt) 1 applic TOP NOW ONE Stop: 10/08/25 19:09 Last Admin: 10/08/25 19:13 Dose: 1 applic Documented By: DINORAH Vital Signs Vital signs: Vital Signs - 8 hr 10/08/25 18:35 10/08/25 19:22 Temperature 99.2 F Pulse Rate 76 Respiratory Rate 18 Blood Pressure 139/67 Pulse Oximetry 97 Oxygen Delivery Method Room Air Room Air MDM - Animal Bite MDM Narrative Medical decision making narrative: 70-year-old female had dog bite from neighbor through our, believes the dog has received vaccinations, dog bite earlier this evening, tetanus shot up-to-date was last given April 2021. On doxycycline from lap maker for some kind of chronic chalazion problem. No known drug allergies to penicillins. Oral Augmentin given, further prescription for Augmentin course sent to her pharmacy. Local wound cleasing by nursing, Steri-Strips applied by nursing. Offered x- ray to look for broken tooth foreign body, declined. Wound check advised with PCP in the next couple of days, which would hit over the , consider recheck on Sunday after the . Return precautions discussed. Home with family. Discharge Plan Departure Patient Disposition: Home Clinical Impression: Dog bite of ankle Activity Restrictions/Additional Instructions: Dog bite right ankle from vaccinated domestic dog. Low risk by history for any rabies exposure. Unfortunately there can be wound infection problems with animal bites including dog bites. No allergies to penicillins. First dose of Augmentin antibiotic given, prescription for further Augmentin course prescribed. We did briefly discuss x-ray imaging, less likely to look for any bony fracture as the soft tissue injuries or not over bones, but to look for any foreign bodies, soft tissue bite, seems less likely any tooth would be broken, screening x-rays declined. Last tetanus April 2021 up-to-date at present (less than 5 years ago). Local wound care irrigation and series strip partial closure for now. Recheck wound Sunday in clinic advised with your regular doctor. Return earlier to this/nearest emergency department for any change worsening symptoms or concerns prior. Prescriptions: New amoxicillin-pot clavulanate 875-125 mg tablet 1 tab PO BID Qty: 14 0RF No Action aspirin 81 MG tablet,delayed release (DR/EC) 81 mg PO QDAY Qty: 0 propranolol 10 mg tablet 30 mg PO DAILY PRN (Reason: tremor) Qty: 90 11RF Rx Instructions: 3 tablets daily as needed for tremor levothyroxine 88 mcg tablet 88 mcg PO DAILY Qty: 90 3RF trazodone 50 mg tablet 25 mg PO BEDTIME PRN (Reason: insomnia) Qty: 45 3RF omeprazole 40 mg capsule,delayed release(DR/EC) 40 mg PO DAILY Qty: 90 0RF Rx Instructions: Take as prescribed by provider latanoprost 0.005 % drops ophthalmic (eye) Patient Comments: While I do not yet have glaucoma, it runs in my family and my pressures have been 20 for the past two years. This is to lower my eye pressure and prevent further optical nerve damage. cyclosporine [Restasis] 0.05 % dropperette ophthalmic (eye) Estriol Vaginal 0.1% Cream 0.1 % cream 1 g vaginal 2XW Qty: 30 3RF Rx Instructions: Insert 1 gram vaginally at bedtime twice weekly; [facility] fax:[phone]. cholecalciferol (vitamin D3) 50 mcg (2,000 unit) capsule 50 mcg PO DAILY Referrals: Balwinder Ocasio MD [Primary Care Provider, Internal Medicine] Stand Alone Forms: Patient Portal/API
[2025-10-08] MEDS: AMOXICILLIN/CLAV 875/125 MG 1 TAB PO (19:12)
[2025-10-08] MEDS: BACITRACIN OINT 0.9 GM PCKT 1 APPLIC TOP (19:13)
== END 2025-10-08 19:23 | disposition home or self-care (01) ==
PROVIDERS: Emergency Provider Emergency Medicine; PCP Internal Medicine
DX: S91.051A Open bite, right ankle, initial encounter (principal); W54.0XXA Bitten by dog, initial encounter
CPT/HCPCS: 99283

== ENCOUNTER → 2025-11-09 15:34 | Outpatient (CLI) | payer MEDICARE, SELFPAY ==
--- NOTE | 2025-11-09 15:35 | EKG_ITS ---
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
== END ==
PROVIDERS: PCP Internal Medicine; Referring Provider Internal Medicine; Visit Provider Internal Medicine
DX: Z01.818 Encounter for other preprocedural examination (principal)
CPT/HCPCS: 93005